=== PATIENT | male | born 1975 | race African-American/Black ===

== ENCOUNTER → 2018-02-03 | Outpatient (CLI) | payer OTHER ==
[2018-02-03 17:07] LABS: Anisocytosis Slight; Basophils % (A) 1 %; Eosinophils # (A) 0.2 k/uL (0-0.7); Eosinophils % (A) 2 %; HCT 41.5 % (39.0-53.0); HGB 12.7 gm/dL (13.0-17.5); Hypochromasia Moderate; Lymphocytes # (A) 1.8 k/uL (1.0-4.8); Lymphocytes % (A) 23 %; MCH 27.9 pg (25.0-35.0); MCHC 30.6 g/dL (31.0-37.0); MCV 90.9 fL (80.0-100.0); Mean Platelet Volume 7.3; Monocytes # (A) 0.8 k/uL (0-1.0); Monocytes % (A) 10 %; Neutrophils # (A) 4.7 k/uL (1.3-7.7); Neutrophils % (A) 62 %; Platelet Count 303 k/uL (150-450); RBC 4.56 m/uL (4.30-5.90); RDW 16.6 % (11.5-15.5); WBC 7.7 k/uL (3.8-10.6)
[2018-02-04 05:08] LABS: Hepatitis B Surface AB- Quant 3.5 mIU/mL; Hepatitis C IgG Antibody Non-Reactive (Non-Reactive)
[2018-02-04 08:26] LABS: Albumin 3.6 g/dL (3.80-4.90); Albumin/Globulin Ratio 1.64 (1.20-2.10); Anion Gap 5.4 mmol/L (4.00-12.00); Calcium 8.6 mg/dL (8.7-10.3); Carbon Dioxide 27.6 mmol/L (21.6-31.8); Globulin 2.2 g/dL (2.1-3.7); Potassium 4.9 mmol/L (3.5-5.5); Total Bilirubin 0.5 mg/dL (0.2-1.2); Total Protein 5.8 g/dL (6.2-8.2)
== END | disposition home or self-care (01) ==
LOC: LABWHC1 16:05
PROVIDERS: ATTEND Internal Medicine Gastroenterology
DX: K50.80 Crohn's disease of both small and large intestine without complications (principal)
CPT/HCPCS: 36415; 80053; 85025; 86480; 86706; 86803; 87340

== ENCOUNTER 2018-02-10 04:35 | Inpatient (IN) | payer OTHER ==
[~2018-02-10 04:35] MED LIST: GLYCOPYRROLATE 0.2 MG/ML 2 ML VIAL ONE; HYDROmorphone (PF) 1 MG/ML ONE; LIDOCAINE 1% INJ 10MG/ML (20 ML MDV) ONE; MIDAZOLAM 2 MG/2 ML VIAL ONE; NEOSTIGMINE 1 MG/ML 10 ML VIAL ONE; PROPOFOL 10 MG/ML 20 ML VIAL IV ONE; ROCURONIUM BROMIDE 10 MG/ML 10 ML VIAL IV ONE; SUCCINYLCHOLINE CHLORIDE VIAL 200 MG/10 ML VIAL IV ONE; fentaNYL (PF) 50 MCG/ML 2 ML AMP ONE
--- NOTE | 2018-02-10 05:38 | XR ---
EXAMINATION TYPE: XR KUB DATE OF EXAM: 02/10/2018 COMPARISON: 01/01/2016 HISTORY: Abdominal pain TECHNIQUE: 2 views upright FINDINGS: There are some dilated air and fluid-filled loops of bowel in the upper abdomen. There are fluid levels. I see no definite pneumoperitoneum. There are no pathologic calcifications over the kid neys. IMPRESSION: Dilated small bowel suggestive of mechanical small bowel obstruction. This appears new co mpared to old exam. No evidence of free air.
--- NOTE | 2018-02-10 06:07 | ED ---
Abdominal Pain HPI - General Chief Complaint: Abdominal Pain Stated Complaint: Abd Pain Hx Bowel Obstruction Time Seen by Provider: 02/10/18 06:06 Source: patient Mode of arrival: ambulatory Limitations: no limitations - History of Present Illness Initial Comments: 42-year-old male history of Crohn's disease recently admitted to outside facility for small bowel obstruction was discharged last week on prednisone for management of his Crohn's. Returns today with persistent abdominal pain, nausea without vomiting decreased appetite. Last bowel movement was earlier in the night. Patient denies any associated complaints including fevers, chills, chest pain or trouble breathing. - Related Data Home Medications Medication Instructions Recorded Confirmed Balsalazide Disodium 750 mg PO DAILY 01/08/17 01/08/17 Dicyclomine [Bentyl] 10 mg PO DAILY 01/08/17 01/08/17 Mesalamine [Delzicol] 800 mg PO TID 01/08/17 01/08/17 amLODIPine [Norvasc] 5 mg PO DAILY 01/08/17 01/08/17 oxyCODONE-APAP 7.5-325MG [Percocet 1 tab PO BID 01/08/17 01/08/17 7.5-325 mg] predniSONE 10 mg PO DAILY 01/08/17 01/08/17 Previous Rx's Medication Instructions Recorded Aspirin 81 mg PO DAILY #30 chew 01/10/17 Atorvastatin [Lipitor] 20 mg PO HS #30 tab 01/10/17 Metoprolol Tartrate [Lopressor] 25 mg PO BID #60 tab 01/10/17 Allergies Allergy/AdvReac Type Severity Reaction Status Date / Time No Known Allergies Allergy Verified 02/10/18 04:44 Review of Systems ROS Statement: Those systems with pertinent positive or pertinent negative responses have been documented in the HPI. ROS Other: All systems not noted in ROS Statement are negative. Past Medical History Past Medical History: Hypertension Additional Past Medical History / Comment(s): Crohn's History of Any Multi-Drug Resistant Organisms: None Reported Past Surgical History: Hernia Repair Additional Past Surgical History / Comment(s): COLONOSCOPY,RT INGUINAL HERNIA REPAIR,"PART OF RT GROIN MUSCLE AND RT TESTICAL REMOVED D/T HERNIA" Past Anesthesia/Blood Transfusion Reactions: No Reported Reaction Additional Past Anesthesia/Blood Transfusion Reaction / Comment(s): never had anesthesia Past Psychological History: No Psychological Hx Reported Smoking Status: Current every day smoker Past Alcohol Use History: None Reported Past Drug Use History: None Reported - Past Family History Father Additional Family Medical History / Comment(s): MURMUR Mother Family Medical History: Hypertension General Exam - General Exam Comments Initial Comments: Physical Exam GENERAL: Patient is well-developed and well-nourished. Patient appears uncomfortable, mildly dehydrated HENT: Normocephalic, Atraumatic. EYES: PERRL, EOMI PULMONARY: Unlabored respirations. No audible rales rhonchi or wheezing was noted. CARDIOVASCULAR: There is a regular rate and rhythm without any murmurs gallops or rubs. ABDOMEN: Obese, mildly distended, tenderness to palpation in all quadrants, there are normal active bowel sounds and all quadrants SKIN: Skin is clear with no lesions or rashes and otherwise unremarkable. : Deferred NEUROLOGIC: Patient is alert and oriented x3. Moving all extremities spontaneously MUSCULOSKELETAL: Normal extremities with adequate strength and full range of motion. No lower extremity swelling or edema. No calf tenderness. PSYCHIATRIC: Normal psychiatric evaluation. Limitations: no limitations Limitations: no limitations Course Vital Signs 02/10/18 04:42 Temperature 98.0 F Pulse Rate 77 Respiratory 18 Rate Blood Pressure 145/96 O2 Sat by Pulse 98 Oximetry Medical Decision Making - Medical Decision Making Patient was seen and evaluated, history is obtained from the patient. Labs and imaging were ordered. Neck sinus and KUB x-ray suggestive of small bowel obstruction Patient declining an NG tube. Patient agreeable to computed tomography scan. Labs reveal leukocytosis neutrophilia this is likely secondary to steroid use Discussed the Dr. Willingham who accepts the admission for small bowel obstruction , plan to treat with supportive care, requests a consult to Dr. Anne surgery. Patient care was discussed with Dr. Anne who will follow-up on computed tomography scan. - Lab Data Result diagrams: 02/10/18 05:17 02/10/18 05:17 Lab Results 02/10/18 02/10/18 Range/Units 05:17 05:17 WBC 11.6 H (3.8-10.6) k/uL RBC 4.91 (4.30-5.90) m/uL Hgb 13.8 (13.0-17.5) gm/dL Hct 43.6 (39.0-53.0) % MCV 88.9 (80.0-100.0) fL MCH 28.2 (25.0-35.0) pg MCHC 31.7 (31.0-37.0) g/dL RDW 16.5 H (11.5-15.5) % Plt Count 313 (150-450) k/uL Neutrophils % 76 % Lymphocytes % 13 % Monocytes % 8 % Eosinophils % 1 % Basophils % 0 % Neutrophils # 8.8 H (1.3-7.7) k/uL Lymphocytes # 1.5 (1.0-4.8) k/uL Monocytes # 0.9 (0-1.0) k/uL Eosinophils # 0.1 (0-0.7) k/uL Basophils # 0.1 (0-0.2) k/uL Anisocytosis Slight Sodium 140 (137-145) mmol/L Potassium 4.6 (3.5-5.1) mmol/L Chloride 107 (98-107) mmol/L Carbon Dioxide 23 (22-30) mmol/L Anion Gap 10 mmol/L BUN 17 (9-20) mg/dL Creatinine 0.94 (0.66-1.25) mg/dL Est GFR (CKD-EPI)AfAm >90 (>60 ml/min/1.73 sqM) Est GFR (CKD-EPI)NonAf >90 (>60 ml/min/1.73 sqM) Glucose 88 (74-99) mg/dL Calcium 9.7 (8.4-10.2) mg/dL Total Bilirubin 0.7 (0.2-1.3) mg/dL AST 16 L (17-59) U/L ALT 21 (21-72) U/L Alkaline Phosphatase 36 L (38-126) U/L Total Protein 6.9 (6.3-8.2) g/dL Albumin 3.5 (3.5-5.0) g/dL Amylase 40 (30-110) U/L Lipase 33 (23-300) U/L Disposition Clinical Impression: Small bowel obstruction Disposition: ADMITTED IP TO THIS [facility] Referrals: None,Stated [Primary Care Provider] - 1-2 days
[2018-02-10 06:32] LABS: Anisocytosis Slight; Basophils # (A) 0.1 k/uL (0-0.2); Basophils % (A) 0 %; Eosinophils # (A) 0.1 k/uL (0-0.7); Eosinophils % (A) 1 %; HCT 43.6 % (39.0-53.0); HGB 13.8 gm/dL (13.0-17.5); Lymphocytes # (A) 1.5 k/uL (1.0-4.8); Lymphocytes % (A) 13 %; MCH 28.2 pg (25.0-35.0); MCHC 31.7 g/dL (31.0-37.0); MCV 88.9 fL (80.0-100.0); Mean Platelet Volume 7.7; Monocytes # (A) 0.9 k/uL (0-1.0); Monocytes % (A) 8 %; Neutrophils # (A) 8.8 k/uL (1.3-7.7); Neutrophils % (A) 76 %; Platelet Count 313 k/uL (150-450); RBC 4.91 m/uL (4.30-5.90); RDW 16.5 % (11.5-15.5); WBC 11.6 k/uL (3.8-10.6)
[2018-02-10 06:51] LABS: ALT 21 U/L (21-72); AST 16 U/L (17-59); Albumin 3.5 g/dL (3.5-5.0); Alkaline Phosphatase 36 U/L (38-126); Amylase 40 U/L (30-110); Anion Gap 10 mmol/L; Blood Urea Nitrogen 17 mg/dL (9-20); Calcium 9.7 mg/dL (8.4-10.2); Carbon Dioxide 23 mmol/L (22-30); Chloride 107 mmol/L (98-107); Glucose 88 mg/dL (74-99); Lipase 33 U/L (23-300); Potassium 4.6 mmol/L (3.5-5.1); Sodium 140 mmol/L (137-145); Total Bilirubin 0.7 mg/dL (0.2-1.3); Total Protein 6.9 g/dL (6.3-8.2)
[2018-02-10] MEDS ORDERED: SODIUM CHLORIDE 0.9% 1,000 ML IV ONE (06:58)
[2018-02-10] MEDS ORDERED: MORPHINE SULFATE 4 MG/ML SYRINGE IV PRN (07:28)
[2018-02-10] MEDS ORDERED: NALOXONE 0.4 MG/ML 1 ML VIAL IV PRN (07:28)
[2018-02-10] MEDS: SODIUM CHLORIDE 0.9% 1,000 ML IV SCH ×2 (07:31→16:32)
--- NOTE | 2018-02-10 07:57 | CT ---
EXAMINATION TYPE: CT abdomen pelvis w con DATE OF EXAM: 02/10/2018 COMPARISON: 12/06/2010 HISTORY: 42-year-old male small bowel obstruction on x-ray, pain, further evaluation History of Crohn 's disease TECHNIQUE: Contiguous axial scanning of the abdomen and pelvis following administration of 100 ml Iso yevgeniy 300 IV contrast. Delayed images through the kidneys and coronal/sagittal reconstructions perform ed. CT DLP: 2469.40 mGycm Automated exposure control for dose reduction was used. FINDINGS: Heart normal size without pericardial effusion. Lung bases clear without oral effusion. No focal liver lesion or biliary ductal dilatation. Portal venous system is patent. Gallbladder appears collapsed. Suspected tiny calcified lymph node in the oh hepatis or vascular c alcification. Adrenal glands, spleen, and pancreas appear within normal limits. Cortical cysts in the right kidney measuring up to 2.3 cm, new or larger from 12/06/2010. An intermedi ate density 9 mm cortical lesion anterior left kidney at the mid to lower pole also appears new. A co mplicated cyst is possible. Six-month follow-up ultrasound recommended to exclude any enlarging renal lesion. No free air or free fluid. However, there is diffuse small bowel dilatation with small bowel loops in the left side of the abdomen measuring up to 4.5 cm and in the right side of the abdomen measuring u p to 7.8 cm prior to the transition point noted at the terminal ileum, axial image 65. Air-fluid leve ls are present. 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 Right mid and lower quadrant mesenteric lymphadenopathy measuring up to 1.9 cm and 2.0 cm. Tiny fatty umbilical hernia. Bladder not distended. No abnormal fluid collection in the pelvis or pelvic lymphadenopathy. Bones: There is mild degenerative spurring at the hips and additional mild degenerative spurring at t he SI joints. No osseous destructive process. IMPRESSION: 1. HIGH-GRADE SMALL BOWEL OBSTRUCTION POSSIBLY SECONDARY TO A INFLAMMATORY DISTAL ILEAL STRICTURE. SM ALL BOWEL LOOPS ARE DILATED UP TO 7.8 CM. 2. [id number] ACTIVE DISTAL CROHN'S ILEITIS. THERE ARE WHAT APPEAR TO BE 3 ENTEROENTERIC FISTUL AT THE DISTAL ILEAL TRANSITION POINT COMPATIBLE WITH CHRONIC COMPLICATIONS OF CROHN'S DISEASE. 3. SOME REACTIVE RIGHT-SIDED LYMPHADENOPATHY MEASURING UP TO 2.0 CM. 4. SIX-MONTH FOLLOW-UP RENAL ULTRASOUND RECOMMENDED TO REASSESS AN INTERMEDIATE DENSITY 9 MM LEFT KID PAPA LESION, POSSIBLE COMPLICATED CYST.
[2018-02-10 08:51] LABS: Appearance,Urine Clear (Clear); Bilirubin,Urine Negative (Negative); Blood,Urine Negative (Negative); Color,Urine Yellow; Glucose,Urine (UA) Negative (Negative); Ketones,Urine Negative (Negative); Leukocyte Esterase,Urine Negative (Negative); Mucus,Urine Occasional /hpf; Nitrite,Urine Negative (Negative); Protein,Urine 1+ (Negative); RBC,Urine 3 /hpf (0-5); Squamous Epithelial Cell,Urine 1 /hpf (0-4)
[2018-02-10 09:03] LABS: Specific Gravity,Urine >1.050 (1.001-1.035)
[2018-02-10] MEDS: HYDROmorphone 1 MG/ML 1 ML SYRINGE IVP PRN ×3 (12:32→21:08)
--- NOTE | 2018-02-10 13:34 | P.GSCN ---
History of Present Illness Consult date: 02/10/18 Reason for Consult: Abdominal pain History of present illness: 42-year-old who presented to the emergency room to be evaluated for abdominal pain similar to his prior episodes of small bowel obstruction. Patient has a history of having 5 bowel obstructions since the age of 15. Stated that he was just at [facility] last week treated for a small bowel obstruction with steroids and bowel rest then discharged. Patient stated he returned continues to have persistent abdominal pain nauseated without vomiting decrease appetite. Patient stated that he has a history of Crohn's disease and has frequent loose stools and follows with Dr. Douglas GI service patient denied any fever chills denied any blood in stool. Patient states he did see Dr. [facility] service last week and is scheduled next week to have an MRI done of the abdomen and pelvis Patient states since the age of 15 and he was told he had Crohn's disease with diverticulitis Reviewing computerized record indicating 01/23/2016 patient had a colonoscopy done showed no obvious pathology showed stenosis at the IC valve area scope could not be advanced into the terminal ileum Review of Systems Essentially unremarkable except as mentioned in the present Past Medical History Past Medical History: GI Bleed, Hypertension, Myocardial Infarction ([place]) Additional Past Medical History / Comment(s): Crohn's/chronic diarrhea, lower GI bleed, pt states he had a [place] 12/2016, past finger fractures. Last Myocardial Infarction Date:: 01/08/17 per pt History of Any Multi-Drug Resistant Organisms: None Reported Past Surgical History: Hernia Repair Additional Past Surgical History / Comment(s): COLONOSCOPIES, LAPAROSCOPIC RT INGUINAL HERNIA REPAIR WITH MESH AND LYSIS OF ADHESIONS, 2016 CARDIAC CATH- NORMAL. Past Anesthesia/Blood Transfusion Reactions: No Reported Reaction Additional Past Anesthesia/Blood Transfusion Reaction / Comm: never had anesthesia Smoking Status: Current every day smoker - Past Family History Father Additional Family Medical History / Comment(s): MURMUR Mother Family Medical History: Hypertension Additional Family Medical History / Comment(s): MATERNAL GRANDFATHER AT THE AGE OF 45 YRS FROM [place] AND WAS DIABETIC. Medications and Allergies Home Medications Medication Instructions Recorded Confirmed Type predniSONE 10 mg PO QID 01/08/17 02/10/18 History Allergies Allergy/AdvReac Type Severity Reaction Status Date / Time No Known Allergies Allergy Verified 02/10/18 07:47 Surgical - Exam Vital Signs Temp Pulse Resp BP Pulse Ox 98.0 F 77 18 145/96 98 02/10/18 04:42 02/10/18 04:42 02/10/18 04:42 02/10/18 04:42 02/10/18 04:42 GENERAL APPEARANCE: 42-year-old male patient is alert, oriented, in no acute distress. Just received pain medication reports a nausea sensation diffuse abdominal pain VITAL SIGNS: Reviewed HEENT: Head is normocephalic and atraumatic. Pupils are equal and reactive. The nares are patent. Oropharynx is clear without lesions. NECK: Supple without lymphadenopathy. Traches midline. HEART: S1, S2. Regular rate and rhythm. Denying chest pain LUNGS: on room air no shortness of breath adequate air movement ABDOMEN: Soft, obese diffuse tenderness, nondistended with good bowel sounds. No peritoneal signs. No palpable organomegaly or masses. States had a bowel movement this morning no blood noted EXTREMITIES: Normal skin color and turgor. No cyanosis, rash, ulceration, clubbing or edema. Radial pedal pulses are 2/4 bilaterally. NEUROLOGICAL: No focal deficits. Strength and sensation are grossly intact. Results - Labs 02/10/18 05:17 02/10/18 05:17 Abnormal Lab Results - Last 24 Hours (Table) 02/10/18 02/10/18 02/10/18 Range/Units 05:17 05:17 08:30 WBC 11.6 H (3.8-10.6) k/uL RDW 16.5 H (11.5-15.5) % Neutrophils # 8.8 H (1.3-7.7) k/uL AST 16 L (17-59) U/L Alkaline Phosphatase 36 L (38-126) U/L Ur Specific [place] >1.050 H (1.001-1.035) Urine Protein 1+ H (Negative) Urine Mucus Occasional H (None) /hpf Diabetes panel 02/10/18 Range/Units 05:17 Sodium 140 (137-145) mmol/L Potassium 4.6 (3.5-5.1) mmol/L Chloride 107 (98-107) mmol/L Carbon Dioxide 23 (22-30) mmol/L BUN 17 (9-20) mg/dL Creatinine 0.94 (0.66-1.25) mg/dL Glucose 88 (74-99) mg/dL Calcium 9.7 (8.4-10.2) mg/dL AST 16 L (17-59) U/L ALT 21 (21-72) U/L Alkaline Phosphatase 36 L (38-126) U/L Total Protein 6.9 (6.3-8.2) g/dL Albumin 3.5 (3.5-5.0) g/dL Calcium panel 02/10/18 Range/Units 05:17 Calcium 9.7 (8.4-10.2) mg/dL Albumin 3.5 (3.5-5.0) g/dL Pituitary panel 02/10/18 Range/Units 05:17 Sodium 140 (137-145) mmol/L Potassium 4.6 (3.5-5.1) mmol/L Chloride 107 (98-107) mmol/L Carbon Dioxide 23 (22-30) mmol/L BUN 17 (9-20) mg/dL Creatinine 0.94 (0.66-1.25) mg/dL Glucose 88 (74-99) mg/dL Calcium 9.7 (8.4-10.2) mg/dL Adrenal panel 02/10/18 Range/Units 05:17 Sodium 140 (137-145) mmol/L Potassium 4.6 (3.5-5.1) mmol/L Chloride 107 (98-107) mmol/L Carbon Dioxide 23 (22-30) mmol/L BUN 17 (9-20) mg/dL Creatinine 0.94 (0.66-1.25) mg/dL Glucose 88 (74-99) mg/dL Calcium 9.7 (8.4-10.2) mg/dL Total Bilirubin 0.7 (0.2-1.3) mg/dL AST 16 L (17-59) U/L ALT 21 (21-72) U/L Alkaline Phosphatase 36 L (38-126) U/L Total Protein 6.9 (6.3-8.2) g/dL Albumin 3.5 (3.5-5.0) g/dL Assessment and Plan Assessment: Impression Present on admission diffuse abdominal pain suspect due to high-grade small bowel obstruction secondary to inflammatory distal ileal stricture CAT scan abdomen and pelvis show evidence of a high-grade small bowel obstruction History of Crohn's disease Prior history of a bowel obstruction recurrent Morbid obesity BMI 40 CAT scan abdomen pelvis report reviewed mild to moderate active distal Crohn's ileitis. Appeared to be fistulas at the distal ileum transition point compatible with chronic complications of according Crohn's disease Plan Insert nasogastric tube connected to suction Bowel rest IV fluid for hydration Consult GI service DVT and GI prophylaxis Pain control Surgical consultation dictated for dr rivas The above impression and plan of care have been discussed and directed by signing physician. Deepika Beltran nurse practitioner acting as scribe for signing physician.
--- NOTE | 2018-02-10 17:03 | HP ---
HISTORY AND PHYSICAL CHIEF COMPLAINT: A 42-year-old male with abdominal pain. HISTORY OF PRESENT ILLNESS: 42-year-old presents to the emergency room with abdominal pain, possible small-bowel obstruction, has had 5 bowel obstructions before. He has history of Crohn's disease. Denies any fever, chills, blood in the stools, refused an NG tube in the office. REVIEW OF SYSTEMS: Fourteen point review of systems negative except for mentioned in HPI. MEDICAL HISTORY: History of GI bleed, hypertension, Crohn's disease, possible myocardial infarction, hernia repairs, colonoscopies, laparoscopic hernia, inguinal hernia repair with mesh, lysis of adhesions in 2017, cardiac cath normal. FAMILY HISTORY: Father murmur. Mother hypertension. MEDICATIONS: Home medicines prednisone. ALLERGIES: Negative. HISTORY OF PRESENT ILLNESS: This is a 42-year-old male, obese. Vital signs reviewed. Cardiovascular S1, S2. Heart S1, S2. Lungs are clear. Abdomen is soft. Hematology negative Homans. Psych fair mood and affect. LABS: Reviewed. Creatinine 0.94, BUN is 17. ASSESSMENT: 1. High-grade small-bowel obstruction secondary to inflammatory distal ileal stricture. 2. Crohn's disease. 3. Morbid obesity. 4. Possible fistulas at distal ileum, possible surgery will be needed. Awaiting for surgical recommendations at this point. Continue home medications. IV hydration. NG tube. Please see further orders. MMODL / IJN: [id number] /
[2018-02-11] MEDS: HYDROmorphone 1 MG/ML 1 ML SYRINGE IVP PRN ×6 (01:19→22:03)
[2018-02-11] MEDS: SODIUM CHLORIDE 0.9% 1,000 ML IV SCH ×3 (01:20→22:07)
[2018-02-11 07:40] LABS: Anisocytosis Slight; Basophils % (A) 0 %; Eosinophils # (A) 0.2 k/uL (0-0.7); Eosinophils % (A) 3 %; HCT 40.4 % (39.0-53.0); HGB 12.3 gm/dL (13.0-17.5); Hypochromasia Slight; Lymphocytes # (A) 2.2 k/uL (1.0-4.8); Lymphocytes % (A) 27 %; MCH 27.6 pg (25.0-35.0); MCHC 30.5 g/dL (31.0-37.0); MCV 90.5 fL (80.0-100.0); Mean Platelet Volume 7.2; Monocytes # (A) 0.7 k/uL (0-1.0); Monocytes % (A) 8 %; Neutrophils # (A) 4.9 k/uL (1.3-7.7); Neutrophils % (A) 59 %; Platelet Count 303 k/uL (150-450); RBC 4.46 m/uL (4.30-5.90); RDW 16.3 % (11.5-15.5); WBC 8.2 k/uL (3.8-10.6)
[2018-02-11 07:49] LABS: ALT 22 U/L (21-72); AST 12 U/L (17-59); Albumin 2.7 g/dL (3.5-5.0); Alkaline Phosphatase 27 U/L (38-126); Anion Gap 6 mmol/L; Blood Urea Nitrogen 15 mg/dL (9-20); Calcium 8.8 mg/dL (8.4-10.2); Carbon Dioxide 24 mmol/L (22-30); Chloride 107 mmol/L (98-107); Glucose 65 mg/dL (74-99); Sodium 137 mmol/L (137-145); Total Bilirubin 1.2 mg/dL (0.2-1.3); Total Protein 5.7 g/dL (6.3-8.2)
[2018-02-11] MEDS: PANTOPRAZOLE 40 MG/10 ML VIAL IVP SCH (07:59)
--- NOTE | 2018-02-11 08:32 | P.PN ---
Progress Note - Text Progress Note Date: 02/11/18 Patient's CAT scan is reviewed. He has a high-grade obstruction of the ileum. The patient's had approximately 6 possible missions for bowel obstruction over the last few months. I discussed with the patient that he needs to undergo exploratory laparotomy and small bowel resection due to his chronic obstruction. The patient will be scheduled for surgery in the a.m.
[2018-02-11 09:42] VITALS: BMI 39.8
[2018-02-11] MEDS: NICOTINE 21MG/24HR PATCH TRANSDERM SCH (10:30)
--- NOTE | 2018-02-11 11:21 | P.CONS ---
History of Present Illness - Reason for Consult Consult date: 02/11/18 history of Crohn's Requesting physician: Raphael Urbina - Chief Complaint abdominal pain - History of Present Illness 42-year-old male with a history of stricturing Crohn's disease admitted with acute abdominal pain. Recently seen in the GI office regarding these symptoms as well as recent hospitalization at [facility] within the past month for partial small bowel obstruction with plans for MRI enterography this weekand discussion of biologic therapy. CT abdomen reported high-grade small bowel obstruction secondary to inflammatory distal ileal stricture small bowel loops dilated up to 7.8 cm. Mild to moderate active distal Crohn's ileitis. Appears to be 3 enteroenteric fistulas at the distal ileal transition point compatible with chronic applications of Crohn's disease. He is passing flatus small amount of liquid nonbloody stool. Abdominal pain centered mostly to the right lower quadrant.afebrile. White count 8.2. hemoglobin 12.3. Review of Systems Constitutional: Denies fever, chills, sweats, weight gain, or loss. HEENT: Negative for migraines, blurred vision or loss, earaches, drainage, tinnitus, oral mucosal lesions, dysphagia, or odynophagia. Cardiac: Negative for chest pain, arrhythmias, or palpitation. Respiratory: Negative for shortness of breath, hemoptysis, cough, or sputum production. Gastrointestinal: See HPI for pertinent findings. Genitourinary: Negative for hematuria, urgency, frequency, polyuria, dysuria, or penile discharge. Musculoskeletal: Negative for muscle aches, swelling, arthritis, and arthralgias. Neurologic: Negative for stroke or TIA. Endocrine: Negative for thyroid problems. Skin: Negative for rash or itching. Psychiatric: Negative history for depression and anxiety Past Medical History Past Medical History: GI Bleed, Hypertension, Myocardial Infarction ([place]) Additional Past Medical History / Comment(s): Crohn's/chronic diarrhea, lower GI bleed, pt states he had a [place] 12/2016, past finger fractures. Last Myocardial Infarction Date:: 01/08/17 per pt History of Any Multi-Drug Resistant Organisms: None Reported Past Surgical History: Hernia Repair Additional Past Surgical History / Comment(s): COLONOSCOPIES, LAPAROSCOPIC RT INGUINAL HERNIA REPAIR WITH MESH AND LYSIS OF ADHESIONS, 2016 CARDIAC CATH- NORMAL. Past Anesthesia/Blood Transfusion Reactions: No Reported Reaction Additional Past Anesthesia/Blood Transfusion Reaction / Comm: never had anesthesia Smoking Status: Current every day smoker - Past Family History Father Additional Family Medical History / Comment(s): MURMUR Mother Family Medical History: Hypertension Additional Family Medical History / Comment(s): MATERNAL GRANDFATHER AT THE AGE OF 45 YRS FROM [place] AND WAS DIABETIC. Medications and Allergies Home Medications Medication Instructions Recorded Confirmed Type predniSONE 10 mg PO QID 01/08/17 02/10/18 History Allergies Allergy/AdvReac Type Severity Reaction Status Date / Time No Known Allergies Allergy Verified 02/10/18 07:47 Physical Exam Vitals: Vital Signs Temp Pulse Resp BP Pulse Ox 02/11/18 07:10 98.6 F 72 16 143/63 99 02/11/18 00:00 16 02/10/18 23:00 98.6 F 64 16 143/81 97 02/10/18 20:00 98.7 F 78 18 121/64 96 02/10/18 14:40 98.4 F 63 17 135/82 97 Intake and Output 02/10/18 02/11/18 02/11/18 22:59 06:59 14:59 Intake Total 1000 Balance 1000 Intake: Intake, IV Titration 1000 Amount Sodium Chloride 0.9% 1, 1000 000 ml @ 100 mls/hr IV . Q10H [facility] Rx#:[id number] Other: Voiding Method Toilet # Voids 2 Weight 140.614 kg 140.614 kg General appearance: The patient is alert, oriented, in no acute distress. HET: Head is normocephalic and atraumatic. Pupils are equal and reactive. Oropharynx is clear without lesions. Neck: Supple without lymphadenopathy. Trachea midline. Heart: S1 S2. Regular rate and rhythm. Lungs: No crackles or wheezes are heard. Abdomen: Soft, tenderness right lower quadrant hypoactive bowel sounds mildly bloated. No peritoneal signs. No palpable organomegaly or masses. Extremities: Normal skin color and turgor. No cyanosis, rash, ulceration, clubbing, or edema. Radial and pedal pulses are 2/4 bilaterally. Neurological: No focal deficits. Strength and sensation are grossly intact. Results CBC & Chem 7: 02/11/18 06:44 02/11/18 06:44 Labs: Abnormal Lab Results - Last 24 Hours (Table) 02/11/18 02/11/18 Range/Units 06:44 06:44 Hgb 12.3 L (13.0-17.5) gm/dL MCHC 30.5 L (31.0-37.0) g/dL RDW 16.3 H (11.5-15.5) % Glucose 65 L (74-99) mg/dL AST 12 L (17-59) U/L Alkaline Phosphatase 27 L (38-126) U/L Total Protein 5.7 L (6.3-8.2) g/dL Albumin 2.7 L (3.5-5.0) g/dL CT scan - abdomen: report reviewed (Dr. Sutton) Assessment and Plan (1) Small bowel obstruction Narrative/Plan: 42-year-old male limited with acute abdominal pain secondary to severe stricturing Crohn's disease small bowel obstruction with radiographic imaging suggestive of enteroenteric fistulas at the distal ileal transition point. Current Visit: Yes Status: Acute Code(s): K56.609 - UNSP INTESTNL OBST, UNSP TO PARTIAL VERSUS COMPLETE OBST SNOMED Code(s): 747762577 (2) Crohns disease Current Visit: Yes Status: Acute Code(s): K50.90 - CROHN'S DISEASE, UNSPECIFIED, WITHOUT COMPLICATIONS SNOMED Code(s): 96380324 Plan: 1. Agree with scheduled surgery tomorrow. We'll follow up in the office after surgery discussion of outpatient Biologics therapy. MRI/enterography on hold for now. We'll follow with you. Thank you for this kind referral and the opportunity to participate in the care of your patient. This consultation was discussed with Dr. Sutton. The impression and plan of care have been directed as dictated.
--- NOTE | 2018-02-11 13:47 | P.PN ---
Subjective Progress Note Date: 02/11/18 -42year-old male seen in follow-up visit at bedside questions answered about the surgery planned tomorrow undergo exploratory laparotomy and small bowel resection due to patient's chronic bowel obstruction. Patient has a high- grade obstruction of the ileum. Patient has had at least 5 admissions for bowel obstruction the most recent one was a week ago patient continues to have abdominal discomfort in the right lower quadrant remains afebrile white count 8. Patient also has a history of mild to moderate active distal Crohn's ileitis Objective - Vital Signs Vital signs: Vital Signs Temp 98.6 F 02/11/18 07:10 Pulse 72 02/11/18 07:10 Resp 16 02/11/18 07:10 BP 143/63 02/11/18 07:10 Pulse Ox 99 02/11/18 07:10 Intake & Output 02/10/18 02/11/18 02/11/18 18:59 06:59 18:59 Intake Total 500 1000 Balance 500 1000 Weight 140.614 kg 140.614 kg Intake: Intake, IV Titration 500 1000 Amount Sodium Chloride 0.9% 1, 500 1000 000 ml @ 100 mls/hr IV . Q10H [facility] Rx#:[id number] Other: Voiding Method Toilet # Voids 2 - Exam Physical exam Resting in bed continues to report right lower quadrant abdominal pain Lungs adequate air movement on room air Heart S1-S2 audible regular Abdomen obese soft mild tenderness right lower quadrant not distended bowel tones present stated had brown watery stool this morning currently nothing by mouth except for ice chips no nausea no vomiting Extremities no edema - Labs CBC & Chem 7: 02/11/18 06:44 02/11/18 06:44 Labs: Abnormal Lab Results - Last 24 Hours (Table) 02/11/18 02/11/18 Range/Units 06:44 06:44 Hgb 12.3 L (13.0-17.5) gm/dL MCHC 30.5 L (31.0-37.0) g/dL RDW 16.3 H (11.5-15.5) % Glucose 65 L (74-99) mg/dL AST 12 L (17-59) U/L Alkaline Phosphatase 27 L (38-126) U/L Total Protein 5.7 L (6.3-8.2) g/dL Albumin 2.7 L (3.5-5.0) g/dL Assessment and Plan Assessment: Impression Present on admission diffuse abdominal pain suspect due to high-grade small bowel obstruction secondary to inflammatory distal ileal stricture CAT scan abdomen and pelvis show evidence of a high-grade small bowel obstruction History of Crohn's disease Prior history of a bowel obstruction recurrent Morbid obesity BMI 40 CAT scan abdomen pelvis report reviewed mild to moderate active distal Crohn's ileitis. Appeared to be fistulas at the distal ileum transition point compatible with chronic application of Crohn's disease Plan Insert nasogastric tube connected to suction patient refused Bowel rest IV fluid for hydration Consult GI service noted and appreciated DVT and GI prophylaxis Pain control Nothing by mouth except ice chips for planned surgical procedure exploratory laparotomy small bowel resection tomorrow The above impression and plan of care have been discussed and directed by signing physician. Deepika Beltran nurse practitioner acting as scribe for signing physician.
--- NOTE | 2018-02-11 23:43 | PN ---
PROGRESS NOTE SUBJECTIVE: 42-year-old male, small bowel obstruction. Discussed case with Dr. Urbina who is going to take the patient to surgery tomorrow. He has had 6 bowel obstructions in the last few months. Six hospitalizations. Cardiovascular S1-S2. Lungs clear. GI soft, increased bowel sounds. Diffuse tenderness. Hematology negative Homans. ASSESSMENT: Small-bowel obstruction, recurrent in nature with chronic abdominal pain, nausea, vomiting, dehydration, electrolyte abnormalities. Patient will be set up for surgery for tomorrow morning for exploratory laparotomy with adhesion repair. MMODL / IJN: [id number] /
[2018-02-12] MEDS ORDERED: HYDROmorphone 1 MG/ML 1 ML SYRINGE IVP STA ×2 (01:14→22:17)
[2018-02-12] MEDS: HYDROmorphone 1 MG/ML 1 ML SYRINGE IVP PRN ×4 (05:54→20:15)
[2018-02-12] MEDS: PANTOPRAZOLE 40 MG/10 ML VIAL IVP SCH (07:17)
[2018-02-12] MEDS: NICOTINE 21MG/24HR PATCH TRANSDERM SCH (07:17)
[2018-02-12] MEDS: SODIUM CHLORIDE 0.9% 1,000 ML IV SCH ×2 (07:18→20:11)
[2018-02-12 08:44] LABS: Anisocytosis Slight; Basophils % (A) 0 %; Eosinophils # (A) 0.1 k/uL (0-0.7); Eosinophils % (A) 2 %; HCT 39.2 % (39.0-53.0); HGB 12.5 gm/dL (13.0-17.5); Lymphocytes # (A) 1.6 k/uL (1.0-4.8); Lymphocytes % (A) 18 %; MCH 28.4 pg (25.0-35.0); MCHC 31.9 g/dL (31.0-37.0); Mean Platelet Volume 7.3; Monocytes # (A) 0.7 k/uL (0-1.0); Monocytes % (A) 8 %; Neutrophils # (A) 6.3 k/uL (1.3-7.7); Neutrophils % (A) 70 %; Platelet Count 315 k/uL (150-450)
[2018-02-12 08:52] LABS: ALT 20 U/L (21-72); AST 15 U/L (17-59); Albumin 2.7 g/dL (3.5-5.0); Alkaline Phosphatase 28 U/L (38-126); Anion Gap 5 mmol/L; Blood Urea Nitrogen 10 mg/dL (9-20); Calcium 8.6 mg/dL (8.4-10.2); Carbon Dioxide 24 mmol/L (22-30); Chloride 108 mmol/L (98-107); Glucose 73 mg/dL (74-99); Potassium 4.4 mmol/L (3.5-5.1); Sodium 137 mmol/L (137-145); Total Bilirubin 0.8 mg/dL (0.2-1.3); Total Protein 5.7 g/dL (6.3-8.2)
[2018-02-12] MEDS ORDERED: LIDOCAINE 1% 20 ML VIAL (10MG/ML) FOR IV START INTRADERMA PRN (13:28)
[2018-02-12] MEDS ORDERED: fentaNYL (PF) 50 MCG/ML 20 ML VIAL IVP PRN (13:28)
[2018-02-12] MEDS ORDERED: MIDAZOLAM 2 MG/2 ML VIAL IV PRN ×2 (13:28→19:25)
[2018-02-12] MEDS ORDERED: IV FLUID CONTINUATION 1,000 ML IV ONE (13:42)
[2018-02-12] MEDS ORDERED: LACTATED RINGERS 1,000 ML IV ONE (14:29)
[2018-02-12] MEDS ORDERED: ceFAZolin 1,000 MG VIAL IVPB ONE (14:31)
[2018-02-12] MEDS ORDERED: ONDANSETRON 4 MG/2 ML VIAL IVP PRN (16:00)
[2018-02-12] MEDS ORDERED: METOCLOPRAMIDE 5 MG/ML 2 ML VIAL IVP PRN (16:00)
[2018-02-12] MEDS ORDERED: HYDROmorphone 1 MG/ML 1 ML SYRINGE IVP ONE (16:17)
[2018-02-12] MEDS: fentaNYL (PF) 50 MCG/ML 2 ML AMP IV PRN ×2 (16:23→16:45)
[2018-02-12] MEDS ORDERED: NALOXONE 0.4 MG/ML 1 ML VIAL IV PRN (17:19)
[2018-02-12] MEDS: ROPIVACAINE 250 MG, HYDROMORPHONE (PF) 5 MG in SODIUM CHLORIDE 0.9% 200 ML EPIDURAL PRN (18:05)
--- NOTE | 2018-02-12 18:30 | P.OP ---
Date of Procedure: 02/12/18 Preoperative Diagnosis: Small bowel obstruction secondary to Crohn's disease Postoperative Diagnosis: Small bowel obstruction secondary to Crohn's disease Procedure(s) Performed: Exploratory laparotomy Small bowel resection Ileocolectomy Partial omentectomy Anesthesia: SINA Surgeon: Raphael Urbina Estimated Blood Loss (ml): 100 Pathology: other (Small bowel, right colon, omentum) Condition: stable Disposition: PACU Description of Procedure: The patient's placed in the operative table in the supine position. He received general anesthesia. His abdomen was prepped and draped usual fashion. The abdomen was entered through a midline incision. The Bookwalter retractors placed a wound. There was grossly dilated small bowel. The small bowel measured approximately 10 cm in diameter. The small bowel was run to the level of the terminal ileum and just proximal to the cecum there was a matted area of small bowel consistent with Crohn's disease. There were several other small loops of small bowel attached to the inflammatory mass. There appeared to be a fistula between the small bowel loops. The small bowel was transected just proximal to the mass. Using the ROXY stapler. And then a loop of small bowel which was densely adhesed to the mass was dissected. There appeared to be evidence of fistula. This area was transected approximately distally with the ROXY stapler and then reanastomosed using the ROXY and TA stapler in a side-to -side functional end-to-end staple anastomosis. A 3-0 GI silk sutures uses crotch stitch. The right colon was mobilized. The right colon was mobilized level hepatic flexure this brought the wound. Next using the LigaSure device the mesentery the bowel was divided. And then the right colon was transected with a GI stapler. The specimen sent to pathology. Next using the ROXY and TA staplers a [id number] functional end-to-end staple anastomosis created. A 3- 0 GI silk sutures uses crotch stitch. The anastomosis was visualized. There appeared to be some potential ischemia of the anastomosis. At this point the anastomosis was taken down. The bowel was transected proximally distally to the anastomosis. Using the LigaSure device the mesentery the bowel was resected. A new [id number] functional end- to-end staple anastomosis created using ROXY and TA stapler. A 3-0 GI silk sutures uses crotch stitch. The anastomosis appeared viable. A small portion of omentum was then transected using the Enseal device. This was sent to pathology. The abdomen was irrigated there is no bleeding seen. The fascia was closed with looped PDS suture. A SHIRLEY drains placed in the subcutaneous area and brought through separate stab incision. The skin was closed bipin. Silverlon dressing was applied. Patient top she will was sent to recovery and solution.
[2018-02-12] MEDS ORDERED: ONDANSETRON 4 MG/2 ML VIAL IVP ONE (19:25)
[2018-02-12] MEDS ORDERED: DEXAMETHASONE SOD PHOSPHATE 10 MG/ML 1 ML VIAL IV ONE (19:25)
[2018-02-12] MEDS ORDERED: LACTATED RINGERS 1,000 ML IV SCH (19:25)
[2018-02-12] MEDS ORDERED: HYDROmorphone 1 MG/ML 1 ML SYRINGE IVP PRN (19:25)
[2018-02-12] MEDS: HEPARIN SODIUM,PORCINE 5,000 UNIT/ML 1 ML VIAL SQ SCH (19:31)
[2018-02-12] MEDS: LACTATED RINGERS 1,000 ML IV SCH (19:31)
[2018-02-12] MEDS: D5-0.45% NACL WITH KCL 20MEQ/L 1,000 ML IV SCH (20:09)
[2018-02-12] MEDS: KETOROLAC 30 MG/ML 1 ML VIAL IVP PRN (20:15)
[2018-02-12] MEDS: ALVIMOPAN 12 MG CAPSULE PO SCH (21:59)
[2018-02-12] MEDS: FAMOTIDINE 20 MG/2 ML VIAL IV SCH (21:59)
[2018-02-12] MEDS ORDERED: ACETAMINOPHEN IV (For NPO) 1,000 MG in EMPTY BAG 1 BAG IVPB STA (22:18)
[2018-02-12] MEDS ORDERED: SODIUM CHLORIDE 0.9% 1,000 ML IV ONE (22:18)
--- NOTE | 2018-02-12 23:53 | PN ---
PROGRESS NOTE SUBJECTIVE: A 42-year-old white male, with small bowel obstruction, male. He is having surgery today. He is complaining of increasing abdominal pain. Cardiovascular, S1, S2. GI, increased bowel sounds x4. Hematology negative Homans. ASSESSMENT: 1. Small-bowel obstruction. 2. Acute abdominal pain. PLAN: Pain control. Surgery today per Dr. Urbina. MMODL / IJN: [id number] /
[2018-02-13] MEDS: HEPARIN SODIUM,PORCINE 5,000 UNIT/ML 1 ML VIAL SQ SCH ×4 (01:18→23:39)
[2018-02-13] MEDS: D5-0.45% NACL WITH KCL 20MEQ/L 1,000 ML IV SCH ×3 (01:19→18:40)
[2018-02-13] MEDS: KETOROLAC 30 MG/ML 1 ML VIAL IVP PRN ×2 (03:04→21:13)
--- NOTE | 2018-02-13 06:54 | P.PN ---
Progress Note - Text Progress Note Date: 02/13/18 Mr. Umaña is postop day one catheter day #2. He reports doing well overnight but still having some discomfort in his abdomen. His epidural catheter zoning at 80 ML's per hour. I increase his epidural catheter rate to 12 miles per hour and given 8 mL boluses morning. He is used 2 doses of when necessary pain medications since his operation. He denies any lower extremity weakness or numbness. Epidural site is clean and dry. We'll continue to follow the patient. Do not discuss continued epidural catheter patient is on anticoagulation and must be held the appropriate time. If unsure please contact anesthesia department
[2018-02-13] MEDS: HYDROmorphone 1 MG/ML 1 ML SYRINGE IVP PRN ×5 (08:59→21:13)
[2018-02-13 09:00] LABS: Anisocytosis Slight; Basophils % (A) 0 %; Eosinophils % (A) 0 %; HCT 40.3 % (39.0-53.0); Hypochromasia Moderate; Lymphocytes # (A) 1.5 k/uL (1.0-4.8); Lymphocytes % (A) 15 %; MCH 27.4 pg (25.0-35.0); MCHC 29.8 g/dL (31.0-37.0); MCV 91.9 fL (80.0-100.0); Mean Platelet Volume 7.4; Monocytes # (A) 0.8 k/uL (0-1.0); Monocytes % (A) 8 %; Neutrophils # (A) 7.9 k/uL (1.3-7.7); Neutrophils % (A) 75 %; Platelet Count 302 k/uL (150-450); RBC 4.38 m/uL (4.30-5.90); WBC 10.5 k/uL (3.8-10.6)
[2018-02-13] MEDS: PANTOPRAZOLE 40 MG/10 ML VIAL IVP SCH (09:04)
[2018-02-13] MEDS: NICOTINE 21MG/24HR PATCH TRANSDERM SCH (09:04)
[2018-02-13] MEDS: ALVIMOPAN 12 MG CAPSULE PO SCH ×2 (09:04→21:14)
[2018-02-13] MEDS: FAMOTIDINE 20 MG/2 ML VIAL IV SCH ×2 (09:04→21:14)
[2018-02-13 09:24] LABS: Calcium 8.1 mg/dL (8.4-10.2); Potassium 4.6 mmol/L (3.5-5.1)
--- NOTE | 2018-02-13 10:32 | P.PN ---
Progress Note - Text Progress Note Date: 02/13/18 The patient's postoperative day 1 from small bowel resection and ileocolectomy for Crohn's disease. The patient states his pain is improved from last night. On exam his vital signs are stable. His abdomen is soft. There is some incisional pain. Status post small bowel resection and ileocolectomy. Patient remained nothing by mouth with NG tube. We will await bowel function prior to feeding him.
[2018-02-13] MEDS: ROPIVACAINE 250 MG, HYDROMORPHONE (PF) 5 MG in SODIUM CHLORIDE 0.9% 200 ML EPIDURAL PRN (15:11)
[2018-02-13] MEDS ORDERED: ACETAMINOPHEN IV (For NPO) 1,000 MG in EMPTY BAG 1 BAG IVPB STA (15:24)
[2018-02-13] MEDS: BENZOCAINE/MENTHOL LOZENG 1 EACH LOZENGE MUCOUS MEM PRN ×3 (16:26→21:24)
[2018-02-13] MEDS: LACTATED RINGERS 1,000 ML IV SCH (20:37)
[2018-02-14] MEDS: HYDROmorphone 1 MG/ML 1 ML SYRINGE IVP PRN ×6 (00:46→20:05)
[2018-02-14] MEDS: ACETAMINOPHEN TAB 325 MG TAB PO PRN ×2 (00:46→20:06)
[2018-02-14] MEDS: D5-0.45% NACL WITH KCL 20MEQ/L 1,000 ML IV SCH ×3 (01:32→19:48)
[2018-02-14] MEDS: KETOROLAC 30 MG/ML 1 ML VIAL IVP PRN ×2 (03:43→12:22)
[2018-02-14] MEDS: PANTOPRAZOLE 40 MG/10 ML VIAL IVP SCH (08:01)
[2018-02-14] MEDS: NICOTINE 21MG/24HR PATCH TRANSDERM SCH (08:01)
[2018-02-14] MEDS: FAMOTIDINE 20 MG/2 ML VIAL IV SCH ×2 (08:01→20:05)
[2018-02-14] MEDS: HEPARIN SODIUM,PORCINE 5,000 UNIT/ML 1 ML VIAL SQ SCH ×2 (08:01→16:29)
[2018-02-14] MEDS: ALVIMOPAN 12 MG CAPSULE PO SCH ×2 (08:01→20:05)
[2018-02-14 08:16] LABS: Anisocytosis Slight; Basophils % (A) 0 %; Eosinophils # (A) 0.2 k/uL (0-0.7); Eosinophils % (A) 1 %; HCT 35.5 % (39.0-53.0); HGB 10.8 gm/dL (13.0-17.5); Hypochromasia Slight; Lymphocytes # (A) 1.6 k/uL (1.0-4.8); Lymphocytes % (A) 13 %; MCH 27.6 pg (25.0-35.0); MCHC 30.4 g/dL (31.0-37.0); MCV 90.8 fL (80.0-100.0); Mean Platelet Volume 7.5; Monocytes # (A) 0.9 k/uL (0-1.0); Monocytes % (A) 7 %; Neutrophils # (A) 9.8 k/uL (1.3-7.7); Neutrophils % (A) 77 %; Platelet Count 267 k/uL (150-450); RBC 3.91 m/uL (4.30-5.90); RDW 16.2 % (11.5-15.5); WBC 12.7 k/uL (3.8-10.6)
[2018-02-14 08:26] LABS: Albumin 2.2 g/dL (3.5-5.0); Calcium 8.1 mg/dL (8.4-10.2); Potassium 4.8 mmol/L (3.5-5.1); Total Bilirubin 0.8 mg/dL (0.2-1.3)
--- NOTE | 2018-02-14 08:36 | PN ---
PROGRESS NOTE SUBJECTIVE: This is an male, status post surgery for bowel obstruction. The patient is doing better. He had a small bowel resection and ileocolectomy for Crohn disease. His pain is improved. His vital signs stable. He has some incisional pain. Cardiovascular: S1, S2. Lungs are clear. GI: Soft, increased bowel sounds. Awaiting for bowel function prior to feeding him. ASSESSMENT: Status post bowel obstruction with colectomy. Please see further orders. Check electrolytes in the morning. MMODL / IJN: [id number] /
--- NOTE | 2018-02-14 09:17 | P.PN ---
Progress Note - Text Progress Note Date: 02/14/18 The patient's postoperative day 2 from exploratory laparotomy with ileocolectomy and small bowel resection for Crohn's obstruction. Patient has had some issues with intermittent fevers. He states he has had flatus. He states his pain is a 6 out of 10. On exam his vital signs are stable. His abdomen soft. Incision sites clean dry and intact. The Patient will have his nasogastric tube removed today. He' ll start on some clear liquid diet.
[2018-02-14] MEDS: BENZOCAINE/MENTHOL LOZENG 1 EACH LOZENGE MUCOUS MEM PRN (12:21)
[2018-02-14] MEDS: PIPERACILLIN-TAZOBACTAM 3.375 GM in SODIUM CHLORIDE 0.9% 100 ML IVPB SCH (18:40)
[2018-02-14] MEDS: ROPIVACAINE 250 MG, HYDROMORPHONE (PF) 5 MG in SODIUM CHLORIDE 0.9% 200 ML EPIDURAL PRN (18:43)
[2018-02-14] MEDS ORDERED: IBUPROFEN 800 MG TAB PO STA (22:02)
--- NOTE | 2018-02-14 22:25 | PN ---
PROGRESS NOTE SUBJECTIVE: This is a 42-year-old -[place] male, status post small-bowel obstruction, nothing from below. CARDIOVASCULAR: S1, S2. LUNGS: Clear. GI: Soft. HEMATOLOGY: Negative Homans. ASSESSMENT: Small-bowel obstruction. Continue NG tube until rectal stool was produced. MMODL / IJN: [id number] /
[2018-02-15] MEDS ORDERED: SODIUM CHLORIDE 0.9% 1,000 ML IV ONE (00:19)
[2018-02-15] MEDS ORDERED: ACETAMINOPHEN IV (For NPO) 1,000 MG in EMPTY BAG 1 BAG IVPB STA (00:19)
[2018-02-15] MEDS: HYDROmorphone 1 MG/ML 1 ML SYRINGE IVP PRN ×7 (00:56→22:21)
[2018-02-15] MEDS: HEPARIN SODIUM,PORCINE 5,000 UNIT/ML 1 ML VIAL SQ SCH ×4 (01:30→23:13)
[2018-02-15] MEDS: PIPERACILLIN-TAZOBACTAM 3.375 GM in SODIUM CHLORIDE 0.9% 100 ML IVPB SCH ×4 (01:38→23:14)
[2018-02-15] MEDS: D5-0.45% NACL WITH KCL 20MEQ/L 1,000 ML IV SCH ×3 (03:07→22:02)
[2018-02-15] MEDS: NICOTINE 21MG/24HR PATCH TRANSDERM SCH (07:41)
[2018-02-15] MEDS: PANTOPRAZOLE 40 MG/10 ML VIAL IVP SCH (07:42)
[2018-02-15] MEDS: FAMOTIDINE 20 MG/2 ML VIAL IV SCH ×2 (07:42→20:28)
[2018-02-15] MEDS: ALVIMOPAN 12 MG CAPSULE PO SCH ×2 (07:42→20:28)
[2018-02-15 09:02] LABS: Anisocytosis Slight; Basophils % (A) 0 %; Eosinophils # (A) 0.2 k/uL (0-0.7); Eosinophils % (A) 2 %; HCT 35.9 % (39.0-53.0); Hypochromasia Moderate; Lymphocytes # (A) 1.3 k/uL (1.0-4.8); Lymphocytes % (A) 11 %; MCH 27.9 pg (25.0-35.0); MCHC 30.7 g/dL (31.0-37.0); MCV 90.9 fL (80.0-100.0); Monocytes # (A) 0.7 k/uL (0-1.0); Monocytes % (A) 6 %; Neutrophils % (A) 80 %; Platelet Count 278 k/uL (150-450); RBC 3.96 m/uL (4.30-5.90); RDW 16.2 % (11.5-15.5); WBC 12.5 k/uL (3.8-10.6)
[2018-02-15] MEDS: ACETAMINOPHEN TAB 325 MG TAB PO PRN (09:52)
--- NOTE | 2018-02-15 11:15 | P.PN ---
Progress Note - Text Progress Note Date: 02/15/18 The patient feels better. He had a fever last night. He's had multiple bowel movements. He states his pain has much improved. On exam is lesser stable. His evidence soft. Patient will have his epidural and Villasenor cath removed today. We will place him on full liquid diet.
--- NOTE | 2018-02-15 15:35 | P.PN ---
Subjective Progress Note Date: 02/15/18 (Covering Dr. Daryl Willingham) Principal diagnosis: Small bowel obstruction postop day #3 status post exploratory laparotomy and iliac colectomy and a small wall resection for Crohn's disease 02/15/2018, patient seen eval examined during the rounds he is sitting upright on the bed breathing comfortably does have issues associated with pain, Toradol is not helping will consider using [place] 7.5 3 times a day him a general surgery is following patient is on clear liquid diet Objective - Vital Signs Vital signs: Vital Signs Temp 98 F 02/15/18 07:26 Pulse 95 02/15/18 08:00 Resp 16 02/15/18 08:00 BP 115/72 02/15/18 07:26 Pulse Ox 96 02/15/18 07:26 Intake & Output 02/14/18 02/15/18 02/15/18 18:59 06:59 18:59 Intake Total 650 2050 Output Total 815 1500 Balance -165 550 Weight 140.614 kg Intake: Intake, IV Titration 650 2050 Amount D5-0.45% NaCl with KCl 300 1000 20Meq/l 1,000 ml @ 125 mls/hr IV .Q8H [facility] Rx#: [id number] Piperacillin-Tazobactam 3 100 100 .375 gm In Sodium Chloride 0.9% 100 ml @ 25 mls/hr IVPB Q8HR [facility] Rx# :[id number] Ropivacaine 250 mg 250 Hydromorphone (Pf) 5 mg In Sodium Chloride 0.9% 200 ml @ Per Protocol EPIDURAL .Q0M PRN Rx#: [id number] Sodium Chloride 0.9% 1, 950 000 ml @ 999 mls/hr IV . Q1H1M [facility] Rx#:[id number] Output: Gastric Drainage 300 Drainage 15 50 Abdomen 15 50 Urine 500 1450 Other: Voiding Method Indwelling Catheter Indwelling Catheter # Bowel Movements 3 - Constitutional General appearance: Present: mild distress, morbidly obese - EENT Eyes: Present: EOMI, PERRLA ENT: Present: normal oropharynx Ears: bilateral: normal - Neck Neck: Present: normal ROM Carotids: bilateral: upstroke normal, bruit absent Thyroid: bilateral: normal size - Respiratory Respiratory: bilateral: CTA - Cardiovascular Heart sounds: normal: S1, S2 - Gastrointestinal General gastrointestinal: Present: decreased bowel sounds, distended - Neurologic Neurologic: Present: CNII-XII intact - Musculoskeletal Musculoskeletal: Present: gait normal, generalized weakness, strength equal bilaterally - Psychiatric Psychiatric: Present: A&O x's 3, appropriate affect, intact judgment & insight - Labs CBC & Chem 7: 02/15/18 08:00 02/14/18 07:28 Labs: Abnormal Lab Results - Last 24 Hours (Table) 02/15/18 Range/Units 08:00 WBC 12.5 H (3.8-10.6) k/uL RBC 3.96 L (4.30-5.90) m/uL Hgb 11.0 L (13.0-17.5) gm/dL Hct 35.9 L (39.0-53.0) % MCHC 30.7 L (31.0-37.0) g/dL RDW 16.2 H (11.5-15.5) % Neutrophils # 10.0 H (1.3-7.7) k/uL Assessment and Plan Assessment: Flareup/exacerbation of Crohn's disease Postop day #3 of exploratory laparotomy and small bowel resection ileocolectomy and partial omentectomy Plan: Gentle rehydration Spectrum antibiotic broad-spectrum antibiotics Increase activity as tolerated Continue full liquid diet Pain management The recommendations pending plan of care as per clinical response of the patient
[2018-02-15] MEDS: HYDROcodone/APAP 7.5-325MG 1 EACH TAB PO PRN ×2 (16:21→23:15)
[2018-02-16] MEDS: HYDROmorphone 1 MG/ML 1 ML SYRINGE IVP PRN ×7 (01:20→23:47)
[2018-02-16] MEDS: D5-0.45% NACL WITH KCL 20MEQ/L 1,000 ML IV SCH ×3 (01:21→23:47)
[2018-02-16] MEDS: PIPERACILLIN-TAZOBACTAM 3.375 GM in SODIUM CHLORIDE 0.9% 100 ML IVPB SCH ×2 (08:29→15:53)
[2018-02-16] MEDS: NICOTINE 21MG/24HR PATCH TRANSDERM SCH (08:29)
[2018-02-16] MEDS: FAMOTIDINE 20 MG/2 ML VIAL IV SCH (08:32)
[2018-02-16] MEDS: ALVIMOPAN 12 MG CAPSULE PO SCH ×2 (08:32→20:29)
[2018-02-16] MEDS: PANTOPRAZOLE 40 MG/10 ML VIAL IVP SCH (08:32)
[2018-02-16] MEDS: HEPARIN SODIUM,PORCINE 5,000 UNIT/ML 1 ML VIAL SQ SCH ×3 (08:32→23:47)
--- NOTE | 2018-02-16 10:31 | P.PN ---
Progress Note - Text Progress Note Date: 02/16/18 Postoperative day 4 Patient has complaints of some incisional pain. He had his epidural catheter removed yesterday. He is continued have bowel movements. He's had some issues with intermittent fevers. On exam his vital signs are stable. Abdomen is soft. There is some incisional tenderness. There is no rebound or guarding. There is no peritoneal signs. Status post small bowel resection and ileocolectomy for Crohn's disease causing small bowel obstruction. The patient will continue receive IV antibiotic and IV fluids. He is currently on a clear liquid diet. We will advance his diet slowly.
[2018-02-16] MEDS: HYDROcodone/APAP 7.5-325MG 1 EACH TAB PO PRN (17:49)
--- NOTE | 2018-02-16 20:39 | PN ---
PROGRESS NOTE SUBJECTIVE: White male with small bowel obstruction, status post NG tube, status post open laparotomy. The patient is improving from medical standpoint. Cardiovascular S1, S2. Lungs clear. GI is distended, tender. On a clear liquid. ASSESSMENT: Small bowel obstruction, abdominal pain. Please see further orders. Advance diet slowly. Pain control. MMODL / IJN: [id number] /
[2018-02-17] MEDS: PIPERACILLIN-TAZOBACTAM 3.375 GM in SODIUM CHLORIDE 0.9% 100 ML IVPB SCH ×4 (01:42→23:20)
[2018-02-17] MEDS: HYDROmorphone 1 MG/ML 1 ML SYRINGE IVP PRN ×7 (03:12→23:19)
[2018-02-17] MEDS: PANTOPRAZOLE 40 MG/10 ML VIAL IVP SCH (08:11)
[2018-02-17] MEDS: HEPARIN SODIUM,PORCINE 5,000 UNIT/ML 1 ML VIAL SQ SCH ×3 (08:11→23:20)
[2018-02-17] MEDS: ALVIMOPAN 12 MG CAPSULE PO SCH ×2 (08:11→20:09)
[2018-02-17] MEDS: D5-0.45% NACL WITH KCL 20MEQ/L 1,000 ML IV SCH ×3 (08:12→18:15)
[2018-02-17] MEDS: NICOTINE 21MG/24HR PATCH TRANSDERM SCH (08:12)
[2018-02-17] MEDS: HYDROcodone/APAP 7.5-325MG 1 EACH TAB PO PRN ×3 (08:20→22:07)
--- NOTE | 2018-02-17 10:22 | P.CNPUL ---
History of Present Illness Consult date: 02/17/18 Requesting physician: Daryl Willingham Reason for consult: dyspnea, hypoxemia Chief complaint: shortness of breath History of present illness: This is a 42-year-old male patient being seen examined and evaluated today for consultation. This patient originally came into the hospital with a small bowel obstruction and he is currently status postop day 5 after an exploratory laparotomy and ileocolectomy with a small bowel resection for for Crohn's disease obstruction. The patient has experienced some postop intermittent fevers that come and go. His shortness of breath is with exertion and activity. He is currently on room air. Apparently postop he did require some supplemental oxygen and that has been weaned off. He denies ever having a history of COPD or asthma in the past. He does state that he is a smoker and at his most he smoked one and half packs per day for approximately 25 years. He has cut back to approximately half a pack per day. Patient denies any use of home oxygen, CPAP use, nebulizer use for any inhalers. He has never been worked up in pulmonary office or underwent a PFT in the past. Upon examination the patient is resting up in bed on room air. He does have a cough states his sputum production has been clear to yellow. He has been using his incentive spirometer and when asked to do so the patient was utilizing the incentive spirometer incorrectly. Once she is explained use of the correct way he is able to pull volumes of approximately 1500 ML. Patient does have some postoperative pain that is expected, and he does have pain medication on board that he is using that has been helpful. All labs and reports have been reviewed. Patient did undergo a chest x-ray this morning and those results are currently pending. Review of Systems 14 point review of systems was completed and is negative unless noted above in HPI Past Medical History Past Medical History: GI Bleed, Hypertension, Myocardial Infarction (DC) Additional Past Medical History / Comment(s): Crohn's/chronic diarrhea, lower GI bleed, pt states he had a DC 12/2016, past finger fractures. Last Myocardial Infarction Date:: 01/08/17 per pt History of Any Multi-Drug Resistant Organisms: None Reported Past Surgical History: Hernia Repair Additional Past Surgical History / Comment(s): COLONOSCOPIES, LAPAROSCOPIC RT INGUINAL HERNIA REPAIR WITH MESH AND LYSIS OF ADHESIONS, 2017 CARDIAC CATH- NORMAL. Past Anesthesia/Blood Transfusion Reactions: No Reported Reaction Additional Past Anesthesia/Blood Transfusion Reaction / Comment(s): never had anesthesia Smoking Status: Current every day smoker - Past Family History Father Additional Family Medical History / Comment(s): MURMUR Mother Family Medical History: Hypertension Additional Family Medical History / Comment(s): MATERNAL GRANDFATHER AT THE AGE OF 45 YRS FROM [place] AND WAS DIABETIC. Medications and Allergies Home Medications Medication Instructions Recorded Confirmed Type predniSONE 10 mg PO QID 01/08/17 02/12/18 History Allergies Allergy/AdvReac Type Severity Reaction Status Date / Time No Known Allergies Allergy Verified 02/12/18 13:44 Physical Exam Vitals: Vital Signs Temp Pulse Pulse Resp BP Pulse Ox 02/17/18 07:09 98.6 F 95 16 128/75 94 L 02/17/18 03:18 18 02/16/18 23:44 99.9 F H 93 18 121/79 97 02/16/18 19:50 99.6 F 96 18 104/66 96 02/16/18 16:21 101.1 F H 95 16 125/76 96 02/16/18 16:00 18 Intake and Output 02/16/18 02/17/18 02/17/18 22:59 06:59 14:59 Output Total 25 Balance -25 Output: Drainage 25 Abdomen 25 Other: Voiding Method Toilet GENERAL EXAM: Alert, active, comfortable in no apparent distress. HEAD: Normocephalic. EYES: Normal reaction of pupils, equal size. NOSE: Clear with pink turbinates. THROAT: No erythema or exudates. NECK: No masses, no JVD. CHEST: No chest wall deformity. LUNGS: Lungs noted to be diminished throughout with some faint expiratory wheezing with forced expiration. CVS: S1 and S2 normal with no audible mumurs, regular rhythm. ABDOMEN: No hepatosplenomegaly, normal bowel sounds, no guarding or rigidity. Surgical incision clean dry and intact, SHIRLEY drain in place. EXTREMITIES: No edema noted, pedal pulses palpable. CENTRAL NERVOUS SYSTEM: No focal deficits, tone is normal in all 4 extremities. Results - Laboratory Findings CBC and BMP: 02/15/18 08:00 02/14/18 07:28 Abnormal lab findings: Abnormal Labs 02/10/18 02/10/18 02/10/18 05:17 05:17 08:30 WBC 11.6 H RBC Hgb Hct MCHC RDW 16.5 H Neutrophils # 8.8 H Sodium Chloride Creatinine Glucose Calcium AST 16 L ALT Alkaline Phosphatase 36 L Total Protein Albumin Ur Specific [place] >1.050 H Urine Protein 1+ H Urine Mucus Occasional H 02/11/18 02/11/18 02/12/18 06:44 06:44 07:48 WBC RBC Hgb 12.3 L Hct MCHC 30.5 L RDW 16.3 H Neutrophils # Sodium Chloride 108 H Creatinine Glucose 65 L 73 L Calcium AST 12 L 15 L ALT 20 L Alkaline Phosphatase 27 L 28 L Total Protein 5.7 L 5.7 L Albumin 2.7 L 2.7 L Ur Specific [place] Urine Protein Urine Mucus 02/12/18 02/13/18 02/13/18 07:48 07:11 07:11 WBC RBC Hgb 12.5 L 12.0 L Hct MCHC 29.8 L RDW 16.0 H 16.0 H Neutrophils # 7.9 H Sodium Chloride Creatinine 1.53 H Glucose Calcium 8.1 L AST ALT Alkaline Phosphatase Total Protein Albumin Ur Specific [place] Urine Protein Urine Mucus 02/14/18 02/14/18 02/15/18 07:28 07:28 08:00 WBC 12.7 H 12.5 H RBC 3.91 L 3.96 L Hgb 10.8 L 11.0 L Hct 35.5 L 35.9 L MCHC 30.4 L 30.7 L RDW 16.2 H 16.2 H Neutrophils # 9.8 H 10.0 H Sodium 134 L Chloride Creatinine 1.30 H Glucose Calcium 8.1 L AST ALT Alkaline Phosphatase 21 L Total Protein 5.0 L Albumin 2.2 L Ur Specific [place] Urine Protein Urine Mucus Assessment and Plan Assessment: Assessment Flareup/exacerbation of Crohn's disease Status post update 5 an exploratory laparotomy with small bowel resection ileocolectomy History of prior bowel obstruction Acute hypoxic respiratory failure requiring supplemental oxygen which is now improved patient is on room air Nicotine dependence Suspect COPD Baseline unknown Morbid obesity Plan Chest x-ray pending Medications have been reviewed and will be continued as ordered. Continue with antibiotics Obtain sputum culture Pain control Diet per surgical services Continue with pulmonary hygiene, coughing and deep breathing exercises, and supportive care. Supplemental oxygen to maintain oxygen saturations of 92% or better. Initiate nebulizer treatments. Continue with incentive spirometer GI and DVT prophylaxis. Smoking cessation discussed at length Increase activity as tolerated Patient would benefit from a full pulmonary workup in the outpatient setting including a PFT We will continue to monitor labs/results and adjust treatment as necessary. Thank you for this consultation we will continue to follow this patient with you Further recommendations pending. I, the signing physician performed an examination of the patient, discussed and directed their management with the nurse practitioner. I have reviewed the nurse practitioner's note and agree with the documented findings, orders and plan of care.
[2018-02-17] MEDS: IPRATROPIUM-ALBUTEROL 3 ML NEB INHALATION SCH ×3 (12:07→19:45)
--- NOTE | 2018-02-17 13:12 | XR ---
EXAMINATION TYPE: XR chest 2V DATE OF EXAM: 02/17/2018 COMPARISON: 04/02/2012 TECHNIQUE: PA and lateral views submitted. HISTORY: Difficulty in breathing FINDINGS: There is limited inspiration with right basilar subsegmental consolidation. No pneumothorax or overt failure. Heart size stable. IMPRESSION: 1. Elevated right hemidiaphragm with right basilar atelectasis or early infiltrate.
--- NOTE | 2018-02-17 16:41 | P.PN ---
Progress Note - Text Progress Note Date: 02/17/18 The patient resting comfortably in his bed. He is pain is under better control today. On exam his vital signs are stable. His abdomen soft. Incision site is clean dry intact. Status post right colectomy and small bowel resection for small bowel structure related to Crohn's disease. Patient is doing well. He will have his diet advanced slowly.
[2018-02-17] MEDS: BUDESONIDE 0.5 MG/2 ML NEBU INHALATION SCH (19:45)
--- NOTE | 2018-02-17 22:34 | P.PN ---
Subjective Progress Note Date: 02/17/18 Principal diagnosis: Bowel obstruction, fistulizing Crohn's disease Patient reports feeling better, decreased pain. Tolerating diet. No nausea or vomiting. Objective - Vital Signs Vital signs: Vital Signs Temp 98.3 F 02/17/18 20:06 Pulse 95 02/17/18 20:06 Resp 18 02/17/18 20:06 BP 149/76 02/17/18 20:06 Pulse Ox 95 02/17/18 20:06 Intake & Output 02/17/18 02/17/18 02/18/18 06:59 18:59 06:59 Output Total 25 10 Balance -25 -10 Weight 140.614 kg Output: Drainage 25 10 Abdomen 25 10 Other: Voiding Method Toilet Toilet # Voids 1 - Exam On physical examination, patient appears comfortable in no apparent distress. HEAD: Normocephalic, atraumatic. EYES: No scleral icterus. No conjunctival injection. MOUTH: No lesions, tongue midline. NECK: Trachea midline, no gross abnormalities. CHEST: Clear to auscultation with no wheezing or rhonchi appreciated. HEART: Regular rate and rhythm. ABDOMEN: Soft, status post surgery the patient is appropriately tender. Bowel sounds are positive. No organomegaly. No guarding or rigidity. EXTREMITIES: No pedal edema. SKIN: No rashes, no jaundice. NEUROLOGIC: Alert and oriented x3. No focal deficits. - Labs CBC & Chem 7: 02/15/18 08:00 02/14/18 07:28 Labs: Microbiology - Last 24 Hours (Table) 02/14/18 22:25 Blood Culture - Preliminary Blood No Growth after 48 hours Assessment and Plan (1) Crohns disease Narrative/Plan: Complicated fistulizing Crohn's disease status post ilealcolectomy, patient is feeling better and tolerating diet. Current Visit: Yes Status: Acute Code(s): K50.90 - CROHN'S DISEASE, UNSPECIFIED, WITHOUT COMPLICATIONS SNOMED Code(s): 59495056 (2) Small bowel obstruction Current Visit: Yes Status: Acute Code(s): K56.609 - UNSP INTESTNL OBST, UNSP TO PARTIAL VERSUS COMPLETE OBST SNOMED Code(s): 414849229 Plan: Supportive care Diet per surgery Extensive discussion with the patient on need for aggressive treatment of Crohn' s disease in future given complicated course, he will need outpatient follow-up for discussion of biologic therapy Thank you for allowing us to discontinue in the care of this patient, we will continue to follow
--- NOTE | 2018-02-18 01:43 | PN ---
PROGRESS NOTE SUBJECTIVE: This patient is a 42-year-old white male with small-bowel obstruction, status post surgery, and Crohn disease. GI and surgery consults are intact. He is status post surgery. Clear liquid diet. Still having chronic abdominal pain. CARDIOVASCULAR: S1, S2. LUNGS: Clear. GI: Soft. HEMATOLOGY: Negative Homans. ASSESSMENT: 1. Small bowel obstruction. 2. Chronic abdominal pain. 3. Status post laparoscopy, possible bowel resection. Please see further orders. Await surgical and GI recommendations. MMODL / IJN: [id number] /
[2018-02-18] MEDS: D5-0.45% NACL WITH KCL 20MEQ/L 1,000 ML IV SCH ×3 (03:08→22:50)
[2018-02-18] MEDS: HYDROmorphone 1 MG/ML 1 ML SYRINGE IVP PRN ×3 (03:08→10:28)
[2018-02-18] MEDS: HYDROcodone/APAP 7.5-325MG 1 EACH TAB PO PRN ×4 (05:34→21:36)
[2018-02-18] MEDS: IPRATROPIUM-ALBUTEROL 3 ML NEB INHALATION SCH ×4 (09:18→21:20)
[2018-02-18] MEDS: BUDESONIDE 0.5 MG/2 ML NEBU INHALATION SCH ×2 (09:18→21:23)
[2018-02-18 09:44] LABS: Albumin 2.7 g/dL (3.5-5.0); Calcium 8.8 mg/dL (8.4-10.2); Potassium 4.7 mmol/L (3.5-5.1); Total Bilirubin 0.9 mg/dL (0.2-1.3); Total Protein 6.1 g/dL (6.3-8.2)
--- NOTE | 2018-02-18 09:50 | PN ---
PROGRESS NOTE DATE OF SERVICE: 02/18/2018. He has been hemodynamically stable. He is standing up and walking around. He denies any shortness of breath. PHYSICAL EXAMINATION: His respiratory rate is 16, pulse rate of 92, temperature 101.1 degrees Fahrenheit, blood pressure 115/74, O2 SAT on room air is 94%. HEENT reveals pupils are equal. Chest is clear. Cardiovascular system with an S1, S2. Abdomen is soft. There is no edema. He has no labs today. IMPRESSION: 1. Hypoxia secondary to atelectasis. 2. Obstructive sleep apnea is likely. 3. Small-bowel obstruction status post laparoscopic surgery with bowel resection. At this point in time, continue antibiotics, continue incentive spirometry, increase his activity level. Would check labs on him including blood cultures today. Depending on how he does, we should make further changes to his care. ISABELLE / GAUDENCIO: [id number] /
[2018-02-18 09:54] LABS: Anisocytosis Slight; HCT 35.8 % (39.0-53.0); HGB 10.7 gm/dL (13.0-17.5); Hypochromasia Marked; MCH 27.7 pg (25.0-35.0); MCHC 29.9 g/dL (31.0-37.0); MCV 92.4 fL (80.0-100.0); Mean Platelet Volume 10.2; Platelet Count 304 k/uL (150-450); RBC 3.88 m/uL (4.30-5.90); RDW 16.2 % (11.5-15.5); WBC 16.7 k/uL (3.8-10.6)
--- NOTE | 2018-02-18 10:07 | XR ---
EXAMINATION TYPE: XR chest 2V DATE OF EXAM: 02/18/2018 COMPARISON: 02/17/2018 TECHNIQUE: PA and lateral views submitted. HISTORY: Fever FINDINGS: There is subsegmental consolidation the right lung base. Left lung clear. No pneumothorax or overt fa ilure. Heart size stable. Catheter overlying the right upper quadrant. IMPRESSION: 1. Right basilar atelectasis or infiltrate stable..
[2018-02-18] MEDS: PANTOPRAZOLE 40 MG TABLET PO SCH (10:16)
[2018-02-18] MEDS: HEPARIN SODIUM,PORCINE 5,000 UNIT/ML 1 ML VIAL SQ SCH ×3 (10:16→23:46)
[2018-02-18] MEDS: ALVIMOPAN 12 MG CAPSULE PO SCH ×2 (10:16→21:36)
[2018-02-18] MEDS: PIPERACILLIN-TAZOBACTAM 3.375 GM in SODIUM CHLORIDE 0.9% 100 ML IVPB SCH ×3 (10:16→23:47)
[2018-02-18 10:46] LABS: Eosinophils # (M) 0.67 k/uL (0-0.7); Lymphocytes # (M) 4.01 k/uL (1.0-4.8); Monocytes # (M) 1.34 k/uL (0-1.0); Neutrophils # (M) 10.69 k/uL (1.3-7.7); Neutrophils % (M) 64 %; Nucleated Red Blood Cells 0 /100 WBC (0-0); Total Cells Counted 100
[2018-02-18] MEDS: NICOTINE 21MG/24HR PATCH TRANSDERM SCH (10:58)
--- NOTE | 2018-02-18 13:07 | P.PN ---
Subjective Progress Note Date: 02/18/18 42-year-old seen at the bedside states has been up ambulating in the room. Passing gas. Tolerating diet. Pain medication effective for pain control Postop 12 of February exploratory laparotomy, small bowel resection, Ileocolectomy Partial omentectomy for small bowel obstruction secondary to Crohn 's disease Objective - Vital Signs Vital signs: Vital Signs Temp 101.1 F H 02/18/18 08:10 Pulse 92 02/18/18 08:10 Resp 16 02/18/18 08:10 BP 115/74 02/18/18 08:10 Pulse Ox 94 L 02/18/18 08:10 Intake & Output 02/17/18 02/18/18 02/18/18 18:59 06:59 18:59 Output Total 50 Balance -50 Weight 140.614 kg Output: Drainage 50 Abdomen 50 Other: Voiding Method Toilet # Voids 1 - Exam Physical exam Resting in bed 8 has been up ambulating in the chen Lungs adequate air movement on room air Heart S1-S2 audible regular Abdomen obese soft surgical tenderness appropriate surgical dressing dry not distended active bowel tones tolerating diet states had a bowel movement Extremities no edema - Labs CBC & Chem 7: 02/18/18 09:03 02/18/18 09:03 Labs: Abnormal Lab Results - Last 24 Hours (Table) 02/18/18 02/18/18 Range/Units 09:03 09:03 WBC 16.7 H (3.8-10.6) k/uL RBC 3.88 L (4.30-5.90) m/uL Hgb 10.7 L (13.0-17.5) gm/dL Hct 35.8 L (39.0-53.0) % MCHC 29.9 L (31.0-37.0) g/dL RDW 16.2 H (11.5-15.5) % Neutrophils # (Manual) 10.69 H (1.3-7.7) k/uL Monocytes # (Manual) 1.34 H (0-1.0) k/uL BUN 4 L (9-20) mg/dL Alkaline Phosphatase 22 L (38-126) U/L Total Protein 6.1 L (6.3-8.2) g/dL Albumin 2.7 L (3.5-5.0) g/dL Microbiology - Last 24 Hours (Table) 02/17/18 16:44 Gram Stain - Preliminary Sputum 02/14/18 22:25 Blood Culture - Preliminary Blood No Growth after 72 hours Assessment and Plan Assessment: Impression Present on admission diffuse abdominal pain suspect due to high-grade small bowel obstruction secondary to inflammatory distal ileal stricture CAT scan abdomen and pelvis show evidence of a high-grade small bowel obstruction History of Crohn's disease Prior history of a bowel obstruction recurrent Morbid obesity BMI 40 CAT scan abdomen pelvis report reviewed mild to moderate active distal Crohn's ileitis. Appeared to be fistulas at the distal ileum transition point compatible with chronic application of Crohn's disease Postop February 12 exploratory laparotomy, small bowel resection, ileocolectomy , partial omentectomy for small bowel obstruction secondary to Crohn's disease Plan Continue postop surgical care Anticipate discharge in 24 hours DVT and GI prophylaxis Pain control The above impression and plan of care have been discussed and directed by signing physician. Deepika Beltran nurse practitioner acting as scribe for signing physician.
[2018-02-18] MEDS: IOPAMIDOL-300 CONTRAST 30 ML VIAL (ORAL USE) PO PRN ×3 (17:17→18:14)
[2018-02-18 17:21] LABS: Appearance,Urine Clear (Clear); Bilirubin,Urine Negative (Negative); Blood,Urine Negative (Negative); Color,Urine Light Yellow; Glucose,Urine (UA) Negative (Negative); Ketones,Urine Negative (Negative); Leukocyte Esterase,Urine Negative (Negative); Nitrite,Urine Negative (Negative); Protein,Urine Negative (Negative); Specific Gravity,Urine 1.006 (1.001-1.035); Urobilinogen,Urine <2.0 mg/dL (<2.0)
--- NOTE | 2018-02-18 21:20 | CT ---
EXAMINATION TYPE: CT abdomen pelvis w con DATE OF EXAM: 02/18/2018 COMPARISON: 02/10/2018 HISTORY: Abdominal pain, fever, recent bowel surgery CT DLP: 2319.9 mGycm. Automated exposure control for dose reduction was used. TECHNIQUE: Helical acquisition of images was performed from the lung bases through the pelvis. CONTRAST: Performed with Oral Contrast and with IV Contrast, patient injected with 100 mL of Isovue 3 00. FINDINGS: Interval anterior abdominal wall midline surgical changes are evident. Within the subcutane ous soft tissues of the anterior abdominal wall there is a drain in place with scattered somewhat-pro minent edematous change and a few gas bubbles - but without drainable fluid collection. Intra-abdominal review shows a few right-sided scattered small fluid pockets within the right paracol ic gutter, right anterior pararenal space, and within the right small bowel mesentery. However, no fr ank drainable fluid collections - and no elizabeth pneumoperitoneum. There is interval improvement in the bowel gas pattern compared to the presurgical CT. Presently, mil dly dilated right upper quadrant loops of bowel are noted, relatively mild in degree. There is no pne umatosis or bowel wall thickening. No obstructive uropathy. There is seen on dependently within the urinary bladder, likely secondary to recent instrumentation. No biliary or pancreatic ductal dilation. Vasculature is negative for acute findings. IMPRESSION: 1) INTERVAL IMPROVEMENT. 2) NO DRAINABLE FLUID COLLECTION AT THIS TIME.
[2018-02-18] MEDS ORDERED: VANCOMYCIN IV PER PHARMACY 1 EACH MISC MISCELLANE PRN (23:24)
[2018-02-18] MEDS: ACETAMINOPHEN TAB 325 MG TAB PO PRN (23:46)
[2018-02-18] MEDS: VANCOMYCIN 2,000 MG in SODIUM CHLORIDE 0.9% 500 ML 500 ML IVPB SCH (23:47)
[2018-02-19] MEDS: HYDROcodone/APAP 7.5-325MG 1 EACH TAB PO PRN ×3 (03:35→15:30)
[2018-02-19] MEDS: D5-0.45% NACL WITH KCL 20MEQ/L 1,000 ML IV SCH ×2 (04:57→17:39)
--- NOTE | 2018-02-19 07:24 | CONS ---
CONSULTATION DATE OF SERVICE: 02/18/2018. REASON FOR CONSULTATION: Fever. HISTORY OF PRESENT ILLNESS: The patient is a 42-year-old male with a past medical history significant for Crohn's colitis in a patient who does have a history of recurrent small- bowel obstruction. He was recently admitted to [facility] with small- bowel obstruction and was treated with steroids and subsequently discharged. However, the patient said his abdominal pain continued to get worse. The patient's pain has been mostly in the lower abdominal area, dull aching at times sharp almost 7 to 8 out of 10, no radiation. Some nausea, but no vomiting. With these symptoms, the patient was evaluated by the ER physician. On arrival to the ER, the patient did have a CT abdomen and pelvis completed which did show high-grade small bowel obstruction, possibly secondary to inflammatory distal ileal stricture; mild to moderate active distal Crohn's ileitis. The patient was evaluated by General Surgery, subsequently he was taken to the OR on 02/12/2018, did have an exploration laparotomy, small-bowel resection, ileocolectomy and partial omentectomy. The patient who was afebrile however subsequently spiked a fever to 103 degrees Fahrenheit in the evening the day of his surgery and has been spiking a fever on a daily basis with 101.8 on 02/13; 102.5 on 02/14; 100.8 on 02/15; highest temperature has been at on 02/16. No ever on the , however, has spiked another fever of 101.1 that prompted this infectious disease consultation. The patient has been complaining of pain in the lower abdominal area. Pain has been mostly dull aching pain 5 to 6 out of 10, and no radiation. He has been currently on a soft diet. Has been tolerating. He also have a SHIRLEY drain and the RN mentioned that the drainage is getting mostly purulent. The last time she changed it the patient denies having any chest pain or short of breath. He did have some cough which is mostly dry in nature and denies having any diarrhea. The patient has been on Zosyn since January. REVIEW OF SYSTEMS: CONSTITUTIONAL: Positive for weakness along with fever. EYES: No complaint. ENT: No complaint. RESPIRATORY: As per HPI. CARDIOVASCULAR: No complaint. GENITOURINARY: No complaint. GASTROINTESTINAL: As per HPI. MUSCULOSKELETAL: No complaint. INTEGUMENTARY: No complaint. PSYCHOLOGIC: No complaint: ENDOCRINE: No complaint. NEUROLOGIC: No complaint. PAST MEDICAL HISTORY: Crohn's colitis, [place], hypertension, finger fracture. PAST SURGICAL HISTORY: Hernia repair, colonoscopy, laparoscopic right inguinal hernia repair with mesh, cardiac cath. SOCIAL HISTORY: Current everyday smoker. No drinking or drug use. FAMILY HISTORY: Mother with history of hypertension. ALLERGIES: No known drug allergies. MEDICATIONS: Medications currently include the patient is on Tylenol, Beaumont, DuoNeb, Entereg, Cepacol lozenges, Pulmicort, heparin, Reglan, Narcan, nicotine patch, Zofran, Protonix, Zosyn. PHYSICAL EXAMINATION: On examination, his blood pressure 133/64 with pulse of 95, temperature 101.2. He is 96% on room air. General description is a middle-aged male lying in bed in no distress. No tachypnea or accessory muscle of respiration use. HEENT examination shows pallor, no scleral icterus. Oral mucous membrane is dry. No pharyngeal erythema or thrush. NECK: Trachea is central. No thyromegaly. LUNGS: Unlabored breathing with decreased breath sounds in the bases. No wheeze. HEART: S1, S2. Regular rate and rhythm. ABDOMEN: Soft, mildly distended in the lower quadrant area. No guarding or rigidity. EXTREMITIES: No edema of feet. SKIN EXAMINATION: No rash or mass palpable. NEUROLOGICAL: Patient is awake, alert, oriented x3. Mood and affect normal. LABS: Hemoglobin is 10.7, white count 16.7 with a BUN of 4 creatinine is 1.19. Electrolytes have been normal. Urine has been negative. Chest x-ray elevated right hemidiaphragm and right basilar atelectasis or early infiltrate. DIAGNOSTIC IMPRESSION AND PLAN: Patient with sepsis in this patient who did have a fever of 101 degrees Fahrenheit. The patient had tachycardic and did have elevated white count 16.7. This is a patient who did have a laparotomy for Crohn's colitis with small bowel obstruction with ileocolectomy with lower abdominal pain in a patient on admission appeared . SHIRLEY drain is purulent. Concern for possible abdominal abscess to be the likely source of this fever as the patient currently with no other clinical focus of infection. He did have some cough with some atelectasis noticed at the right lung base though he is not bringing up any purulent sputum. His UA has been negative and no evidence of any cellulitis with fever despite being on adequate good gram-negative coverage concern possible for gram-positive to be the source of this infection and fever. PLAN: 1. We will obtain a CT of abdomen and pelvis with cultures to make sure no evidence of any abdominal collection that may need to be drained. 2. Blood culture has been thus far, those will be followed. 3. We will keep the patient on Zosyn 3.375 grams q.8. 4. Add vancomycin pharmacy to dose target of 15 while watching his kidney function closely. 5. We will follow up on clinical condition and culture to further adjust medication if needed. Thank you for this consultation. Will follow this patient along with you. MMODL / IJN: [id number] /
[2018-02-19] MEDS: IPRATROPIUM-ALBUTEROL 3 ML NEB INHALATION SCH ×4 (07:25→21:07)
[2018-02-19] MEDS: BUDESONIDE 0.5 MG/2 ML NEBU INHALATION SCH ×2 (07:25→21:07)
[2018-02-19] MEDS: NICOTINE 21MG/24HR PATCH TRANSDERM SCH (08:56)
[2018-02-19] MEDS: HEPARIN SODIUM,PORCINE 5,000 UNIT/ML 1 ML VIAL SQ SCH ×2 (08:57→16:56)
[2018-02-19] MEDS: ALVIMOPAN 12 MG CAPSULE PO SCH (08:57)
[2018-02-19] MEDS: PIPERACILLIN-TAZOBACTAM 3.375 GM in SODIUM CHLORIDE 0.9% 100 ML IVPB SCH ×2 (08:58→16:55)
[2018-02-19] MEDS: PANTOPRAZOLE 40 MG TABLET PO SCH (08:58)
--- NOTE | 2018-02-19 09:50 | P.PN ---
Subjective Progress Note Date: 02/19/18 History of present illness: This is a 42-year-old male patient being seen examined and evaluated today for consultation. This patient originally came into the hospital with a small bowel obstruction and he is currently status postop day 5 after an exploratory laparotomy and ileocolectomy with a small bowel resection for for Crohn's disease obstruction. The patient has experienced some postop intermittent fevers that come and go. His shortness of breath is with exertion and activity. He is currently on room air. Apparently postop he did require some supplemental oxygen and that has been weaned off. He denies ever having a history of COPD or asthma in the past. He does state that he is a smoker and at his most he smoked one and half packs per day for approximately 25 years. He has cut back to approximately half a pack per day. Patient denies any use of home oxygen, CPAP use, nebulizer use for any inhalers. He has never been worked up in pulmonary office or underwent a PFT in the past. Upon examination the patient is resting up in bed on room air. He does have a cough states his sputum production has been clear to yellow. He has been using his incentive spirometer and when asked to do so the patient was utilizing the incentive spirometer incorrectly. Once she is explained use of the correct way he is able to pull volumes of approximately 1500 ML. Patient does have some postoperative pain that is expected, and he does have pain medication on board that he is using that has been helpful. All labs and reports have been reviewed. Patient did undergo a chest x-ray this morning and those results are currently pending. Interval History: 02/18/18- See Dr ANGELIA Small note 02/19/18-patient is being seen examined and evaluated today on rounds. He is resting up in bed on room air. The patient did have fevers overnight of 101.2. Infectious disease is on consult and adjusting antibiotics. Patient did have a CT of the abdomen which was reviewed and is negative. SHIRLEY drain in place draining scant serosanguineous drainage. Midline incision dressing clean dry and intact. Patient has been using his incentive spirometer and states the breathing treatments have helped him significantly. Patient does not have a nebulizer at home. A written prescription was put on the chart for the nebulizer Objective - Vital Signs Vital signs: Vital Signs Temp 98.7 F 02/19/18 03:35 Pulse 86 02/19/18 07:40 Resp 16 02/19/18 01:30 BP 120/72 02/19/18 01:30 Pulse Ox 96 02/19/18 01:30 Intake & Output 02/18/18 02/19/18 02/19/18 18:59 06:59 18:59 Output Total 20 315 Balance -20 -315 Output: Drainage 20 40 Abdomen 20 40 Urine 275 - Exam GENERAL EXAM: Alert, active, comfortable in no apparent distress. HEAD: Normocephalic. EYES: Normal reaction of pupils, equal size. NOSE: Clear with pink turbinates. THROAT: No erythema or exudates. NECK: No masses, no JVD. CHEST: No chest wall deformity. LUNGS: Lungs noted to be diminished throughout with some faint expiratory wheezing with forced expiration. CVS: S1 and S2 normal with no audible mumurs, regular rhythm. ABDOMEN: No hepatosplenomegaly, normal bowel sounds, no guarding or rigidity. Surgical incision clean dry and intact, SHIRLEY drain in place. EXTREMITIES: No edema noted, pedal pulses palpable. CENTRAL NERVOUS SYSTEM: No focal deficits, tone is normal in all 4 extremities. - Labs CBC & Chem 7: 02/18/18 09:03 02/18/18 09:03 Labs: Abnormal Lab Results - Last 24 Hours (Table) 02/18/18 Range/Units 09:03 WBC 16.7 H (3.8-10.6) k/uL RBC 3.88 L (4.30-5.90) m/uL Hgb 10.7 L (13.0-17.5) gm/dL Hct 35.8 L (39.0-53.0) % MCHC 29.9 L (31.0-37.0) g/dL RDW 16.2 H (11.5-15.5) % Neutrophils # (Manual) 10.69 H (1.3-7.7) k/uL Monocytes # (Manual) 1.34 H (0-1.0) k/uL Microbiology - Last 24 Hours (Table) 02/18/18 08:52 Urine Culture - Preliminary Urine,Voided 02/14/18 22:25 Blood Culture - Preliminary Blood No Growth after 96 hours Assessment and Plan Assessment: Assessment Flareup/exacerbation of Crohn's disease Status post update 5 an exploratory laparotomy with small bowel resection ileocolectomy History of prior bowel obstruction Acute hypoxic respiratory failure requiring supplemental oxygen which is now improved patient is on room air Nicotine dependence Suspect COPD Baseline unknown Morbid obesity Plan Medications have been reviewed and will be continued as ordered. Continue with antibiotics Obtain sputum culture Pain control Diet per surgical services Continue with pulmonary hygiene, coughing and deep breathing exercises, and supportive care. Supplemental oxygen to maintain oxygen saturations of 92% or better. Initiate nebulizer treatments. Prescription has been provided on the chart for a nebulizer machine and supplies Continue with incentive spirometer GI and DVT prophylaxis. Smoking cessation discussed at length Increase activity as tolerated Patient would benefit from a full pulmonary workup in the outpatient setting including a PFT Patient should also have a possible sleep study in the outpatient setting suspect possible MARCIAL We will continue to monitor labs/results and adjust treatment as necessary. Thank you for this consultation we will continue to follow this patient with you Further recommendations pending. I, the signing physician performed an examination of the patient, discussed and directed their management with the nurse practitioner. I have reviewed the nurse practitioner's note and agree with the documented findings, orders and plan of care.
[2018-02-19 10:34] LABS: ALT 33 U/L (21-72); AST 25 U/L (17-59); Albumin 2.3 g/dL (3.5-5.0); Alkaline Phosphatase <20 U/L (38-126); Anion Gap 7 mmol/L; Blood Urea Nitrogen 5 mg/dL (9-20); Calcium 8.4 mg/dL (8.4-10.2); Carbon Dioxide 24 mmol/L (22-30); Chloride 105 mmol/L (98-107); Glucose 102 mg/dL (74-99); Potassium 4.4 mmol/L (3.5-5.1); Sodium 136 mmol/L (137-145); Total Bilirubin 0.7 mg/dL (0.2-1.3); Total Protein 5.4 g/dL (6.3-8.2)
[2018-02-19 10:57] LABS: Basophils % (A) 0 %; Eosinophils # (A) 0.3 k/uL (0-0.7); Eosinophils % (A) 2 %; HGB 9.3 gm/dL (13.0-17.5); Hypochromasia Slight; Lymphocytes # (A) 0.8 k/uL (1.0-4.8); Lymphocytes % (A) 6 %; MCH 27.9 pg (25.0-35.0); MCV 89.8 fL (80.0-100.0); Mean Platelet Volume 7.8; Monocytes # (A) 0.8 k/uL (0-1.0); Monocytes % (A) 6 %; Neutrophils # (A) 11.4 k/uL (1.3-7.7); Neutrophils % (A) 84 %; Platelet Count 382 k/uL (150-450); RBC 3.34 m/uL (4.30-5.90); RDW 15.9 % (11.5-15.5); WBC 13.6 k/uL (3.8-10.6)
[2018-02-19] MEDS: VANCOMYCIN 2,000 MG in SODIUM CHLORIDE 0.9% 500 ML 500 ML IVPB SCH (13:11)
--- NOTE | 2018-02-19 13:31 | P.PN ---
Subjective Progress Note Date: 02/19/18 42-year-old seen postop visit sitting up in bed taking a diet reports tolerating no nausea no vomiting. Having stools. Surgical dressing dry. SHIRLEY drain creamy yellowish secretions noted in the bulb. Did note the patient did have fever last night of 101.2. Infectious disease consult obtained anabiotic being adjusted. A computed tomography scan of the abdomen was negative. States has been up ambulating in the room and in the hallway Postop 12 of February exploratory laparotomy, small bowel resection, Ileocolectomy Partial omentectomy for small bowel obstruction secondary to Crohn 's disease Objective - Vital Signs Vital signs: Vital Signs Temp 98.7 F 02/19/18 03:35 Pulse 88 02/19/18 11:45 Resp 16 02/19/18 08:57 BP 120/72 02/19/18 01:30 Pulse Ox 96 02/19/18 01:30 Intake & Output 02/18/18 02/19/18 02/19/18 18:59 06:59 18:59 Output Total 20 315 20 Balance -20 -315 -20 Output: Drainage 20 40 20 Abdomen 20 40 20 Urine 275 Other: Voiding Method Toilet - Exam Physical exam 42-year-old male sitting up taking a diet denying nausea no vomiting Lungs adequate air movement bilaterally on room air using incentive spirometer achieving 1000 Heart S1-S2 audible regular Abdomen obese soft surgical tenderness appropriate surgical dressing dry SHIRLEY drain in place no nausea no vomiting bowel sounds present states had 2 stools this morning Extremities no edema - Labs CBC & Chem 7: 02/19/18 09:46 02/19/18 09:46 Labs: Abnormal Lab Results - Last 24 Hours (Table) 02/19/18 02/19/18 Range/Units 09:46 09:46 WBC 13.6 H (3.8-10.6) k/uL RBC 3.34 L (4.30-5.90) m/uL Hgb 9.3 L (13.0-17.5) gm/dL Hct 30.0 L (39.0-53.0) % RDW 15.9 H (11.5-15.5) % Neutrophils # 11.4 H (1.3-7.7) k/uL Lymphocytes # 0.8 L (1.0-4.8) k/uL Sodium 136 L (137-145) mmol/L BUN 5 L (9-20) mg/dL Glucose 102 H (74-99) mg/dL Alkaline Phosphatase <20 L (38-126) U/L Total Protein 5.4 L (6.3-8.2) g/dL Albumin 2.3 L (3.5-5.0) g/dL Microbiology - Last 24 Hours (Table) 02/18/18 09:03 Blood Culture - Preliminary Blood No Growth after 24 hours 02/18/18 08:52 Urine Culture - Preliminary Urine,Voided 02/14/18 22:25 Blood Culture - Preliminary Blood No Growth after 96 hours Assessment and Plan Assessment: Impression Present on admission diffuse abdominal pain suspect due to high-grade small bowel obstruction secondary to inflammatory distal ileal stricture CAT scan abdomen and pelvis show evidence of a high-grade small bowel obstruction History of Crohn's disease Prior history of a bowel obstruction recurrent Morbid obesity BMI 40 CAT scan abdomen pelvis report reviewed mild to moderate active distal Crohn's ileitis. Appeared to be fistulas at the distal ileum transition point compatible with chronic application of Crohn's disease Postop February 12 exploratory laparotomy, small bowel resection, ileocolectomy , partial omentectomy for small bowel obstruction secondary to Crohn's disease Postop febrile with mild leukocytosis Plan Continue postop surgical care Increase activity Increase use of IFC DVT and GI prophylaxis Pain control The above impression and plan of care have been discussed and directed by signing physician. Deepika Beltran nurse practitioner acting as scribe for signing physician.
[2018-02-19] MEDS: ACETAMINOPHEN TAB 325 MG TAB PO PRN (20:23)
--- NOTE | 2018-02-19 22:15 | PN ---
PROGRESS NOTE DATE OF SERVICE: 02/19/2018 REASON FOR FOLLOWUP: Fever, possible abdominal source; question of pneumonia. INTERVAL HISTORY: The patient's overall fever pattern has improved. The highest temperature last night was 101.2. The patient does tell me he is feeling slightly better. He is breathing comfortably. He continues to have some cough, bringing up some white sputum. Abdominal pain has slightly improved. No nausea. No vomiting. PHYSICAL EXAMINATION: Blood pressure 127/75 with a pulse of 90, temperature 99.7, T-max 101.2. He is 97% on room air. General description is a middle-aged male lying in bed in no distress. RESPIRATORY SYSTEM: Unlabored breathing with decreased breath sounds at the base. No wheeze. HEART: S1, S2. Regular rate and rhythm. ABDOMEN: Soft. No tenderness. LABS: Hemoglobin 9.3, white count of 13.6 with a BUN of 5, creatinine 1.11. UA has been negative. Blood culture has been negative so far. DIAGNOSTIC IMPRESSION AND PLAN: Patient with postoperative fever in this patient who did have extensive abdominal surgery for a small bowel obstruction related to the Crohn's colitis with ileocolectomy and anastomosis along with adhesiolysis. The patient's fever pattern as well as white count has slightly improved with addition of the vancomycin yesterday. CT of abdomen and pelvis did not show any evidence of drainable abscess. Will keep the patient on vancomycin and Zosyn at this point while waiting for the repeat cultures to finalize. Continue with supportive care. MMODL / IJN: [id number] /
[2018-02-20] MEDS: HYDROcodone/APAP 7.5-325MG 1 EACH TAB PO PRN ×5 (00:09→21:26)
[2018-02-20] MEDS: PIPERACILLIN-TAZOBACTAM 3.375 GM in SODIUM CHLORIDE 0.9% 100 ML IVPB SCH ×4 (00:10→23:24)
[2018-02-20] MEDS: VANCOMYCIN 2,000 MG in SODIUM CHLORIDE 0.9% 500 ML 500 ML IVPB SCH ×3 (00:10→23:24)
[2018-02-20] MEDS: HEPARIN SODIUM,PORCINE 5,000 UNIT/ML 1 ML VIAL SQ SCH ×4 (00:11→23:25)
[2018-02-20] MEDS: SODIUM CHLORIDE 0.9% 1,000 ML IV SCH ×3 (00:11→23:25)
--- NOTE | 2018-02-20 01:12 | PN ---
PROGRESS NOTE SUBJECTIVE: 42-year-old white male, status post surgery with open bowel obstruction repair. He has been spiking fevers for days, which he just broke his fever after vancomycin was added to Zosyn. Still coughing up some white phlegm. Abdomen still some mild tenderness over the wound. Lungs are wheezes at the base. Heart regular rate and rhythm. He has negative nuchal rigidity. His labs are reviewed. Blood cultures are negative. ASSESSMENT: 1. Postoperative fever with abdominal surgery for small bowel obstruction related to Crohn's colitis and ileocolectomy and anastomosis with adhesional . 2. Fever, slightly improved with vancomycin. CT scan did not show any abscess. 3. Keep the patient on vanc and Zosyn. Await for repeat cultures. MMODL / IJN: [id number] /
[2018-02-20] MEDS: IPRATROPIUM-ALBUTEROL 3 ML NEB INHALATION SCH ×4 (07:43→21:07)
[2018-02-20] MEDS: BUDESONIDE 0.5 MG/2 ML NEBU INHALATION SCH ×2 (07:43→21:08)
[2018-02-20] MEDS: NICOTINE 21MG/24HR PATCH TRANSDERM SCH (08:46)
[2018-02-20 08:47] LABS: Basophils % (A) 0 %; Eosinophils # (A) 0.4 k/uL (0-0.7); Eosinophils % (A) 4 %; HCT 30.9 % (39.0-53.0); HGB 9.7 gm/dL (13.0-17.5); Hypochromasia Slight; Lymphocytes # (A) 1.4 k/uL (1.0-4.8); Lymphocytes % (A) 13 %; MCHC 31.2 g/dL (31.0-37.0); MCV 89.7 fL (80.0-100.0); Mean Platelet Volume 7.8; Monocytes # (A) 0.7 k/uL (0-1.0); Monocytes % (A) 6 %; Neutrophils # (A) 8.2 k/uL (1.3-7.7); Neutrophils % (A) 75 %; Platelet Count 456 k/uL (150-450); RBC 3.45 m/uL (4.30-5.90)
[2018-02-20] MEDS: PANTOPRAZOLE 40 MG TABLET PO SCH (08:49)
[2018-02-20 09:11] LABS: Anion Gap 8 mmol/L; Blood Urea Nitrogen 6 mg/dL (9-20); Calcium 8.4 mg/dL (8.4-10.2); Carbon Dioxide 23 mmol/L (22-30); Chloride 107 mmol/L (98-107); Glucose 85 mg/dL (74-99); Potassium 4.6 mmol/L (3.5-5.1); Sodium 138 mmol/L (137-145)
--- NOTE | 2018-02-20 12:59 | P.PN ---
Subjective Progress Note Date: 02/20/18 History of present illness: This is a 42-year-old male patient being seen examined and evaluated today for consultation. This patient originally came into the hospital with a small bowel obstruction and he is currently status postop day 5 after an exploratory laparotomy and ileocolectomy with a small bowel resection for for Crohn's disease obstruction. The patient has experienced some postop intermittent fevers that come and go. His shortness of breath is with exertion and activity. He is currently on room air. Apparently postop he did require some supplemental oxygen and that has been weaned off. He denies ever having a history of COPD or asthma in the past. He does state that he is a smoker and at his most he smoked one and half packs per day for approximately 25 years. He has cut back to approximately half a pack per day. Patient denies any use of home oxygen, CPAP use, nebulizer use for any inhalers. He has never been worked up in pulmonary office or underwent a PFT in the past. Upon examination the patient is resting up in bed on room air. He does have a cough states his sputum production has been clear to yellow. He has been using his incentive spirometer and when asked to do so the patient was utilizing the incentive spirometer incorrectly. Once she is explained use of the correct way he is able to pull volumes of approximately 1500 ML. Patient does have some postoperative pain that is expected, and he does have pain medication on board that he is using that has been helpful. All labs and reports have been reviewed. Patient did undergo a chest x-ray this morning and those results are currently pending. Interval History: 02/18/18- See Dr ANGELIA Small note 02/19/18-patient is being seen examined and evaluated today on rounds. He is resting up in bed on room air. The patient did have fevers overnight of 101.2. Infectious disease is on consult and adjusting antibiotics. Patient did have a CT of the abdomen which was reviewed and is negative. SHIRLEY drain in place draining scant serosanguineous drainage. Midline incision dressing clean dry and intact. Patient has been using his incentive spirometer and states the breathing treatments have helped him significantly. Patient does not have a nebulizer at home. A written prescription was put on the chart for the nebulizer 02/20/18- patient is being seen examined and evaluated today on rounds. He is resting up in bedside chair on room air. States breathing is stable and at baseline. His SHIRLEY drain is still in contact approximately 40 mL of fluid removed this morning. Midline incision clean dry and intact. Continues to use incentive spirometer. Afebrile no further complaints. Objective - Vital Signs Vital signs: Vital Signs Temp 98.4 F 02/20/18 08:02 Pulse 98 02/20/18 11:32 Resp 16 02/20/18 07:32 BP 111/66 02/20/18 07:32 Pulse Ox 96 02/20/18 07:32 Intake & Output 02/19/18 02/20/18 02/20/18 18:59 06:59 18:59 Intake Total 500 Output Total 45 40 Balance -45 500 -40 Weight 140.614 kg Intake: Intake, IV Titration 500 Amount Sodium Chloride 0.9% 1, 500 000 ml @ 50 mls/hr IV . Q20H [facility] Rx#:[id number] Output: Drainage 45 40 Abdomen 45 40 Other: Voiding Method Toilet Toilet - Exam GENERAL EXAM: Alert, active, comfortable in no apparent distress. HEAD: Normocephalic. EYES: Normal reaction of pupils, equal size. NOSE: Clear with pink turbinates. THROAT: No erythema or exudates. NECK: No masses, no JVD. CHEST: No chest wall deformity. LUNGS: Lungs noted to be diminished throughout with some faint expiratory wheezing with forced expiration. CVS: S1 and S2 normal with no audible mumurs, regular rhythm. ABDOMEN: No hepatosplenomegaly, normal bowel sounds, no guarding or rigidity. Surgical incision clean dry and intact, SHIRLEY drain in place. EXTREMITIES: No edema noted, pedal pulses palpable. CENTRAL NERVOUS SYSTEM: No focal deficits, tone is normal in all 4 extremities. - Labs CBC & Chem 7: 02/20/18 08:00 02/20/18 08:00 Labs: Abnormal Lab Results - Last 24 Hours (Table) 02/20/18 02/20/18 Range/Units 08:00 08:00 WBC 11.0 H (3.8-10.6) k/uL RBC 3.45 L (4.30-5.90) m/uL Hgb 9.7 L (13.0-17.5) gm/dL Hct 30.9 L (39.0-53.0) % RDW 16.0 H (11.5-15.5) % Plt Count 456 H (150-450) k/uL Neutrophils # 8.2 H (1.3-7.7) k/uL BUN 6 L (9-20) mg/dL Microbiology - Last 24 Hours (Table) 02/18/18 09:03 Blood Culture - Preliminary Blood No Growth after 48 hours 02/17/18 16:44 Gram Stain - Final Sputum Sputum Culture - Final 02/18/18 08:52 Urine Culture - Final Urine,Voided 02/14/18 22:25 Blood Culture - Preliminary Blood No Growth after 120 hours Assessment and Plan Assessment: Assessment Flareup/exacerbation of Crohn's disease Status post update 5 an exploratory laparotomy with small bowel resection ileocolectomy History of prior bowel obstruction Acute hypoxic respiratory failure requiring supplemental oxygen which is now improved patient is on room air Nicotine dependence Suspect COPD Baseline unknown Morbid obesity Plan Medications have been reviewed and will be continued as ordered. Continue with antibiotics per ID Obtain sputum culture Pain control Diet per surgical services Continue with pulmonary hygiene, coughing and deep breathing exercises, and supportive care. Supplemental oxygen to maintain oxygen saturations of 92% or better. Initiate nebulizer treatments. Prescription has been provided on the chart for a nebulizer machine and supplies Continue with incentive spirometer GI and DVT prophylaxis. Smoking cessation discussed at length Increase activity as tolerated Patient would benefit from a full pulmonary workup in the outpatient setting including a PFT Patient should also have a possible sleep study in the outpatient setting suspect possible MARCIAL We will continue to monitor labs/results and adjust treatment as necessary. Further recommendations pending. I, the signing physician performed an examination of the patient, discussed and directed their management with the nurse practitioner. I have reviewed the nurse practitioner's note and agree with the documented findings, orders and plan of care.
--- NOTE | 2018-02-20 13:32 | CDI ---
Last Revision, February 2017 Documentation Clarification Form Date: 02/20/2018 12:59:23 PM From: Eufemia Steele RN, CCDS Admit Date: 02/10/2018 7:28:00 AM Patient Name: Bro Umaña Visit Number: [id number] ATTENTION: The Clinical Documentation Specialists (CDI) and [facility] Coding Staff appreciate your assistance in clarifying documentation. Please respond to the clarification below the line at the bottom and electronically sign. The CDI & [facility] Coding staff will review the response and follow-up if needed. Please note: Queries are made part of the Legal Health Record. If you have any questions, please contact the author of this message via ITS. Daryl Najera MD Documentation and location in medical record included "Sepsis" in the ID consult , and requires clarification. 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 Fever, slightly improved with vancomycin. CT scan did not show any abscess. Keep the patient on vanc and Zosyn. Await for repeat cultures. " WBC: 11.6/8.2/9/10.5 Left Shift: 8.8/4.9/6.3/7.9 Lactic acid: not done Blood cultures: 02/14 & 02/18 negative Urine and Sputum cultures negative Vitals signs on admission: Temp 98, HR 77, RR 18, B/P 145/96, spo2 98% ra 02/12 8239 V/S: temp 103, HR 101-119, B/P 106/65, spo2 94% RA 02/19 V/S: temp 102.1, Hr 1055, RR 16, B/P 120/72, spo2 96% ra Treatment: ID Consult: completed 02/18 Antibiotics: PTD IVPB Vanco, Zosyn 3.375gm IVPB Q 8 hrs IV Bolus: 3L 0.9% NS IVF Bolus followed by 50 cc/hr SIRS Criteria...2 or more of the following may indicate SIRS: Temperature < 96.8F (36C) or > 101.0F (38.3C) Heart Rate > 90 bpm Respiratory Rate > 20 breaths/min or PaCO2 < 32 mmHg White Blood Cell Count > 12,000 or < 4,000 cells/mm3 or > 10% bands Lactate >2.0 mmol/L (>4.0 is equivalent to septic shock) In your professional opinion, please clarify if the aforementioned Sepsis is ruled in or out and whether the condition is POA, and cause, if known: Sepsis ruled in Sepsis ruled out Severe Sepsis Septic Shock Other, please specify Unable to determine Present on Admission: Yes No Identify the (suspected) organism Link or clarify if there is associated (due to/with): Organ failure Shock Please continue to document in your progress notes and discharge summary in order to capture severity of illness and risk of mortality. Include clinical findings that support your diagnosis. MTDD
--- NOTE | 2018-02-20 16:49 | P.PN ---
Progress Note - Text Progress Note Date: 02/20/18 postoperative day 7. The patient's postoperative day 7 from ileocolectomy and small bowel resection for Crohn's disease causing small bowel obstruction. Patient is tolerating his diet. He has had some purulent drainage from his SHIRLEY drain. On exam his vital signs are still. Abdomen is soft. Hithe incision site is clean dry and intact. Silver dressing is applied. The SHIRLEY drain which is in the subcutaneous incision has some purulent fluid. This is improved since yesterday. The patient has improving. He will have his diet increased. If he continues to have purulent drainage from his SHIRLEY drain he will need his bipin removed and the incision opened. We will watch him clinically.
[2018-02-20] MEDS: ACETAMINOPHEN TAB 325 MG TAB PO PRN (23:23)
--- NOTE | 2018-02-20 23:25 | PN ---
PROGRESS NOTE DATE OF SERVICE: 02/20/2018. REASON FOR FOLLOWUP: Fever, possible abdominal source. INTERVAL HISTORY: The patient overall fever pattern has improved. The patient has been breathing comfortably. Denies any chest pain or shortness of breath. Occasional cough. Abdominal pain has improved. No diarrhea. EXAMINATION: Blood pressure 113/68 with a pulse of 83, temperature of 99.5. He is 98% on room air. General description is a middle-aged male lying in bed in no distress. Respiratory system unlabored breathing with decreased breath sounds in the bases. No wheeze. Heart S1, S2. Regular rate and rhythm. Abdomen soft, slightly distended. No guarding or rigidity. LABS: Hemoglobin is 9.7, white count 11.0, BUN of 6, creatinine 1.12. DIAGNOSTIC IMPRESSION AND PLAN: Patient with fever and leukocytosis. Patient did have extensive surgery for small bowel obstruction status post ileocolectomy. The patient did have a CT abdomen and pelvis did not show any drainable abscess. White count improved after addition of the vancomycin. Continue addition to Zosyn while waiting for his culture to finalize. Family present at bedside. Questions were answered. MMODL / IJN: [id number] /
[2018-02-21] MEDS: HYDROcodone/APAP 7.5-325MG 1 EACH TAB PO PRN ×4 (02:08→17:13)
[2018-02-21] MEDS: BUDESONIDE 0.5 MG/2 ML NEBU INHALATION SCH ×2 (07:34→21:00)
[2018-02-21] MEDS: IPRATROPIUM-ALBUTEROL 3 ML NEB INHALATION SCH ×4 (07:34→21:00)
[2018-02-21] MEDS: PIPERACILLIN-TAZOBACTAM 3.375 GM in SODIUM CHLORIDE 0.9% 100 ML IVPB SCH ×2 (07:41→16:53)
[2018-02-21] MEDS: NICOTINE 21MG/24HR PATCH TRANSDERM SCH (08:19)
[2018-02-21] MEDS: HEPARIN SODIUM,PORCINE 5,000 UNIT/ML 1 ML VIAL SQ SCH ×2 (08:19→16:53)
[2018-02-21] MEDS: PANTOPRAZOLE 40 MG TABLET PO SCH (08:19)
[2018-02-21] MEDS ORDERED: VANCOMYCIN TROUGH DUE 1 EACH MISC MISCELLANE ONE (11:00)
[2018-02-21 12:41] LABS: Basophils % (A) 0 %; Eosinophils # (A) 0.4 k/uL (0-0.7); Eosinophils % (A) 4 %; HCT 32.4 % (39.0-53.0); HGB 9.9 gm/dL (13.0-17.5); Hypochromasia Moderate; Lymphocytes # (A) 1.4 k/uL (1.0-4.8); Lymphocytes % (A) 14 %; MCH 27.7 pg (25.0-35.0); MCHC 30.7 g/dL (31.0-37.0); MCV 90.3 fL (80.0-100.0); Mean Platelet Volume 7.3; Monocytes # (A) 0.6 k/uL (0-1.0); Monocytes % (A) 6 %; Neutrophils # (A) 7.2 k/uL (1.3-7.7); Neutrophils % (A) 73 %; Platelet Count 580 k/uL (150-450); RBC 3.59 m/uL (4.30-5.90); RDW 15.8 % (11.5-15.5); WBC 9.8 k/uL (3.8-10.6)
--- NOTE | 2018-02-21 12:44 | P.PN ---
Subjective Progress Note Date: 02/21/18 42-year-old male postop surgical visit sitting in a chair white count 11 on feb 20 temperature at midnight 100. Current temp 98.8. SHIRLEY drain continues to put out purulent creamy drainage surgical dressing sites dry abdomen soft nondistended Patients being followed by Dr. Castillo infectious disease Postop 12 of February exploratory laparotomy, small bowel resection, Ileocolectomy Partial omentectomy for small bowel obstruction secondary to Crohn 's disease Objective - Vital Signs Vital signs: Vital Signs Temp 98.8 F 02/21/18 07:03 Pulse 72 02/21/18 11:32 Resp 15 02/21/18 07:03 BP 122/77 02/21/18 07:03 Pulse Ox 94 L 02/21/18 07:03 Intake & Output 02/20/18 02/21/18 02/21/18 18:59 06:59 18:59 Intake Total 502 1100 Output Total 70 830 Balance 432 270 Weight 140.614 kg Intake: Intake, IV Titration 1100 Amount Piperacillin-Tazobactam 3 100 .375 gm In Sodium Chloride 0.9% 100 ml @ 25 mls/hr IVPB Q8HR [facility] Rx# :[id number] Sodium Chloride 0.9% 1, 500 000 ml @ 50 mls/hr IV . Q20H [facility] Rx#:[id number] Vancomycin 2,000 mg In 500 Sodium Chloride 0.9% 500 ml 500 ml @ 167 mls/hr IVPB Q12H [facility] Rx#: [id number] Oral 502 Output: Drainage 70 30 Abdomen 70 30 Urine 800 Other: Voiding Method Toilet Toilet - Exam Physical exam Abdomen silver dressing dry SHIRLEY drain in place continues to put out purulent drainage. Temp at midnight 100 patient's attending up in the room states she's been up ambulating no difficulty reports no nausea vomiting bowel tones present states stooling - Labs CBC & Chem 7: 02/20/18 08:00 02/20/18 08:00 Labs: Microbiology - Last 24 Hours (Table) 02/18/18 09:03 Blood Culture - Preliminary Blood No Growth after 72 hours 02/14/18 22:25 Blood Culture - Final Blood No Growth after 144 hours 02/17/18 16:44 Gram Stain - Final Sputum Sputum Culture - Final Assessment and Plan Assessment: Impression Present on admission diffuse abdominal pain suspect due to high-grade small bowel obstruction secondary to inflammatory distal ileal stricture CAT scan abdomen and pelvis show evidence of a high-grade small bowel obstruction History of Crohn's disease Prior history of a bowel obstruction recurrent Morbid obesity BMI 40 CAT scan abdomen pelvis report reviewed mild to moderate active distal Crohn's ileitis. 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 Deepika Beltran nurse practitioner acting as scribe for signing physician.
[2018-02-21 12:47] LABS: Anion Gap 7 mmol/L; Blood Urea Nitrogen 5 mg/dL (9-20); Calcium 8.3 mg/dL (8.4-10.2); Carbon Dioxide 24 mmol/L (22-30); Chloride 107 mmol/L (98-107); Glucose 84 mg/dL (74-99); Sodium 138 mmol/L (137-145)
[2018-02-21] MEDS: VANCOMYCIN 2,000 MG in SODIUM CHLORIDE 0.9% 500 ML 500 ML IVPB SCH (13:01)
--- NOTE | 2018-02-21 14:57 | P.PN ---
Subjective Progress Note Date: 02/21/18 History of present illness: This is a 42-year-old male patient being seen examined and evaluated today for consultation. This patient originally came into the hospital with a small bowel obstruction and he is currently status postop day 5 after an exploratory laparotomy and ileocolectomy with a small bowel resection for for Crohn's disease obstruction. The patient has experienced some postop intermittent fevers that come and go. His shortness of breath is with exertion and activity. He is currently on room air. Apparently postop he did require some supplemental oxygen and that has been weaned off. He denies ever having a history of COPD or asthma in the past. He does state that he is a smoker and at his most he smoked one and half packs per day for approximately 25 years. He has cut back to approximately half a pack per day. Patient denies any use of home oxygen, CPAP use, nebulizer use for any inhalers. He has never been worked up in pulmonary office or underwent a PFT in the past. Upon examination the patient is resting up in bed on room air. He does have a cough states his sputum production has been clear to yellow. He has been using his incentive spirometer and when asked to do so the patient was utilizing the incentive spirometer incorrectly. Once she is explained use of the correct way he is able to pull volumes of approximately 1500 ML. Patient does have some postoperative pain that is expected, and he does have pain medication on board that he is using that has been helpful. All labs and reports have been reviewed. Patient did undergo a chest x-ray this morning and those results are currently pending. Interval History: 02/18/18- See Dr ANGELIA Small note 02/19/18-patient is being seen examined and evaluated today on rounds. He is resting up in bed on room air. The patient did have fevers overnight of 101.2. Infectious disease is on consult and adjusting antibiotics. Patient did have a CT of the abdomen which was reviewed and is negative. SHIRLEY drain in place draining scant serosanguineous drainage. Midline incision dressing clean dry and intact. Patient has been using his incentive spirometer and states the breathing treatments have helped him significantly. Patient does not have a nebulizer at home. A written prescription was put on the chart for the nebulizer 02/20/18- patient is being seen examined and evaluated today on rounds. He is resting up in bedside chair on room air. States breathing is stable and at baseline. His SHIRLEY drain is still in contact approximately 40 mL of fluid removed this morning. Midline incision clean dry and intact. Continues to use incentive spirometer. Afebrile no further complaints. 02/21/18- patient is being seen examined and evaluated today on rounds. He did have some overnight fevers again. Highly doubtful of a pulmonary origin at this point. Breathing has been stable and improved. Continues to do his incentive spirometer and breathing treatments denies any cough or congestion. All labs and reports have been reviewed. Objective - Vital Signs Vital signs: Vital Signs Temp 98.3 F 02/21/18 14:52 Pulse 86 02/21/18 14:52 Resp 18 02/21/18 14:52 BP 136/80 02/21/18 14:52 Pulse Ox 94 L 02/21/18 14:52 Intake & Output 02/20/18 02/21/18 02/21/18 18:59 06:59 18:59 Intake Total 502 1100 Output Total 70 830 Balance 432 270 Weight 140.614 kg Intake: Intake, IV Titration 1100 Amount Piperacillin-Tazobactam 3 100 .375 gm In Sodium Chloride 0.9% 100 ml @ 25 mls/hr IVPB Q8HR [facility] Rx# :[id number] Sodium Chloride 0.9% 1, 500 000 ml @ 50 mls/hr IV . Q20H [facility] Rx#:[id number] Vancomycin 2,000 mg In 500 Sodium Chloride 0.9% 500 ml 500 ml @ 167 mls/hr IVPB Q12H [facility] Rx#: [id number] Oral 502 Output: Drainage 70 30 Abdomen 70 30 Urine 800 Other: Voiding Method Toilet Toilet - Exam GENERAL EXAM: Alert, active, comfortable in no apparent distress. HEAD: Normocephalic. EYES: Normal reaction of pupils, equal size. NOSE: Clear with pink turbinates. THROAT: No erythema or exudates. NECK: No masses, no JVD. CHEST: No chest wall deformity. LUNGS: Lungs noted to be diminished throughout with some faint expiratory wheezing with forced expiration. CVS: S1 and S2 normal with no audible mumurs, regular rhythm. ABDOMEN: No hepatosplenomegaly, normal bowel sounds, no guarding or rigidity. Surgical incision clean dry and intact, SHIRLEY drain in place. EXTREMITIES: No edema noted, pedal pulses palpable. CENTRAL NERVOUS SYSTEM: No focal deficits, tone is normal in all 4 extremities. - Labs CBC & Chem 7: 02/21/18 11:50 02/21/18 11:50 Labs: Abnormal Lab Results - Last 24 Hours (Table) 02/21/18 02/21/18 Range/Units 11:50 11:50 RBC 3.59 L (4.30-5.90) m/uL Hgb 9.9 L (13.0-17.5) gm/dL Hct 32.4 L (39.0-53.0) % MCHC 30.7 L (31.0-37.0) g/dL RDW 15.8 H (11.5-15.5) % Plt Count 580 H (150-450) k/uL BUN 5 L (9-20) mg/dL Calcium 8.3 L (8.4-10.2) mg/dL Microbiology - Last 24 Hours (Table) 02/18/18 09:03 Blood Culture - Preliminary Blood No Growth after 72 hours 02/14/18 22:25 Blood Culture - Final Blood No Growth after 144 hours 02/17/18 16:44 Gram Stain - Final Sputum Sputum Culture - Final Assessment and Plan Assessment: Assessment Flareup/exacerbation of Crohn's disease Status post op of an exploratory laparotomy with small bowel resection ileocolectomy History of prior bowel obstruction Acute hypoxic respiratory failure requiring supplemental oxygen which is now improved patient is on room air Nicotine dependence Suspect COPD Baseline unknown Morbid obesity Plan Medications have been reviewed and will be continued as ordered. Continue with antibiotics per ID Obtain sputum culture Pain control Diet per surgical services Continue with pulmonary hygiene, coughing and deep breathing exercises, and supportive care. Supplemental oxygen to maintain oxygen saturations of 92% or better. Initiate nebulizer treatments. Prescription has been provided on the chart for a nebulizer machine and supplies Continue with incentive spirometer GI and DVT prophylaxis. Smoking cessation discussed at length Increase activity as tolerated Patient would benefit from a full pulmonary workup in the outpatient setting including a PFT Patient should also have a possible sleep study in the outpatient setting suspect possible MARCIAL We will continue to monitor labs/results and adjust treatment as necessary. Further recommendations pending. I, the signing physician performed an examination of the patient, discussed and directed their management with the nurse practitioner. I have reviewed the nurse practitioner's note and agree with the documented findings, orders and plan of care.
--- NOTE | 2018-02-21 23:02 | PN ---
PROGRESS NOTE DATE OF SERVICE: 02/21/2018 REASON FOR FOLLOWUP: Fever, possible abdominal source. INTERVAL HISTORY: The patient did have a low-grade fever of 100. The patient has been made n.p.o., as he did have some purulent drainage through his SHIRLEY. Denies having any chest pain or shortness of breath or cough. Abdominal pain has decreased in intensity. No nausea or vomiting. PHYSICAL EXAMINATION: Blood pressure 145/87, pulse of 79, temperature 99.3. He is 94% on room air. General description is a middle-aged male lying in bed in no distress. RESPIRATORY SYSTEM: Unlabored breathing. Clear to auscultation anteriorly. HEART: S1, S2. Regular rate and rhythm. ABDOMEN: Soft. Mildly distended. No guarding or rigidity. LABS: Hemoglobin 9.9, white count 9.8. BUN of 5, creatinine 1.11. DIAGNOSTIC IMPRESSION AND PLAN: Patient with postoperative fever in this patient who did have extensive abdominal surgery. The patient did have some improvement in the fever pattern. His white count has normalized. His blood culture has been negative so far. Plan to continue with the Zosyn and vancomycin at this point, to which his fever responded. Continue with supportive care. MMODL / IJN: [id number] /
[2018-02-22] MEDS: VANCOMYCIN 2,000 MG in SODIUM CHLORIDE 0.9% 500 ML 500 ML IVPB SCH ×2 (00:08→12:15)
[2018-02-22] MEDS: PIPERACILLIN-TAZOBACTAM 3.375 GM in SODIUM CHLORIDE 0.9% 100 ML IVPB SCH ×3 (00:08→16:45)
[2018-02-22] MEDS: HEPARIN SODIUM,PORCINE 5,000 UNIT/ML 1 ML VIAL SQ SCH ×3 (00:09→16:45)
[2018-02-22] MEDS: HYDROcodone/APAP 7.5-325MG 1 EACH TAB PO PRN ×3 (00:09→16:42)
[2018-02-22] MEDS: SODIUM CHLORIDE 0.9% 1,000 ML IV SCH (05:22)
[2018-02-22] MEDS: PANTOPRAZOLE 40 MG TABLET PO SCH (08:18)
[2018-02-22] MEDS: IPRATROPIUM-ALBUTEROL 3 ML NEB INHALATION SCH ×4 (09:21→20:12)
[2018-02-22] MEDS: BUDESONIDE 0.5 MG/2 ML NEBU INHALATION SCH ×2 (09:22→20:12)
--- NOTE | 2018-02-22 10:27 | PN ---
PROGRESS NOTE SUBJECTIVE: This is a 42-year-old white male who has had , on Vanco and Zosyn. He has had dark drainage out of his intraabdominal tube. Awaiting Dr. Urbina's recommendation on this and Infectious Disease. Breathing appears to be better. Blood cultures are negative. Continue his Zofran and Vanco. CARDIOVASCULAR: S1-S2. LUNGS: Clear. GI: Soft. He is up ambulating around the room. Continue to take antibiotics, await for Surgical and Infectious Disease recommendations. Otherwise, he is not spiking fevers like he used to. Continue on current treatments at this time. MMODL / IJN: [id number] /
[2018-02-22] MEDS: NICOTINE 21MG/24HR PATCH TRANSDERM SCH (10:36)
--- NOTE | 2018-02-22 10:55 | P.PN ---
Subjective Progress Note Date: 02/22/18 Principal diagnosis: Right colectomy Patient says his pain is improved. Low-grade fever 99.6. Drain output remains malodorous. Objective - Vital Signs Vital signs: Vital Signs Temp 99.6 F 02/22/18 07:00 Pulse 72 02/22/18 09:33 Resp 18 02/22/18 07:00 BP 146/84 02/22/18 07:00 Pulse Ox 97 02/22/18 07:00 Intake & Output 02/21/18 02/22/18 02/22/18 18:59 06:59 18:59 Output Total 30 30 Balance -30 -30 Output: Drainage 30 30 Abdomen 30 30 Other: Voiding Method Toilet Toilet - Exam Abdomen: Soft, nondistended, mild tenderness, dressing clean and dry, drain seropurulent - Labs CBC & Chem 7: 02/21/18 11:50 02/21/18 11:50 Labs: Abnormal Lab Results - Last 24 Hours (Table) 02/21/18 02/21/18 Range/Units 11:50 11:50 RBC 3.59 L (4.30-5.90) m/uL Hgb 9.9 L (13.0-17.5) gm/dL Hct 32.4 L (39.0-53.0) % MCHC 30.7 L (31.0-37.0) g/dL RDW 15.8 H (11.5-15.5) % Plt Count 580 H (150-450) k/uL BUN 5 L (9-20) mg/dL Calcium 8.3 L (8.4-10.2) mg/dL Microbiology - Last 24 Hours (Table) 02/18/18 09:03 Blood Culture - Preliminary Blood No Growth after 72 hours Assessment and Plan Plan: Continue diet as ordered. Check labs. Increase activity. Monitor drain output.
[2018-02-22 11:21] LABS: Basophils % (A) 0 %; Eosinophils % (A) 3 %; HCT 34.8 % (39.0-53.0); HGB 10.4 gm/dL (13.0-17.5); Hypochromasia Moderate; Lymphocytes # (A) 1.8 k/uL (1.0-4.8); Lymphocytes % (A) 16 %; MCH 26.9 pg (25.0-35.0); MCHC 29.8 g/dL (31.0-37.0); MCV 90.1 fL (80.0-100.0); Mean Platelet Volume 7.5; Monocytes % (A) 7 %; Neutrophils % (A) 71 %; Platelet Count 716 k/uL (150-450); RBC 3.86 m/uL (4.30-5.90); RDW 15.9 % (11.5-15.5); WBC 11.2 k/uL (3.8-10.6)
[2018-02-22 11:22] LABS: Basophils # (A) 0.1 k/uL (0-0.2); Eosinophils # (A) 0.4 k/uL (0-0.7); Monocytes # (A) 0.8 k/uL (0-1.0)
[2018-02-22 11:30] LABS: Albumin 2.7 g/dL (3.5-5.0); Calcium 8.8 mg/dL (8.4-10.2); Potassium 4.7 mmol/L (3.5-5.1); Total Bilirubin 0.4 mg/dL (0.2-1.3); Total Protein 6.2 g/dL (6.3-8.2)
--- NOTE | 2018-02-22 13:18 | PN ---
PROGRESS NOTE DATE OF SERVICE: 02/22/2018 He has been using his incentive spirometer. He has been walking in the hallways. He is feeling better overall. He did have a low-grade fever and continues to have drainage from his SHIRLEY drain. On physical examination, vitals are stable. He is afebrile. His chest is relatively clear. Cardiovascular system reveals S1, S2. Abdomen is soft. There is no pedal edema. IMPRESSION: 1. Small bowel obstruction, status post abdominal surgery. 2. Fever, which may in part be due to his surgical procedure and abdomen. 3. Doubt pneumonia. 4. Obstructive sleep apnea and hypoxemia in part due to atelectasis. Continue incentive spirometry, increase his activity level. Depending on how he does, we shall make further changes to his care. MMODL / IJN: [id number] /
[2018-02-23] MEDS: PIPERACILLIN-TAZOBACTAM 3.375 GM in SODIUM CHLORIDE 0.9% 100 ML IVPB SCH ×3 (00:03→15:51)
[2018-02-23] MEDS: SODIUM CHLORIDE 0.9% 1,000 ML IV SCH ×2 (00:06→15:51)
[2018-02-23] MEDS: VANCOMYCIN 2,000 MG in SODIUM CHLORIDE 0.9% 500 ML 500 ML IVPB SCH ×2 (01:26→12:25)
[2018-02-23] MEDS: HEPARIN SODIUM,PORCINE 5,000 UNIT/ML 1 ML VIAL SQ SCH ×3 (01:26→17:25)
[2018-02-23] MEDS: ACETAMINOPHEN TAB 325 MG TAB PO PRN (01:34)
[2018-02-23 07:55] LABS: Calcium 8.3 mg/dL (8.4-10.2); Potassium 4.5 mmol/L (3.5-5.1)
[2018-02-23 08:29] LABS: Basophils % (A) 0 %; Eosinophils # (A) 0.3 k/uL (0-0.7); Eosinophils % (A) 3 %; Hypochromasia Moderate; Lymphocytes # (A) 1.4 k/uL (1.0-4.8); Lymphocytes % (A) 15 %; MCHC 31.1 g/dL (31.0-37.0); MCV 89.8 fL (80.0-100.0); Mean Platelet Volume 7.3; Monocytes # (A) 0.9 k/uL (0-1.0); Monocytes % (A) 9 %; Neutrophils # (A) 6.7 k/uL (1.3-7.7); Neutrophils % (A) 71 %; Platelet Count 619 k/uL (150-450); RBC 3.23 m/uL (4.30-5.90); RDW 15.8 % (11.5-15.5); WBC 9.5 k/uL (3.8-10.6)
[2018-02-23] MEDS: IPRATROPIUM-ALBUTEROL 3 ML NEB INHALATION SCH ×4 (08:43→20:50)
[2018-02-23] MEDS: BUDESONIDE 0.5 MG/2 ML NEBU INHALATION SCH ×2 (08:44→20:50)
[2018-02-23] MEDS: PANTOPRAZOLE 40 MG TABLET PO SCH (10:22)
[2018-02-23] MEDS ORDERED: VANCOMYCIN TROUGH DUE 1 EACH MISC MISCELLANE ONE (11:00)
--- NOTE | 2018-02-23 11:46 | P.PN ---
Subjective Progress Note Date: 02/23/18 Principal diagnosis: Right colectomy Patient had a fever last night of 100.9. White blood cell count normal. Mild abdominal discomfort. Having solid stools. Tolerating all of his food. Objective - Vital Signs Vital signs: Vital Signs Temp 98.6 F 02/23/18 08:00 Pulse 70 02/23/18 08:57 Resp 16 02/23/18 08:43 BP 144/87 02/23/18 08:00 Pulse Ox 95 02/23/18 08:00 Intake & Output 02/22/18 02/23/18 02/23/18 18:59 06:59 18:59 Output Total 50 80 Balance -50 -80 Output: Drainage 50 80 Abdomen 50 80 Other: Voiding Method Toilet - Exam Abdomen: Soft, nondistended, dressings clean and dry, mild tenderness along the incision - Labs CBC & Chem 7: 02/23/18 06:48 02/23/18 06:48 Labs: Abnormal Lab Results - Last 24 Hours (Table) 02/23/18 02/23/18 Range/Units 06:48 06:48 RBC 3.23 L (4.30-5.90) m/uL Hgb 9.0 L (13.0-17.5) gm/dL Hct 29.0 L (39.0-53.0) % RDW 15.8 H (11.5-15.5) % Plt Count 619 H (150-450) k/uL Chloride 114 H (98-107) mmol/L BUN 6 L (9-20) mg/dL Creatinine 1.81 H (0.66-1.25) mg/dL Calcium 8.3 L (8.4-10.2) mg/dL Microbiology - Last 24 Hours (Table) 02/18/18 09:03 Blood Culture - Preliminary Blood No Growth after 120 hours Assessment and Plan Plan: Continue regular diet. Ambulate. Monitor fevers. Monitor drain output.
[2018-02-23] MEDS: NICOTINE 21MG/24HR PATCH TRANSDERM SCH (17:24)
[2018-02-23] MEDS: HYDROcodone/APAP 7.5-325MG 1 EACH TAB PO PRN (18:16)
--- NOTE | 2018-02-23 19:07 | PN ---
PROGRESS NOTE He was seen on 02/23/2018. He has been walking in the hallways. He continues to have a low-grade fever. He does not complain of any shortness of breath and is using his incentive spirometer. On physical examination, blood pressure is 148/79, respiratory rate 16, pulse rate 69, temperature 98.9, O2 saturation on room air is 98%. HEENT is unremarkable. Chest reveals decreased breath sounds in the bases. Cardiovascular system is S1, S2. Abdomen is soft. There is in no edema. Labs and x-rays are reviewed. IMPRESSION: 1. Status post surgery for small bowel obstruction. 2. Fever, unlikely to be a pulmonary source. 3. Atelectasis with hypoxemia in part due to untreated obstructive sleep apnea is likely an asthma. Would continue incentive spirometry, increase his activity level, continue antibiotics per surgery, advance his diet. His prognosis is fair. He was counseled regarding his condition. MMODL / IJN: [id number] /
--- NOTE | 2018-02-23 21:04 | PN ---
PROGRESS NOTE SUBJECTIVE: This is an male, still has cloudy tube output of his gastrostomy tube. He still has fever of 100.9 max white counts normal. Status post right colectomy, solid stools, tolerating all his food. OBJECTIVE: Blood pressure 144/87, pulse 70, respiratory 16 to 18, O2 of 95. Hemoglobin 9. Culture no growth. Platelet count 619,000. PLAN: Monitor gastrostomy tube. Regular diet. Ambulate. Monitor drain output per Surgery. Please see further orders. MMODL / IJN: [id number] /
--- NOTE | 2018-02-23 22:22 | PN ---
PROGRESS NOTE DATE OF SERVICE: 02/23/2018. REASON FOR FOLLOWUP: Possible abdominal abscess. INTERVAL HISTORY: The patient did have a low-grade fever of 100.9 this morning. He was afebrile afterward. The patient denies having any chest pain. No shortness of breath or cough. Abdominal pain is currently controlled. No nausea, no vomiting, or any diarrhea. EXAMINATION: Blood pressure 122/83 with a pulse of 70, temperature 99.7. He is 98% on room air. GENERAL DESCRIPTION: A middle age male, lying in bed, in no distress. RESPIRATORY SYSTEM: Unlabored breathing. Clear to auscultation anteriorly. HEART: S1 and S2. Regular rate and rhythm. ABDOMEN: SHIRLEY drain still has purulent drainage. LABS: Hemoglobin is 9 with white count 9.5, BUN of 6, creatinine 1.1, white count slightly on the high side. DIAGNOSTIC IMPRESSION AND PLAN: Patient with a fever, possible abdominal source as the patient did have recent extensive surgery for small bowel obstruction and possible fistula formation with mostly purulent drainage through the SHIRLEY. Discussed further with surgery for possible reimaging. We will need to monitor his vanco trough very closely to prevent worsening of his kidney function. Keep the patient on vanco and Zosyn at this point. Continue supportive care. MMODL / IJN: [id number] /
[2018-02-24] MEDS ORDERED: VANCOMYCIN 2,000 MG in SODIUM CHLORIDE 0.9% 500 ML 500 ML IVPB SCH ×2
[2018-02-24] MEDS: HEPARIN SODIUM,PORCINE 5,000 UNIT/ML 1 ML VIAL SQ SCH ×3 (00:19→16:12)
[2018-02-24] MEDS: PIPERACILLIN-TAZOBACTAM 3.375 GM in SODIUM CHLORIDE 0.9% 100 ML IVPB SCH ×3 (00:19→16:12)
[2018-02-24] MEDS: PANTOPRAZOLE 40 MG TABLET PO SCH (08:38)
[2018-02-24] MEDS: BUDESONIDE 0.5 MG/2 ML NEBU INHALATION SCH ×2 (08:38→18:52)
[2018-02-24] MEDS: NICOTINE 21MG/24HR PATCH TRANSDERM SCH (08:38)
[2018-02-24] MEDS: IPRATROPIUM-ALBUTEROL 3 ML NEB INHALATION SCH ×4 (08:38→18:53)
[2018-02-24 09:13] LABS: Basophils # (A) 0.1 k/uL (0-0.2); Basophils % (A) 1 %; Eosinophils # (A) 0.2 k/uL (0-0.7); Eosinophils % (A) 2 %; HCT 29.1 % (39.0-53.0); Hypochromasia Moderate; Lymphocytes # (A) 1.5 k/uL (1.0-4.8); Lymphocytes % (A) 13 %; MCH 27.5 pg (25.0-35.0); MCHC 30.9 g/dL (31.0-37.0); Mean Platelet Volume 7.2; Monocytes # (A) 0.9 k/uL (0-1.0); Monocytes % (A) 8 %; Neutrophils # (A) 8.1 k/uL (1.3-7.7); Neutrophils % (A) 75 %; Platelet Count 693 k/uL (150-450); RBC 3.26 m/uL (4.30-5.90); RDW 15.9 % (11.5-15.5); WBC 10.8 k/uL (3.8-10.6)
[2018-02-24 09:23] LABS: Albumin 2.3 g/dL (3.5-5.0); Calcium 8.4 mg/dL (8.4-10.2); Potassium 4.5 mmol/L (3.5-5.1); Total Bilirubin 0.4 mg/dL (0.2-1.3); Total Protein 5.3 g/dL (6.3-8.2)
--- NOTE | 2018-02-24 13:08 | P.PN ---
Subjective Progress Note Date: 02/24/18 42-year-old male seen resting in bed. Patient states he has been up ambulating in the hallway. States is tolerating a diet and had a bowel movement this morning states has mild abdominal pain. SHIRLEY drain in place. Purulent drainage noted in the bulb. The temp at 7 AM 100.2. White count 10.8 this morning The creatinine 2.1 Postop 12 of February exploratory laparotomy, small bowel resection, Ileocolectomy Partial omentectomy for small bowel obstruction secondary to Crohn 's disease Objective - Vital Signs Vital signs: Vital Signs Temp 100.2 F H 02/24/18 07:00 Pulse 76 02/24/18 12:10 Resp 16 02/24/18 08:39 BP 146/87 02/24/18 07:00 Pulse Ox 95 02/24/18 07:00 Intake & Output 02/23/18 02/24/18 02/24/18 18:59 06:59 18:59 Output Total 20 Balance -20 Output: Drainage 20 Abdomen 20 Other: Voiding Method Toilet Toilet # Voids 2 - Exam Physical exam Abdomen silver dressing dry SHIRLEY drain in place continues to put out purulent drainage. Temp 100.2 this morning states tolerating a diet abdomen is soft nondistended surgical tenderness appropriate bowel tones present states urinating with no difficulty reports no nausea no vomiting - Labs CBC & Chem 7: 02/24/18 08:03 02/24/18 08:03 Labs: Abnormal Lab Results - Last 24 Hours (Table) 02/24/18 02/24/18 Range/Units 08:03 08:03 WBC 10.8 H (3.8-10.6) k/uL RBC 3.26 L (4.30-5.90) m/uL Hgb 9.0 L (13.0-17.5) gm/dL Hct 29.1 L (39.0-53.0) % MCHC 30.9 L (31.0-37.0) g/dL RDW 15.9 H (11.5-15.5) % Plt Count 693 H (150-450) k/uL Neutrophils # 8.1 H (1.3-7.7) k/uL Chloride 114 H (98-107) mmol/L BUN 7 L (9-20) mg/dL Creatinine 2.18 H (0.66-1.25) mg/dL Alkaline Phosphatase 21 L (38-126) U/L Total Protein 5.3 L (6.3-8.2) g/dL Albumin 2.3 L (3.5-5.0) g/dL Microbiology - Last 24 Hours (Table) 02/18/18 09:03 Blood Culture - Final Blood No Growth after 144 hours Assessment and Plan Assessment: Impression Present on admission diffuse abdominal pain suspect due to high-grade small bowel obstruction secondary to inflammatory distal ileal stricture CAT scan abdomen and pelvis show evidence of a high-grade small bowel obstruction History of Crohn's disease Prior history of a bowel obstruction recurrent Morbid obesity BMI 40 CAT scan abdomen pelvis report reviewed mild to moderate active distal Crohn's ileitis. 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 Deepika Beltran nurse practitioner acting as scribe for signing physician.
--- NOTE | 2018-02-24 14:59 | P.PN ---
Subjective Progress Note Date: 02/24/18 History of present illness: This is a 42-year-old male patient being seen examined and evaluated today for consultation. This patient originally came into the hospital with a small bowel obstruction and he is currently status postop day 5 after an exploratory laparotomy and ileocolectomy with a small bowel resection for for Crohn's disease obstruction. The patient has experienced some postop intermittent fevers that come and go. His shortness of breath is with exertion and activity. He is currently on room air. Apparently postop he did require some supplemental oxygen and that has been weaned off. He denies ever having a history of COPD or asthma in the past. He does state that he is a smoker and at his most he smoked one and half packs per day for approximately 25 years. He has cut back to approximately half a pack per day. Patient denies any use of home oxygen, CPAP use, nebulizer use for any inhalers. He has never been worked up in pulmonary office or underwent a PFT in the past. Upon examination the patient is resting up in bed on room air. He does have a cough states his sputum production has been clear to yellow. He has been using his incentive spirometer and when asked to do so the patient was utilizing the incentive spirometer incorrectly. Once she is explained use of the correct way he is able to pull volumes of approximately 1500 ML. Patient does have some postoperative pain that is expected, and he does have pain medication on board that he is using that has been helpful. All labs and reports have been reviewed. Patient did undergo a chest x-ray this morning and those results are currently pending. Interval History: 02/18/18- See Dr ANGELIA Small note 02/19/18-patient is being seen examined and evaluated today on rounds. He is resting up in bed on room air. The patient did have fevers overnight of 101.2. Infectious disease is on consult and adjusting antibiotics. Patient did have a CT of the abdomen which was reviewed and is negative. SHIRLEY drain in place draining scant serosanguineous drainage. Midline incision dressing clean dry and intact. Patient has been using his incentive spirometer and states the breathing treatments have helped him significantly. Patient does not have a nebulizer at home. A written prescription was put on the chart for the nebulizer 02/20/18- patient is being seen examined and evaluated today on rounds. He is resting up in bedside chair on room air. States breathing is stable and at baseline. His SHIRLEY drain is still in contact approximately 40 mL of fluid removed this morning. Midline incision clean dry and intact. Continues to use incentive spirometer. Afebrile no further complaints. 02/21/18- patient is being seen examined and evaluated today on rounds. He did have some overnight fevers again. Highly doubtful of a pulmonary origin at this point. Breathing has been stable and improved. Continues to do his incentive spirometer and breathing treatments denies any cough or congestion. All labs and reports have been reviewed. 02/22/18-02/23/18- Please see Dr ANGELIA Small note 02/24/18- patient is being seen examined and evaluated today on rounds. He continues to have some intermittent low-grade fevers. Overnight he was 100.2. Infectious disease is following the patient closely and has suggested reimaging the patient's abdomen. Awaiting surgical recommendations as well. His breathing has been relatively stable. Using his incentive spirometer as ordered. All labs and reports reviewed Objective - Vital Signs Vital signs: Vital Signs Temp 100.2 F H 02/24/18 07:00 Pulse 76 02/24/18 12:10 Resp 16 02/24/18 08:39 BP 146/87 02/24/18 07:00 Pulse Ox 95 02/24/18 07:00 Intake & Output 02/23/18 02/24/18 02/24/18 18:59 06:59 18:59 Output Total 20 Balance -20 Output: Drainage 20 Abdomen 20 Other: Voiding Method Toilet Toilet # Voids 2 - Exam GENERAL EXAM: Alert, active, comfortable in no apparent distress. HEAD: Normocephalic. EYES: Normal reaction of pupils, equal size. NOSE: Clear with pink turbinates. THROAT: No erythema or exudates. NECK: No masses, no JVD. CHEST: No chest wall deformity. LUNGS: Lungs noted to be diminished throughout with some faint expiratory wheezing with forced expiration. CVS: S1 and S2 normal with no audible mumurs, regular rhythm. ABDOMEN: No hepatosplenomegaly, normal bowel sounds, no guarding or rigidity. Surgical incision clean dry and intact, SHIRLEY drain in place. EXTREMITIES: No edema noted, pedal pulses palpable. CENTRAL NERVOUS SYSTEM: No focal deficits, tone is normal in all 4 extremities. - Labs CBC & Chem 7: 12/03/18 08:03 12 08:03 Labs: Abnormal Lab Results - Last 24 Hours (Table) 02/24/18 02/24/18 Range/Units 08:03 08:03 WBC 10.8 H (3.8-10.6) k/uL RBC 3.26 L (4.30-5.90) m/uL Hgb 9.0 L (13.0-17.5) gm/dL Hct 29.1 L (39.0-53.0) % MCHC 30.9 L (31.0-37.0) g/dL RDW 15.9 H (11.5-15.5) % Plt Count 693 H (150-450) k/uL Neutrophils # 8.1 H (1.3-7.7) k/uL Chloride 114 H (98-107) mmol/L BUN 7 L (9-20) mg/dL Creatinine 2.18 H (0.66-1.25) mg/dL Alkaline Phosphatase 21 L (38-126) U/L Total Protein 5.3 L (6.3-8.2) g/dL Albumin 2.3 L (3.5-5.0) g/dL Microbiology - Last 24 Hours (Table) 02/18/18 09:03 Blood Culture - Final Blood No Growth after 144 hours Assessment and Plan Assessment: Assessment Flareup/exacerbation of Crohn's disease Status post op of an exploratory laparotomy with small bowel resection ileocolectomy History of prior bowel obstruction Acute hypoxic respiratory failure requiring supplemental oxygen which is now improved patient is on room air Nicotine dependence Suspect COPD Baseline unknown Morbid obesity Plan Medications have been reviewed and will be continued as ordered. Continue with antibiotics per ID Agree with infectious disease recommendation on reimaging the patient's abdomen Pain control Diet per surgical services Continue with pulmonary hygiene, coughing and deep breathing exercises, and supportive care. Supplemental oxygen to maintain oxygen saturations of 92% or better. Initiate nebulizer treatments. Prescription has been provided on the chart for a nebulizer machine and supplies Continue with incentive spirometer GI and DVT prophylaxis. Smoking cessation discussed at length Increase activity as tolerated Patient would benefit from a full pulmonary workup in the outpatient setting including a PFT Patient should also have a possible sleep study in the outpatient setting suspect possible MARCIAL We will continue to monitor labs/results and adjust treatment as necessary. Further recommendations pending. I, the signing physician performed an examination of the patient, discussed and directed their management with the nurse practitioner. I have reviewed the nurse practitioner's note and agree with the documented findings, orders and plan of care.
[2018-02-24] MEDS: SODIUM CHLORIDE 0.9% 1,000 ML IV SCH (16:12)
[2018-02-24] MEDS: ACETAMINOPHEN TAB 325 MG TAB PO PRN (19:06)
--- NOTE | 2018-02-24 23:41 | PN ---
PROGRESS NOTE DATE OF SERVICE: 02/24/2018. REASON FOR FOLLOWUP: Abdominal fever, possible abdominal infection. INTERVAL HISTORY: The patient continues to be presenting with fever, with another fever of 101.8 degrees Fahrenheit this evening. The patient denies having any chest pain. No shortness of breath. Very minimal cough, minimal abdominal pain. He still has drainage from his SHIRLEY, which is mostly purulent and no diarrhea. EXAMINATION: Blood pressure 147/76, pulse of 69, temperature 101.8. He is 97% on room air. General description is a middle-aged male lying in bed in no distress. Respiratory system: Unlabored breathing. Clear to auscultation anteriorly. Heart S1, S2. Regular rate and rhythm. ABDOMEN: Soft. Mildly distended. Incision is intact. Did have a drainage of the SHIRLEY. EXTREMITIES: No edema of the feet. LABS: Hemoglobin 9.1, white count 10.8, BUN of 7, creatinine is 2.18. DIAGNOSTIC IMPRESSION AND PLAN: Patient with fever and initial leukocytosis with concern for abdominal source in this patient who did have extensive abdominal source with some purulent drainage through the SHIRLEY. The patient was seen with surgeon this morning and was recommended to be switched over to oral antibiotics. However in view of the new fever, we will repeat his blood cultures and discuss with surgery for possible repeating CT tomorrow with oral contrast, cannot use the IV contrast because of the jump in his creatinine. Vancomycin has been discontinued. IV fluids and daptomycin will be headed and we will monitor his clinical course closely. Overall prognosis remains to be guarded. Also discussed with the admitting services. MMODL / IJN: [id number] /
[2018-02-25] MEDS: PIPERACILLIN-TAZOBACTAM 3.375 GM in SODIUM CHLORIDE 0.9% 100 ML IVPB SCH ×3 (00:20→16:48)
[2018-02-25] MEDS: HEPARIN SODIUM,PORCINE 5,000 UNIT/ML 1 ML VIAL SQ SCH ×3 (00:21→16:48)
[2018-02-25] MEDS: IOPAMIDOL-300 CONTRAST 30 ML VIAL (ORAL USE) PO PRN ×2 (02:08→04:14)
[2018-02-25] MEDS: SODIUM CHLORIDE 0.9% 1,000 ML IV SCH ×2 (05:23→22:25)
[2018-02-25 08:06] LABS: ALT 38 U/L (21-72); AST 34 U/L (17-59); Albumin 2.3 g/dL (3.5-5.0); Alkaline Phosphatase <20 U/L (38-126); Anion Gap 5 mmol/L; Blood Urea Nitrogen 7 mg/dL (9-20); Calcium 8.6 mg/dL (8.4-10.2); Carbon Dioxide 22 mmol/L (22-30); Chloride 116 mmol/L (98-107); Glucose 92 mg/dL (74-99); Sodium 143 mmol/L (137-145); Total Bilirubin 0.4 mg/dL (0.2-1.3); Total Protein 5.3 g/dL (6.3-8.2)
[2018-02-25 08:10] LABS: Basophils # (A) 0.1 k/uL (0-0.2); Basophils % (A) 1 %; Eosinophils # (A) 0.3 k/uL (0-0.7); Eosinophils % (A) 3 %; HCT 29.8 % (39.0-53.0); HGB 9.1 gm/dL (13.0-17.5); Hypochromasia Moderate; Lymphocytes # (A) 1.4 k/uL (1.0-4.8); Lymphocytes % (A) 13 %; MCH 27.4 pg (25.0-35.0); MCHC 30.5 g/dL (31.0-37.0); MCV 89.9 fL (80.0-100.0); Mean Platelet Volume 7.2; Monocytes # (A) 0.7 k/uL (0-1.0); Monocytes % (A) 7 %; Neutrophils # (A) 8.1 k/uL (1.3-7.7); Neutrophils % (A) 75 %; Platelet Count 679 k/uL (150-450); RBC 3.31 m/uL (4.30-5.90); RDW 15.9 % (11.5-15.5); WBC 10.8 k/uL (3.8-10.6)
[2018-02-25] MEDS: IPRATROPIUM-ALBUTEROL 3 ML NEB INHALATION SCH ×5 (08:21→20:10)
[2018-02-25] MEDS: BUDESONIDE 0.5 MG/2 ML NEBU INHALATION SCH ×2 (08:21→20:10)
[2018-02-25 08:28] LABS: Potassium 4.4 mmol/L (3.5-5.1)
--- NOTE | 2018-02-25 09:39 | CT ---
EXAMINATION TYPE: CT abdomen pelvis wo con DATE OF EXAM: 02/25/2018 COMPARISON: 02/18/2018 HISTORY: Abdominal surgery 23 days ago, abdominal drain, Crohns disease CT DLP: 1504 mGycm Examination of the solid and hollow viscera is limited given the lack of contrast. FINDINGS: LUNG BASES: No evidence for nodule. Right basilar atelectasis with small pleural effusion noted. LIVER/GB: There is evidence of cholelithiasis. No space-occupying hepatic lesion. PANCREAS: No pancreatic mass identified. No inflammatory process seen. SPLEEN: No evidence for splenomegaly. No intrasplenic lesions seen. ADRENALS: No adrenal nodules identified. No evidence for thickening. KIDNEYS: No evidence for renal mass. No nephrolithiasis. No hydronephrosis. BOWEL: Postoperative changes are noted with the surgical anastomosis of the small bowel. Additional a n anastomosis noted of the small and large bowel at the level of the hepatic flexure. No evidence for pneumoperitoneum. Distended right hemicolon. Small amount of free fluid within the right paracolic g utter. No distinct abscess collection appreciated at this time. Lymph nodes: Prominent lymph nodes within the small bowel mesentery again noted measuring up to 1.8 c m. Prominent inguinal lymph nodes are also identified bilaterally. Abdominal aorta: Atheromatous moore ges seen. No evidence for aneurysm. Genital organs: No significant abnormality. Other: Midline skin bipin again noted with subcutaneous surgical drain in place. Subcutaneous edema tous changes persist. There is a small fluid collection noted along the midline and inferior portion of the staple line measuring 2.5 cm with internal foci of air. Reflect a small seroma however infecte d collection is not excluded. IMPRESSION: 1. Small subcutaneous collection at the caudal portion of the surgical drain measuring 2.5 cm. May re flect seroma or infected seroma. 2. Postoperative changes within the abdomen as discussed without evidence for leak or abscess this ti me. Mild distended right hemicolon. Small amount of free fluid noted. 3. Right basilar atelectasis.
[2018-02-25] MEDS: NICOTINE 21MG/24HR PATCH TRANSDERM SCH (09:56)
[2018-02-25] MEDS: PANTOPRAZOLE 40 MG TABLET PO SCH (09:56)
--- NOTE | 2018-02-25 11:07 | P.PN ---
Progress Note - Text Progress Note Date: 02/25/18 The patient spiked another fever last night. He continues to have purulent drainage from his SHIRLEY drain. Computed tomography scan the abdomen was performed. There is no evidence of any extravasation. There is known to any bowel perforation or abscess. The patient most likely has a wound infection causing his intermittent fevers and purulent drainage. His SHIRLEY drain is in the subcu space on top of the fascia. The patient will undergo incision and drainage of abdominal wall abscess today.
[2018-02-25] MEDS ORDERED: IV FLUID CONTINUATION 1,000 ML IV ONE (11:48)
[2018-02-25] MEDS ORDERED: MIDAZOLAM 2 MG/2 ML VIAL IV ONE (11:58)
[2018-02-25] MEDS ORDERED: HYDROCORTISONE SUCCINATE 100 MG/2 ML VIAL IVP ONE (11:58)
[2018-02-25] MEDS ORDERED: BUPIVACAIN-EPI 0.25%-1:200,000 30 ML VIAL SQ ONE (12:46)
[2018-02-25] MEDS ORDERED: KETAMINE 10 MG/ML 20 ML VIAL ONE (12:49)
[2018-02-25] MEDS ORDERED: fentaNYL (PF) 50 MCG/ML 2 ML AMP ONE (12:49)
[2018-02-25] MEDS ORDERED: PROPOFOL 10 MG/ML 20 ML VIAL IV ONE (12:49)
[2018-02-25] MEDS ORDERED: GLYCOPYRROLATE 0.2 MG/ML 2 ML VIAL ONE (12:49)
[2018-02-25] MEDS ORDERED: LIDOCAINE 1% INJ 10MG/ML (20 ML MDV) ONE (12:49)
[2018-02-25] MEDS ORDERED: MIDAZOLAM 2 MG/2 ML VIAL ONE (12:49)
[2018-02-25] MEDS ORDERED: HYDROmorphone (PF) 1 MG/ML ONE (12:49)
--- NOTE | 2018-02-25 13:30 | P.OP ---
Date of Procedure: 02/25/18 Preoperative Diagnosis: Subcutaneous abscess of abdominal wall Postoperative Diagnosis: Subcutaneous abscess abdominal wall Procedure(s) Performed: Incision and drainage of subcutaneous abscess Anesthesia: MAC Surgeon: Raphael Urbina Estimated Blood Loss (ml): 10 Pathology: other (Wound culture) Condition: stable Disposition: PACU Description of Procedure: The patient's placed on the operative table in supine position. He received IV sedation. His abdomen was prepped and draped in sterile fashion. The bipin were removed. The SHIRLEY was removed. The skin was opened with blunt finger dissection. A subcutaneous wound infection was found along the length of the SHIRLEY drain. A small pocket of pus was entered in the lower portion of the incision. The wound was debrided no other pockets of pus were found. The wound was irrigated. There is no obvious fascial dehiscence. The wound was then packed with wet-to-dry Kerlix with Betadine dressing. Abdominal pad was applied. Abdominal binder was applied. Patient top she will was sent to recovery in stable condition.
[2018-02-25] MEDS: HYDROmorphone 1 MG/ML 1 ML SYRINGE IVP ONE ×2 (13:54→14:03)
--- NOTE | 2018-02-25 14:52 | P.PN ---
Subjective Progress Note Date: 02/25/18 History of present illness: This is a 42-year-old male patient being seen examined and evaluated today for consultation. This patient originally came into the hospital with a small bowel obstruction and he is currently status postop day 5 after an exploratory laparotomy and ileocolectomy with a small bowel resection for for Crohn's disease obstruction. The patient has experienced some postop intermittent fevers that come and go. His shortness of breath is with exertion and activity. He is currently on room air. Apparently postop he did require some supplemental oxygen and that has been weaned off. He denies ever having a history of COPD or asthma in the past. He does state that he is a smoker and at his most he smoked one and half packs per day for approximately 25 years. He has cut back to approximately half a pack per day. Patient denies any use of home oxygen, CPAP use, nebulizer use for any inhalers. He has never been worked up in pulmonary office or underwent a PFT in the past. Upon examination the patient is resting up in bed on room air. He does have a cough states his sputum production has been clear to yellow. He has been using his incentive spirometer and when asked to do so the patient was utilizing the incentive spirometer incorrectly. Once she is explained use of the correct way he is able to pull volumes of approximately 1500 ML. Patient does have some postoperative pain that is expected, and he does have pain medication on board that he is using that has been helpful. All labs and reports have been reviewed. Patient did undergo a chest x-ray this morning and those results are currently pending. Interval History: 02/18/18- See Dr ANGELIA Small note 02/19/18-patient is being seen examined and evaluated today on rounds. He is resting up in bed on room air. The patient did have fevers overnight of 101.2. Infectious disease is on consult and adjusting antibiotics. Patient did have a CT of the abdomen which was reviewed and is negative. SHIRLEY drain in place draining scant serosanguineous drainage. Midline incision dressing clean dry and intact. Patient has been using his incentive spirometer and states the breathing treatments have helped him significantly. Patient does not have a nebulizer at home. A written prescription was put on the chart for the nebulizer 02/20/18- patient is being seen examined and evaluated today on rounds. He is resting up in bedside chair on room air. States breathing is stable and at baseline. His SHIRLEY drain is still in contact approximately 40 mL of fluid removed this morning. Midline incision clean dry and intact. Continues to use incentive spirometer. Afebrile no further complaints. 02/21/18- patient is being seen examined and evaluated today on rounds. He did have some overnight fevers again. Highly doubtful of a pulmonary origin at this point. Breathing has been stable and improved. Continues to do his incentive spirometer and breathing treatments denies any cough or congestion. All labs and reports have been reviewed. 02/22/18-02/23/18- Please see Dr ANGELIA Small note 02/24/18- patient is being seen examined and evaluated today on rounds. He continues to have some intermittent low-grade fevers. Overnight he was 100.2. Infectious disease is following the patient closely and has suggested reimaging the patient's abdomen. Awaiting surgical recommendations as well. His breathing has been relatively stable. Using his incentive spirometer as ordered. All labs and reports reviewed 02/25/18- patient is being seen examined and evaluated today on rounds. He continues to be on room air. Shortness of breath some improving. He is breathing has been relatively stable. He did have an overnight low-grade fever again today. Apparently per the nursing staff the surgeon will be taking him back to surgery this afternoon. Current labs are pending. At this time he has no fever. Continues to have his SHIRLEY drain with serosanguineous output. Infectious disease also following the patient as well. Objective - Vital Signs Vital signs: Vital Signs Temp 97.6 F 02/25/18 13:29 Pulse 56 L 02/25/18 14:00 Resp 16 02/25/18 14:00 BP 137/74 02/25/18 14:00 Pulse Ox 94 L 02/25/18 14:00 Intake & Output 02/24/18 02/25/18 02/25/18 18:59 06:59 18:59 Intake Total 300 Output Total 80 850 5 Balance -80 -850 295 Weight 140.614 kg 140.614 kg Intake: IV 300 Output: Drainage 80 50 Abdomen 80 50 Urine 800 Estimated Blood Loss 5 Other: Voiding Method Toilet Toilet Toilet # Voids 2 - Exam GENERAL EXAM: Alert, active, comfortable in no apparent distress. HEAD: Normocephalic. EYES: Normal reaction of pupils, equal size. NOSE: Clear with pink turbinates. THROAT: No erythema or exudates. NECK: No masses, no JVD. CHEST: No chest wall deformity. LUNGS: Lungs noted to be diminished throughout with some faint expiratory wheezing with forced expiration. CVS: S1 and S2 normal with no audible mumurs, regular rhythm. ABDOMEN: No hepatosplenomegaly, normal bowel sounds, no guarding or rigidity. Surgical incision clean dry and intact, SHIRLEY drain in place. EXTREMITIES: No edema noted, pedal pulses palpable. CENTRAL NERVOUS SYSTEM: No focal deficits, tone is normal in all 4 extremities. - Labs CBC & Chem 7: 02/25/18 07:10 02/25/18 07:10 Labs: Abnormal Lab Results - Last 24 Hours (Table) 02/25/18 02/25/18 Range/Units 07:10 07:10 WBC 10.8 H (3.8-10.6) k/uL RBC 3.31 L (4.30-5.90) m/uL Hgb 9.1 L (13.0-17.5) gm/dL Hct 29.8 L (39.0-53.0) % MCHC 30.5 L (31.0-37.0) g/dL RDW 15.9 H (11.5-15.5) % Plt Count 679 H (150-450) k/uL Neutrophils # 8.1 H (1.3-7.7) k/uL Chloride 116 H (98-107) mmol/L BUN 7 L (9-20) mg/dL Creatinine 2.11 H (0.66-1.25) mg/dL Alkaline Phosphatase <20 L (38-126) U/L Total Protein 5.3 L (6.3-8.2) g/dL Albumin 2.3 L (3.5-5.0) g/dL Microbiology - Last 24 Hours (Table) 02/18/18 09:03 Blood Culture - Final Blood No Growth after 144 hours Assessment and Plan Assessment: Assessment Flareup/exacerbation of Crohn's disease Status post op of an exploratory laparotomy with small bowel resection ileocolectomy History of prior bowel obstruction Acute hypoxic respiratory failure requiring supplemental oxygen which is now improved patient is on room air Nicotine dependence Suspect COPD Baseline unknown Morbid obesity Plan Medications have been reviewed and will be continued as ordered. Continue with antibiotics per ID Per the nursing staff the patient will be going back to the OR for drainage of an abscess Agree with infectious disease recommendation on reimaging the patient's abdomen Pain control Diet per surgical services Continue with pulmonary hygiene, coughing and deep breathing exercises, and supportive care. Supplemental oxygen to maintain oxygen saturations of 92% or better. Initiate nebulizer treatments. Prescription has been provided on the chart for a nebulizer machine and supplies Continue with incentive spirometer GI and DVT prophylaxis. Smoking cessation discussed at length Increase activity as tolerated Patient would benefit from a full pulmonary workup in the outpatient setting including a PFT Patient should also have a possible sleep study in the outpatient setting suspect possible MARCIAL We will continue to monitor labs/results and adjust treatment as necessary. Further recommendations pending. I, the signing physician performed an examination of the patient, discussed and directed their management with the nurse practitioner. I have reviewed the nurse practitioner's note and agree with the documented findings, orders and plan of care.
--- NOTE | 2018-02-25 22:30 | PN ---
PROGRESS NOTE DATE OF SERVICE: 02/25/2018 REASON FOR FOLLOWUP: Abdominal wall abscess. INTERVAL HISTORY: The patient was taken to the OR this morning. The patient is status post drainage of an abdominal abscess. The patient did mention that he is feeling better after the surgery. Denies having any chest pain or shortness of breath or cough. No nausea, no vomiting, and no diarrhea. PHYSICAL EXAMINATION: Blood pressure 137/74 with a pulse of 67, temperature 98. He is 94% on room air. General description is a middle-aged male lying in bed in no distress. RESPIRATORY SYSTEM: Unlabored breathing. Clear to auscultation anteriorly. HEART: S1, S2. Regular rate and rhythm. ABDOMEN: Soft. Mildly distended. No guarding or rigidity. LABS: Hemoglobin 9.1, white count 10.8. BUN of 7, creatinine 2.11. Blood culture is now coming back positive with gram-positive cocci. The abdominal abscess culture is currently pending. DIAGNOSTIC IMPRESSION AND PLAN: Patient with abdominal wall abscess, status post drainage, now with evidence of gram- positive bacteremia. Blood culture will be repeated to document clearance of his bacteremia. He is currently on daptomycin because of elevated creatinine from the vancomycin. That has been discontinued. The creatinine level has shown a downward trend. The discharge antibiotic will depend upon the culture report and, in view of the bacteremia, more likely IV. Continue with supportive care. MMODL / IJN: [id number] /
--- NOTE | 2018-02-25 23:02 | CONS ---
CONSULTATION REASON FOR CONSULT: Renal failure. HISTORY OF PRESENT ILLNESS: Patient is a 42-year-old male with history of Crohn's disease and previous history of bowel obstruction who was admitted to the hospital with abdominal pain. Patient was taken to the OR on 02/12/2018 for explorative laparotomy. He had small bowel resection, ileocolectomy and partial omentectomy. Patient developed infection in the abdomen with purulent drainage from the drain. CT scan showed evidence of abscess. Patient was taken to the OR and had I&D of the subcutaneous abscess. This was an abdominal wall abscess. Serum creatinine was 2.1 mg/dL today and yesterday. Previously it had been 1.1 on 02/21/2018. Lowest creatinine was 0.94 on 02/10/2018. Patient had been on vancomycin initially. Vancomycin level was 26.7 on 02/23/2018. Vancomycin has now been discontinued and patient is switched over to daptomycin. Patient is maintained on IV fluids. He states he has had good urine output. I do not see any PARVIN inhibitors or nonsteroidal anti-inflammatory agents on board. Patient also had IV contrast for a CT scan initially on admission on 02/18/2018. PAST MEDICAL HISTORY: 1. History of Crohn's disease. 2. History of GI bleed. 3. Questionable history of [place]. PAST SURGICAL HISTORY: 1. Previous hernia repair. 2. Laparoscopic right inguinal hernia repair. 3. Lysis of adhesions. 4. Cardiac cath, which was normal. SOCIAL HISTORY: Positive for smoking. No history of drug abuse or alcohol abuse. MEDICATIONS: Medications at home prior to admission included prednisone. ALLERGIES: NONE. REVIEW OF SYSTEMS: As per HPI. Other systems negative. PHYSICAL EXAMINATION: Patient is comfortable, awake, alert, oriented x3. He is not in any acute distress. Blood pressure this morning was 143/74, heart rate of 67 per minute. Patient is afebrile. EXAMINATION OF THE HEART: S1, S2. EXAMINATION OF LUNGS: Bilateral breath sounds are heard. ABDOMEN: Soft, tender. Examination of lower extremities showed no significant edema. [employer] exam is grossly intact. Patient moving all 4 extremities. LABS: Sodium 143, potassium 4.4, chloride 116, BUN 7, serum creatinine 2.1, hemoglobin 9.1 g/dL. ASSESSMENT: 1. Acute kidney injury, acute tubular necrosis and secondary to underlying sepsis, vancomycin, nephrotoxicity as well as contrast-induced nephropathy with IV contrast administration on 02/18/2018. Currently patient is not on any nephrotoxic medications. Vancomycin has been discontinued. He is not hypotensive and has good urine output. Patient is maintained on IV fluids, which I will continue for now. 2. Abdominal wall abscess, status post incision and drainage today. 3. Bowel obstruction, status post explorative laparotomy, omentectomy, small bowel resection and ileocolectomy. PLAN: Continue IV fluids. Repeat labs in a.m. Repeat urinalysis. Previous UA was completely benign. Continue to avoid nephrotoxic agents. Thank you for this consultation. Will continue to follow the patient with you during his hospitalization. MMODL / IJN: [id number] /
--- NOTE | 2018-02-25 23:59 | PN ---
PROGRESS NOTE SUBJECTIVE: This is an male, status post incision and drainage of abscess in his abdomen per Dr. Urbina. He feels much better after the abscess was drained today. He has had no fevers, chills this afternoon. Remains on broad-spectrum antibiotics, vancomycin and Zosyn. Cardiovascular S1-S2. Lungs clear. GI soft. Hematology negative Homans. ASSESSMENT: Intraabdominal abscess status post total colectomy. Please see current treatment for Crohn's disease and please see further orders. MMODL / IJN: [id number] /
[2018-02-26] MEDS: HEPARIN SODIUM,PORCINE 5,000 UNIT/ML 1 ML VIAL SQ SCH ×4 (00:51→23:02)
[2018-02-26] MEDS: PIPERACILLIN-TAZOBACTAM 3.375 GM in SODIUM CHLORIDE 0.9% 100 ML IVPB SCH ×4 (00:51→23:02)
[2018-02-26] MEDS: HYDROcodone/APAP 7.5-325MG 1 EACH TAB PO PRN ×4 (01:00→23:08)
[2018-02-26] MEDS: BUDESONIDE 0.5 MG/2 ML NEBU INHALATION SCH ×2 (07:51→20:29)
[2018-02-26] MEDS: IPRATROPIUM-ALBUTEROL 3 ML NEB INHALATION SCH ×4 (07:51→20:29)
[2018-02-26 08:47] LABS: Basophils # (A) 0.1 k/uL (0-0.2); Basophils % (A) 1 %; Eosinophils # (A) 0.1 k/uL (0-0.7); Eosinophils % (A) 1 %; HCT 28.8 % (39.0-53.0); HGB 8.8 gm/dL (13.0-17.5); Hypochromasia Marked; Lymphocytes # (A) 1.8 k/uL (1.0-4.8); Lymphocytes % (A) 17 %; MCH 27.7 pg (25.0-35.0); MCHC 30.5 g/dL (31.0-37.0); MCV 90.7 fL (80.0-100.0); Mean Platelet Volume 7.3; Monocytes # (A) 0.9 k/uL (0-1.0); Monocytes % (A) 8 %; Neutrophils # (A) 7.5 k/uL (1.3-7.7); Neutrophils % (A) 70 %; Platelet Count 716 k/uL (150-450); RBC 3.17 m/uL (4.30-5.90); RDW 15.8 % (11.5-15.5); WBC 10.7 k/uL (3.8-10.6)
[2018-02-26 09:06] LABS: ALT 34 U/L (21-72); AST 21 U/L (17-59); Albumin 2.2 g/dL (3.5-5.0); Alkaline Phosphatase <20 U/L (38-126); Anion Gap 5 mmol/L; Blood Urea Nitrogen 8 mg/dL (9-20); Calcium 8.5 mg/dL (8.4-10.2); Carbon Dioxide 22 mmol/L (22-30); Chloride 114 mmol/L (98-107); Glucose 82 mg/dL (74-99); Potassium 4.5 mmol/L (3.5-5.1); Sodium 141 mmol/L (137-145); Total Bilirubin 0.3 mg/dL (0.2-1.3); Total Protein 5.2 g/dL (6.3-8.2)
[2018-02-26] MEDS: NICOTINE 21MG/24HR PATCH TRANSDERM SCH (10:14)
[2018-02-26] MEDS: SODIUM CHLORIDE 0.9% 1,000 ML IV SCH ×2 (10:17→21:40)
[2018-02-26] MEDS: PANTOPRAZOLE 40 MG TABLET PO SCH (10:17)
--- NOTE | 2018-02-26 13:18 | P.PN ---
Subjective Progress Note Date: 02/26/18 42-year-old seen postop surgical visit. Patient had been up ambulating in the hallway. Surgical dressing to the surgical site distal moderate amount of serous drainage noted. Surgical incision site open. Operative report indicate no obvious fascial dehiscent noted white count 10.7 patient abdomen is soft nondistended SHIRLEY drain and bipin have were removed yesterday in the OR. Abdomen obese soft not distended no nausea no vomiting Postop incision and drainage of subcutaneous abdominal abscess done on February 25 Postop 12 of February exploratory laparotomy, small bowel resection, Ileocolectomy Partial omentectomy for small bowel obstruction secondary to Crohn 's disease Objective - Vital Signs Vital signs: Vital Signs Temp 98.3 F 02/26/18 07:53 Pulse 62 02/26/18 11:54 Resp 16 02/26/18 00:44 BP 153/80 02/26/18 07:53 Pulse Ox 97 02/26/18 07:53 Intake & Output 02/25/18 02/26/18 02/26/18 18:59 06:59 18:59 Intake Total 300 Output Total 5 Balance 295 Intake: IV 300 Output: Estimated Blood Loss 5 Other: Voiding Method Toilet Toilet - Exam Physical exam Abdomen soft not distended surgical tenderness appropriate surgical dressing removed surgical site area open with Kerlix packing removed from surgical site and then reapplied bipin have been removed no SHIRLEY drain tolerating diet with no nausea no vomiting urinating no difficulty no stooling - Labs CBC & Chem 7: 02/26/18 06:58 02/26/18 06:58 Labs: Abnormal Lab Results - Last 24 Hours (Table) 02/26/18 02/26/18 Range/Units 06:58 06:58 WBC 10.7 H (3.8-10.6) k/uL RBC 3.17 L (4.30-5.90) m/uL Hgb 8.8 L (13.0-17.5) gm/dL Hct 28.8 L (39.0-53.0) % MCHC 30.5 L (31.0-37.0) g/dL RDW 15.8 H (11.5-15.5) % Plt Count 716 H (150-450) k/uL Chloride 114 H (98-107) mmol/L BUN 8 L (9-20) mg/dL Creatinine 1.89 H (0.66-1.25) mg/dL Alkaline Phosphatase <20 L (38-126) U/L Total Protein 5.2 L (6.3-8.2) g/dL Albumin 2.2 L (3.5-5.0) g/dL Microbiology - Last 24 Hours (Table) 02/25/18 13:23 Gram Stain - Preliminary Abdomen Wound Culture - Preliminary 02/24/18 20:44 Blood Culture Gram Stain - Preliminary Blood Blood Culture - Preliminary Coagulase Negative Staph 02/24/18 20:21 Blood Culture - Preliminary Blood No Growth after 24 hours 02/25/18 13:23 Anaerobic Culture - Preliminary Abdomen 02/25/18 13:23 Fungal Culture - Preliminary Abdomen 02/24/18 20:44 Blood Culture - Final Blood Assessment and Plan Assessment: Impression Present on admission diffuse abdominal pain suspect due to high-grade small bowel obstruction secondary to inflammatory distal ileal stricture CAT scan abdomen and pelvis show evidence of a high-grade small bowel obstruction History of Crohn's disease Prior history of a bowel obstruction recurrent Morbid obesity BMI 40 CAT scan abdomen pelvis report reviewed mild to moderate active distal Crohn's ileitis. 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 Castillo infectious disease Continue postop surgical care Increase activity DVT and GI prophylaxis Pain control Continue recommendations infectious disease Dietitian for nutritional supplements The above impression and plan of care have been discussed and directed by signing physician. Deepika Beltran nurse practitioner acting as scribe for signing physician.
--- NOTE | 2018-02-26 14:04 | P.PN ---
Subjective Progress Note Date: 02/26/18 History of present illness: This is a 42-year-old male patient being seen examined and evaluated today for consultation. This patient originally came into the hospital with a small bowel obstruction and he is currently status postop day 5 after an exploratory laparotomy and ileocolectomy with a small bowel resection for for Crohn's disease obstruction. The patient has experienced some postop intermittent fevers that come and go. His shortness of breath is with exertion and activity. He is currently on room air. Apparently postop he did require some supplemental oxygen and that has been weaned off. He denies ever having a history of COPD or asthma in the past. He does state that he is a smoker and at his most he smoked one and half packs per day for approximately 25 years. He has cut back to approximately half a pack per day. Patient denies any use of home oxygen, CPAP use, nebulizer use for any inhalers. He has never been worked up in pulmonary office or underwent a PFT in the past. Upon examination the patient is resting up in bed on room air. He does have a cough states his sputum production has been clear to yellow. He has been using his incentive spirometer and when asked to do so the patient was utilizing the incentive spirometer incorrectly. Once she is explained use of the correct way he is able to pull volumes of approximately 1500 ML. Patient does have some postoperative pain that is expected, and he does have pain medication on board that he is using that has been helpful. All labs and reports have been reviewed. Patient did undergo a chest x-ray this morning and those results are currently pending. Interval History: 02/18/18- See Dr ANGELIA Small note 02/19/18-patient is being seen examined and evaluated today on rounds. He is resting up in bed on room air. The patient did have fevers overnight of 101.2. Infectious disease is on consult and adjusting antibiotics. Patient did have a CT of the abdomen which was reviewed and is negative. SHIRLEY drain in place draining scant serosanguineous drainage. Midline incision dressing clean dry and intact. Patient has been using his incentive spirometer and states the breathing treatments have helped him significantly. Patient does not have a nebulizer at home. A written prescription was put on the chart for the nebulizer 02/20/18- patient is being seen examined and evaluated today on rounds. He is resting up in bedside chair on room air. States breathing is stable and at baseline. His SHIRLEY drain is still in contact approximately 40 mL of fluid removed this morning. Midline incision clean dry and intact. Continues to use incentive spirometer. Afebrile no further complaints. 02/21/18- patient is being seen examined and evaluated today on rounds. He did have some overnight fevers again. Highly doubtful of a pulmonary origin at this point. Breathing has been stable and improved. Continues to do his incentive spirometer and breathing treatments denies any cough or congestion. All labs and reports have been reviewed. 02/22/18-02/23/18- Please see Dr ANGELIA Small note 02/24/18- patient is being seen examined and evaluated today on rounds. He continues to have some intermittent low-grade fevers. Overnight he was 100.2. Infectious disease is following the patient closely and has suggested reimaging the patient's abdomen. Awaiting surgical recommendations as well. His breathing has been relatively stable. Using his incentive spirometer as ordered. All labs and reports reviewed 02/25/18- patient is being seen examined and evaluated today on rounds. He continues to be on room air. Shortness of breath some improving. He is breathing has been relatively stable. He did have an overnight low-grade fever again today. Apparently per the nursing staff the surgeon will be taking him back to surgery this afternoon. Current labs are pending. At this time he has no fever. Continues to have his SHIRLEY drain with serosanguineous output. Infectious disease also following the patient as well. 02/26/18- patient is being seen examined and evaluated today on rounds. He did go back for drainage of his abscess yesterday. According to the nurse the patient will potentially be getting a wound VAC to the area. He has been afebrile overnight. No further complaints. Objective - Vital Signs Vital signs: Vital Signs Temp 98.3 F 02/26/18 07:53 Pulse 62 02/26/18 11:54 Resp 16 02/26/18 00:44 BP 153/80 02/26/18 07:53 Pulse Ox 97 02/26/18 07:53 Intake & Output 02/25/18 02/26/18 02/26/18 18:59 06:59 18:59 Intake Total 300 Output Total 5 Balance 295 Intake: IV 300 Output: Estimated Blood Loss 5 Other: Voiding Method Toilet Toilet - Exam GENERAL EXAM: Alert, active, comfortable in no apparent distress. HEAD: Normocephalic. EYES: Normal reaction of pupils, equal size. NOSE: Clear with pink turbinates. THROAT: No erythema or exudates. NECK: No masses, no JVD. CHEST: No chest wall deformity. LUNGS: Lungs noted to be diminished throughout with some faint expiratory wheezing with forced expiration. CVS: S1 and S2 normal with no audible mumurs, regular rhythm. ABDOMEN: No hepatosplenomegaly, normal bowel sounds, no guarding or rigidity. Surgical incision clean dry and intact, SHIRLEY drain in place. EXTREMITIES: No edema noted, pedal pulses palpable. CENTRAL NERVOUS SYSTEM: No focal deficits, tone is normal in all 4 extremities. - Labs CBC & Chem 7: 02/26/18 06:58 02/26/18 06:58 Labs: Abnormal Lab Results - Last 24 Hours (Table) 02/26/18 02/26/18 Range/Units 06:58 06:58 WBC 10.7 H (3.8-10.6) k/uL RBC 3.17 L (4.30-5.90) m/uL Hgb 8.8 L (13.0-17.5) gm/dL Hct 28.8 L (39.0-53.0) % MCHC 30.5 L (31.0-37.0) g/dL RDW 15.8 H (11.5-15.5) % Plt Count 716 H (150-450) k/uL Chloride 114 H (98-107) mmol/L BUN 8 L (9-20) mg/dL Creatinine 1.89 H (0.66-1.25) mg/dL Alkaline Phosphatase <20 L (38-126) U/L Total Protein 5.2 L (6.3-8.2) g/dL Albumin 2.2 L (3.5-5.0) g/dL Microbiology - Last 24 Hours (Table) 02/25/18 13:23 Gram Stain - Preliminary Abdomen Wound Culture - Preliminary 02/24/18 20:44 Blood Culture Gram Stain - Preliminary Blood Blood Culture - Preliminary Coagulase Negative Staph 02/24/18 20:21 Blood Culture - Preliminary Blood No Growth after 24 hours 02/25/18 13:23 Anaerobic Culture - Preliminary Abdomen 02/25/18 13:23 Fungal Culture - Preliminary Abdomen 02/24/18 20:44 Blood Culture - Final Blood Assessment and Plan Assessment: Assessment Flareup/exacerbation of Crohn's disease Status post op of an exploratory laparotomy with small bowel resection ileocolectomy History of prior bowel obstruction Acute hypoxic respiratory failure requiring supplemental oxygen which is now improved patient is on room air Nicotine dependence Suspect COPD Baseline unknown Morbid obesity Plan Medications have been reviewed and will be continued as ordered. Continue with antibiotics per ID S/P drainage of an abscess Possible wound VAC Pain control Diet per surgical services Continue with pulmonary hygiene, coughing and deep breathing exercises, and supportive care. Supplemental oxygen to maintain oxygen saturations of 92% or better. Initiate nebulizer treatments. Prescription has been provided on the chart for a nebulizer machine and supplies Continue with incentive spirometer GI and DVT prophylaxis. Smoking cessation discussed at length Increase activity as tolerated Patient would benefit from a full pulmonary workup in the outpatient setting including a PFT Patient should also have a possible sleep study in the outpatient setting suspect possible MARCIAL We will continue to monitor labs/results and adjust treatment as necessary. Further recommendations pending. I, the signing physician performed an examination of the patient, discussed and directed their management with the nurse practitioner. I have reviewed the nurse practitioner's note and agree with the documented findings, orders and plan of care.
--- NOTE | 2018-02-26 16:33 | PN ---
PROGRESS NOTE DATE OF SERVICE: 02/26/2018 REASON FOR FOLLOWUP: Abdominal abscess, status post drainage. INTERVAL HISTORY: The patient's fever is currently resolved. He has had no fever since the night of 02/24/2018. The patient denies having any chest pain or shortness of breath or cough. His abdominal pain is currently improved. No nausea, vomiting or diarrhea. PHYSICAL EXAMINATION: Blood pressure 153/80 with a pulse of 60, temperature 98.3. He is 97% on room air. General description is a middle-aged male lying in bed in no distress. RESPIRATORY SYSTEM: Unlabored breathing. Clear to auscultation anteriorly. HEART: S1, S2. Regular rate and rhythm. ABDOMEN: Soft. He did have a midline abdominal wound; however, wound base looks clean, with no evidence of any slough tissue or cellulitis. EXTREMITIES: Some trace edema of feet. LABS: Hemoglobin 8.8, white count 10.7, BUN of 8, creatinine 1.89. Blood culture with coagulase-negative staph. The abdominal culture is currently pending. DIAGNOSTIC IMPRESSION AND PLAN: Patient with a fever. Source is abdominal abscess, status post drainage, with no evidence of any leak. Concern is likely for a gram-positive skin erik. Patient is currently covered with Zosyn and daptomycin because of elevated creatinine secondary to vancomycin. His kidney function has shown a downward trend. We are waiting for the culture to finalize to determine his discharge antibiotics. Will recommend applying a wound V.A.C. to his abdominal wound to help in the healing process. The patient did have multiple questions. All of them were answered. MMODL / IJN: [id number] /
--- NOTE | 2018-02-26 21:42 | PN ---
PROGRESS NOTE The patient is seen for followup for acute kidney injury secondary to vancomycin toxicity. Renal function is slightly improved. The patient was taken to OR yesterday and he had I and D of abdominal wall abscess. He states he is feeling better today. EXAMINATION: This morning blood pressure was 153/80, heart rate of 60s. Heart rate of 56 per minute. Patient was afebrile. Examination of the heart S1, S2. Examination of the lungs bilateral breath sounds are heard. Abdomen is soft, nontender. Exam of lower extremities shows no significant edema. [employer] exam is grossly intact. Abdominal wound is dressed. LABS: Show sodium 141, potassium 4.5, BUN 8, serum creatinine 1.89, hemoglobin 8.8 g/dL. ASSESSMENT: 1. Acute kidney injury associated with vancomycin toxicity, currently improving. We can continue with the IV fluids and continue to avoid nephrotoxic agents. The patient is stable for discharge from Nephrology standpoint. He needs to follow up as outpatient. 2. Abdominal wall abscess status post I and D. 3. Bowel obstruction, status post explorative laparotomy, omentectomy, small bowel resection and ileocolectomy. PLAN: Maintain gentle IV hydration. Patient is encouraged to increase oral intake. Repeat labs in a.m. Patient will need followup as outpatient. Etiology of the acute kidney injury is also related to contrast nephropathy from IV contrast administration for CT scan. MMODL / IJN: [id number] /
[2018-02-27] MEDS: HEPARIN SODIUM,PORCINE 5,000 UNIT/ML 1 ML VIAL SQ SCH ×3 (07:44→23:27)
[2018-02-27] MEDS: PANTOPRAZOLE 40 MG TABLET PO SCH (07:44)
[2018-02-27] MEDS: NICOTINE 21MG/24HR PATCH TRANSDERM SCH (07:44)
[2018-02-27 08:24] LABS: ALT 27 U/L (21-72); AST 18 U/L (17-59); Albumin 2.3 g/dL (3.5-5.0); Alkaline Phosphatase <20 U/L (38-126); Anion Gap 4 mmol/L; Blood Urea Nitrogen 8 mg/dL (9-20); Calcium 8.6 mg/dL (8.4-10.2); Carbon Dioxide 24 mmol/L (22-30); Chloride 114 mmol/L (98-107); Glucose 83 mg/dL (74-99); Potassium 4.7 mmol/L (3.5-5.1); Sodium 142 mmol/L (137-145); Total Bilirubin 0.3 mg/dL (0.2-1.3); Total Protein 5.1 g/dL (6.3-8.2)
[2018-02-27] MEDS: IPRATROPIUM-ALBUTEROL 3 ML NEB INHALATION SCH ×4 (08:30→19:21)
[2018-02-27] MEDS: BUDESONIDE 0.5 MG/2 ML NEBU INHALATION SCH ×2 (08:30→19:21)
[2018-02-27] MEDS: PIPERACILLIN-TAZOBACTAM 3.375 GM in SODIUM CHLORIDE 0.9% 100 ML IVPB SCH ×3 (09:16→23:27)
[2018-02-27] MEDS: HYDROcodone/APAP 7.5-325MG 1 EACH TAB PO PRN ×2 (13:05→19:51)
--- NOTE | 2018-02-27 13:48 | P.PN ---
Subjective Patient is seen in follow-up for acute kidney injury. Renal function is a little worse today with creatinine at 2.09. Oral intake is good. No vomiting or diarrhea. Denies chest pain or shortness of breath. Admits to good urine output. No active complaints at this time. Vital signs are stable. General: The patient appeared well nourished and normally developed. HEENT: Head exam is unremarkable. Neck is without jugular venous distension. LUNGS: Lungs are clear to auscultation and percussion. Breath sounds decreased. HEART: Rate and Rhythm are regular. First and second heart sounds normal. No murmurs, rubs or gallops. ABDOMEN: Abdominal exam reveals normal bowel sounds. Non-tender and non- distended. No evidence of peritonitis. EXTREMITITES: No clubbing, cyanosis, or edema. Objective - Vital Signs Vital signs: Vital Signs Temp 98.4 F 02/27/18 07:58 Pulse 52 L 02/27/18 12: Resp 18 02/27/18 08:00 BP 158/93 02/27/18 07:58 Pulse Ox 98 02/27/18 07:58 Intake & Output 02/26/18 02/27/18 02/27/18 18:59 06:59 18:59 Output Total 1150 Balance -1150 Output: Urine 1150 Other: Voiding Method Toilet Toilet # Bowel Movements 1 - Labs CBC & Chem 7: 02/26/18 06:58 02/27/18 07:30 Labs: Abnormal Lab Results - Last 24 Hours (Table) 02/27/18 Range/Units 07:30 Chloride 114 H (98-107) mmol/L BUN 8 L (9-20) mg/dL Creatinine 2.09 H (0.66-1.25) mg/dL Alkaline Phosphatase <20 L (38-126) U/L Total Protein 5.1 L (6.3-8.2) g/dL Albumin 2.3 L (3.5-5.0) g/dL Microbiology - Last 24 Hours (Table) 02/25/18 13:23 Gram Stain - Final Abdomen Wound Culture - Final 02/26/18 06:58 Blood Culture - Preliminary Blood No Growth after 24 hours 02/24/18 20:21 Blood Culture - Preliminary Blood No Growth after 48 hours 02/24/18 20:44 Blood Culture Gram Stain - Final Blood Blood Culture - Final Coagulase Negative Staph Assessment and Plan Plan: Assessment: 1. Nonoliguric acute kidney injury secondary to ATN secondary to vancomycin toxicity and contrast-induced nephropathy . Renal function a little worse with creatinine at 2.09 today. Urinalysis is benign. 2. Abdominal wall abscess status post incision and drainage. 3. Bowel obstruction status post exploratory laparotomy, omentectomy, small bowel resection and ileocolectomy. Plan: Maintain normal saline at 50 mL an hour. Encourage oral intake. Avoid nephrotoxins. Anticipate discharge soon. Follow up outpatient in the next 1-2 weeks.
--- NOTE | 2018-02-27 13:51 | P.PN ---
Subjective Progress Note Date: 02/27/18 History of present illness: This is a 42-year-old male patient being seen examined and evaluated today for consultation. This patient originally came into the hospital with a small bowel obstruction and he is currently status postop day 5 after an exploratory laparotomy and ileocolectomy with a small bowel resection for for Crohn's disease obstruction. The patient has experienced some postop intermittent fevers that come and go. His shortness of breath is with exertion and activity. He is currently on room air. Apparently postop he did require some supplemental oxygen and that has been weaned off. He denies ever having a history of COPD or asthma in the past. He does state that he is a smoker and at his most he smoked one and half packs per day for approximately 25 years. He has cut back to approximately half a pack per day. Patient denies any use of home oxygen, CPAP use, nebulizer use for any inhalers. He has never been worked up in pulmonary office or underwent a PFT in the past. Upon examination the patient is resting up in bed on room air. He does have a cough states his sputum production has been clear to yellow. He has been using his incentive spirometer and when asked to do so the patient was utilizing the incentive spirometer incorrectly. Once she is explained use of the correct way he is able to pull volumes of approximately 1500 ML. Patient does have some postoperative pain that is expected, and he does have pain medication on board that he is using that has been helpful. All labs and reports have been reviewed. Patient did undergo a chest x-ray this morning and those results are currently pending. Interval History: 02/18/18- See Dr ANGELIA Small note 02/19/18-patient is being seen examined and evaluated today on rounds. He is resting up in bed on room air. The patient did have fevers overnight of 101.2. Infectious disease is on consult and adjusting antibiotics. Patient did have a CT of the abdomen which was reviewed and is negative. SHIRLEY drain in place draining scant serosanguineous drainage. Midline incision dressing clean dry and intact. Patient has been using his incentive spirometer and states the breathing treatments have helped him significantly. Patient does not have a nebulizer at home. A written prescription was put on the chart for the nebulizer 02/20/18- patient is being seen examined and evaluated today on rounds. He is resting up in bedside chair on room air. States breathing is stable and at baseline. His SHIRLEY drain is still in contact approximately 40 mL of fluid removed this morning. Midline incision clean dry and intact. Continues to use incentive spirometer. Afebrile no further complaints. 02/21/18- patient is being seen examined and evaluated today on rounds. He did have some overnight fevers again. Highly doubtful of a pulmonary origin at this point. Breathing has been stable and improved. Continues to do his incentive spirometer and breathing treatments denies any cough or congestion. All labs and reports have been reviewed. 02/22/18-02/23/18- Please see Dr ANGELIA Small note 02/24/18- patient is being seen examined and evaluated today on rounds. He continues to have some intermittent low-grade fevers. Overnight he was 100.2. Infectious disease is following the patient closely and has suggested reimaging the patient's abdomen. Awaiting surgical recommendations as well. His breathing has been relatively stable. Using his incentive spirometer as ordered. All labs and reports reviewed 02/25/18- patient is being seen examined and evaluated today on rounds. He continues to be on room air. Shortness of breath some improving. He is breathing has been relatively stable. He did have an overnight low-grade fever again today. Apparently per the nursing staff the surgeon will be taking him back to surgery this afternoon. Current labs are pending. At this time he has no fever. Continues to have his SHIRLEY drain with serosanguineous output. Infectious disease also following the patient as well. 02/26/18- patient is being seen examined and evaluated today on rounds. He did go back for drainage of his abscess yesterday. According to the nurse the patient will potentially be getting a wound VAC to the area. He has been afebrile overnight. No further complaints. 02/27/18- patient being seen examined and evaluated on rounds. He did have his wound vac applied. Discharge planning underway. Breathing continues to be stable. Denies any SOB, cough or congestion. We will sign off as the patient is stable from a respiratory stand point and will only see only on as needed basis. Objective - Vital Signs Vital signs: Vital Signs Temp 98.4 F 02/27/18 07:58 Pulse 52 L 02/27/18 12:05 Resp 18 02/27/18 08:00 BP 158/93 02/27/18 07:58 Pulse Ox 98 02/27/18 07:58 Intake & Output 02/26/18 02/27/18 02/27/18 18:59 06:59 18:59 Output Total 1150 Balance -1150 Output: Urine 1150 Other: Voiding Method Toilet Toilet # Bowel Movements 1 - Exam GENERAL EXAM: Alert, active, comfortable in no apparent distress. HEAD: Normocephalic. EYES: Normal reaction of pupils, equal size. NOSE: Clear with pink turbinates. THROAT: No erythema or exudates. NECK: No masses, no JVD. CHEST: No chest wall deformity. LUNGS: Lungs noted to be diminished at the bases. CVS: S1 and S2 normal with no audible mumurs, regular rhythm. ABDOMEN: No hepatosplenomegaly, normal bowel sounds, no guarding or rigidity. Surgical incision clean dry and intact, SHIRLEY drain in place. EXTREMITIES: No edema noted, pedal pulses palpable. CENTRAL NERVOUS SYSTEM: No focal deficits, tone is normal in all 4 extremities. - Labs CBC & Chem 7: 02/26/18 06:58 02/27/18 07:30 Labs: Abnormal Lab Results - Last 24 Hours (Table) 02/27/18 Range/Units 07:30 Chloride 114 H (98-107) mmol/L BUN 8 L (9-20) mg/dL Creatinine 2.09 H (0.66-1.25) mg/dL Alkaline Phosphatase <20 L (38-126) U/L Total Protein 5.1 L (6.3-8.2) g/dL Albumin 2.3 L (3.5-5.0) g/dL Microbiology - Last 24 Hours (Table) 02/25/18 13:23 Gram Stain - Final Abdomen Wound Culture - Final 02/26/18 06:58 Blood Culture - Preliminary Blood No Growth after 24 hours 02/24/18 20:21 Blood Culture - Preliminary Blood No Growth after 48 hours 02/24/18 20:44 Blood Culture Gram Stain - Final Blood Blood Culture - Final Coagulase Negative Staph Assessment and Plan Assessment: Assessment Flareup/exacerbation of Crohn's disease Status post op of an exploratory laparotomy with small bowel resection ileocolectomy History of prior bowel obstruction Acute hypoxic respiratory failure requiring supplemental oxygen which is now improved patient is on room air Nicotine dependence Suspect COPD Baseline unknown Morbid obesity Plan Patient respiratory status stable. Will sign off and see the patient only on an as needed bases. Medications have been reviewed and will be continued as ordered. Continue with antibiotics per ID S/P drainage of an abscess Possible wound VAC Pain control Diet per surgical services Continue with pulmonary hygiene, coughing and deep breathing exercises, and supportive care. Supplemental oxygen to maintain oxygen saturations of 92% or better. Initiate nebulizer treatments. Prescription has been provided on the chart for a nebulizer machine and supplies Continue with incentive spirometer GI and DVT prophylaxis. Smoking cessation discussed at length Increase activity as tolerated Patient would benefit from a full pulmonary workup in the outpatient setting including a PFT Patient should also have a possible sleep study in the outpatient setting suspect possible MARCIAL I, the signing physician performed an examination of the patient, discussed and directed their management with the nurse practitioner. I have reviewed the nurse practitioner's note and agree with the documented findings, orders and plan of care.
--- NOTE | 2018-02-27 15:10 | P.PN ---
Subjective Progress Note Date: 02/27/18 42-year-old male resting in bed wound VAC in place. The discharge plan is in progress. Being followed by infectious disease awaiting cultures which are currently pending from the subcutaneous abdominal abscess that was incised and drained on February 25 patient states no nausea no vomiting having bowel movements urinating no difficulty anxious to be discharged Postop incision and drainage of subcutaneous abdominal abscess done on February 25 Postop 12 of February exploratory laparotomy, small bowel resection, Ileocolectomy Partial omentectomy for small bowel obstruction secondary to Crohn 's disease Objective - Vital Signs Vital signs: Vital Signs Temp 98.4 F 02/27/18 07:58 Pulse 58 L 02/27/18 14:56 Resp 18 02/27/18 14:56 BP 158/93 02/27/18 07:58 Pulse Ox 98 02/27/18 07:58 Intake & Output 02/26/18 02/27/18 02/27/18 18:59 06:59 18:59 Output Total 1150 Balance -1150 Output: Urine 1150 Other: Voiding Method Toilet Toilet # Bowel Movements 1 - Exam Physical exam Abdomen obese soft wound VAC in place bowel tones present no nausea no vomiting urinating no difficulty nondistended nontender - Labs CBC & Chem 7: 02/26/18 06:58 02/27/18 07:30 Labs: Abnormal Lab Results - Last 24 Hours (Table) 02/27/18 Range/Units 07:30 Chloride 114 H (98-107) mmol/L BUN 8 L (9-20) mg/dL Creatinine 2.09 H (0.66-1.25) mg/dL Alkaline Phosphatase <20 L (38-126) U/L Total Protein 5.1 L (6.3-8.2) g/dL Albumin 2.3 L (3.5-5.0) g/dL Microbiology - Last 24 Hours (Table) 02/25/18 13:23 Gram Stain - Final Abdomen Wound Culture - Final 02/26/18 06:58 Blood Culture - Preliminary Blood No Growth after 24 hours 02/24/18 20:21 Blood Culture - Preliminary Blood No Growth after 48 hours 02/24/18 20:44 Blood Culture Gram Stain - Final Blood Blood Culture - Final Coagulase Negative Staph Assessment and Plan Assessment: Impression Present on admission diffuse abdominal pain suspect due to high-grade small bowel obstruction secondary to inflammatory distal ileal stricture CAT scan abdomen and pelvis show evidence of a high-grade small bowel obstruction History of Crohn's disease Prior history of a bowel obstruction recurrent Morbid obesity BMI 40 CAT scan abdomen pelvis report reviewed mild to moderate active distal Crohn's ileitis. 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 Castillo infectious disease Continue postop surgical care Increase activity DVT and GI prophylaxis Pain control Continue recommendations infectious disease Dietitian for nutritional supplements The above impression and plan of care have been discussed and directed by signing physician. Deepika Beltran nurse practitioner acting as scribe for signing physician.
[2018-02-27] MEDS: SODIUM CHLORIDE 0.9% 1,000 ML IV SCH (22:04)
[2018-02-28 08:44] LABS: Basophils # (A) 0.1 k/uL (0-0.2); Basophils % (A) 1 %; Eosinophils # (A) 0.6 k/uL (0-0.7); Eosinophils % (A) 6 %; HCT 33.3 % (39.0-53.0); HGB 9.8 gm/dL (13.0-17.5); Hypochromasia Marked; Lymphocytes # (A) 1.7 k/uL (1.0-4.8); Lymphocytes % (A) 18 %; MCH 26.8 pg (25.0-35.0); MCHC 29.3 g/dL (31.0-37.0); MCV 91.6 fL (80.0-100.0); Monocytes # (A) 0.4 k/uL (0-1.0); Monocytes % (A) 5 %; Neutrophils # (A) 6.3 k/uL (1.3-7.7); Neutrophils % (A) 68 %; Platelet Count 722 k/uL (150-450); RBC 3.64 m/uL (4.30-5.90); WBC 9.4 k/uL (3.8-10.6)
[2018-02-28] MEDS: BUDESONIDE 0.5 MG/2 ML NEBU INHALATION SCH ×2 (08:55→20:55)
[2018-02-28] MEDS: IPRATROPIUM-ALBUTEROL 3 ML NEB INHALATION SCH ×4 (08:55→20:55)
[2018-02-28] MEDS: PIPERACILLIN-TAZOBACTAM 3.375 GM in SODIUM CHLORIDE 0.9% 100 ML IVPB SCH ×3 (08:56→23:15)
[2018-02-28] MEDS: HEPARIN SODIUM,PORCINE 5,000 UNIT/ML 1 ML VIAL SQ SCH ×3 (08:59→23:15)
[2018-02-28] MEDS: NICOTINE 21MG/24HR PATCH TRANSDERM SCH (09:03)
[2018-02-28] MEDS: PANTOPRAZOLE 40 MG TABLET PO SCH (09:03)
[2018-02-28 09:10] LABS: C Reactive Protein 31.1 mg/L (<10.0); Calcium 9.1 mg/dL (8.4-10.2); Potassium 4.6 mmol/L (3.5-5.1)
--- NOTE | 2018-02-28 12:03 | P.PN ---
Subjective Progress Note Date: 02/28/18 42-year-old male seen postop visit sitting up in bed. Wound VAC in place. Discharge plan is in progress. Home care set up. To follow patient in the outpatient setting. Hemoglobin 9.8. White count 9.4 likely within normal limits the temp was 98.6 Dr. Castillo infectious disease to direct antibiotic defer to Postop incision and drainage of subcutaneous abdominal abscess done on February 25 Postop 12 of February exploratory laparotomy, small bowel resection, Ileocolectomy Partial omentectomy for small bowel obstruction secondary to Crohn 's disease Objective - Vital Signs Vital signs: Vital Signs Temp 98.6 F 02/28/18 07:30 Pulse 47 L 02/28/18 07:30 Resp 16 02/28/18 07:30 BP 155/81 02/28/18 07:30 Pulse Ox 99 02/28/18 07:30 Intake & Output 02/27/18 02/28/18 02/28/18 18:59 06:59 18:59 Intake Total 1200 Output Total 225 Balance 1200 -225 Intake: Oral 1200 Output: Urine 225 Other: Voiding Method Toilet Toilet Toilet # Voids 1 # Bowel Movements 1 - Exam Physical exam Abdomen obese soft nontender nondistended wound VAC in place dressings dry bowel tones present states urinating no difficulty no nausea no vomiting tolerating diet and having stools - Labs CBC & Chem 7: 02/28/18 08:14 02/28/18 08:14 Labs: Abnormal Lab Results - Last 24 Hours (Table) 02/28/18 02/28/18 Range/Units 08:14 08:14 RBC 3.64 L (4.30-5.90) m/uL Hgb 9.8 L (13.0-17.5) gm/dL Hct 33.3 L (39.0-53.0) % MCHC 29.3 L (31.0-37.0) g/dL RDW 16.0 H (11.5-15.5) % Plt Count 722 H (150-450) k/uL Chloride 110 H (98-107) mmol/L BUN 8 L (9-20) mg/dL Creatinine 1.95 H (0.66-1.25) mg/dL C-Reactive Protein 31.1 H (<10.0) mg/L Microbiology - Last 24 Hours (Table) 02/25/18 13:23 Anaerobic Culture - Preliminary Abdomen Gram Neg Bacilli Anaerobic Gram Positive Cocci 02/26/18 06:58 Blood Culture - Preliminary Blood No Growth after 48 hours 02/24/18 20:21 Blood Culture - Preliminary Blood No Growth after 72 hours 02/25/18 13:23 Gram Stain - Final Abdomen Wound Culture - Final Assessment and Plan Assessment: Impression Present on admission diffuse abdominal pain suspect due to high-grade small bowel obstruction secondary to inflammatory distal ileal stricture CAT scan abdomen and pelvis show evidence of a high-grade small bowel obstruction History of Crohn's disease Prior history of a bowel obstruction recurrent Morbid obesity BMI 40 CAT scan abdomen pelvis report reviewed mild to moderate active distal Crohn's ileitis. 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 Castillo infectious disease Continue postop surgical care Increase activity DVT and GI prophylaxis Pain control Continue recommendations infectious disease Dietitian for nutritional supplements Patient to follow-up with GI service once discharged The above impression and plan of care have been discussed and directed by signing physician. Deepika Beltran nurse practitioner acting as scribe for signing physician.
[2018-02-28] MEDS: HYDROcodone/APAP 7.5-325MG 1 EACH TAB PO PRN ×2 (15:29→20:16)
--- NOTE | 2018-02-28 16:27 | PN ---
PROGRESS NOTE Patient is seen for followup for acute kidney injury. Patient is doing well. He denies any significant complaints. He has had good urine output. Kidney injury is secondary to vancomycin toxicity as well as ATN from contrast nephropathy. Creatinine has been stable at about 1.8 to 2 mg/dL. This morning it is at 1.95. The patient denies any complaints. On examination this morning, blood pressure was 155/81, heart rate 47 per minute. Patient is afebrile. EXAMINATION OF THE HEART: S1, S2. EXAMINATION OF LUNGS: Bilateral breath sounds are heard. ABDOMEN: Soft, non-tender. The dressing in the abdomen is intact. Examination of lower extremities shows no significant edema. ER RN exam is intact. Labs show sodium 142, potassium 4.6, chloride 110, BUN 8, serum creatinine 1.95, hemoglobin 9.8 g/dL. ASSESSMENT: 1. Acute kidney injury, multifactorial, secondary to contrast nephropathy and vancomycin toxicity, currently stable. Patient was on IV fluids. Currently he is not on any IV fluids. He has been eating well. We can maintain him off of IV fluids for now. Patient will need outpatient followup. 2. Abdominal wall abscess, status post incision and drainage. 3. Bowel obstruction, status post exploratory laparotomy, omentectomy, small bowel resection and ileocolectomy. PLAN: Patient is stable for discharge from nephrology standpoint. He is advised to continue to avoid use of NSAIDs. He will need followup as outpatient in 1 to 2 weeks' time. He is advised to maintain adequate fluid intake. MMODL / IJN: [id number] /
[2018-02-28] MEDS ORDERED: HYDROmorphone 1 MG/ML 1 ML SYRINGE IVP PRN (17:30)
[2018-02-28] MEDS: SODIUM CHLORIDE 0.9% 1,000 ML IV SCH (20:32)
--- NOTE | 2018-02-28 22:30 | PN ---
PROGRESS NOTE DATE OF SERVICE: 02/28/2018 This patient does not complain of any shortness of breath. On physical examination, his blood pressure is 139/81, respiratory rate of 18, pulse rate of 62, temperature 98.2, oxygen saturation on room air 98%. HEENT: Unremarkable. Chest reveals decreased breath sounds at bases. Cardiovascular system is in S1, S2. Abdomen is soft. There is no edema. IMPRESSION AT THIS TIME: 1. Exacerbation of Crohn's disease with small bowel obstruction, status post abdominal surgery. 2. Acute hypoxic respiratory failure, in part due to atelectasis. 3. Abscess of the drain site, status post incision and drainage. 4. Obstructive sleep apnea is likely. Continue incentive spirometry. Increase activity level. Depending on how he does, we shall make further changes. MMODL / IJN: [id number] /
--- NOTE | 2018-02-28 23:21 | PN ---
PROGRESS NOTE DATE OF SERVICE: 02/28/2018. REASON FOR FOLLOWUP: Abdominal abscess. INTERVAL HISTORY: The patient is afebrile. His discharge has been put on hold today as the patient's culture was not finalized. The patient denies having any chest pain, shortness of breath or cough. No abdominal pain. No nausea, vomiting and has been tolerating diet. EXAMINATION: Blood pressure is 139/81 with a pulse of 62, temperature 98.2. He is 99% on room air. General description is a middle-aged male lying in bed in no distress. Respiratory system: Unlabored breathing, clear to auscultation anteriorly. Heart S1, S2. Regular rate and rhythm. ABDOMEN: Soft, mildly distended. No guarding. No rigidity. LABS: Hemoglobin 9.1, white count 9.4, BUN of 8, creatinine 1.95. DIAGNOSTIC IMPRESSION AND PLAN: Patient with abdominal abscess status post drainage. Culture now showing anaerobic gram-positive cocci and gram-negative bacilli. The patient is currently covered with daptomycin and Zosyn that will be continued for now while waiting for the final ID of this pathogen to determine his discharge antibiotics. Local wound care with the wound VAC. Once culture finalized, he should be able to go home from Infectious Disease standpoint. Plan of care discussed with admitting team. MMODL / IJN: [id number] /
[2018-03-01 01:13] VITALS: RESP 16
[2018-03-01] MEDS: HEPARIN SODIUM,PORCINE 5,000 UNIT/ML 1 ML VIAL SQ SCH ×2 (07:35→15:30)
[2018-03-01] MEDS: PIPERACILLIN-TAZOBACTAM 3.375 GM in SODIUM CHLORIDE 0.9% 100 ML IVPB SCH ×2 (07:35→15:26)
[2018-03-01] MEDS: PANTOPRAZOLE 40 MG TABLET PO SCH (07:35)
[2018-03-01] MEDS: NICOTINE 21MG/24HR PATCH TRANSDERM SCH (07:48)
[2018-03-01] MEDS: IPRATROPIUM-ALBUTEROL 3 ML NEB INHALATION SCH ×3 (08:16→15:54)
[2018-03-01] MEDS: BUDESONIDE 0.5 MG/2 ML NEBU INHALATION SCH (08:17)
--- NOTE | 2018-03-01 09:12 | P.PN ---
Subjective Patient is seen in follow-up for acute kidney injury. Renal function a little better with creatinine at 1.95 as of yesterday. Oral intake is good. No vomiting or diarrhea. Denies chest pain or shortness of breath. Admits to good urine output. No active complaints at this time. Vital signs are stable. General: The patient appeared well nourished and normally developed. HEENT: Head exam is unremarkable. Neck is without jugular venous distension. LUNGS: Lungs are clear to auscultation and percussion. Breath sounds decreased. HEART: Rate and Rhythm are regular. First and second heart sounds normal. No murmurs, rubs or gallops. ABDOMEN: Abdominal exam reveals normal bowel sounds. Non-tender and non- distended. No evidence of peritonitis. EXTREMITITES: No clubbing, cyanosis, or edema. Objective - Vital Signs Vital signs: Vital Signs Temp 98.3 F 03/01/18 01:12 Pulse 58 L 03/01/18 08:33 Resp 16 03/01/18 03:10 BP 156/92 03/01/18 01:12 Pulse Ox 97 03/01/18 01:12 Intake & Output 02/28/18 03/01/18 03/01/18 18:59 06:59 18:59 Intake Total 600 Balance 600 Weight 140.614 kg Intake: Oral 600 Other: Voiding Method Toilet Toilet Toilet Urinal # Voids 2 - Labs CBC & Chem 7: 02/28/18 08:14 02/28/18 08:14 Labs: Microbiology - Last 24 Hours (Table) 02/24/18 20:21 Blood Culture - Preliminary Blood No Growth after 96 hours 02/25/18 13:23 Anaerobic Culture - Preliminary Abdomen Gram Neg Bacilli Anaerobic Gram Positive Cocci 02/26/18 06:58 Blood Culture - Preliminary Blood No Growth after 48 hours Assessment and Plan Plan: Assessment: 1. Nonoliguric acute kidney injury secondary to ATN secondary to vancomycin toxicity and contrast-induced nephropathy . Renal function a little better with creatinine is 1.95 as of yesterday. Urinalysis is benign. 2. Abdominal wall abscess status post incision and drainage. 3. Bowel obstruction status post exploratory laparotomy, omentectomy, small bowel resection and ileocolectomy. Plan: Remains off IV fluids. Encourage oral intake. Avoid nephrotoxins. Anticipate discharge soon. Follow up outpatient in the next 1-2 weeks.
[2018-03-01] MEDS: SODIUM CHLORIDE 0.9% 1,000 ML IV SCH (09:24)
[2018-03-01] MEDS: HYDROcodone/APAP 7.5-325MG 1 EACH TAB PO PRN (10:40)
--- NOTE | 2018-03-01 10:41 | P.PN ---
Subjective Progress Note Date: 03/01/18 Principal diagnosis: Small bowel obstruction secondary to Crohn's disease Patient has a wound VAC in place. He had some pain with his dressing change yesterday. This morning he feels well. He wants to go home. Objective - Vital Signs Vital signs: Vital Signs Temp 98.3 F 03/01/18 01:12 Pulse 58 L 03/01/18 08:33 Resp 16 03/01/18 03:10 BP 156/92 03/01/18 01:12 Pulse Ox 97 03/01/18 01:12 Intake & Output 02/28/18 03/01/18 03/01/18 18:59 06:59 18:59 Intake Total 600 Balance 600 Weight 140.614 kg Intake: Oral 600 Other: Voiding Method Toilet Toilet Toilet Urinal # Voids 2 - Constitutional General appearance: Present: cooperative - Gastrointestinal Gastrointestinal Comment(s): Abdomen soft. Wound VAC is in place. There is no significant tenderness. There is no rebound or guarding. - Labs CBC & Chem 7: 02/28/18 08:14 02/28/18 08:14 Labs: Microbiology - Last 24 Hours (Table) 02/26/18 06:58 Blood Culture - Preliminary Blood No Growth after 72 hours 02/24/18 20:21 Blood Culture - Preliminary Blood No Growth after 96 hours 02/25/18 13:23 Anaerobic Culture - Preliminary Abdomen Gram Neg Bacilli Anaerobic Gram Positive Cocci Assessment and Plan Assessment: Status post ileocolectomy for small bowel obstruction secondary to Crohn's disease. Patient may be discharged home once cleared from infectious disease. There was a firmness wound cultures. The patient will continue to have wound VAC treatment for his wound infection.
--- NOTE | 2018-03-01 14:10 | PN ---
PROGRESS NOTE This patient does not complain of any shortness of breath or chest pain. On physical examination, his respiratory rate is 16, pulse rate of 56, temperature 98.3, blood pressure 156/92. HEENT is unremarkable. Chest is clear. Cardiovascular system reveals an S1, S2. Abdomen is soft. There is no edema. Abdominal cultures from 02/25/2018 are showing E coli with anaerobic gram-positive cocci; from 02/24/2018 from the blood are growing coag-negative staph. IMPRESSION AT THIS TIME: 1. Hypoxia, in part due to atelectasis with a history consistent with obstructive sleep apnea. 2. Status post abdominal surgery for Crohn's colitis. 3. Abdominal wound infection, for which the patient is on antibiotics and has local wound care. Increase his activity level. Continue incentive spirometry. His prognosis is fair. MMODL / IJN: [id number] /
[2018-03-01 14:14] VITALS: TEMP 98
--- NOTE | 2018-03-01 17:07 | PN ---
PROGRESS NOTE DATE OF SERVICE: 03/01/2018 REASON FOR FOLLOWUP: Abdominal abscess. INTERVAL HISTORY: The patient is currently afebrile. He is breathing comfortably. Denies having any chest pain, shortness of breath or cough. No abdominal pain. No nausea, vomiting or diarrhea. PHYSICAL EXAMINATION: Blood pressure 155/100, pulse of 73, temperature 98. He is 94% on room air. General description is a middle-aged male up in the chair in no distress. RESPIRATORY SYSTEM: Unlabored breathing. Clear to auscultation anteriorly. HEART: S1, S2. Regular rate and rhythm. ABDOMEN: Soft. No tenderness. Wound is currently covered with wound V.A.C. No leakage around it. LABS: The abdominal cultures have been finalized with an E coli that is a sensitive pathogen and an anaerobic gram-positive. DIAGNOSTIC IMPRESSION AND PLAN: Patient with an abdominal wall abscess after extensive surgery for his complicated Crohn's disease. Cultures now showing a resistant E coli. Antibiotic will be transitioned to Ceftin 500 mg twice a day along with oral Flagyl 500 mg t.i.d. for about 10 days. Local care to continue with the wound V.A.C. and patient has been advised to follow up in the wound care center next week. All his questions and concerns were answered. Prescription was sent to the pharmacy. He is cleared to go home from infectious disease standpoint. MMODL / IJN: [id number] /
[2018-03-01 18:21] VITALS: BP 146/80; PULSE 71
--- NOTE | 2018-03-02 18:56 | DS ---
DISCHARGE SUMMARY ADDENDUM: Please add: DISCHARGE DIAGNOSES: Sepsis ruled in. MMODL / IJN: [id number] /
--- NOTE | 2018-03-05 04:31 | CDI ---
Documentation Clarification Form Date: 03/05/2018 4:16:14 AM From: Krystal Campos Phone: If you have a question about this query, please contact Ashley Holt Director Community Health Nursing at [phone] between 8am and 5pm. Admit Date: 02/10/2018 7:28:00 AM Patient Name: Bro Umaña Visit Number: [id number] Discharge Date: 03/01/2018 7:30:00 PM ATTENTION: The Clinical Documentation Specialists (CDI) and [facility] Coding Staff appreciate your assistance in clarifying documentation. Please respond to the clarification below the line at the bottom and electronically sign. The CDI & [facility] Coding staff will review the response and follow-up if needed. Please note: Queries are made part of the Legal Health Record. If you have any questions, please contact the author of this message via ITS. Dr. Daryl Willingham Sepsis ruled in has been documented in your addendum. Please clarify if sepsis was POA. History/Risk Factors:Patient with crohns with ileocolectomy, post op abscess with I and D Clinical Indicators:WBC's 11.6 on admit 02/18 up to 16.7 Temp 98.0 F on admit 103.1 F on 02/12 Treatment: ileocolectomy, I and D postoperative abscess, antibiotics Definition of Present on Admission (POA): A diagnosis present at the time the order for admission to inpatient status was written. For each diagnosis, documentation must be clear to determine if the condition was present at the time of the patients inpatient admission or developed during the hospital stay. Please clarify if sepsis was Present on admission or developed later in the stay : ? Y = Yes, the condition was present at the time of the order for inpatient admission. ? N = No, the condition was not present at the time of the order for inpatient admission. ? W = Clinically undetermined if the condition was present at the time of the order for inpatient admission. MTDD
== END 2018-03-01 19:30 | disposition home health service (06) | DRG 329 ==
LOC: EC 04:35 → 4SSUR 07:28
PROVIDERS: ADMIT Family Medicine; ATTEND Family Medicine
PROC: 0DBB0ZZ Excision of Ileum, Open Approach (ICD-10-PCS; 2018-02-12)
PROC: 0DBU0ZZ Excision of Omentum, Open Approach (ICD-10-PCS; 2018-02-12)
PROC: 0DBK0ZZ Excision of Ascending Colon, Open Approach (ICD-10-PCS; principal; 2018-02-12 13:25)
PROC: 0J980ZZ Drainage of Abdomen Subcutaneous Tissue and Fascia, Open Approach (ICD-10-PCS; 2018-02-25)
PROC: 05HF33Z Insertion of Infusion Device into Left Cephalic Vein, Percutaneous Approach (ICD-10-PCS; 2018-02-28)
DX: K50.812 Crohn's disease of both small and large intestine with intestinal obstruction (principal); A41.51 Sepsis due to Escherichia coli [E. coli]; J96.01 Acute respiratory failure with hypoxia; K65.1 Peritoneal abscess; N17.0 Acute kidney failure with tubular necrosis; J98.11 Atelectasis; T81.41XA Infection following a procedure, superficial incisional surgical site, initial encounter; Z68.41 Body mass index [BMI] 40.0-44.9, adult; D50.9 Iron deficiency anemia, unspecified; E66.01 Morbid (severe) obesity due to excess calories; E86.0 Dehydration; F17.210 Nicotine dependence, cigarettes, uncomplicated; G47.33 Obstructive sleep apnea (adult) (pediatric); G47.36 Sleep related hypoventilation in conditions classified elsewhere; G89.29 Other chronic pain; I10 Essential (primary) hypertension; I25.2 Old myocardial infarction; J45.909 Unspecified asthma, uncomplicated; N14.1 Nephropathy induced by other drugs, medicaments and biological substances; T36.8X5A Adverse effect of other systemic antibiotics, initial encounter; T38.0X5A Adverse effect of glucocorticoids and synthetic analogues, initial encounter; T50.8X5A Adverse effect of diagnostic agents, initial encounter; Z79.82 Long term (current) use of aspirin; Z82.49 Family history of ischemic heart disease and other diseases of the circulatory system; Z83.3 Family history of diabetes mellitus; Z87.19 Personal history of other diseases of the digestive system; J44.9 Chronic obstructive pulmonary disease, unspecified
CPT/HCPCS: 36415; 36569; 71046; 74018; 74176; 74177; 80048; 80053; 80202; 81001; 81003; 82150; 83690; 85025; 86140; 86850; 86900; 86901; 87040; 87070; 87075; 87077; 87086; 87102; 87186; 87205; 88305; 88307; 94640; 94760; 96361; 96374; 99285

== ENCOUNTER → 2018-07-04 | Outpatient (CLI) | payer OTHER | END | disposition home or self-care (01) | LOC: RADCTMAIN 15:42 | PROVIDERS: ATTEND Surgery | DX: Z53.9 Procedure and treatment not carried out, unspecified reason (principal) ==

== ENCOUNTER 2018-11-19 22:41 | Emergency (ER) | payer OTHER ==
[2018-11-19 23:00] VITALS: RESP 18
[2018-11-20] MEDS ORDERED: MORPHINE SULFATE 4 MG/ML SYRINGE IV STA (00:47)
[2018-11-20] MEDS ORDERED: SODIUM CHLORIDE 0.9% 1,000 ML IV STA ×2 (00:47)
[2018-11-20] MEDS ORDERED: ONDANSETRON 4 MG/2 ML VIAL IVP STA (00:48)
[2018-11-20 01:40] LABS: Anisocytosis Slight; Basophils # (A) 0.1 k/uL (0-0.2); Basophils % (A) 1 %; Eosinophils # (A) 0.6 k/uL (0-0.7); Eosinophils % (A) 6 %; HCT 40.4 % (39.0-53.0); HGB 12.8 gm/dL (13.0-17.5); Lymphocytes # (A) 2.3 k/uL (1.0-4.8); Lymphocytes % (A) 22 %; MCH 29.3 pg (25.0-35.0); MCHC 31.7 g/dL (31.0-37.0); MCV 92.4 fL (80.0-100.0); Mean Platelet Volume 8.9; Monocytes # (A) 0.7 k/uL (0-1.0); Monocytes % (A) 7 %; Neutrophils # (A) 6.4 k/uL (1.3-7.7); Neutrophils % (A) 62 %; Platelet Count 252 k/uL (150-450); RBC 4.37 m/uL (4.30-5.90); RDW 16.4 % (11.5-15.5); WBC 10.3 k/uL (3.8-10.6)
[2018-11-20 01:48] LABS: ALT 17 U/L (21-72); AST 19 U/L (17-59); African American GFR (CKD) 84 (>60 ml/min/1.73 sqM); Albumin 3.5 g/dL (3.5-5.0); Alkaline Phosphatase 30 U/L (38-126); Amylase <30 U/L (30-110); Anion Gap 4 mmol/L; Blood Urea Nitrogen 15 mg/dL (9-20); Calcium 9.1 mg/dL (8.4-10.2); Carbon Dioxide 25 mmol/L (22-30); Chloride 111 mmol/L (98-107); Glucose 92 mg/dL (74-99); Potassium 4.1 mmol/L (3.5-5.1); Sodium 140 mmol/L (137-145); Total Bilirubin 0.4 mg/dL (0.2-1.3); Total Protein 6.4 g/dL (6.3-8.2)
--- NOTE | 2018-11-20 02:16 | CT ---
EXAM: CT Abdomen and Pelvis With Intravenous Contrast CLINICAL HISTORY: abdominal pain TECHNIQUE: Axial computed tomography images of the abdomen and pelvis with intravenous contrast. CTDI is 64.4 mGy and DLP is 3071.9 mGy-cm. This CT exam was performed using one or more of the following dose reduction techniques: automated exposure control, adjustment of the mA and/or kV according to patient size, and/or use of iterative reconstruction technique. COMPARISON: 02/18/2018. FINDINGS: Lung bases: Curvilinear subsegmental changes at the right lung base posteriorly are similar to the previous exam and may represent chronic atelectasis or scarring. ABDOMEN: Liver: Unremarkable. No mass. Gallbladder and bile ducts: Unremarkable. No calcified stones. No ductal dilation. Pancreas: Unremarkable. No mass. No ductal dilation. Spleen: Unremarkable. No splenomegaly. Adrenals: Unremarkable. No mass. Kidneys and ureters: The kidneys demonstrate normal enhancement. No calcifications or hydronephrosis. A cortical cyst involving the mid to superior aspect of the posterior right kidney is similar in size, measuring 2.3 cm in diameter. Delayed phase imaging demonstrates minimal excreted contrast in the bilateral renal calyces. No contrast is identified in the ureters. However, this thought to be due to timing of delayed phase imaging. Stomach and bowel: No high-grade bowel obstruction identified. No significant focal bowel mucosal abnormality. There is scattered mild to moderately fluid-filled loops of small bowel throughout the mid abdomen and there is slightly prominent fluid in the ascending colon. There are postsurgical changes noted involving a loop of small bowel and the ascending colon, similar to the previous exam. PELVIS: Appendix: The appendix is not definitively identified and is presumed surgically absent. Bladder: The bladder is decompressed, limiting evaluation. Reproductive: Unremarkable as visualized. ABDOMEN and PELVIS: Intraperitoneal space: Unremarkable. No free air. No significant fluid collection. Bones/joints: No acute fracture. No dislocation. Soft tissues: There is interval development of prominent laxity and supraumbilical and periumbilical ventral abdominal wall herniation with compared to the previous examination. There are multiple small bowel loops extending into the subcutaneous tissues and are somewhat adherent to the anterior margin of the hernia. Vasculature: Unremarkable. No abdominal aortic aneurysm. Lymph nodes: Calcifications near the oh hepatis are stable and are presumed calcified lymph nodes. Multiple mesenteric lymph nodes are prominent in size, but stable in appearance from the previous exam. IMPRESSION: 1. There is interval development of prominent laxity and supraumbilical and periumbilical ventral abdominal wall herniation with compared to the previous examination. There are multiple small bowel loops extending into the subcutaneous tissues and are somewhat adherent to the anterior margin of the hernia. No evidence for incarceration however. 2. No high-grade bowel obstruction identified. There is scattered mild to moderately fluid-filled loops of small bowel throughout the mid abdomen and there is slightly prominent fluid in the ascending colon. This is a nonspecific finding. However, mild enterocolitis is also a consideration. Please correlate clinically. No significant focal bowel mucosal abnormality. No free intraperitoneal fluid or pneumoperitoneum.
[2018-11-20 02:22] LABS: Appearance,Urine Clear (Clear); Bilirubin,Urine Negative (Negative); Blood,Urine Negative (Negative); Color,Urine Yellow; Glucose,Urine (UA) Negative (Negative); Ketones,Urine Trace (Negative); Leukocyte Esterase,Urine Negative (Negative); Nitrite,Urine Negative (Negative); Protein,Urine Trace (Negative); Specific Gravity,Urine 1.033 (1.001-1.035); Urobilinogen,Urine <2.0 mg/dL (<2.0)
--- NOTE | 2018-11-20 03:07 | ED ---
Abdominal Pain HPI - General Chief Complaint: Abdominal Pain Stated Complaint: Abdominal Pain Time Seen by Provider: 11/20/18 00:46 Source: patient, RN notes reviewed, old records reviewed Mode of arrival: ambulatory Limitations: no limitations - History of Present Illness Initial Comments: 43 year old male presents with abdominal pain, reportedly since May. States that he has Chron's disease, leading to bowel resection. PAtient had that done last year and took a long recovery from poor wound healing afterward. He has a large ventral hernia from this surgery. He states lately has been belching, vomiting, and frequently nauseated. Denies bloody stools or pain of typical chron's flare. - Related Data Home Medications Medication Instructions Recorded Confirmed amLODIPine [Norvasc] 5 mg PO QAM 07/09/18 07/09/18 Allergies Allergy/AdvReac Type Severity Reaction Status Date / Time No Known Allergies Allergy Verified 11/19/18 23:00 Review of Systems ROS Statement: Those systems with pertinent positive or pertinent negative responses have been documented in the HPI. ROS Other: All systems not noted in ROS Statement are negative. Past Medical History Past Medical History: GI Bleed, Hypertension, Myocardial Infarction ([place]) Additional Past Medical History / Comment(s): Crohn's/chronic diarrhea, lower GI bleed, pt states he had a [place] 12/2016, past finger fractures. Last Myocardial Infarction Date:: 01/08/17 per pt History of Any Multi-Drug Resistant Organisms: None Reported Past Surgical History: Hernia Repair Additional Past Surgical History / Comment(s): COLONOSCOPIES, LAPAROSCOPIC RT INGUINAL HERNIA REPAIR WITH MESH AND LYSIS OF ADHESIONS, 2017 CARDIAC CATH- NORMAL. Past Anesthesia/Blood Transfusion Reactions: No Reported Reaction Additional Past Anesthesia/Blood Transfusion Reaction / Comment(s): never had anesthesia Past Psychological History: No Psychological Hx Reported Smoking Status: Current every day smoker Past Alcohol Use History: None Reported Past Drug Use History: None Reported - Past Family History Father Additional Family Medical History / Comment(s): MURMUR Mother Family Medical History: Hypertension Additional Family Medical History / Comment(s): MATERNAL GRANDFATHER AT THE AGE OF 45 YRS FROM [place] AND WAS DIABETIC. General Exam - General Exam Comments Initial Comments: 43 year old male. Limitations: no limitations General appearance: alert, in no apparent distress Head exam: Present: atraumatic, normocephalic, normal inspection Eye exam: Present: normal appearance, PERRL, EOMI. Absent: scleral icterus, conjunctival injection, periorbital swelling ENT exam: Present: normal exam, mucous membranes moist Neck exam: Present: normal inspection. Absent: tenderness, meningismus, lymphadenopathy Respiratory exam: Present: normal lung sounds bilaterally. Absent: respiratory distress, wheezes, rales, rhonchi, stridor Cardiovascular Exam: Present: regular rate, normal rhythm, normal heart sounds. Absent: systolic murmur, diastolic murmur, rubs, gallop, clicks GI/Abdominal exam: Present: soft, normal bowel sounds, hernia (Large ventral hernia, REducvle. midline abdomianl scare. ). Absent: distended, tenderness, guarding, rebound, rigid Extremities exam: Present: normal inspection, full ROM, normal capillary refill. Absent: tenderness, pedal edema, joint swelling, calf tenderness Back exam: Present: normal inspection Neurological exam: Present: alert, oriented X3, CN II-XII intact Psychiatric exam: Present: normal affect, normal mood Course Vital Signs 11/19/18 11/20/18 22:58 04:46 Temperature 98.5 F 98 F Pulse Rate 83 66 Respiratory 18 18 Rate Blood Pressure 134/90 129/87 O2 Sat by Pulse 98 97 Oximetry Medical Decision Making - Medical Decision Making 43 year old male with abodominal hernia pain after bowel resection surgery, hernia is easily reducible. PAtient labs and Vitals are normal. CT shows large hernia, no obstruction. Discussed follow up with surgery. Discussed return parameters. - Lab Data Result diagrams: 11/20/18 01:32 11/20/18 01:32 Lab Results 11/20/18 11/20/18 11/20/18 Range/Units 01:32 01:32 02:18 WBC 10.3 (3.8-10.6) k/uL RBC 4.37 (4.30-5.90) m/uL Hgb 12.8 L (13.0-17.5) gm/dL Hct 40.4 (39.0-53.0) % MCV 92.4 (80.0-100.0) fL MCH 29.3 (25.0-35.0) pg MCHC 31.7 (31.0-37.0) g/dL RDW 16.4 H (11.5-15.5) % Plt Count 252 (150-450) k/uL Neutrophils % 62 % Lymphocytes % 22 % Monocytes % 7 % Eosinophils % 6 % Basophils % 1 % Neutrophils # 6.4 (1.3-7.7) k/uL Lymphocytes # 2.3 (1.0-4.8) k/uL Monocytes # 0.7 (0-1.0) k/uL Eosinophils # 0.6 (0-0.7) k/uL Basophils # 0.1 (0-0.2) k/uL Anisocytosis Slight Sodium 140 (137-145) mmol/L Potassium 4.1 (3.5-5.1) mmol/L Chloride 111 H (98-107) mmol/L Carbon Dioxide 25 (22-30) mmol/L Anion Gap 4 mmol/L BUN 15 (9-20) mg/dL Creatinine 1.23 (0.66-1.25) mg/dL Est GFR (CKD-EPI)AfAm 84 (>60 ml/min/1.73 sqM) Est GFR (CKD-EPI)NonAf 72 (>60 ml/min/1.73 sqM) Glucose 92 (74-99) mg/dL Calcium 9.1 (8.4-10.2) mg/dL Total Bilirubin 0.4 (0.2-1.3) mg/dL AST 19 (17-59) U/L ALT 17 L (21-72) U/L Alkaline Phosphatase 30 L (38-126) U/L Total Protein 6.4 (6.3-8.2) g/dL Albumin 3.5 (3.5-5.0) g/dL Amylase <30 L (30-110) U/L Lipase 138 (23-300) U/L Urine Color Yellow Urine Appearance Clear (Clear) Urine pH 6.0 (5.0-8.0) Ur Specific [place] 1.033 (1.001-1.035) Urine Protein Trace H (Negative) Urine Glucose (UA) Negative (Negative) Urine Ketones Trace H (Negative) Urine Blood Negative (Negative) Urine Nitrite Negative (Negative) Urine Bilirubin Negative (Negative) Urine Urobilinogen <2.0 (<2.0) mg/dL Ur Leukocyte Esterase Negative (Negative) - Radiology Data Radiology results: report reviewed Internval development and prominent laxity and surpaumbilical ventral abdominal wall herniation with compared to previous. Multiple small bowel loops extending into subcutaneous tissues and adherent to anterior margin of hernia. No evidence of incarceration. No bowel obstruction identified. Scattered mild fluid filled loops and prominent fluid in large ascending colon. Nonspecific. Mild enteroloitis is considered. No fluid or pneumoperitoneum. Disposition Clinical Impression: Abdominal hernia, Enterocolitis Disposition: HOME SELF-CARE Condition: Good Instructions (If sedation given, give patient instructions): Ventral Hernia (ED) Additional Instructions: Patient is advised to follow-up with primary care doctor. Return to the emergency department if any alarming signs or symptoms occur. Recommend follow- up with Dr. Urbina. Monitor diet. Is patient prescribed a controlled substance at d/c from ED?: No Referrals: Karthik Sanches DO [Primary Care Provider] - 1-2 days Time of Disposition: 03:58
[2018-11-20 04:46] VITALS: BP 129/87; PULSE 66; TEMP 98
== END 2018-11-20 04:48 | disposition home or self-care (01) ==
LOC: EC 22:41
DX: K52.9 Noninfective gastroenteritis and colitis, unspecified (principal); K43.9 Ventral hernia without obstruction or gangrene; I10 Essential (primary) hypertension; I25.2 Old myocardial infarction; F17.200 Nicotine dependence, unspecified, uncomplicated; Z79.899 Other long term (current) drug therapy
CPT/HCPCS: 36415; 80053; 82150; 83690; 85025; 81003; 74177; 99284; 96374; 96375; 96361 ×2; J2270; J2405; Q9967

== ENCOUNTER → 2018-12-30 | Outpatient (CLI) | payer OTHER ==
[2018-12-30 11:58] LABS: HCT 40.3 % (39.0-53.0); Hypochromasia Slight; MCH 30.1 pg (25.0-35.0); MCHC 32.2 g/dL (31.0-37.0); MCV 93.4 fL (80.0-100.0); Mean Platelet Volume 7.3; Platelet Count 257 k/uL (150-450); RBC 4.32 m/uL (4.30-5.90); RDW 14.6 % (11.5-15.5); WBC 9.7 k/uL (3.8-10.6)
== END | disposition home or self-care (01) ==
LOC: LABPAT 10:26
PROVIDERS: ATTEND Anesthesiology
DX: Z01.812 Encounter for preprocedural laboratory examination (principal); K46.9 Unspecified abdominal hernia without obstruction or gangrene
CPT/HCPCS: 36415; 85027

== ENCOUNTER 2019-01-01 05:56 | Observation (INO) | payer OTHER ==
[2018-12-23 12:57] VITALS: BMI 42.2
[~2019-01-01 05:56] MED LIST changes: +DEXAMETHASONE SOD PHOSPHATE 10 MG/ML 1 ML VIAL IV ONE; -GLYCOPYRROLATE 0.2 MG/ML 2 ML VIAL ONE; +HEPARIN SODIUM,PORCINE 5,000 UNIT/ML 1 ML VIAL SQ ONE; -HYDROmorphone (PF) 1 MG/ML ONE; +HYDROmorphone 0.5 MG/0.5 ML SYRINGE IVP PRN; +LIDOCAINE 1% 20 ML VIAL (10MG/ML) FOR IV START INTRADERMA PRN; -LIDOCAINE 1% INJ 10MG/ML (20 ML MDV) ONE; -MIDAZOLAM 2 MG/2 ML VIAL ONE; -NEOSTIGMINE 1 MG/ML 10 ML VIAL ONE; +ONDANSETRON 4 MG/2 ML VIAL IVP ONE; -PROPOFOL 10 MG/ML 20 ML VIAL IV ONE; -ROCURONIUM BROMIDE 10 MG/ML 10 ML VIAL IV ONE; +SCOPOLAMINE 1.5MG/72HR PATCH TRANSDERM ONE; -SUCCINYLCHOLINE CHLORIDE VIAL 200 MG/10 ML VIAL IV ONE; -fentaNYL (PF) 50 MCG/ML 2 ML AMP ONE
[2019-01-01] MEDS ORDERED: ceFAZolin 3 GM in SODIUM CHLORIDE 0.9% 100 ML IVPB ONE (06:00)
[2019-01-01] MEDS: LACTATED RINGERS 1,000 ML IV SCH ×3 (06:34→23:27)
[2019-01-01] MEDS ORDERED: MIDAZOLAM PF (FBP) 2 MG/2 ML VIAL IVP ONE (07:16)
[2019-01-01] MEDS ORDERED: fentaNYL (PF) 50 MCG/ML 2 ML AMP IVP ONE (07:16)
[2019-01-01] MEDS ORDERED: DEXAMETHASONE SOD PHOSPHATE 4 MG/ML 1 ML VIAL ONE (07:39)
[2019-01-01] MEDS ORDERED: KETOROLAC 30 MG/ML 1 ML VIAL ONE (07:39)
[2019-01-01] MEDS ORDERED: ROPIVACAINE 5 MG/ML 30 ML VIAL ONE (07:39)
[2019-01-01] MEDS ORDERED: PROPOFOL 10 MG/ML 20 ML VIAL IV ONE (07:39)
[2019-01-01] MEDS ORDERED: GLYCOPYRROLATE 0.2 MG/ML 2 ML VIAL ONE (07:39)
[2019-01-01] MEDS ORDERED: ROCURONIUM BROMIDE 10 MG/ML 10 ML VIAL IV ONE (07:39)
[2019-01-01] MEDS ORDERED: MIDAZOLAM 2 MG/2 ML VIAL ONE (07:39)
[2019-01-01] MEDS ORDERED: KETAMINE 10 MG/ML 20 ML VIAL ONE (07:39)
[2019-01-01] MEDS ORDERED: NEOSTIGMINE 1 MG/ML 10 ML VIAL ONE (07:39)
[2019-01-01] MEDS ORDERED: fentaNYL (PF) 50 MCG/ML 2 ML AMP ONE (07:39)
--- NOTE | 2019-01-01 07:50 | P.GSHP ---
History of Present Illness H&P Date: 01/01/19 Chief Complaint: Incisional hernia This is a 43-year-old male who presents today for open repair of a large incisional hernia. Patient's previous history of Crohn's disease. He is developed an incisional hernia after exploratory laparotomy for small bowel obstruction. Patient states he had a wound infection time of his laparotomy. Patient's where risks of surgery including adhesions. Past Medical History Past Medical History: GI Bleed, Hypertension, Myocardial Infarction ([place]) Additional Past Medical History / Comment(s): Crohn's/chronic diarrhea, lower GI bleed, pt states he had a [place] 12/2016, past finger fractures. Last Myocardial Infarction Date:: 01/08/17 per pt History of Any Multi-Drug Resistant Organisms: None Reported Past Surgical History: Heart Catheterization, Hernia Repair Additional Past Surgical History / Comment(s): COLONOSCOPIES, LAPAROSCOPIC RT INGUINAL HERNIA REPAIR WITH MESH AND LYSIS OF ADHESIONS, 2016 CARDIAC CATH- NORMAL. Past Anesthesia/Blood Transfusion Reactions: No Reported Reaction Additional Past Anesthesia/Blood Transfusion Reaction / Comment(s): never had anesthesia Smoking Status: Current some day smoker - Past Family History Father Additional Family Medical History / Comment(s): MURMUR Mother Family Medical History: Hypertension Additional Family Medical History / Comment(s): MATERNAL GRANDFATHER AT THE AGE OF 45 YRS FROM [place] AND WAS DIABETIC. Medications and Allergies Home Medications Medication Instructions Recorded Confirmed Type amLODIPine [Norvasc] 5 mg PO QAM 07/09/18 01/01/19 History oxyCODONE-APAP 7.5-325MG [Percocet 1 tab PO BID 12/23/18 01/01/19 History 7.5-325 mg] Allergies Allergy/AdvReac Type Severity Reaction Status Date / Time No Known Allergies Allergy Verified 01/01/19 06:09 Surgical - Exam Vital Signs Temp Pulse Resp BP Pulse Ox 98.0 F 80 18 134/85 98 01/01/19 06:22 01/01/19 06:22 01/01/19 06:22 01/01/19 06:22 01/01/19 06:22 - General well developed, well nourished, no distress - Eyes PERRL - ENT normal pinna - Neck no masses - Respiratory normal expansion - Cardiovascular Rhythm: regular - Abdomen Abdomen: soft, non tender Hernia: incisional (Large midline incisional hernia) Assessment and Plan Assessment: Incisional hernia. We'll perform open repair
[2019-01-01] MEDS ORDERED: LACTATED RINGERS 1,000 ML IV ONE ×2 (09:47→09:56)
[2019-01-01] MEDS ORDERED: HYDROmorphone 0.5 MG/0.5 ML SYRINGE IVP PRN (09:56)
[2019-01-01] MEDS ORDERED: HYDROcodone/APAP 5-325MG 1 EACH TAB PO PRN (09:56)
[2019-01-01] MEDS ORDERED: ONDANSETRON 4 MG/2 ML VIAL IVP PRN (09:56)
[2019-01-01] MEDS ORDERED: ACETAMINOPHEN TAB 325 MG TAB PO PRN (09:56)
[2019-01-01] MEDS ORDERED: NALOXONE 0.4 MG/ML 1 ML VIAL IV PRN ×2 (09:56→11:17)
[2019-01-01] MEDS ORDERED: traMADol 50 MG TAB PO PRN (09:56)
[2019-01-01] MEDS: HYDROmorphone 0.5 MG/0.5 ML SYRINGE IVP PRN ×3 (10:03→10:28)
--- NOTE | 2019-01-01 10:13 | P.OP ---
Date of Procedure: 01/01/19 Preoperative Diagnosis: Incisional hernia Postoperative Diagnosis: Incarcerated incisional hernia Procedure(s) Performed: Open repair of incarcerated incisional hernia with mesh. Anesthesia: SINA Surgeon: Raphael Urbina Estimated Blood Loss (ml): 50 Pathology: none sent Condition: stable Disposition: PACU Description of Procedure: Patient's placed the operative table in supine position. He received general anesthesia. His abdomen was prepped and draped usual fashion. Patient had a previous midline scar. The scope was excised using sharp dissection the subcutaneous tissue divided. Then the hernia sac was encountered. The hernia sac was dissected free from some taste tissues using electrocautery and sharp dissection. The entire scar was a large incarcerated incisional hernia. The incarcerated bowel and omentum were reduced into the peritoneal cavity. Then the fascia repair was performed using oh the lock suture. Once the fascia was repaired. The Prolene mesh was placed over top the fascia and secured with the secure strap tacker. A SHIRLEY drains placed over top of the mesh and brought through separate stab incision the Sasha's fascia close [place]. Skin was closed bipin. Patient top she will was sent to recovery room in stable condition.
[2019-01-01] MEDS ORDERED: MEPERIDINE 50 MG/ML SYRINGE IVP ONE ×2 (10:16→11:06)
[2019-01-01] MEDS ORDERED: GABAPENTIN 300 MG CAP PO STA (11:16)
[2019-01-01] MEDS ORDERED: HYDROmorphone PCA 10 MG/50 ML BAG IV PRN (11:17)
--- NOTE | 2019-01-01 12:40 | P.ANPRN ---
Procedure Note - Anesthesia - Nerve Block Performed Bilateral Transversus Abdominis Single Time Out Performed: Yes Date of Procedure: 01/01/19 Procedure Start Time: 07:15 Procedure Stop Time: :25 Location of Patient Procedure: PreOp Indication: Acute Post-Operative Pain, Requested by Surgeon Sedation Type: Sedate with meaningful contact maintained Preparation: Sterile Prep Position: Supine Catheter: None Needle Types: Pajunk Needle Gauge: 21 Ultrasound used to visualize needle placement: Yes Ultrasound used to observe medication spread: Yes Injectate: 0.5% Ropivacaine (see comment for volume) (20ml + decadron 4mg-- per side) Blood Aspirated: No Pain Paresthesia on Injection Noted: No Resistance on Injection: Normal Image Stored and Saved: Yes Events: Uneventful and Well Tolerated
[2019-01-01] MEDS: ACETAMINOPHEN TAB 500 MG TAB PO STA ×2 (13:09→13:10)
[2019-01-01] MEDS: KETOROLAC 30 MG/ML 1 ML VIAL IVP SCH ×2 (13:11→17:55)
[2019-01-01] MEDS ORDERED: amLODIPine 5 MG TAB PO ONE (18:30)
[2019-01-02] MEDS: KETOROLAC 30 MG/ML 1 ML VIAL IVP SCH ×3 (00:17→12:42)
[2019-01-02] MEDS: LACTATED RINGERS 1,000 ML IV SCH (05:56)
[2019-01-02] MEDS ORDERED: ENOXAPARIN 40 MG/0.4 ML SYRINGE SQ SCH (09:00)
[2019-01-02] MEDS ORDERED: amLODIPine 5 MG TAB PO SCH (09:00)
[2019-01-02 12:25] VITALS: BP 145/85; PULSE 72; RESP 16; TEMP 98.3
--- NOTE | 2019-01-02 12:54 | P.DS ---
Providers Date of admission: 01/02/19 03:42 Expected date of discharge: 01/02/19 Attending physician: Raphael Urbina Consults: 01/01/19 09:56 Consult Physician Routine Consulting Provider: Jayy Pelayo Consult Reason/Comments: Medical management Do you want consulting provider notified?: Yes Primary care physician: Karthik [place] Hospital Course: 43-year-old male who underwent open repair of incarcerated incisional hernia with mesh. Patient is doing well postoperatively without any immediate complications. Pain is well-controlled. Tolerating diet without nausea or vomiting. Vital signs have been stable. He is stable for discharge home today with SHIRLEY drain. Please see EMR for further hospital course details. Discharge diagnosis 1. Incarcerated incisional hernia, status post open repair of hernia with mesh Nurse practitioner note has been reviewed by physician. Signing provider agrees with the documented findings, assessment, and plan of care. Patient Condition at Discharge: Stable Plan - Discharge Summary Discharge Rx Participant: No New Discharge Prescriptions: Continue amLODIPine [Norvasc] 5 mg PO QAM oxyCODONE-APAP 7.5-325MG [Percocet 7.5-325 mg] 1 tab PO BID Discharge Medication List amLODIPine [Norvasc] 5 mg PO QAM 07/09/18 [History] oxyCODONE-APAP 7.5-325MG [Percocet 7.5-325 mg] 1 tab PO BID 12/23/18 [History] Follow up Appointment(s)/Referral(s): Raphael Urbina MD [STAFF PHYSICIAN] - 01/08/19 1:55 pm Activity/Diet/Wound Care/Special Instructions: Record SHIRLEY drain output three times a day No lifting over 10 pounds You may shower. No soaking or tub baths Very light activity until you are reevaluated at your follow up appointment with your surgeon
--- NOTE | 2019-01-02 20:58 | P.CONS ---
History of Present Illness - Reason for Consult Consult date: 01/02/19 Medical management Requesting physician: Raphael Urbina - Chief Complaint Abdominal surgery - History of Present Illness Consultation: This is a pleasant 43-year-old patient, who was at prior abdominal surgery now with incisional hernia. Underwent repair of the same yesterday with open repair of the incarcerated incisional hernia with a mesh placement. Pain much contro lled. This morning had a liquid diet. Had a bowel movement with flatus this morning.. No nausea vomiting. No fever or chills. Laying in bed comfortable. No new issues. Review of systems: GEN.: None EYES: None HEENT: None NECK: None RESPIRATORY: None CARDIOVASCULAR: None GASTROINTESTINAL: As above GENITOURINARY: None MUSCULOSKELETAL: None LYMPHATICS: None HEMATOLOGICAL: None PSYCHIATRY: None NEUROLOGICAL: None Past medical history to include: Hypertension, Crohn's diarrhea, [place] in 2017, Social history: Lives with his grandson 3 children. Works of for [employer]. Patient stopped smoking in October 2018. No alcohol. Physical examination: VITAL SIGNS: 98.1, 58, 18, 134/81, 95% room air GENERAL: BMI 46.6, laying in bed, comfortable. EYES: Pupils equal. Conjunctiva normal. HEENT: External appearance of nose and ears normal, oral cavity grossly normal. NECK: JVD not raised; masses not palpable. HEART: First and second heart sounds are normal; no edema. LUNGS: Respiratory rate normal; clear to auscultation. ABDOMEN: Soft, minimal tenderness, dressing over the incision line, bowel sounds present,, liver spleen not palpable, no masses palpable. PSYCH: Alert and oriented x3; mood and affect normal. NEUROLOGICAL: Cranial nerves grossly intact; no facial asymmetry, power and sensation grossly intact. LYMPHATICS: No lymph nodes palpable in the axilla and neck INVESTIGATIONS, reviewed in the clinical context: No labs Assessment: -Morbid obesity BMI 46.6 -Status post incarcerated hernia repair -Essential hypertension -Crohn's disease Plan: Patient doing well postoperatively. Tolerate a liquid diet. Dietary be advanced if okay with Dr. Urbina. Advised to be more out of bed. Discharged following his family doctor. Thank you Thank you Dr. Urbina Past Medical History Past Medical History: GI Bleed, Hypertension, Myocardial Infarction ([place]) Additional Past Medical History / Comment(s): Crohn's/chronic diarrhea, lower GI bleed, pt states he had a [place] 12/2016, past finger fractures. Last Myocardial Infarction Date:: 01/08/17 per pt History of Any Multi-Drug Resistant Organisms: None Reported Past Surgical History: Heart Catheterization, Hernia Repair Additional Past Surgical History / Comment(s): COLONOSCOPIES, LAPAROSCOPIC RT INGUINAL HERNIA REPAIR WITH MESH AND LYSIS OF ADHESIONS, 2016 CARDIAC CATH- NORMAL. Past Anesthesia/Blood Transfusion Reactions: No Reported Reaction Additional Past Anesthesia/Blood Transfusion Reaction / Comm: never had anesthesia Past Psychological History: No Psychological Hx Reported Additional Psychological History / Comment(s): PT IS INDEPENDENT. LIVES WITH FINOAH AND 3 KIDS. WORKS FOR [employer] IN [place], NO MEDICAL EQUIPMENT, NO OUTSOIDE SERVICES RECIEVED. Smoking Status: Former smoker Past Alcohol Use History: None Reported Additional Past Alcohol Use History / Comment(s): QUIT SMOKING OCT 2018 Past Drug Use History: None Reported - Past Family History Father Additional Family Medical History / Comment(s): MURMUR Mother Family Medical History: Hypertension Additional Family Medical History / Comment(s): MATERNAL GRANDFATHER AT THE AGE OF 45 YRS FROM [place] AND WAS DIABETIC. Medications and Allergies Home Medications Medication Instructions Recorded Confirmed Type amLODIPine [Norvasc] 5 mg PO QAM 07/09/18 01/01/19 History oxyCODONE-APAP 7.5-325MG [Percocet 1 tab PO BID 12/23/18 01/01/19 History 7.5-325 mg] Allergies Allergy/AdvReac Type Severity Reaction Status Date / Time No Known Allergies Allergy Verified 01/01/19 06:09 Physical Exam Vitals: Vital Signs Temp Pulse Pulse Resp BP BP Pulse Ox 01/02/19 05:20 98.1 F 58 L 18 134/81 95 01/01/19 20:50 98.3 F 53 L 20 123/75 97 01/01/19 15:24 55 L 147/103 95 01/01/19 15:09 56 L 153/94 95 01/01/19 14:54 53 L 149/96 97 01/01/19 14:24 67 140/96 94 L 01/01/19 14:10 56 L 136/90 01/01/19 13:54 58 L 150/83 96 01/01/19 13:48 98.5 F 67 16 156/83 97 01/01/19 12:47 96 01/01/19 12:45 63 18 155/98 100 01/01/19 12:15 54 L 17 158/100 100 01/01/19 12:00 55 L 14 159/99 100 01/01/19 11:45 56 L 14 162/98 100 01/01/19 11:30 51 L 14 157/83 100 01/01/19 11:15 53 L 14 161/88 100 01/01/19 11:00 54 L 16 166/80 100 Intake and Output 01/01/19 01/02/19 01/02/19 22:59 06:59 14:59 Intake Total 400 120 Output Total 480 270 Balance -480 130 120 Intake: Oral 400 120 Output: Drainage 80 20 Abdomen 80 20 Urine 400 250
== END 2019-01-02 14:36 | disposition home or self-care (01) ==
LOC: OR 05:56 → 4MS4W 09:49 → OR 01-02 02:52 → 4MS4W 01-02 03:42
PROVIDERS: ADMIT Surgery; ATTEND Surgery
DX: K43.0 Incisional hernia with obstruction, without gangrene (principal); K50.90 Crohn's disease, unspecified, without complications; I10 Essential (primary) hypertension; E66.01 Morbid (severe) obesity due to excess calories; Z68.42 Body mass index [BMI] 45.0-49.9, adult; Z79.891 Long term (current) use of opiate analgesic; Z79.899 Other long term (current) drug therapy; Z86.19 Personal history of other infectious and parasitic diseases; I25.2 Old myocardial infarction; Z87.19 Personal history of other diseases of the digestive system; Z87.891 Personal history of nicotine dependence; Z87.81 Personal history of (healed) traumatic fracture; Z83.3 Family history of diabetes mellitus; Z82.49 Family history of ischemic heart disease and other diseases of the circulatory system
CPT/HCPCS: 49561; 49568; G0378; C1781; J2250 ×2; J1644; J1100 ×2; J2710; J2175; J0690; J2405; J1650; J3010; J1885 ×2; J2795; J2704; J1170

== ENCOUNTER 2019-01-14 18:59 | Inpatient (IN) | payer OTHER ==
[2019-01-14] MEDS ORDERED: ACETAMINOPHEN TAB 325 MG TAB PO STA (19:16)
[2019-01-14] MEDS ORDERED: PIPERACILLIN-TAZOBACTAM 3.375 GM in SODIUM CHLORIDE 0.9% 100 ML IVPB STA (19:17)
[2019-01-14] MEDS ORDERED: MORPHINE SULFATE 4 MG/ML SYRINGE IVP STA (19:22)
[2019-01-14] MEDS ORDERED: ONDANSETRON 4 MG/2 ML VIAL IVP STA (19:23)
--- NOTE | 2019-01-14 19:35 | ED ---
Abdominal Pain HPI - General Chief Complaint: Abdominal Pain Stated Complaint: Fever-Post OP Time Seen by Provider: 01/14/19 19:15 Source: patient Mode of arrival: ambulatory Limitations: no limitations - History of Present Illness Initial Comments: 43-year-old male with history of Crohn's disease diverticulitis who is currently 13 days post op from a incisional hernia repair was obtained and placed presents emergency department for chief complaint of fever or left lower quadrant abdominal pain. Patient states the past day he has had left lower quadrant abdominal pain described as stabbing without radiation. Patient denies any redness or drainage of the incisional sites. Patient denies any purulent or foul-smelling drainage from the tube site in the right upper quadrant of abdomen from recent surgical procedure. Patient denies cough or respiratory symptoms dysuria urgency frequency or back pain. Patient denies any other complaints. Patient states he has chronic diarrhea but denies vomiting. Patient states today he felt like it chills and had a fever. Remaining review of systems negative upon arrival patient appears in no distress however is febrile with elevation of heart rate. - Related Data Home Medications Medication Instructions Recorded Confirmed amLODIPine [Norvasc] 5 mg PO DAILY 07/09/18 01/14/19 oxyCODONE-APAP 7.5-325MG [Percocet 1 tab PO TID 12/23/18 01/14/19 7.5-325 mg] Allergies Allergy/AdvReac Type Severity Reaction Status Date / Time No Known Allergies Allergy Verified 01/14/19 22:09 Review of Systems ROS Statement: Those systems with pertinent positive or pertinent negative responses have been documented in the HPI. ROS Other: All systems not noted in ROS Statement are negative. Past Medical History Past Medical History: GI Bleed, Hypertension, Myocardial Infarction (MD) Additional Past Medical History / Comment(s): Crohn's/chronic diarrhea, lower GI bleed, pt states he had a MD 12/2016, past finger fractures. Last Myocardial Infarction Date:: 01/08/17 per pt History of Any Multi-Drug Resistant Organisms: None Reported Past Surgical History: Heart Catheterization, Hernia Repair Additional Past Surgical History / Comment(s): COLONOSCOPIES, LAPAROSCOPIC RT INGUINAL HERNIA REPAIR WITH MESH AND LYSIS OF ADHESIONS, 2016 CARDIAC CATH- NORMAL. Past Anesthesia/Blood Transfusion Reactions: No Reported Reaction Additional Past Anesthesia/Blood Transfusion Reaction / Comment(s): never had anesthesia Past Psychological History: No Psychological Hx Reported Smoking Status: Former smoker Past Alcohol Use History: None Reported Past Drug Use History: None Reported - Past Family History Father Additional Family Medical History / Comment(s): MURMUR Mother Family Medical History: Hypertension Additional Family Medical History / Comment(s): MATERNAL GRANDFATHER AT THE AGE OF 45 YRS FROM [place] AND WAS DIABETIC. General Exam - General Exam Comments Initial Comments: General: The patient is awake and alert, in no distress but uncomfortable appearing Eye: +3 mm pupils are equal, round and reactive to light, extra-ocular movements are intact. No nystagmus. There is normal conjunctiva bilaterally. No signs of icterus. Ears, nose, mouth and throat: There are moist mucous membranes and no oral lesions. Neck: The neck is supple, there is no tenderness or JVD. Cardiovascular: There is a regular rate and rhythm. No murmur, rub or gallop is appreciated. Respiratory: Lungs are clear to auscultation, respirations are non-labored, breath sounds are equal. No wheezes, stridor, rales, or rhonchi. Gastrointestinal: Soft, non-distended, tender to palpation of the LLQ, incision large midline with bipin, no drainage or erythema. Drain in place with mild amount of serosanguineous fluid. The remaining abdomen without masses or organomegaly noted. There is no rebound or guarding present. No CVA tenderness. Bowel sounds are unremarkable. Musculoskeletal: Normal ROM, no tenderness. Strength 5/5. Sensation intact. Pulses equal bilaterally 2+. Neurological: A&O x 3. CN II-XII intact grossly, There are no obvious motor or sensory deficits. Coordination appears grossly intact. Speech is normal. Skin: Skin is warm and dry and no rashes or lesions are noted. Psychiatric: Cooperative, appropriate mood & affect, normal judgment. Limitations: no limitations Course Vital Signs 01/14/19 01/14/19 01/14/19 19:11 19:53 20:36 Temperature 101.5 F H 100.8 F H Pulse Rate 99 100 89 Respiratory 18 18 18 Rate Blood Pressure 122/75 110/65 108/63 O2 Sat by Pulse 96 97 98 Oximetry 01/14/19 22:12 Temperature 100.8 F H Pulse Rate 89 Respiratory 18 Rate Blood Pressure 108/63 O2 Sat by Pulse 98 Oximetry Medical Decision Making - Medical Decision Making 43-year-old male postop 13 days presenting for fever abdominal pain. CT revealed postsurgical findings possible hematoma near surgical site. Patient has significant leukocytosis. Febrile. Patient started on Zosyn. IV fluid consistent with sepsis protocol. Patient is no distress. Alternative source of infection ruled out chest x-ray negative for pneumonia. Influenza negative. UA Pending. This case discussed with attending provider patient be made to observation unit and evaluated by surgeon in the morning. Dr. Urbina was contacted by attending and agreeable with admission. No further orders. - Lab Data Result diagrams: 01/14/19 19:40 01/14/19 19:40 Lab Results 01/14/19 01/14/19 01/14/19 Range/Units 19:40 19:40 19:40 WBC 18.5 H (3.8-10.6) k/uL RBC 4.28 L (4.30-5.90) m/uL Hgb 11.2 L (13.0-17.5) gm/dL Hct 39.0 (39.0-53.0) % MCV 91.1 (80.0-100.0) fL MCH 26.1 (25.0-35.0) pg MCHC 28.7 L (31.0-37.0) g/dL RDW 14.5 (11.5-15.5) % Plt Count 354 (150-450) k/uL Neutrophils % 81 % Lymphocytes % 9 % Monocytes % 4 % Eosinophils % 4 % Basophils % 1 % Neutrophils # 15.0 H (1.3-7.7) k/uL Lymphocytes # 1.6 (1.0-4.8) k/uL Monocytes # 0.7 (0-1.0) k/uL Eosinophils # 0.7 (0-0.7) k/uL Basophils # 0.2 (0-0.2) k/uL PT (9.0-12.0) sec INR (<1.2) APTT (22.0-30.0) sec Sodium 140 (137-145) mmol/L Potassium 4.3 (3.5-5.1) mmol/L Chloride 109 H (98-107) mmol/L Carbon Dioxide 23 (22-30) mmol/L Anion Gap 8 mmol/L BUN 15 (9-20) mg/dL Creatinine 1.22 (0.66-1.25) mg/dL Est GFR (CKD-EPI)AfAm 84 (>60 ml/min/1.73 sqM) Est GFR (CKD-EPI)NonAf 73 (>60 ml/min/1.73 sqM) Glucose 101 H (74-99) mg/dL Plasma Lactic Acid Silverio 1.1 (0.7-2.0) mmol/L Calcium 9.0 (8.4-10.2) mg/dL Total Bilirubin 0.5 (0.2-1.3) mg/dL AST 54 (17-59) U/L ALT 22 (21-72) U/L Alkaline Phosphatase 34 L (38-126) U/L Total Protein 6.6 (6.3-8.2) g/dL Albumin 3.4 L (3.5-5.0) g/dL 01/14/19 Range/Units 19:40 WBC (3.8-10.6) k/uL RBC (4.30-5.90) m/uL Hgb (13.0-17.5) gm/dL Hct (39.0-53.0) % MCV (80.0-100.0) fL MCH (25.0-35.0) pg MCHC (31.0-37.0) g/dL RDW (11.5-15.5) % Plt Count (150-450) k/uL Neutrophils % % Lymphocytes % % Monocytes % % Eosinophils % % Basophils % % Neutrophils # (1.3-7.7) k/uL Lymphocytes # (1.0-4.8) k/uL Monocytes # (0-1.0) k/uL Eosinophils # (0-0.7) k/uL Basophils # (0-0.2) k/uL PT 9.8 (9.0-12.0) sec INR 0.9 (<1.2) APTT 27.9 (22.0-30.0) sec Sodium (137-145) mmol/L Potassium (3.5-5.1) mmol/L Chloride (98-107) mmol/L Carbon Dioxide (22-30) mmol/L Anion Gap mmol/L BUN (9-20) mg/dL Creatinine (0.66-1.25) mg/dL Est GFR (CKD-EPI)AfAm (>60 ml/min/1.73 sqM) Est GFR (CKD-EPI)NonAf (>60 ml/min/1.73 sqM) Glucose (74-99) mg/dL Plasma Lactic Acid Silverio (0.7-2.0) mmol/L Calcium (8.4-10.2) mg/dL Total Bilirubin (0.2-1.3) mg/dL AST (17-59) U/L ALT (21-72) U/L Alkaline Phosphatase (38-126) U/L Total Protein (6.3-8.2) g/dL Albumin (3.5-5.0) g/dL Disposition Clinical Impression: Postoperative fever, Abdominal pain, Leukocytosis Disposition: ADMITTED IP TO THIS [facility] Condition: Stable Is patient prescribed a controlled substance at d/c from ED?: No Time of Disposition: 21:52 Decision to Admit Reason: Admit from EC Decision Date: 01/14/19 Decision Time: 21:52
[2019-01-14] MEDS: SODIUM CHLORIDE 0.9% 1,000 ML IV SCH (19:39)
[2019-01-14 19:53] LABS: Basophils # (A) 0.2 k/uL (0-0.2); Basophils % (A) 1 %; Eosinophils # (A) 0.7 k/uL (0-0.7); Eosinophils % (A) 4 %; HGB 11.2 gm/dL (13.0-17.5); Lymphocytes # (A) 1.6 k/uL (1.0-4.8); Lymphocytes % (A) 9 %; MCH 26.1 pg (25.0-35.0); MCHC 28.7 g/dL (31.0-37.0); MCV 91.1 fL (80.0-100.0); Mean Platelet Volume 7.9; Monocytes # (A) 0.7 k/uL (0-1.0); Monocytes % (A) 4 %; Neutrophils % (A) 81 %; Platelet Count 354 k/uL (150-450); RBC 4.28 m/uL (4.30-5.90); RDW 14.5 % (11.5-15.5); WBC 18.5 k/uL (3.8-10.6)
[2019-01-14] MEDS: SODIUM CHLORIDE 0.9% 500 ML 500 ML IV SCH ×3 (19:53→23:11)
[2019-01-14 20:03] LABS: INR 0.9 (<1.2); Partial Thromboplastin Time 27.9 sec (22.0-30.0); Prothrombin Time 9.8 sec (9.0-12.0)
[2019-01-14 20:07] LABS: Albumin 3.4 g/dL (3.5-5.0); Potassium 4.3 mmol/L (3.5-5.1); Total Bilirubin 0.5 mg/dL (0.2-1.3); Total Protein 6.6 g/dL (6.3-8.2)
--- NOTE | 2019-01-14 20:40 | CT ---
EXAMINATION TYPE: CT abdomen pelvis w con DATE OF EXAM: 01/14/2019 COMPARISON: 01/14/2019 HISTORY: Fever, LLQ pain after hernia repair 13 days ago. History of Crohn's. CT DLP: 3009 mGycm Automated exposure control for dose reduction was used. TECHNIQUE: Helical acquisition of images was performed from the lung bases through the pelvis. CONTRAST: Performed without Oral Contrast and with IV Contrast, patient injected with 100 mL of Isovue 300. FINDINGS: There is mild atelectasis at the right posterior lung base. There is no pleural effusion. There is no pericardial effusion. Gallbladder is contracted. There is calcification at the oh hepatis of uncertain significance. The bile ducts are not dilated. Spleen appears normal. There is no pancreatic mass. Stomach appears norm al. There are postsurgical changes with graded drain over the anterior abdominal wall. There is fat stran ding and subcutaneous density consistent with subcutaneous hematoma and seroma adjacent to the anteri or abdominal wall. This measures up to 2 cm in thickness. There is inclusion of the herniated fat maryjane t is omental fat and fluid into the peritoneal cavity over the anterior mid abdomen. There is no adrenal mass. There is 2 cm cortical cyst upper pole right kidney. There is no hydronephr osis. There is normal contrast opacification the kidneys. There is no evidence of a solid renal mass. There is no retroperitoneal adenopathy. There is no ascites. Bladder distends smoothly. There is no inguinal hernia. There is no free fluid in the pelvis. There is no sign of a bowel obstruction. Lumbar vertebra have normal spacing and alignment. There is no compression fracture. Bony pelvis is i ntact. I see no pelvic mass. There is no evidence of mesenteric edema. Appendix is not seen. There is no sig n of thickened appendix. IMPRESSION: POSTSURGICAL CHANGES WITH FAT STRANDING AND FLUID ALONG THE ANTERIOR ABDOMINAL WALL RELATED TO HERNIA SURGERY. INTRAPERITONEAL POSTSURGICAL CHANGES. THERE IS 3.5 CM FLUID COLLECTION WITHIN THE INCLUDED OMENTAL FAT IN THE ANTERIOR MID ABDOMEN THAT COULD BE POSTOP HEMATOMA. NO EVIDENCE OF A BOWEL OBSTRUC TION. NO EVIDENCE OF AN ABSCESS WITHIN THE ABDOMEN. THERE IS REDUCTION OF THE LARGE VENTRAL HERNIA CO MPARED TO LAST EXAM.
--- NOTE | 2019-01-14 21:32 | XR ---
EXAMINATION TYPE: XR chest 2V DATE OF EXAM: 01/14/2019 COMPARISON: 02/18/2018 HISTORY: Postop fever TECHNIQUE: Frontal and lateral views of the chest are obtained. FINDINGS: There is mild elevated right diaphragm. There is no heart failure nor confluent pneumonic infiltrate. Costophrenic angles are clear. IMPRESSION: Mild chronic elevated right diaphragm unchanged. No acute lung disease. Normal heart.
[2019-01-14] MEDS ORDERED: NALOXONE 0.4 MG/ML 1 ML VIAL IV PRN (21:52)
[2019-01-14 22:59] VITALS: BMI 40.4
[2019-01-14] MEDS: MORPHINE SULFATE 4 MG/ML SYRINGE IVP PRN (23:07)
[2019-01-14 23:19] LABS: Appearance,Urine Clear (Clear); Bilirubin,Urine Negative (Negative); Blood,Urine Negative (Negative); Color,Urine Yellow; Glucose,Urine (UA) Negative (Negative); Ketones,Urine Negative (Negative); Leukocyte Esterase,Urine Negative (Negative); Nitrite,Urine Negative (Negative); Protein,Urine Trace (Negative); Urobilinogen,Urine <2.0 mg/dL (<2.0)
[2019-01-14 23:30] LABS: Specific Gravity,Urine >1.050 (1.001-1.035)
[2019-01-15] MEDS: ACETAMINOPHEN TAB 325 MG TAB PO PRN ×2 (01:53→16:10)
[2019-01-15] MEDS: MORPHINE SULFATE 4 MG/ML SYRINGE IVP PRN ×2 (03:20→12:25)
[2019-01-15] MEDS: SODIUM CHLORIDE 0.9% 1,000 ML IV SCH ×3 (03:33→16:11)
[2019-01-15] MEDS ORDERED: IBUPROFEN 600 MG TAB PO PRN (03:43)
[2019-01-15 08:32] LABS: Basophils # (A) 0.6 k/uL (0-0.2); Basophils % (A) 2 %; Eosinophils # (A) 0.2 k/uL (0-0.7); Eosinophils % (A) 1 %; HCT 36.3 % (39.0-53.0); Hypochromasia Slight; Lymphocytes # (A) 0.5 k/uL (1.0-4.8); Lymphocytes % (A) 2 %; MCH 28.2 pg (25.0-35.0); MCHC 30.4 g/dL (31.0-37.0); MCV 92.6 fL (80.0-100.0); Mean Platelet Volume 8.5; Monocytes # (A) 1.4 k/uL (0-1.0); Monocytes % (A) 5 %; Neutrophils # (A) 24.1 k/uL (1.3-7.7); Neutrophils % (A) 90 %; Platelet Count 337 k/uL (150-450); RBC 3.92 m/uL (4.30-5.90); RDW 14.5 % (11.5-15.5); WBC 26.9 k/uL (3.8-10.6)
[2019-01-15] MEDS: PIPERACILLIN-TAZOBACTAM 3.375 GM in SODIUM CHLORIDE 0.9% 100 ML IVPB SCH ×3 (08:55→23:18)
[2019-01-15] MEDS: ONDANSETRON 4 MG/2 ML VIAL IVP PRN ×2 (12:35→17:17)
[2019-01-15] MEDS ORDERED: HYDROmorphone 1 MG/ML 1 ML SYRINGE IVP PRN (12:40)
[2019-01-15] MEDS: HYDROmorphone 0.5 MG/0.5 ML SYRINGE IVP PRN (16:04)
[2019-01-15] MEDS: oxyCODONE-APAP 7.5-325MG 1 EACH TAB PO PRN (20:53)
[2019-01-15] MEDS ORDERED: VANCOMYCIN IV PER PHARMACY 1 EACH MISC MISCELLANE PRN (23:36)
[2019-01-15] MEDS ORDERED: VANCOMYCIN 2,000 MG in SODIUM CHLORIDE 0.9% 500 ML 500 ML IVPB STA (23:38)
--- NOTE | 2019-01-15 23:43 | P.CONS ---
History of Present Illness - Reason for Consult Consult date: 01/15/19 fever and abdominal pain 1 day Requesting physician: Raphael Urbina - Chief Complaint Fever and abdominal pain 1 day - History of Present Illness Patient is 43-year-old -[place] male with a past medical history significant for Crohn's colitis patient recently did have abdominal incisional hernia repair about 13 days ago patient still has the stitches intact and the SHIRLEY drain which is nondraining significant amount of secretion patient said he did was doing well until yesterday when started having a fever with chills and not feeling well patient did have very minimal lower abdominal pain more of a dull aching 3-4 of 10 and no radiation the patient midline abdominal incision is currently intact no evidence of any swelling redness or any drainage patient d enies having any headache or URI symptoms no chest pain shortness of breath or cough no nausea vomiting the patient have chronic diarrhea from his colitis in the recent worsening and denies having any burning or frequency of urine with the symptoms the patient was evaluated by the ER physician on after the albuterol and fever to 100 Fahrenheit patient did have elevated white count of 18,000 subsequently age-appropriate 26,000 today patient did have CT of abdominal pelvis with evidence of fluid collection along the abdominal incision and some deep collection with concern for possible hematoma, patient chest x-ray with no consolidation UA has been negative influenza serology was negative ,leida ent has been treated with Zosyn infection disease was consulted for further recommendation regarding antibiotic therapy Review of Systems CONSTITUTIONAL: Positive for weakness. Fever EYES: No complaint. ENT:No complaint. RESPIRATORY: No complaint. CARDIOVASCULAR: No complaint. GENITOURINARY: No complaint. GASTROINTESTINAL: As per history of present illness. MUSCULOSKELETAL: No complaint. INTEGUMENTARY: As per history of present illness PSYCHOLOGICAL: No complaint. ENDOCRINE: No complaint. NEUROLOGIC: No complaint. Past Medical History Past Medical History: GI Bleed, Hypertension, Myocardial Infarction (ID) Additional Past Medical History / Comment(s): Crohn's/chronic diarrhea, lower GI bleed, pt states he had a ID 12/2016, past finger fractures. Last Myocardial Infarction Date:: 01/08/17 per pt History of Any Multi-Drug Resistant Organisms: None Reported Past Surgical History: Heart Catheterization, Hernia Repair Additional Past Surgical History / Comment(s): COLONOSCOPIES, LAPAROSCOPIC RT INGUINAL HERNIA REPAIR WITH MESH AND LYSIS OF ADHESIONS, 2017 CARDIAC CATH- NORMAL. Past Anesthesia/Blood Transfusion Reactions: No Reported Reaction Additional Past Anesthesia/Blood Transfusion Reaction / Comm: never had anesthesia Past Psychological History: No Psychological Hx Reported Smoking Status: Former smoker Past Alcohol Use History: None Reported Past Drug Use History: None Reported - Past Family History Father Additional Family Medical History / Comment(s): MURMUR Mother Family Medical History: Hypertension Additional Family Medical History / Comment(s): MATERNAL GRANDFATHER AT THE AGE OF 45 YRS FROM ID AND WAS DIABETIC. Medications and Allergies Home Medications Medication Instructions Recorded Confirmed Type amLODIPine [Norvasc] 5 mg PO DAILY 07/09/18 01/14/19 History oxyCODONE-APAP 7.5-325MG [Percocet 1 tab PO TID 12/23/18 01/14/19 History 7.5-325 mg] Allergies Allergy/AdvReac Type Severity Reaction Status Date / Time No Known Allergies Allergy Verified 01/14/19 22:09 Physical Exam Vitals: Vital Signs Temp Pulse Pulse Resp BP BP Pulse Ox 01/15/19 08:57 97 97 01/15/19 08:00 99.8 F H 01/15/19 05:00 102.5 F H 117 H 24 125/76 94 L 01/15/19 03:37 103 F H 01/15/19 02:58 102.8 F H 01/15/19 01:30 102.5 F H 01/14/19 22:12 100.8 F H 89 18 108/63 98 01/14/19 21:00 99.4 F 82 18 112/71 98 01/14/19 20:36 100.8 F H 89 18 108/63 98 01/14/19 19:53 100 18 110/65 97 01/14/19 19:11 101.5 F H 99 18 122/75 96 Intake and Output 01/14/19 01/15/19 01/15/19 22:59 06:59 14:59 Intake Total 500 Output Total 25 Balance 475 Intake: Oral 500 Output: Drainage 25 Right Upper Abdomen 25 Other: Voiding Method Toilet Toilet # Voids 2 Weight 136.078 kg GENERAL DESCRIPTION: Middle-aged male lying in bed, no distress. No tachypnea or accessory muscle of respiration use. HEENT: Shows Pallor , no scleral icterus. Oral mucous membrane is dry. No pharyngeal erythema or thrush NECK: Trachea central, no thyromegaly. LUNGS: Unlabored breathing. Clear to auscultation anteriorly. No wheeze or crackle. HEART: S1, S2, regular rate and rhythm. No loud murmur ABDOMEN: Soft, midline incision is currently intact with no drainage ,no tenderness , guarding or rigidity, no organomegaly EXTREMITIES: No edema of feet. SKIN: No rash, no masses palpable. NEUROLOGICAL: The patient is awake, alert, oriented x3, mood and affect normal. Results CBC & Chem 7: 01/15/19 05:32 01/14/19 19:40 Labs: Abnormal Lab Results - Last 24 Hours (Table) 01/14/19 01/14/19 01/14/19 Range/Units 19:40 19:40 21:30 WBC 18.5 H (3.8-10.6) k/uL RBC 4.28 L (4.30-5.90) m/uL Hgb 11.2 L (13.0-17.5) gm/dL Hct (39.0-53.0) % MCHC 28.7 L (31.0-37.0) g/dL Neutrophils # 15.0 H (1.3-7.7) k/uL Lymphocytes # (1.0-4.8) k/uL Monocytes # (0-1.0) k/uL Basophils # (0-0.2) k/uL Chloride 109 H (98-107) mmol/L Glucose 101 H (74-99) mg/dL Plasma Lactic Acid Silverio (0.7-2.0) mmol/L Alkaline Phosphatase 34 L (38-126) U/L Albumin 3.4 L (3.5-5.0) g/dL Ur Specific [place] >1.050 H (1.001-1.035) Urine Protein Trace H (Negative) 01/15/19 01/15/19 Range/Units 05:32 05:32 WBC 26.9 H (3.8-10.6) k/uL RBC 3.92 L (4.30-5.90) m/uL Hgb 11.0 L (13.0-17.5) gm/dL Hct 36.3 L (39.0-53.0) % MCHC 30.4 L (31.0-37.0) g/dL Neutrophils # 24.1 H (1.3-7.7) k/uL Lymphocytes # 0.5 L (1.0-4.8) k/uL Monocytes # 1.4 H (0-1.0) k/uL Basophils # 0.6 H (0-0.2) k/uL Chloride (98-107) mmol/L Glucose (74-99) mg/dL Plasma Lactic Acid Silverio 0.6 L (0.7-2.0) mmol/L Alkaline Phosphatase (38-126) U/L Albumin (3.5-5.0) g/dL Ur Specific [place] (1.001-1.035) Urine Protein (Negative) Assessment and Plan Assessment: 1-patient presented to hospital with fever did have elevated white count this patient recently did have a abdominal incisional hernia repair now with evidence of fluid collection along the abdominal incision is some deep collection with concern for possible postop seroma/hematoma underlying abscess not likely would not entirely excluded will need to cover for both gram-positive skin erik as well as gram-negative pathogen in this patient did have persistent fever despite being on IV Zosyn with a question of possible grams positive infection (1) SIRS (systemic inflammatory response syndrome) Current Visit: Yes Status: Acute Code(s): R65.10 - SIRS OF NON-INFECTIOUS ORIGIN W/O ACUTE ORGAN DYSFUNCTION SNOMED Code(s): 028418341 Plan: 1-discontinue the Zosyn 2-Vancomycin pharmacy to dose target trough of 15 while watching his kidney function and Vanco trough closely 3-cefepime 2 g every 12 hours 4-CT-guided drainage of abdominal fluid with the fluid sent for cultures We will follow on clinical condition and cultures to further adjust medication if needed Thank you for this consultation will follow this patient with you
[2019-01-16] MEDS: CEFEPIME 2 GM in SODIUM CHLORIDE 0.9% 100 ML IVPB SCH ×3 (00:24→23:36)
[2019-01-16] MEDS: SODIUM CHLORIDE 0.9% 1,000 ML IV SCH ×3 (02:05→14:42)
[2019-01-16 07:56] LABS: Basophils # (A) 0.1 k/uL (0-0.2); Basophils % (A) 1 %; Eosinophils # (A) 0.3 k/uL (0-0.7); Eosinophils % (A) 2 %; HCT 34.1 % (39.0-53.0); HGB 10.8 gm/dL (13.0-17.5); Hypochromasia Slight; Lymphocytes # (A) 1.8 k/uL (1.0-4.8); Lymphocytes % (A) 9 %; MCH 29.3 pg (25.0-35.0); MCHC 31.6 g/dL (31.0-37.0); MCV 92.7 fL (80.0-100.0); Mean Platelet Volume 7.4; Monocytes # (A) 1.1 k/uL (0-1.0); Monocytes % (A) 6 %; Neutrophils # (A) 15.7 k/uL (1.3-7.7); Neutrophils % (A) 82 %; Platelet Count 297 k/uL (150-450); RBC 3.68 m/uL (4.30-5.90); RDW 14.2 % (11.5-15.5); WBC 19.2 k/uL (3.8-10.6)
[2019-01-16] MEDS: amLODIPine 5 MG TAB PO SCH (08:04)
[2019-01-16] MEDS: oxyCODONE-APAP 7.5-325MG 1 EACH TAB PO PRN ×2 (08:04→18:19)
[2019-01-16 08:06] LABS: African American GFR (CKD) >90 (>60 ml/min/1.73 sqM); Anion Gap 7 mmol/L; Blood Urea Nitrogen 10 mg/dL (9-20); Calcium 8.3 mg/dL (8.4-10.2); Carbon Dioxide 21 mmol/L (22-30); Chloride 110 mmol/L (98-107); Glucose 73 mg/dL (74-99); Sodium 138 mmol/L (137-145)
--- NOTE | 2019-01-16 08:40 | P.PN ---
Progress Note - Text Progress Note Date: 01/15/19 The patient states he feels better this morning. He had a fever last night. He is currently resting in bed. He has no complaints of pain. He states he feels normal. His white count is elevated at 26. On exam his vital signs appear stable. His abdomen is soft. There is no significant tenderness. He has some bipin remaining on his incision. The incision is clean dry intact. Patient's CAT scan was reviewed Dr. Blanco. There is no evidence of any drainable abscess at this point. There is no significant fluid collection within the abdomen or in the operative site. Patiently received IV antibiotic. He will be observed closely.
[2019-01-16] MEDS: HYDROmorphone 0.5 MG/0.5 ML SYRINGE IVP PRN (10:56)
[2019-01-16] MEDS: VANCOMYCIN 2,000 MG in SODIUM CHLORIDE 0.9% 500 ML 500 ML IVPB SCH (12:36)
[2019-01-16] MEDS: ACETAMINOPHEN TAB 325 MG TAB PO PRN (12:45)
--- NOTE | 2019-01-16 14:30 | P.PN ---
Subjective Progress Note Date: 01/16/19 CHIEF COMPLAINT: Fever HISTORY OF PRESENT ILLNESS: Patient examined this morning at the bedside. He denies abdominal pain. Denies nausea or vomiting. Tolerating diet. SHIRLEY drain with serosanguineous drainage, slightly cloudier than yesterday. WBC 19.2. PHYSICAL EXAM: VITAL SIGNS: Reviewed. GENERAL: Well-developed in no acute distress. HEENT: No sclera icterus. Extraocular movements grossly intact. Moist buccal mucosa. Head is atraumatic, normocephalic. ABDOMEN: Soft. Nondistended. Nontender. Midline incision. SHIRLEY drain with serosanguineous drainage, slightly cloudy compared to yesterday. NEUROLOGIC: Alert and oriented. Cranial nerves II through XII grossly intact. ASSESSMENT: 1. Recent open repair of incarcerated incisional hernia with mesh, 01/01/2019 2. Fever 3. Leukocytosis PLAN: Interventional radiology consulted. No drainable abscess at this time. Continue diet as tolerated Continue antibiotics. Monitor WBC. Infectious disease following. No surgical intervention recommended at this time Nurse practitioner note has been reviewed by physician. Signing provider agrees with the documented findings, assessment, and plan of care. Objective - Vital Signs Vital signs: Vital Signs Temp 99.4 F 01/16/19 04:00 Pulse 72 01/16/19 04:00 Resp 20 01/16/19 04:00 BP 132/79 01/16/19 04:00 Pulse Ox 94 L 01/16/19 04:00 Intake & Output 01/15/19 01/16/19 01/16/19 18:59 06:59 18:59 Intake Total 600 Output Total 400 290 20 Balance -400 310 -20 Intake: Oral 600 Output: Drainage 90 20 Right Upper Abdomen 90 20 Urine 400 200 Other: Voiding Method Toilet Toilet # Voids 1 # Bowel Movements 1 1 - Labs CBC & Chem 7: 01/16/19 07:09 01/16/19 07:09 Labs: Abnormal Lab Results - Last 24 Hours (Table) 01/16/19 01/16/19 Range/Units 07:09 07:09 WBC 19.2 H (3.8-10.6) k/uL RBC 3.68 L (4.30-5.90) m/uL Hgb 10.8 L (13.0-17.5) gm/dL Hct 34.1 L (39.0-53.0) % Neutrophils # 15.7 H (1.3-7.7) k/uL Monocytes # 1.1 H (0-1.0) k/uL Chloride 110 H (98-107) mmol/L Carbon Dioxide 21 L (22-30) mmol/L Glucose 73 L (74-99) mg/dL Calcium 8.3 L (8.4-10.2) mg/dL Microbiology - Last 24 Hours (Table) 01/15/19 05:32 Blood Culture - Preliminary Blood No Growth after 24 hours 01/14/19 19:40 Blood Culture - Preliminary Blood No Growth after 24 hours
--- NOTE | 2019-01-16 16:52 | PN ---
PROGRESS NOTE DATE OF SERVICE: 01/16/2019. REASON FOR FOLLOWUP: Possible abdominal infection. INTERVAL HISTORY: The patient overall feels better and has improved with a T-max of 100.5. The patient is breathing comfortably. Denies having any chest pain, shortness of breath or cough. The patient left lower abdominal pain has slightly decreased in intensity. The patient started having more drainage from the SHIRLEY compared to yesterday and no other symptoms. PHYSICAL EXAMINATION: Blood pressure 127/70 with a pulse of 101. Temperature 100.5. He is 98% on room air. General description is a middle-aged male lying in bed in no distress. Respiratory system: Unlabored breathing, clear to auscultation anteriorly. Heart S1, S2. Regular rate and rhythm. ABDOMEN: Soft. Mildly distended. No guarding or rigidity. SHIRLEY drain with some serous secretions. Extremities are no edema of the feet. LABS: Hemoglobin is 10.2, white of 19.2 with a BUN of 10, creatinine 1.13. Blood culture has been negative so far. CT was reviewed with with the patient did have an abdominal fluid collection. However, the SHIRLEY drain is accessing that area. DIAGNOSTIC IMPRESSION AND PLAN: Patient admitted to the hospital with fever and did have elevated white count. This patient recently did have incisional hernia repair with intraabdominal fluid collection and concern for possible abscess. The patient is currently covered on cefepime, vancomycin, and did have overall response to the current antibiotic therapy. We will continue with vancomycin and cefepime. Monitor his cultures and continue supportive care. MMODL / IJN: [id number] /
[2019-01-16] MEDS: HEPARIN SODIUM,PORCINE 5,000 UNIT/ML 1 ML VIAL SQ SCH (21:18)
[2019-01-17] MEDS: HYDROmorphone 0.5 MG/0.5 ML SYRINGE IVP PRN ×2 (00:19→20:38)
[2019-01-17] MEDS: VANCOMYCIN 2,000 MG in SODIUM CHLORIDE 0.9% 500 ML 500 ML IVPB SCH ×2 (01:01→12:04)
[2019-01-17] MEDS: HEPARIN SODIUM,PORCINE 5,000 UNIT/ML 1 ML VIAL SQ SCH ×2 (08:25→20:21)
[2019-01-17] MEDS: amLODIPine 5 MG TAB PO SCH (08:29)
[2019-01-17] MEDS: ACETAMINOPHEN TAB 325 MG TAB PO PRN (08:29)
[2019-01-17] MEDS: PANTOPRAZOLE 40 MG/10 ML VIAL IVP SCH (08:30)
[2019-01-17 08:33] LABS: Basophils # (A) 0.1 k/uL (0-0.2); Basophils % (A) 0 %; Eosinophils # (A) 0.4 k/uL (0-0.7); Eosinophils % (A) 3 %; HGB 10.5 gm/dL (13.0-17.5); Hypochromasia Slight; Lymphocytes # (A) 1.5 k/uL (1.0-4.8); Lymphocytes % (A) 12 %; MCH 29.3 pg (25.0-35.0); MCHC 31.9 g/dL (31.0-37.0); Mean Platelet Volume 7.5; Monocytes # (A) 0.6 k/uL (0-1.0); Monocytes % (A) 4 %; Neutrophils # (A) 10.2 k/uL (1.3-7.7); Neutrophils % (A) 78 %; Platelet Count 298 k/uL (150-450); RBC 3.58 m/uL (4.30-5.90); RDW 14.2 % (11.5-15.5)
--- NOTE | 2019-01-17 09:45 | P.PN ---
Subjective Progress Note Date: 01/17/19 Principal diagnosis: Incisional hernia Patient doing better at this time. Tolerating diet. SHIRLEY drain still looks cloudy. T-max 100.5. White blood cell count improved to 13. Objective - Vital Signs Vital signs: Vital Signs Temp 99.7 F H 01/17/19 04:05 Pulse 85 01/17/19 04:05 Resp 20 01/17/19 04:05 BP 114/69 01/17/19 04:05 Pulse Ox 97 01/17/19 04:05 Intake & Output 01/16/19 01/17/19 01/17/19 18:59 06:59 18:59 Intake Total 1080 Output Total 65 660 120 Balance 1015 -660 -120 Intake: Oral 1080 Output: Drainage 65 60 120 Right Upper Abdomen 65 60 120 Urine 600 Other: Voiding Method Toilet # Voids 1 - Exam Abdomen: Soft, nondistended, incision clean and dry, minimal tenderness - Labs CBC & Chem 7: 01/17/19 08:12 01/16/19 07:09 Labs: Abnormal Lab Results - Last 24 Hours (Table) 01/17/19 Range/Units 08:12 WBC 13.0 H (3.8-10.6) k/uL RBC 3.58 L (4.30-5.90) m/uL Hgb 10.5 L (13.0-17.5) gm/dL Hct 33.0 L (39.0-53.0) % Neutrophils # 10.2 H (1.3-7.7) k/uL Microbiology - Last 24 Hours (Table) 01/14/19 19:40 Blood Culture - Preliminary Blood No Growth after 48 hours 01/15/19 05:32 Blood Culture - Preliminary Blood No Growth after 24 hours Assessment and Plan (1) Postoperative fever Narrative/Plan: Continue antibiotics for possible surgical site infection. Monitor cultures. Possible home on IV antibiotics. Will discuss further with infectious disease. Current Visit: Yes Status: Acute Code(s): R50.82 - POSTPROCEDURAL FEVER SNOMED Code(s): 944376128
[2019-01-17] MEDS: CEFEPIME 2 GM in SODIUM CHLORIDE 0.9% 100 ML IVPB SCH (10:44)
[2019-01-17] MEDS: oxyCODONE-APAP 7.5-325MG 1 EACH TAB PO PRN ×2 (10:48→16:17)
[2019-01-17] MEDS: SODIUM CHLORIDE 0.9% 1,000 ML IV SCH (12:05)
--- NOTE | 2019-01-17 17:19 | PN ---
PROGRESS NOTE DATE OF SERVICE: 01/17/2019 REASON FOR FOLLOWUP VISIT: Possible abdominal infection. INTERVAL HISTORY: The patient is currently afebrile. The patient has been feeling better. The patient's abdominal pain has improved. Has been tolerating a regular diet. No nausea, no vomiting. No chest pain, shortness or cough and no diarrhea. PHYSICAL EXAMINATION: Blood pressure 149/80 with a pulse of 81, temperature 98.1, he is 98% on room air. General description is a middle-aged male up in the bed in no distress. Respiratory system: Unlabored breathing, clear to auscultation anteriorly. Heart S1, S2. Regular rate and rhythm. Abdomen soft, no tenderness. LABS: Hemoglobin 10.5, white count of 13,000. Creatinine is 1.13. Blood culture so far negative. DIAGNOSTIC IMPRESSION/PLAN: Patient admitted to hospital with sepsis. The patient did have fever, leukocytosis with concern for possible abdominal infection with recent incisional hernia repair. The patient clinically responded to cefepime and vancomycin, to continue. May need a med line for short course of IV antibiotics for this. Will discuss further with the immigration case worker on Saturday. Continue supportive care. MMODL / IJN: [id number] /
[2019-01-18] MEDS: CEFEPIME 2 GM in SODIUM CHLORIDE 0.9% 100 ML IVPB SCH ×2 (00:31→10:56)
[2019-01-18] MEDS: VANCOMYCIN 2,000 MG in SODIUM CHLORIDE 0.9% 500 ML 500 ML IVPB SCH ×2 (00:34→13:10)
[2019-01-18] MEDS: HYDROmorphone 0.5 MG/0.5 ML SYRINGE IVP PRN (00:36)
[2019-01-18] MEDS: HEPARIN SODIUM,PORCINE 5,000 UNIT/ML 1 ML VIAL SQ SCH ×2 (07:09→20:27)
[2019-01-18] MEDS: PANTOPRAZOLE 40 MG/10 ML VIAL IVP SCH (07:20)
[2019-01-18] MEDS: amLODIPine 5 MG TAB PO SCH (07:20)
[2019-01-18] MEDS: SODIUM CHLORIDE 0.9% 1,000 ML IV SCH (07:21)
[2019-01-18 08:02] LABS: Basophils # (A) 0.2 k/uL (0-0.2); Basophils % (A) 1 %; Eosinophils # (A) 0.8 k/uL (0-0.7); Eosinophils % (A) 6 %; HCT 35.2 % (39.0-53.0); HGB 11.2 gm/dL (13.0-17.5); Hypochromasia Slight; Lymphocytes # (A) 1.9 k/uL (1.0-4.8); Lymphocytes % (A) 16 %; MCH 28.9 pg (25.0-35.0); MCHC 31.8 g/dL (31.0-37.0); MCV 91.1 fL (80.0-100.0); Mean Platelet Volume 7.3; Monocytes # (A) 0.7 k/uL (0-1.0); Monocytes % (A) 6 %; Neutrophils % (A) 68 %; Platelet Count 385 k/uL (150-450); RBC 3.86 m/uL (4.30-5.90); RDW 14.3 % (11.5-15.5); WBC 11.7 k/uL (3.8-10.6)
[2019-01-18 08:14] LABS: African American GFR (CKD) >90 (>60 ml/min/1.73 sqM)
[2019-01-18] MEDS: oxyCODONE-APAP 7.5-325MG 1 EACH TAB PO PRN ×2 (09:23→17:30)
--- NOTE | 2019-01-18 11:53 | P.PN ---
Subjective Progress Note Date: 01/18/19 Principal diagnosis: Incisional hernia Patient feels better today. He is emulating. He is now afebrile. White blood cell count improved 11.7. Drain output similar may be slightly more serosanguineous Objective - Vital Signs Vital signs: Vital Signs Temp 98.5 F 01/18/19 04:15 Pulse 68 01/18/19 04:15 Resp 20 01/18/19 04:15 BP 122/75 01/18/19 04:15 Pulse Ox 99 01/18/19 04:15 Intake & Output 01/17/19 01/18/19 01/18/19 18:59 06:59 18:59 Intake Total 540 540 Output Total 360 50 Balance 180 -50 540 Intake: Oral 540 540 Output: Drainage 360 50 Right Upper Abdomen 360 50 Other: Voiding Method Toilet Toilet Toilet # Voids 2 2 - Exam Abdomen: Soft, nondistended, incision with induration, no erythema, minimal tenderness - Labs CBC & Chem 7: 01/18/19 07:04 01/18/19 07:04 Labs: Abnormal Lab Results - Last 24 Hours (Table) 01/18/19 Range/Units 07:04 WBC 11.7 H (3.8-10.6) k/uL RBC 3.86 L (4.30-5.90) m/uL Hgb 11.2 L (13.0-17.5) gm/dL Hct 35.2 L (39.0-53.0) % Neutrophils # 8.0 H (1.3-7.7) k/uL Eosinophils # 0.8 H (0-0.7) k/uL Microbiology - Last 24 Hours (Table) 01/15/19 05:32 Blood Culture - Preliminary Blood No Growth after 72 hours 01/14/19 19:40 Blood Culture - Preliminary Blood No Growth after 72 hours Assessment and Plan (1) Postoperative fever Narrative/Plan: Patient doing better. White blood cell count improved. He is now afebrile. Continue antibiotics. Await decision regarding home IV versus oral antibiotics. Possible discharge tomorrow. Current Visit: Yes Status: Acute Code(s): R50.82 - POSTPROCEDURAL FEVER SNOMED Code(s): 517630251
[2019-01-18] MEDS ORDERED: VANCOMYCIN TROUGH DUE 1 EACH MISC MISCELLANE ONE (12:00)
--- NOTE | 2019-01-18 16:47 | PN ---
PROGRESS NOTE DATE OF SERVICE: 01/18/2019. REASON FOR FOLLOWUP: Possible infected abdominal seroma. INTERVAL HISTORY: The patient is currently afebrile. Patient has been breathing comfortably. Denies having any chest pain. No shortness of breath or cough. No abdominal pain. No nausea, vomiting and no diarrhea. PHYSICAL EXAMINATION: Blood pressure 124/78 with a pulse of 77, temperature 98.4. He is 97% on room air. General description is a middle-aged male lying in bed in no distress. Respiratory system: Unlabored breathing and is clear to auscultation anteriorly. Heart S1, S2. Regular rate and rhythm. Abdomen soft. No tenderness. LABS: White count down to 11.7. Vancomycin trough has been low at 10. Blood culture has been negative. No local cultures could be obtained. DIAGNOSTIC IMPRESSION AND PLAN: Patient admitted to hospital with sepsis. Concern likely for infected abdominal seroma. The patient did have a drain which is currently draining since the CT-guided drainage was not done, possibly secondary to underlying gram-negative as the patient seemed to respond with cefepime with Vanco trough low. Clinical doubt will help the patient. Will go ahead and discontinue the vancomycin as the patient continues to improve with cefepime. Plan to arrange for outpatient IV cefepime for at least 2 weeks with close outpatient followup. has been ordered. MMODL / IJN: [id number] /
[2019-01-19] MEDS: CEFEPIME 2 GM in SODIUM CHLORIDE 0.9% 100 ML IVPB SCH ×3 (00:11→19:26)
[2019-01-19] MEDS: HYDROmorphone 0.5 MG/0.5 ML SYRINGE IVP PRN ×3 (00:15→19:29)
[2019-01-19] MEDS ORDERED: PANTOPRAZOLE 40 MG TABLET PO SCH (07:30)
[2019-01-19 09:11] LABS: African American GFR (CKD) >90 (>60 ml/min/1.73 sqM); Anion Gap 7 mmol/L; Blood Urea Nitrogen 8 mg/dL (9-20); Calcium 8.7 mg/dL (8.4-10.2); Carbon Dioxide 23 mmol/L (22-30); Chloride 109 mmol/L (98-107); Glucose 94 mg/dL (74-99); Potassium 4.1 mmol/L (3.5-5.1); Sodium 139 mmol/L (137-145)
[2019-01-19 09:15] LABS: Basophils # (A) 0.1 k/uL (0-0.2); Basophils % (A) 1 %; Eosinophils # (A) 0.8 k/uL (0-0.7); Eosinophils % (A) 8 %; HCT 33.1 % (39.0-53.0); HGB 10.6 gm/dL (13.0-17.5); Hypochromasia Slight; Lymphocytes # (A) 1.5 k/uL (1.0-4.8); Lymphocytes % (A) 14 %; MCH 29.3 pg (25.0-35.0); MCHC 32.1 g/dL (31.0-37.0); Mean Platelet Volume 7.5; Monocytes # (A) 0.5 k/uL (0-1.0); Monocytes % (A) 5 %; Neutrophils % (A) 69 %; Platelet Count 371 k/uL (150-450); RBC 3.64 m/uL (4.30-5.90); RDW 14.6 % (11.5-15.5); WBC 10.2 k/uL (3.8-10.6)
[2019-01-19] MEDS: SODIUM CHLORIDE 0.9% 1,000 ML IV SCH (10:20)
[2019-01-19] MEDS: HEPARIN SODIUM,PORCINE 5,000 UNIT/ML 1 ML VIAL SQ SCH (10:20)
[2019-01-19] MEDS: amLODIPine 5 MG TAB PO SCH (10:20)
--- NOTE | 2019-01-19 12:16 | P.DS ---
<Camelia Jasso Michael - Last Filed: 01/19/19 12:15> Providers Expected date of discharge: 01/19/19 Hospital Course: 43-year-old male who presented to the emergency room due to fevers. He recently underwent open repair of incarcerated incisional hernia with mesh performed on 01/01/2019. Patient was found to have a white count of 18.5 upon admission. White count peaked at 26.9. Most recent white count is 10.2. He underwent computed tomography scan which showed possible seroma. Interventional radiology was consulted for evaluation to see if drainage was possible. Per interventional radiology, there was not enough fluid to drain. He was evaluated by infectious disease during hospitalization. He was placed on IV antibiotics. Patient has showed clinical improvement since being hospitalized. No further fevers and white count is within normal limits. He is stable for discharge home today on IV antibiotics. He is to follow up outpatient. Please see EMR for further hospital course details. Discharge Diagnosis: 1. Recent open repair of incarcerated incisional hernia with mesh, 01/01/2019 2. Sepsis, patient presented with fever and leukocytosis, suspect secondary to abdominal surgery in etiology Nurse practitioner note has been reviewed by physician. Signing provider agrees with the documented findings, assessment, and plan of care. Patient Condition at Discharge: Stable Plan - Discharge Summary Discharge Rx Participant: Yes New Discharge Prescriptions: New Cefepime HCl [Maxipime] 2 gm IV Q12H #28 vial Continue oxyCODONE-APAP 7.5-325MG [Percocet 7.5-325 mg] 1 tab PO TID No Action amLODIPine [Norvasc] 5 mg PO DAILY Discharge Medication List amLODIPine [Norvasc] 5 mg PO DAILY 07/09/18 [History] oxyCODONE-APAP 7.5-325MG [Percocet 7.5-325 mg] 1 tab PO TID 12/23/18 [History] Cefepime HCl [Maxipime] 2 gm IV Q12H #28 vial 01/19/19 [Rx] Follow up Appointment(s)/Referral(s): Karthik Sanches DO [Primary Care Provider] - 01/22/19 11:00 am David Castillo MD [STAFF PHYSICIAN] - 1 Week Raphael Urbina MD [STAFF PHYSICIAN] - 01/27/19 3:10 pm Ambulatory/Diagnostic Orders: Basic Metabolic Panel [LAB.AMB] Location: None Selected C Reactive Protein [LAB.AMB] Location: None Selected Complete Blood Count w/diff [LAB.AMB] Location: None Selected Patient Instructions/Handouts: Ventral Hernia Repair (DC), Complications of Infection (GEN) Activity/Diet/Wound Care/Special Instructions: wants d/c rx Please come to [facility] 3rd floor infusion center for your IV antibiotic infusions. Starting tomorrow 01/20/18 at 8:45AM and to the pediatric unit (6th floor) at 8:45PM for 2 weeks of IV therapy. <Rafat Bob - Last Filed: 01/19/19 17:36> Providers Date of admission: 01/16/19 14:01 Attending physician: Raphael Urbina Consults: 01/15/19 09:19 Consult Physician Routine Consulting Provider: David Castillo Consult Reason/Comments: fever, leukocytosis Do you want consulting provider notified?: Yes Primary care physician: Karthik Sanches - Discharge Diagnosis(es) (1) Postoperative fever Current Visit: Yes Status: Acute
--- NOTE | 2019-01-19 14:19 | PN ---
PROGRESS NOTE DATE OF SERVICE: 01/19/2019 REASON FOR FOLLOWUP: Infected abdominal seroma. INTERVAL HISTORY: The patient is currently afebrile. Patient is breathing comfortably. Denies having any chest pain. No cough. No nausea, no vomiting. No abdominal pain and no diarrhea. PHYSICAL EXAMINATION: Blood pressure is 126/81 with a pulse of 72, temperature 99. He is 99% on room air. General description is a middle-aged male lying in bed in no distress respiratory system: Unlabored breathing and clear to auscultation anteriorly. HEART: S1, S2. Regular rate and rhythm. ABDOMEN: Soft, no tenderness. EXTREMITIES: No edema of the feet. LABS: White count normal at 10.2. Blood culture has been negative. DIAGNOSTIC IMPRESSION AND PLAN: Patient with in the hospital with sepsis, source likely infected abdominal seroma. The patient clinically responding to cefepime to continue for another 2 weeks and will monitor clinical course closely with weekly monitor of CBC, BMP and sed rate. MMODL / IJN: [id number] /
[2019-01-19 14:48] VITALS: BP 132/88; PULSE 83; RESP 16; TEMP 98.2
== END 2019-01-19 21:09 | disposition home or self-care (01) | DRG 862 ==
LOC: EC 18:59 → 4MS4W 21:46 → OBSVTOIN 01-16 14:01
PROVIDERS: ADMIT Surgery; ATTEND Surgery
DX: T81.44XA Sepsis following a procedure, initial encounter (principal); A41.9 Sepsis, unspecified organism; K91.872 Postprocedural seroma of a digestive system organ or structure following a digestive system procedure; I10 Essential (primary) hypertension; Z79.899 Other long term (current) drug therapy; Z82.49 Family history of ischemic heart disease and other diseases of the circulatory system; Z83.3 Family history of diabetes mellitus; I25.2 Old myocardial infarction; Z87.891 Personal history of nicotine dependence; Z98.890 Other specified postprocedural states
CPT/HCPCS: 36410; 36415; 71046; 74177; 76937; 80048; 80053; 80202; 81003; 82565; 83605; 85025; 85610; 85730; 87040; 87502; 96365; 96366; 96375; 99285

== ENCOUNTER 2019-02-25 09:25 | Day surgery (SDC) | payer OTHER ==
[2019-02-18 15:45] VITALS: BMI 45.1
[~2019-02-25 09:25] MED LIST changes: +LACTATED RINGERS 1,000 ML IV SCH; +MIDAZOLAM 2 MG/2 ML VIAL IV PRN; +ceFAZolin 3 GM in SODIUM CHLORIDE 0.9% 100 ML IVPB ONE
--- NOTE | 2019-02-25 11:52 | P.GSHP ---
History of Present Illness H&P Date: 02/25/19 Chief Complaint: Infected mesh This a 43-year-old male who underwent repair of a large incisional hernia approximately 2 months ago. 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 Patient will stay for removal of mesh. Patient is aware that he will have wound packing postoperatively with subsequent wound VAC therapy. Past Medical History Past Medical History: COPD, GI Bleed, Hypertension Additional Past Medical History / Comment(s): Crohn's/chronic diarrhea, lower GI bleed, pt denies past [place], hx bowel obstrution 02/12/18, infected mesh from previous surgery with drain in place Last Myocardial Infarction Date:: 01/08/17 per pt History of Any Multi-Drug Resistant Organisms: None Reported Past Surgical History: Bowel Resection, Heart Catheterization, Hernia Repair Additional Past Surgical History / Comment(s): COLONOSCOPIES, RT INGUINAL HERNIA REPAIR WITH MESH AND LYSIS OF ADHESIONS, 2016 CARDIAC CATH-NORMAL. bowel resection for obstrucion Past Anesthesia/Blood Transfusion Reactions: No Reported Reaction Additional Past Anesthesia/Blood Transfusion Reaction / Comment(s): . Smoking Status: Current every day smoker - Past Family History Father Additional Family Medical History / Comment(s): MURMUR Mother Family Medical History: No Reported History Additional Family Medical History / Comment(s): MATERNAL GRANDFATHER AT THE AGE OF 45 YRS FROM [place] Medications and Allergies Home Medications Medication Instructions Recorded Confirmed Type amLODIPine [Norvasc] 5 mg PO DAILY 07/09/18 02/25/19 History oxyCODONE-APAP 7.5-325MG [Percocet 1 tab PO TID PRN 12/23/18 02/25/19 History 7.5-325 mg] Nebulizer(Name Unknown) 1 applicate IH BID 02/18/19 02/18/19 History Allergies Allergy/AdvReac Type Severity Reaction Status Date / Time No Known Allergies Allergy Verified 02/25/19 10:37 Surgical - Exam Vital Signs Temp Pulse Resp BP Pulse Ox 98.0 F 72 17 118/80 97 02/25/19 10:49 02/25/19 10:49 02/25/19 10:49 02/25/19 10:49 02/25/19 10:49 - General well developed, well nourished, no distress - Eyes PERRL - ENT normal pinna - Neck no masses - Respiratory normal expansion - Cardiovascular Rhythm: regular - Abdomen Well-healed midline laparotomy scar. SHIRLEY drain in right lower quadrant Abdomen: soft, non tender Assessment and Plan Assessment: Infected abdominal wall mesh. Patient will undergo open excision of mesh.
[2019-02-25] MEDS ORDERED: NEOSTIGMINE 1 MG/ML 10 ML VIAL ONE (12:14)
[2019-02-25] MEDS ORDERED: fentaNYL (PF) 50 MCG/ML 2 ML AMP ONE (12:14)
[2019-02-25] MEDS ORDERED: GLYCOPYRROLATE 0.2 MG/ML 2 ML VIAL ONE (12:14)
[2019-02-25] MEDS ORDERED: PROPOFOL 10 MG/ML 20 ML VIAL IV ONE (12:14)
[2019-02-25] MEDS ORDERED: ROCURONIUM BROMIDE 10 MG/ML 10 ML VIAL IV ONE (12:14)
[2019-02-25] MEDS ORDERED: SUCCINYLCHOLINE CHLORIDE 100 MG/5 ML SYR IV ONE (12:14)
[2019-02-25] MEDS ORDERED: LIDOCAINE 1% INJ 10MG/ML (20 ML MDV) ONE (12:14)
[2019-02-25] MEDS ORDERED: LACTATED RINGERS 1,000 ML IV ONE (13:03)
--- NOTE | 2019-02-25 13:09 | P.OP ---
Date of Procedure: 02/25/19 Preoperative Diagnosis: Infected mesh Postoperative Diagnosis: Infected seroma Fat necrosis Procedure(s) Performed: Debridement of abdominal wall Anesthesia: SINA Surgeon: Raphael Urbina Estimated Blood Loss (ml): 20 Pathology: other (Ischemic fat) Condition: stable Disposition: PACU Description of Procedure: The patient's placed on the operative table in supine position. He received general anesthesia. His abdomen was prepped and draped usual sterile fashion. The SHIRLEY drain was removed. Through a low midline incision the subcutaneous tissues were divided and then the infected seroma cavity was entered. The seroma cavity was irrigated and debrided. There was no exposed mesh the visualized. The mesh appeared to have complete tissue coverage. At this point a portion of the abdominal wall was debrided using sharp dissection a 10 x 5 x 2 cm piece of the skin and fat was debrided free. This was sent to pathology and culture. The wound was irrigated the wound was then packed with wet to dry Kerlix. Patient top she will was sent to recovery in stable condition.
[2019-02-25 13:15] VITALS: TEMP 98.5
[2019-02-25] MEDS ORDERED: KETOROLAC 30 MG/ML 1 ML VIAL IVP ONE (13:19)
[2019-02-25 14:33] VITALS: RESP 17
[2019-02-25 14:47] VITALS: BP 126/70; PULSE 59
--- NOTE | 2019-03-03 13:50 | CDI ---
Date: 03.03.19 CDS/Advertising Supervisor Name: Isabel Grimm Phone: If any questions, call Ashley Holt Cabin Furnishings Installer at [phone] Pt Name: Bro Umaña Adm Date: 02.25.19 Dis Date: 02.25.19 Attention: The [facility] Coding Staff appreciate your assistance in clarifying documentation. Please respond to the clarification below the line at the bottom and electronically sign. The [facility] Coding Staff will review the response and follow up if needed. Please note: Queries are made part of the Legal Health Record. If you have any questions, please contact the Cabin Furnishings Installer. Dear Dr. Urbina On the dissection of 10x5x2 skin piece, what is the would measurement after the debridement? Thanks you for your kind consideration. See addendum to op report. MTDD
== END 2019-02-25 15:45 | disposition home health service (06) ==
LOC: OR 09:25
PROVIDERS: ATTEND Surgery
DX: L76.34 Postprocedural seroma of skin and subcutaneous tissue following other procedure (principal); K65.4 Sclerosing mesenteritis; Z48.03 Encounter for change or removal of drains; J44.9 Chronic obstructive pulmonary disease, unspecified; I10 Essential (primary) hypertension; K50.918 Crohn's disease, unspecified, with other complication; K52.9 Noninfective gastroenteritis and colitis, unspecified; F17.200 Nicotine dependence, unspecified, uncomplicated; Z87.19 Personal history of other diseases of the digestive system; Z98.890 Other specified postprocedural states; Z79.899 Other long term (current) drug therapy; Z82.49 Family history of ischemic heart disease and other diseases of the circulatory system
CPT/HCPCS: 11042; 11045 ×2; 88304; 87070; 87205; 87075; 87077; 87186; J2250; J1644; J1100; J2710; J0690; J2405; J2001; J3010; J1885; J0330; J2704

== ENCOUNTER 2019-03-01 16:50 | Inpatient (IN) | payer OTHER ==
[2019-03-01] MEDS: SODIUM CHLORIDE 0.9% 500 ML 500 ML IV SCH ×3 (17:05→19:26)
[2019-03-01] MEDS ORDERED: ACETAMINOPHEN TAB 500 MG TAB PO STA (17:30)
[2019-03-01] MEDS ORDERED: PIPERACILLIN-TAZOBACTAM 3.375 GM in SODIUM CHLORIDE 0.9% 100 ML IVPB STA (17:30)
[2019-03-01] MEDS ORDERED: IBUPROFEN 600 MG TAB PO STA (17:30)
[2019-03-01] MEDS ORDERED: HYDROmorphone 1 MG/ML 1 ML SYRINGE IVP STA (17:37)
[2019-03-01] MEDS ORDERED: IOPAMIDOL CONTRAST (ORAL USE) VIAL PO PRN (17:40)
--- NOTE | 2019-03-01 17:40 | ED ---
General Adult HPI - General Chief complaint: Abdominal Pain Stated complaint: Post op, fever Time Seen by Provider: 03/01/19 16:50 Source: patient, RN notes reviewed, old records reviewed Mode of arrival: ambulatory Limitations: no limitations - History of Present Illness Initial comments: This is a 43-year-old male who presents emergency department stating that he had a ventral hernia surgery repair any was left with open wound on his abdomen. Patient states this occurred on Saturday. Patient states she was discharged on . Patient states Saturday and Saturday he felt fine this morning he woke up he was having pain around the incision site and had a fever. Patient states he has not been nauseated he has had no vomiting. Patient denies any diarrhea. Patient denies any dysuria hematuria urinary frequency. Patient states prior to today he has had no pain around the incision site. Patient denies any cough or difficulty breathing or chest pain. Patient states his daughter does have a fever as well. Patient denies any headache patient denies any numbness or weakness. Patient denies any back pain. - Related Data Home Medications Medication Instructions Recorded Confirmed amLODIPine [Norvasc] 5 mg PO DAILY 07/09/18 02/25/19 oxyCODONE-APAP 7.5-325MG [Percocet 1 tab PO TID PRN 12/23/18 02/25/19 7.5-325 mg] Nebulizer(Name Unknown) 1 applicate IH BID 02/18/19 02/18/19 Previous Rx's Medication Instructions Recorded Docusate [Colace] 100 mg PO BID #20 capsule 02/25/19 HYDROcodone/APAP 5-325MG [Ermine 1 tab PO Q6HR PRN #10 tab 02/25/19 5-325] Allergies Allergy/AdvReac Type Severity Reaction Status Date / Time No Known Allergies Allergy Verified 03/01/19 16:54 Review of Systems ROS Statement: Those systems with pertinent positive or pertinent negative responses have been documented in the HPI. ROS Other: All systems not noted in ROS Statement are negative. Past Medical History Past Medical History: COPD, GI Bleed, Hypertension Additional Past Medical History / Comment(s): Crohn's/chronic diarrhea, lower GI bleed, pt denies past [place], hx bowel obstrution 02/12/18, infected mesh from previous surgery with drain in place Last Myocardial Infarction Date:: 01/08/17 per pt History of Any Multi-Drug Resistant Organisms: None Reported Past Surgical History: Bowel Resection, Heart Catheterization, Hernia Repair Additional Past Surgical History / Comment(s): COLONOSCOPIES, RT INGUINAL HERNIA REPAIR WITH MESH AND LYSIS OF ADHESIONS, 2017 CARDIAC CATH-NORMAL. bowel re section for obstrucion Past Anesthesia/Blood Transfusion Reactions: No Reported Reaction Additional Past Anesthesia/Blood Transfusion Reaction / Comment(s): . Past Psychological History: No Psychological Hx Reported Smoking Status: Current some day smoker Past Alcohol Use History: None Reported Past Drug Use History: None Reported - Past Family History Father Additional Family Medical History / Comment(s): MURMUR Mother Family Medical History: No Reported History Additional Family Medical History / Comment(s): MATERNAL GRANDFATHER AT THE AGE OF 45 YRS FROM [place] General Exam - General Exam Comments Initial Comments: GENERAL: Patient is well-developed and well-nourished. Patient is nontoxic and well- hydrated and is in mild distress. ENT: Neck is soft and supple. No significant lymphadenopathy is noted. Oropharynx is clear. Moist mucous membranes. Neck has full range of motion without eliciting any pain. EYES: The sclera were anicteric and conjunctiva were pink and moist. Extraocular movements were intact and pupils were equal round and reactive to light. Eyelids were unremarkable. PULMONARY: Unlabored respirations. Good breath sounds bilaterally. No audible rales rhonchi or wheezing was noted. CARDIOVASCULAR: There is a regular rate and rhythm without any murmurs gallops or rubs. ABDOMEN: Abdomen is tender around the incision site which she states is new. SKIN: Skin is clear with no lesions or rashes and otherwise unremarkable. NEUROLOGIC: Patient is alert and oriented x3. Cranial nerves II through XII are grossly intact. Motor and sensory are also intact. Normal speech, volume and content. Symmetrical smile. MUSCULOSKELETAL: Normal extremities with adequate strength and full range of motion. LYMPHATICS: No significant lymphadenopathy is noted PSYCHIATRIC: Normal psychiatric evaluation. Limitations: no limitations Course Vital Signs 03/01/19 03/01/19 03/01/19 16:54 18:40 19:31 Temperature 101.3 F H 101.1 F H Pulse Rate 107 H 99 92 Respiratory 18 18 18 Rate Blood Pressure 127/79 133/77 121/72 O2 Sat by Pulse 96 97 97 Oximetry Medical Decision Making - Medical Decision Making EKG shows sinus tachycardia at 102 bpm MS interval 170 QRS is 80 QT interval 320 QTC is 417. Patient's EKG shows some T-wave inversions in leads V1 and V2 and V3 as well as V4. Patient has no ST segment elevation. Computed tomography scan showed inflammation the subcutaneous tissue. No abscess was noted. Spoke with Dr. Urbina he wanted the patient admitted. I started an appendix emergency department I continue those and buttocks on the floor as well as pain medicine. - Lab Data Result diagrams: 03/01/19 18:15 03/01/19 18:15 Lab Results 03/01/19 03/01/19 03/01/19 Range/Units 18:15 18:15 18:15 WBC 15.7 H (3.8-10.6) k/uL RBC 4.43 (4.30-5.90) m/uL Hgb 12.5 L (13.0-17.5) gm/dL Hct 38.4 L (39.0-53.0) % MCV 86.6 (80.0-100.0) fL MCH 28.3 (25.0-35.0) pg MCHC 32.7 (31.0-37.0) g/dL RDW 15.4 (11.5-15.5) % Plt Count 341 (150-450) k/uL Neutrophils % 74 % Lymphocytes % 15 % Monocytes % 8 % Eosinophils % 1 % Basophils % 0 % Neutrophils # 11.6 H (1.3-7.7) k/uL Lymphocytes # 2.3 (1.0-4.8) k/uL Monocytes # 1.2 H (0-1.0) k/uL Eosinophils # 0.2 (0-0.7) k/uL Basophils # 0.1 (0-0.2) k/uL PT (9.0-12.0) sec INR (<1.2) APTT (22.0-30.0) sec Sodium 137 (137-145) mmol/L Potassium 3.9 (3.5-5.1) mmol/L Chloride 104 (98-107) mmol/L Carbon Dioxide 25 (22-30) mmol/L Anion Gap 8 mmol/L BUN 11 (9-20) mg/dL Creatinine 1.14 (0.66-1.25) mg/dL Est GFR (CKD-EPI)AfAm >90 (>60 ml/min/1.73 sqM) Est GFR (CKD-EPI)NonAf 79 (>60 ml/min/1.73 sqM) Glucose 93 (74-99) mg/dL Plasma Lactic Acid Silverio 1.1 (0.7-2.0) mmol/L Calcium 9.2 (8.4-10.2) mg/dL Total Bilirubin 1.3 (0.2-1.3) mg/dL AST 20 (17-59) U/L ALT 20 L (21-72) U/L Alkaline Phosphatase 35 L (38-126) U/L Troponin I (0.000-0.034) ng/mL Total Protein 7.1 (6.3-8.2) g/dL Albumin 3.6 (3.5-5.0) g/dL Influenza Type A RNA (Not Detectd) Influenza Type B (PCR) (Not Detectd) 03/01/19 03/01/19 03/01/19 Range/Units 18:15 18:15 18:15 WBC (3.8-10.6) k/uL RBC (4.30-5.90) m/uL Hgb (13.0-17.5) gm/dL Hct (39.0-53.0) % MCV (80.0-100.0) fL MCH (25.0-35.0) pg MCHC (31.0-37.0) g/dL RDW (11.5-15.5) % Plt Count (150-450) k/uL Neutrophils % % Lymphocytes % % Monocytes % % Eosinophils % % Basophils % % Neutrophils # (1.3-7.7) k/uL Lymphocytes # (1.0-4.8) k/uL Monocytes # (0-1.0) k/uL Eosinophils # (0-0.7) k/uL Basophils # (0-0.2) k/uL PT 10.4 (9.0-12.0) sec INR 1.0 (<1.2) APTT 28.8 (22.0-30.0) sec Sodium (137-145) mmol/L Potassium (3.5-5.1) mmol/L Chloride (98-107) mmol/L Carbon Dioxide (22-30) mmol/L Anion Gap mmol/L BUN (9-20) mg/dL Creatinine (0.66-1.25) mg/dL Est GFR (CKD-EPI)AfAm (>60 ml/min/1.73 sqM) Est GFR (CKD-EPI)NonAf (>60 ml/min/1.73 sqM) Glucose (74-99) mg/dL Plasma Lactic Acid Silverio (0.7-2.0) mmol/L Calcium (8.4-10.2) mg/dL Total Bilirubin (0.2-1.3) mg/dL AST (17-59) U/L ALT (21-72) U/L Alkaline Phosphatase (38-126) U/L Troponin I <0.012 (0.000-0.034) ng/mL Total Protein (6.3-8.2) g/dL Albumin (3.5-5.0) g/dL Influenza Type A RNA Not Detected (Not Detectd) Influenza Type B (PCR) Not Detected (Not Detectd) Disposition Clinical Impression: Postoperative fever Disposition: ADMITTED IP TO THIS HOSP Referrals: Karthik Sanches DO [Primary Care Provider] - 1-2 days Time of Disposition: 19:59
[2019-03-01 18:24] LABS: Basophils # (A) 0.1 k/uL (0-0.2); Basophils % (A) 0 %; Eosinophils # (A) 0.2 k/uL (0-0.7); Eosinophils % (A) 1 %; HCT 38.4 % (39.0-53.0); HGB 12.5 gm/dL (13.0-17.5); Lymphocytes # (A) 2.3 k/uL (1.0-4.8); Lymphocytes % (A) 15 %; MCH 28.3 pg (25.0-35.0); MCHC 32.7 g/dL (31.0-37.0); MCV 86.6 fL (80.0-100.0); Monocytes # (A) 1.2 k/uL (0-1.0); Monocytes % (A) 8 %; Neutrophils # (A) 11.6 k/uL (1.3-7.7); Neutrophils % (A) 74 %; Platelet Count 341 k/uL (150-450); RBC 4.43 m/uL (4.30-5.90); RDW 15.4 % (11.5-15.5); WBC 15.7 k/uL (3.8-10.6)
[2019-03-01 18:38] LABS: Partial Thromboplastin Time 28.8 sec (22.0-30.0); Prothrombin Time 10.4 sec (9.0-12.0)
[2019-03-01 18:40] LABS: ALT 20 U/L (21-72); AST 20 U/L (17-59); African American GFR (CKD) >90 (>60 ml/min/1.73 sqM); Albumin 3.6 g/dL (3.5-5.0); Alkaline Phosphatase 35 U/L (38-126); Anion Gap 8 mmol/L; Blood Urea Nitrogen 11 mg/dL (9-20); Calcium 9.2 mg/dL (8.4-10.2); Carbon Dioxide 25 mmol/L (22-30); Chloride 104 mmol/L (98-107); Glucose 93 mg/dL (74-99); Non-African American GFR(CKD) 79 (>60 ml/min/1.73 sqM); Potassium 3.9 mmol/L (3.5-5.1); Sodium 137 mmol/L (137-145); Total Bilirubin 1.3 mg/dL (0.2-1.3); Total Protein 7.1 g/dL (6.3-8.2)
--- NOTE | 2019-03-01 19:40 | CT ---
EXAMINATION TYPE: CT abdomen pelvis w con DATE OF EXAM: 03/01/2019 COMPARISON: CT abdomen/pelvis 01/14/2019 HISTORY: fever post op abdominal procedure CT DLP: 3870.9 mGycm Automated exposure control for dose reduction was used. TECHNIQUE: Helical acquisition of images was performed from the lung bases through the pelvis. CONTRAST: Performed with Oral Contrast and with IV Contrast, patient injected with 100 mL of Isovue 300. FINDINGS: Subsegmental atelectasis at the right lung base. The liver, spleen, pancreas, and adrenal glands are within normal limits. The gallbladder is not well seen and may be surgically absent. Dystrophic calcification within the gallbladder fossa. No intra o r extrahepatic biliary ductal dilatation. Symmetric renal enhancement without hydronephrosis. Low-density renal lesions statistically represent cysts. Urinary bladder is within normal limits. No dilated bowel, free air, or free fluid. Redemonstration of subcutaneous fat protruding through the anterior abdominal wall into the rectus sh eath or extraperitoneal abdomen. Large anterior abdominal wall defect confined to the pannus marginat ed by reticulated subcutaneous fat. Surgical packing present. There are no air foci removed from the defect. No focal fluid collection. No aggressive osseous lesion. IMPRESSION: Defect confined to the subcutaneous fat of the abdominal pannus with surgical packing. There are no a ir foci remote from the defect nor focal fluid collection to suggest abscess.
[2019-03-01] MEDS ORDERED: SODIUM CHLORIDE 0.9% 1,000 ML IV ONE (20:00)
[2019-03-01] MEDS ORDERED: ONDANSETRON 4 MG/2 ML VIAL IVP PRN (20:01)
[2019-03-01] MEDS ORDERED: ONDANSETRON 4 MG/2 ML VIAL IVP STA (20:01)
[2019-03-01 20:09] LABS: Appearance,Urine Clear (Clear); Bilirubin,Urine Negative (Negative); Blood,Urine Negative (Negative); Color,Urine Yellow; Glucose,Urine (UA) Negative (Negative); Ketones,Urine Negative (Negative); Leukocyte Esterase,Urine Negative (Negative); Mucus,Urine Rare /hpf; Nitrite,Urine Negative (Negative); Protein,Urine 1+ (Negative); RBC,Urine 1 /hpf (0-5); Urobilinogen,Urine <2.0 mg/dL (<2.0); WBC,Urine 1 /hpf (0-5)
[2019-03-01 20:11] LABS: Specific Gravity,Urine >1.050 (1.001-1.035)
--- NOTE | 2019-03-01 20:17 | XR ---
EXAMINATION TYPE: XR chest 2V DATE OF EXAM: 03/01/2019 COMPARISON: NONE HISTORY: Fever TECHNIQUE: Frontal and lateral views of the chest are obtained. FINDINGS: Decreased respiratory effort with right basilar subsegmental atelectasis. No focal airspac e consolidation. No pleural effusion or pneumothorax. Cardiac silhouette is not enlarged. No pulmonar y vascular congestion. IMPRESSION: No acute cardiopulmonary process.
[2019-03-01] MEDS: HYDROmorphone 1 MG/ML 1 ML SYRINGE IVP PRN (21:58)
[2019-03-02] MEDS: PIPERACILLIN-TAZOBACTAM 3.375 GM in SODIUM CHLORIDE 0.9% 100 ML IVPB SCH ×2 (00:17→07:41)
[2019-03-02] MEDS: HYDROmorphone 1 MG/ML 1 ML SYRINGE IVP PRN ×5 (04:09→22:45)
[2019-03-02 09:51] LABS: Basophils # (A) 0.1 k/uL (0-0.2); Basophils % (A) 1 %; Eosinophils # (A) 0.6 k/uL (0-0.7); Eosinophils % (A) 4 %; HCT 35.3 % (39.0-53.0); HGB 11.2 gm/dL (13.0-17.5); Hypochromasia Moderate; Lymphocytes # (A) 1.4 k/uL (1.0-4.8); Lymphocytes % (A) 10 %; MCH 28.5 pg (25.0-35.0); MCHC 31.7 g/dL (31.0-37.0); MCV 89.9 fL (80.0-100.0); Mean Platelet Volume 8.5; Monocytes # (A) 0.7 k/uL (0-1.0); Monocytes % (A) 6 %; Neutrophils # (A) 10.4 k/uL (1.3-7.7); Neutrophils % (A) 78 %; Platelet Count 301 k/uL (150-450); RBC 3.92 m/uL (4.30-5.90); RDW 15.1 % (11.5-15.5); WBC 13.4 k/uL (3.8-10.6)
--- NOTE | 2019-03-02 12:29 | P.HPIM ---
History of Present Illness H&P Date: 03/02/19 CHIEF COMPLAINT: Fever HISTORY OF PRESENT ILLNESS: 43-year-old male who recently underwent debridement of abdominal wall secondary to fat necrosis an infected seroma with Dr. Urbina on 02/25/2019. Patient reports he was doing well at home until yesterday when his home care nurse was at his house. He was noted to have a fever of 102F. He reports his children are currently sick with a cold and thought it was due to that up with a home care nurse recommended he come to the hospital for further evaluation. Patient was found to have a white count of 15 on admission. He is currently afebrile. PAST MEDICAL HISTORY: See list. PAST SURGICAL HISTORY: See list. SOCIAL HISTORY: No illicit drug use. REVIEW OF SYSTEMS: CONSTITUTIONAL: Reports fevers. HEENT: Denies blurred vision, vision changes, or eye pain. Denies hemoptysis CARDIOVASCULAR: Denies chest pain or pressure. RESPIRATORY: No shortness of breath. GASTROINTESTINAL: Refer to [facility] for pertinent findings HEMATOLOGIC: Denies bleeding disorders. GENITOURINARY: Denies any blood in urine. SKIN: Denies pruitis. Denies rash. PHYSICAL EXAM: VITAL SIGNS: Reviewed. GENERAL: Well-developed in no acute distress. HEENT: No sclera icterus. Extraocular movements grossly intact. Moist buccal mucosa. Head is atraumatic, normocephalic. ABDOMEN: Soft. Nondistended. Dressing to abdomen clean dry and intact. Wound with Kerlix packing noted and serous drainage. NEUROLOGIC: Alert and oriented. Cranial nerves II through XII grossly intact. ASSESSMENT: 1. Postoperative fever 2. Recent debridement of abdominal wall secondary to fat necrosis an infected seroma PLAN: Consult Dr. Castillo for evaluation. Will defer timing of wound vac to Dr. Castillo Continue IV antibiotics. Repeat CBC in AM Nurse practitioner note has been reviewed by physician. Signing provider agrees with the documented findings, assessment, and plan of care. Past Medical History Past Medical History: COPD, GI Bleed, Hypertension Additional Past Medical History / Comment(s): Crohn's/chronic diarrhea, lower GI bleed, pt denies past [place], hx bowel obstrution 02/12/18, infected mesh from previous surgery with drain in place Last Myocardial Infarction Date:: 01/08/17 per pt History of Any Multi-Drug Resistant Organisms: None Reported Past Surgical History: Bowel Resection, Heart Catheterization, Hernia Repair Additional Past Surgical History / Comment(s): COLONOSCOPIES, RT INGUINAL HERNIA REPAIR WITH MESH AND LYSIS OF ADHESIONS, 2017 CARDIAC CATH-NORMAL. bowel resection for obstrucion Past Anesthesia/Blood Transfusion Reactions: No Reported Reaction Additional Past Anesthesia/Blood Transfusion Reaction / Comment(s): . Past Psychological History: No Psychological Hx Reported Additional Psychological History / Comment(s): . Smoking Status: Current some day smoker Past Alcohol Use History: None Reported Additional Past Alcohol Use History / Comment(s): Smokes only on occasion Past Drug Use History: None Reported - Past Family History Father Additional Family Medical History / Comment(s): MURMUR Mother Family Medical History: No Reported History Additional Family Medical History / Comment(s): MATERNAL GRANDFATHER AT THE AGE OF 45 YRS FROM [place] Medications and Allergies Home Medications Medication Instructions Recorded Confirmed Type amLODIPine [Norvasc] 5 mg PO DAILY 07/09/18 03/02/19 History oxyCODONE-APAP 7.5-325MG [Percocet 1 tab PO TID PRN 12/23/18 03/02/19 History 7.5-325 mg] Allergies Allergy/AdvReac Type Severity Reaction Status Date / Time No Known Allergies Allergy Verified 03/01/19 16:54 Physical Exam Vitals: Vital Signs Temp Pulse Pulse Resp BP BP Pulse Ox 03/02/19 07:00 98.5 F 66 16 124/72 97 03/02/19 01:30 98.3 F 62 16 120/73 97 03/01/19 20:54 98.9 F 77 16 127/72 96 03/01/19 20:40 98.4 F 03/01/19 19:31 101.1 F H 92 18 121/72 97 03/01/19 18:40 99 18 133/77 97 03/01/19 16:54 101.3 F H 107 H 18 127/79 96 Intake and Output 03/01/19 03/02/19 03/02/19 22:59 06:59 14:59 Intake Total 590 900 Balance 590 900 Intake: Intake, IV Titration 900 Amount Piperacillin-Tazobactam 3 100 .375 gm In Sodium Chloride 0.9% 100 ml @ 25 mls/hr IVPB Q8HR [facility] Rx# :[id number] Sodium Chloride 0.9% 1, 800 000 ml @ 100 mls/hr IV . Q10H ONE Rx#:[id number] Oral 590 Other: # Voids 2 1 Weight 151.953 kg Results CBC & Chem 7: 03/02/19 09:38 03/01/19 18:15 Labs: Abnormal Lab Results - Last 24 Hours (Table) 03/01/19 03/01/19 03/01/19 Range/Units 18:15 18:15 19:53 WBC 15.7 H (3.8-10.6) k/uL RBC (4.30-5.90) m/uL Hgb 12.5 L (13.0-17.5) gm/dL Hct 38.4 L (39.0-53.0) % Neutrophils # 11.6 H (1.3-7.7) k/uL Monocytes # 1.2 H (0-1.0) k/uL ALT 20 L (21-72) U/L Alkaline Phosphatase 35 L (38-126) U/L Ur Specific [place] >1.050 H (1.001-1.035) Urine Protein 1+ H (Negative) Urine Mucus Rare H (None) /hpf 03/02/19 Range/Units 09:38 WBC 13.4 H (3.8-10.6) k/uL RBC 3.92 L (4.30-5.90) m/uL Hgb 11.2 L (13.0-17.5) gm/dL Hct 35.3 L (39.0-53.0) % Neutrophils # 10.4 H (1.3-7.7) k/uL Monocytes # (0-1.0) k/uL ALT (21-72) U/L Alkaline Phosphatase (38-126) U/L Ur Specific [place] (1.001-1.035) Urine Protein (Negative) Urine Mucus (None) /hpf Thrombosis Risk Factor Assmnt - Choose All That Apply Each Factor Represents 1 point: Age 41-60 years, Obesity (BMI >25) Thrombosis Risk Factor Assessment Total Risk Factor Score: 2 Thrombosis Risk Factor Assessment Level: Low Risk
[2019-03-02] MEDS: AMPICILLIN-SULBACTAM 3 GM in SODIUM CHLORIDE 0.9% 100 ML IVPB SCH (17:18)
--- NOTE | 2019-03-03 00:37 | CONS ---
CONSULTATION DATE OF SERVICE: 03/02/2019 REASON FOR CONSULTATION: Fever. HISTORY OF PRESENT ILLNESS: The patient is a 43-year-old male and this patient is status post debridement of abdominal wound with initial concern for possible infected mesh. However, at the time of surgery, no infection was noticed of the mesh. The patient did have extensive debridement with resulting wound for which the patient was evaluated in the wound care center. Last a wound VAC was ordered which apparently is scheduled to be delivered today. The patient in the meantime, presenting back to the [facility] ER yesterday with the chief complaints of fever that apparently started yesterday. The patient had been complaining of fever with rigors and chills. The patient denies having any headache or URI symptoms. No chest pain. No shortness of breath. Very minimal cough. Denies any worsening abdominal pain or any purulent drainage. No nausea, vomiting and no diarrhea. With these symptoms, the patient was evaluated by the ER physician. On arrival to the ER, the patient did have a fever of 101.3 degrees Fahrenheit. The patient did not have significant tachycardia. His white count was up to 15.7, creatinine has been normal. UA was negative. Influenza serology was negative. Chest x-ray negative for pneumonia. CT abdominal pelvis did not show any evidence of any abscess. The patient was started on Zosyn and admitted hospital. Infectious Disease was consulted for further recommendations regarding antibiotic therapy. REVIEW OF SYSTEMS: Positive points have been mentioned in HPI. Rest of systems are negative. PAST MEDICAL HISTORY: Significant for COPD. Crohn's disease, history of GI bleed, infected mesh, hypertension. PAST SURGICAL HISTORY: Bowel resection with revision, hernia repair. SOCIAL HISTORY: Current everyday smoker. Denies drinking or drug use. FAMILY HISTORY: Father at age of 45 from an [place]. ALLERGIES: No known drug allergies. MEDICATIONS: The patient is currently on Zosyn 3.375 g q.8 hours. He is on Zofran and Dilaudid. PHYSICAL EXAMINATION: Blood pressure 154/69 with a pulse of 81, temperature 99.1, T-max is 101.3. He is 99% on room air. General description is a middle-aged male lying in bed in no distress. HEENT: Shows slight pallor. No scleral icterus. Oral mucosa membranes moist. No pharyngeal erythema, thrush. Neck: Trachea central. No thyromegaly. Lungs unlabored breathing. Clear to auscultation anteriorly. No wheeze or crackles. Heart S1, S2. Regular rate and rhythm. ABDOMEN: Soft. Wound is currently covered with wet-to-dry packing. There is no significant surrounding swelling, redness or any foul smelling drainage. Extremities: No edema of the feet. Skin examination: No rash or mass palpable. Neurological: Patient is awake, alert, oriented times three. Mood and affect normal. LABS: Hemoglobin 11.9, white count 13.4, BUN of 11, creatinine 4.14. Electrolytes have been normal. UA has been negative. Blood culture so far negative. Review of his culture data from 02/25 did show MSSA. DIAGNOSTIC IMPRESSION AND PLAN: Patient with fever in this patient who did have recent extensive abdominal wound debridement with resultant large wound, culture from those specimens showing Staph aureus in this patient currently with no other clinical focus of infection. UA has been negative. Chest x-ray negative and no evidence of any cellulitis. PLAN: 1. We will switch antibiotic therapy to Unasyn 3 g q.6 hours. Discontinue Zosyn. Local wound care will be switched over to wound VAC, black foam continuous pressure to the wound 25 mmHg when wound VAC is available. 2. We will follow up on his clinical condition and further adjust medication if needed. Thank you for this consultation. We will follow this patient along with you. MMGILDAL / IJN: [id number] /
[2019-03-03] MEDS: AMPICILLIN-SULBACTAM 3 GM in SODIUM CHLORIDE 0.9% 100 ML IVPB SCH ×2 (01:36→05:06)
[2019-03-03] MEDS: HYDROmorphone 1 MG/ML 1 ML SYRINGE IVP PRN ×2 (03:43→10:02)
[2019-03-03 07:56] LABS: Basophils # (A) 0.1 k/uL (0-0.2); Basophils % (A) 1 %; Eosinophils # (A) 0.5 k/uL (0-0.7); Eosinophils % (A) 5 %; HCT 33.2 % (39.0-53.0); HGB 10.5 gm/dL (13.0-17.5); Hypochromasia Slight; Lymphocytes # (A) 2.2 k/uL (1.0-4.8); Lymphocytes % (A) 21 %; MCH 27.9 pg (25.0-35.0); MCHC 31.5 g/dL (31.0-37.0); MCV 88.6 fL (80.0-100.0); Mean Platelet Volume 9.6; Monocytes % (A) 10 %; Neutrophils # (A) 6.3 k/uL (1.3-7.7); Neutrophils % (A) 62 %; Platelet Count 302 k/uL (150-450); RBC 3.75 m/uL (4.30-5.90); WBC 10.2 k/uL (3.8-10.6)
[2019-03-03 10:12] VITALS: BP 134/80; PULSE 80; RESP 17; TEMP 98.2
--- NOTE | 2019-03-03 12:54 | PN ---
PROGRESS NOTE DATE OF SERVICE: 03/03/2019 REASON FOR FOLLOWUP: Abdominal wound infection. INTERVAL HISTORY: The patient is currently afebrile. No fever has been recorded since admission to the hospital. The patient denies having any chest pain. No shortness of breath or cough. No nausea, vomiting. No abdominal pain or diarrhea. PHYSICAL EXAMINATION: Blood pressure is 134/80 with a pulse of 80, temperature 98.2. He is 97% on room air. General description is a middle-aged male lying in bed in no distress. RESPIRATORY SYSTEM: Unlabored breathing, clear to auscultation anteriorly. HEART: S1, S2. Regular rate and rhythm. ABDOMEN: Soft. The wound is currently packed. EXTREMITIES: No edema of the feet. LABS: Hemoglobin 10.5, white count 10.2. Blood cultures have been negative. DIAGNOSTIC IMPRESSION AND PLAN: Patient admitted to the hospital with fever, source is possible infected abdominal wound. Recent culture positive for MSSA. Patient doing well on Unasyn that will be switched to Augmentin 875 b.i.d. for 2 weeks. Local wound care will be switched over to wound VAC. To follow up in the Wound Care Center Saturday for more thorough examination of the wound and continue supportive care. MMODL / IJN: [id number] /
--- NOTE | 2019-03-03 14:30 | P.DS ---
Providers Date of admission: 03/03/19 10:28 Expected date of discharge: 03/03/19 Attending physician: Raphael Urbina Consults: 03/02/19 13:48 Consult Physician Routine Consulting Provider: David Castillo Consult Reason/Comments: abdominal wound. possible wound vac Do you want consulting provider notified?: Yes Primary care physician: Karthik [place] [employer] Course: 43-year-old male who recently underwent debridement of abdominal wall secondary to fat necrosis an infected seroma with Dr. Urbina on 02/25/2019. Patient reports he was doing well at home until yesterday when his home care nurse was at his house. He was noted to have a fever of 102F. He reports his children are currently sick with a cold and thought it was due to that up with a home care nurse recommended he come to the hospital for further evaluation. Patient was found to have a white count of 15 on admission. Patient was started on IV antibiotics. Infectious disease was consulted for further evaluation. Patient's white count has now returned to normal limits at 10.2. He has been afebrile. Denies abdominal pain. He is stable for discharge home today per Dr. Urbina. Patient discharged on oral antibiotic per Dr. Colbert recommendations. Home care is scheduled to home to his house this afternoon to apply wound vac. Patient to follow up outpatient. Please see EMR for further hospital course details. Discharge Diagnosis: 1. Postoperative fever 2. Recent debridement of abdominal wall secondary to fat necrosis an infected seroma Nurse practitioner note has been reviewed by physician. Signing provider agrees with the documented findings, assessment, and plan of care. Plan - Discharge Summary Discharge Rx Participant: No New Discharge Prescriptions: New Amoxicillin/Potassium Clav [Augmentin 875-125 Tablet] 1 tab PO Q12HR #28 tab No Action amLODIPine [Norvasc] 5 mg PO DAILY oxyCODONE-APAP 7.5-325MG [Percocet 7.5-325 mg] 1 tab PO TID PRN PRN Reason: Pain Discharge Medication List amLODIPine [Norvasc] 5 mg PO DAILY 07/09/18 [History] oxyCODONE-APAP 7.5-325MG [Percocet 7.5-325 mg] 1 tab PO TID PRN 12/23/18 [History] Amoxicillin/Potassium Clav [Augmentin 875-125 Tablet] 1 tab PO Q12HR #28 tab 03/03/19 [Rx] Follow up Appointment(s)/Referral(s): Karthik Sanches DO [Primary Care Provider] - 1-2 days (office closed at time of discharge. Please call to make apoointment) David Castillo MD [STAFF PHYSICIAN] - 1 Week (At [facility] [phone] Already has appointment ) A Visiting Nurse, [NON-STAFF] - Raphael Urbina MD [STAFF PHYSICIAN] - 03/10/19 3:20 pm Patient Instructions/Handouts: Wound Infection (DC) Activity/Diet/Wound Care/Special Instructions: CM spoke with RN from [facility]. She will meet patient at home and apply wound vac on 03/04/19 - home care nurse will call patient with time. Wound vac delivered to room from [facility] (set up prior to hospitalization). [facility] #[phone]. Discharge Disposition: HOME WITH HOME HEALTH SERVICES
== END 2019-03-03 13:18 | disposition home health service (06) | DRG 864 ==
LOC: EC 16:50 → 4SSUR 20:00 → OBSVTOIN 03-03 10:28
PROVIDERS: ADMIT Surgery; ATTEND Surgery
DX: R50.82 Postprocedural fever (principal); K50.90 Crohn's disease, unspecified, without complications; F17.200 Nicotine dependence, unspecified, uncomplicated; K52.9 Noninfective gastroenteritis and colitis, unspecified; J44.9 Chronic obstructive pulmonary disease, unspecified; I10 Essential (primary) hypertension; I25.2 Old myocardial infarction; Z79.891 Long term (current) use of opiate analgesic; Z79.899 Other long term (current) drug therapy; Z87.19 Personal history of other diseases of the digestive system; Z90.49 Acquired absence of other specified parts of digestive tract; Z86.19 Personal history of other infectious and parasitic diseases; Z98.890 Other specified postprocedural states; Z82.49 Family history of ischemic heart disease and other diseases of the circulatory system
CPT/HCPCS: 36415; 71046; 74177; 80053; 81001; 83605; 84484; 85025; 85610; 85730; 87040; 87324; 87502; 93005; 96361; 96365; 96375; 99285

== ENCOUNTER → 2019-05-26 | Outpatient (CLI) | payer OTHER ==
--- NOTE | 2019-05-26 15:18 | CT ---
EXAMINATION TYPE: CT abdomen wo con DATE OF EXAM: 05/26/2019 COMPARISON: 03/01/2019 HISTORY: Follow up wound care. CT DLP: 1244.9 mGycm Automated exposure control for dose reduction was used. TECHNIQUE: Helical acquisition of images was performed from the lung bases through the top of iliac crest to include entire abdomen. CONTRAST: Performed with Oral Contrast and without IV contrast. FINDINGS: LUNG BASES: Calcified right infrahilar benign granulomas are seen. Right basilar subsegmental atelect asis is also noted. LIVER/GB: There are multiple calculi seen in the gallbladder neck. There is no fat stranding in the r ight upper quadrant of the gallbladder is not dilated. The unenhanced liver is grossly unremarkable. PANCREAS: No significant abnormality is seen. SPLEEN: No significant abnormality is seen. ADRENALS: No significant abnormality is seen. KIDNEYS: 2.3 cm right renal cyst is seen of the medial mid pole. No hydronephrosis or nephrolithiasis of either kidney. BOWEL: No dilated large or small bowel. LYMPH NODES: No greater than 1 cm short axis lymph node in the abdomen. OSSEOUS STRUCTURES: Minimal multilevel degenerative change of the spine. FREE AIR: No free air is visualized. OTHER: There is interval closure of the previously seen open central abdominal ventral defect with in terval placement of surgical packing. There is surrounding inflammatory fat stranding and development of scar tissue. Between the rectus abdominis there is some fat attenuation is seen on the prior that appears to be postsurgical and may represent involuted fat purposely secondary to surgical procedure or fat necrosis. No pneumoperitoneum or suspicious subcutaneous emphysema. No measurable fluid colle ction. Skin thickening is seen over the ventral abdomen centrally and right paracentrally. IMPRESSION: 1. INTERVAL CLOSURE OF THE PREVIOUSLY SEEN OPEN VENTRAL ABDOMINAL WALL DEFECT. SURGICAL PACKING AND S CAR FORMATION IS SEEN WITH SURROUNDING INFLAMMATORY CHANGE HOWEVER NO FLUID COLLECTION IS SEEN TO SUG GEST ABSCESS NOR SUBCUTANEOUS EMPHYSEMA. 2. MULTIPLE CALCULI ARE SEEN WITHIN THE GALLBLADDER NECK HOWEVER NO CT EVIDENCE OF ACUTE CHOLECYSTITI S IS SEEN.
== END | disposition home or self-care (01) ==
LOC: RADCTMAIN 12:12
PROVIDERS: ATTEND Internal Medicine Infectious Disease
DX: K80.20 Calculus of gallbladder without cholecystitis without obstruction (principal); M79.89 Other specified soft tissue disorders
CPT/HCPCS: 74150

== ENCOUNTER 2019-06-01 12:00 | Observation (INO) | payer OTHER ==
--- NOTE | 2019-06-01 13:32 | ED ---
General Adult HPI - General Chief complaint: Skin/Abscess/Foreign Body Stated complaint: open wound Time Seen by Provider: 06/01/19 12:53 Source: patient, RN notes reviewed Mode of arrival: ambulatory Limitations: no limitations - History of Present Illness Initial comments: This a 43-year-old male presents emergency department for evaluation of his abd ominal wound. Patient states started after chronic resection and repair. Patient states that he's been dealing with infection to this area he states he had a recent CAT scan which did not show anything significant. Patient states that he was evaluated by his home health care nurse and call Dr. Castillo recommended patient come emergency department for evaluation as her large amount of pus. Patient states there is some increasing pain. He denies fevers or chills no change in bowel habits. - Related Data Home Medications Medication Instructions Recorded Confirmed amLODIPine [Norvasc] 5 mg PO DAILY 07/09/18 03/02/19 oxyCODONE-APAP 7.5-325MG [Percocet 1 tab PO TID PRN 12/23/18 03/02/19 7.5-325 mg] Previous Rx's Medication Instructions Recorded Amoxicillin/Potassium Clav 1 tab PO Q12HR #28 tab 03/03/19 [Augmentin 875-125 Tablet] Allergies Allergy/AdvReac Type Severity Reaction Status Date / Time No Known Allergies Allergy Verified 06/01/19 12:23 Review of Systems ROS Statement: Those systems with pertinent positive or pertinent negative responses have been documented in the HPI. ROS Other: All systems not noted in ROS Statement are negative. Past Medical History Past Medical History: COPD, GI Bleed, Hypertension Additional Past Medical History / Comment(s): Crohn's/chronic diarrhea, lower GI bleed, pt denies past [place], hx bowel obstrution 02/12/18, infected mesh from previous surgery with drain in place Last Myocardial Infarction Date:: 01/08/17 per pt History of Any Multi-Drug Resistant Organisms: None Reported Past Surgical History: Bowel Resection, Heart Catheterization, Hernia Repair Additional Past Surgical History / Comment(s): COLONOSCOPIES, RT INGUINAL HERNIA REPAIR WITH MESH AND LYSIS OF ADHESIONS, 2017 CARDIAC CATH-NORMAL. bowel resection for obstrucion Past Anesthesia/Blood Transfusion Reactions: No Reported Reaction Additional Past Anesthesia/Blood Transfusion Reaction / Comment(s): . Past Psychological History: No Psychological Hx Reported Smoking Status: Current some day smoker Past Alcohol Use History: None Reported Past Drug Use History: None Reported - Past Family History Father Additional Family Medical History / Comment(s): MURMUR Mother Family Medical History: No Reported History Additional Family Medical History / Comment(s): MATERNAL GRANDFATHER AT THE AGE OF 45 YRS FROM [place] General Exam Limitations: no limitations General appearance: alert, in no apparent distress Head exam: Present: atraumatic, normocephalic, normal inspection Neck exam: Present: normal inspection. Absent: tenderness, meningismus, lymp hadenopathy Respiratory exam: Present: normal lung sounds bilaterally. Absent: respiratory distress, wheezes, rales, rhonchi, stridor Cardiovascular Exam: Present: regular rate, normal rhythm, normal heart sounds. Absent: systolic murmur, diastolic murmur, rubs, gallop, clicks GI/Abdominal exam: Present: soft, tenderness, normal bowel sounds. Absent: distended, guarding, rebound, rigid Back exam: Absent: CVA tenderness (R), CVA tenderness (L) Course Vital Signs 06/01/19 12:19 Temperature 98.4 F Pulse Rate 82 Respiratory 20 Rate Blood Pressure 142/81 O2 Sat by Pulse 99 Oximetry Medical Decision Making - Medical Decision Making Case discussed with Dr. Rojas who recommends patient to be admitted and placed on antibiotics. Labs and CT were reviewed CT shows evidence of abdominal wall abscess. - Lab Data Result diagrams: 06/01/19 14:07 06/01/19 14:07 Lab Results 06/01/19 06/01/19 06/01/19 Range/Units 14:07 14:07 14:07 WBC 9.3 (3.8-10.6) k/uL RBC 4.47 (4.30-5.90) m/uL Hgb 11.6 L (13.0-17.5) gm/dL Hct 37.5 L (39.0-53.0) % MCV 83.7 (80.0-100.0) fL MCH 25.9 (25.0-35.0) pg MCHC 30.9 L (31.0-37.0) g/dL RDW 18.2 H (11.5-15.5) % Plt Count 378 (150-450) k/uL Neutrophils % 67 % Lymphocytes % 21 % Monocytes % 5 % Eosinophils % 4 % Basophils % 1 % Neutrophils # 6.3 (1.3-7.7) k/uL Lymphocytes # 2.0 (1.0-4.8) k/uL Monocytes # 0.5 (0-1.0) k/uL Eosinophils # 0.3 (0-0.7) k/uL Basophils # 0.1 (0-0.2) k/uL Hypochromasia Slight Anisocytosis Slight Sodium 139 (137-145) mmol/L Potassium 4.5 (3.5-5.1) mmol/L Chloride 108 H (98-107) mmol/L Carbon Dioxide 25 (22-30) mmol/L Anion Gap 6 mmol/L BUN 8 L (9-20) mg/dL Creatinine 1.02 (0.66-1.25) mg/dL Est GFR (CKD-EPI)AfAm >90 (>60 ml/min/1.73 sqM) Est GFR (CKD-EPI)NonAf >90 (>60 ml/min/1.73 sqM) Glucose 86 (74-99) mg/dL Plasma Lactic Acid Silverio 1.0 (0.7-2.0) mmol/L Calcium 9.0 (8.4-10.2) mg/dL Total Bilirubin 0.3 (0.2-1.3) mg/dL AST 23 (17-59) U/L ALT 11 (4-49) U/L Alkaline Phosphatase 35 L (38-126) U/L Total Protein 6.8 (6.3-8.2) g/dL Albumin 3.4 L (3.5-5.0) g/dL Amylase 39 (30-110) U/L Lipase 111 (23-300) U/L Disposition Clinical Impression: Abdominal wall abscess Disposition: ADMITTED IP TO THIS HOSP Condition: Fair Referrals: None,Stated [Primary Care Provider] - 1-2 days
[2019-06-01] MEDS ORDERED: MORPHINE SULFATE 4 MG/ML SYRINGE IVP STA (13:48)
[2019-06-01] MEDS ORDERED: ONDANSETRON 4 MG/2 ML VIAL IVP STA (13:48)
[2019-06-01 14:41] LABS: Anisocytosis Slight; Basophils # (A) 0.1 k/uL (0-0.2); Basophils % (A) 1 %; Eosinophils # (A) 0.3 k/uL (0-0.7); Eosinophils % (A) 4 %; HCT 37.5 % (39.0-53.0); HGB 11.6 gm/dL (13.0-17.5); Hypochromasia Slight; Lymphocytes % (A) 21 %; MCH 25.9 pg (25.0-35.0); MCHC 30.9 g/dL (31.0-37.0); MCV 83.7 fL (80.0-100.0); Mean Platelet Volume 8.2; Monocytes # (A) 0.5 k/uL (0-1.0); Monocytes % (A) 5 %; Neutrophils # (A) 6.3 k/uL (1.3-7.7); Neutrophils % (A) 67 %; Platelet Count 378 k/uL (150-450); RBC 4.47 m/uL (4.30-5.90); RDW 18.2 % (11.5-15.5); WBC 9.3 k/uL (3.8-10.6)
--- NOTE | 2019-06-01 14:42 | CT ---
EXAMINATION TYPE: CT abdomen pelvis w con DATE OF EXAM: 06/01/2019 COMPARISON: Prior CT 05/26/2019 HISTORY: wound dehiscence, infection CT DLP: 3595 mGycm Automated exposure control for dose reduction was used. TECHNIQUE: Helical acquisition of images from the lung bases through the pelvis have been completed. CONTRAST: Performed without Oral Contrast and with IV Contrast, patient injected with 100 mL of Isovue 300. FINDINGS: Along anterior abdominal wall in the umbilical location there is again noted abnormal incre ased attenuation within the subcutaneous fat with some central air density similar to prior exam and extending to the skin surface at the level the umbilicus. The air collection measures approximately 6 .3 x 5.1 cm in size and there is inflammatory change within the subcutaneous fat, abnormal skin thick ening. There is been some incorporation of abdominal wall fat. Just deep to the rectus musculature ne ar this level. LUNG BASES: No significant abnormality is appreciated. AORTA: No significant abnormality is appreciated. LIVER/GB: Gallbladder shows some high attenuation at the level of the cystic duct, dependent portion of the gallbladder neck as on prior exam. Liver shows no interval change, no pericholecystic fluid or abnormal wall thickening PANCREAS: No significant abnormality is seen. SPLEEN: No significant abnormality is seen. ADRENALS: No significant abnormality is seen. KIDNEYS: Some cystic foci are associated with the kidneys REPRODUCTIVE ORGANS: No significant abnormality is seen BOWEL: No significant abnormality is seen. FREE AIR: No Free Air visible. ASCITES: None visible. PELVIC ADENOPATHY: None visualized. RETROPERITONEAL ADENOPATHY: No Retroperitoneal Adenopathy visible. URINARY BLADDER: No significant abnormality is seen. OSSEOUS STRUCTURES: No significant abnormality is seen. IMPRESSION: ANTERIOR ABDOMINAL WALL SHOWS EVIDENCE OF CELLULITIS AND POSSIBLE ABSCESS FORMATION WITHIN THE SUBCUT ANEOUS FAT, EXTENSIVE GRANULATION TISSUE IS SUSPECTED. Findings in the gallbladder is described.
[2019-06-01 14:53] LABS: ALT 11 U/L (4-49); AST 23 U/L (17-59); African American GFR (CKD) >90 (>60 ml/min/1.73 sqM); Albumin 3.4 g/dL (3.5-5.0); Alkaline Phosphatase 35 U/L (38-126); Amylase 39 U/L (30-110); Anion Gap 6 mmol/L; Blood Urea Nitrogen 8 mg/dL (9-20); Carbon Dioxide 25 mmol/L (22-30); Chloride 108 mmol/L (98-107); Glucose 86 mg/dL (74-99); Non-African American GFR(CKD) >90 (>60 ml/min/1.73 sqM); Potassium 4.5 mmol/L (3.5-5.1); Sodium 139 mmol/L (137-145); Total Bilirubin 0.3 mg/dL (0.2-1.3); Total Protein 6.8 g/dL (6.3-8.2)
[2019-06-01] MEDS ORDERED: NALOXONE 0.4 MG/ML 1 ML VIAL IV PRN (16:10)
[2019-06-01] MEDS ORDERED: HYDROcodone/APAP 5-325MG 1 EACH TAB PO PRN (16:10)
[2019-06-01] MEDS ORDERED: ONDANSETRON 4 MG/2 ML VIAL IVP PRN (16:10)
[2019-06-01] MEDS ORDERED: MORPHINE SULFATE 4 MG/ML SYRINGE IV PRN (16:10)
[2019-06-01] MEDS ORDERED: AMPICILLIN-SULBACTAM 3 GM in SODIUM CHLORIDE 0.9% 100 ML IVPB STA (16:12)
[2019-06-01] MEDS ORDERED: VANCOMYCIN IV PER PHARMACY 1 EACH MISC MISCELLANE PRN (16:12)
[2019-06-01] MEDS ORDERED: VANCOMYCIN 2,250 MG in SODIUM CHLORIDE 0.9% 500 ML 500 ML IVPB STA (16:18)
[2019-06-01] MEDS: SODIUM CHLORIDE 0.9% 1,000 ML IV SCH ×2 (17:39→23:23)
[2019-06-01] MEDS: HYDROmorphone 1 MG/ML 1 ML SYRINGE IVP PRN ×2 (19:39→23:38)
[2019-06-01 22:12] LABS: Appearance,Urine Clear (Clear); Bilirubin,Urine Negative (Negative); Blood,Urine Negative (Negative); Color,Urine Yellow; Glucose,Urine (UA) Negative (Negative); Ketones,Urine Negative (Negative); Leukocyte Esterase,Urine Negative (Negative); Nitrite,Urine Negative (Negative); PH, Urine 5.5 (5.0-8.0); Protein,Urine Trace (Negative); Urobilinogen,Urine <2.0 mg/dL (<2.0)
[2019-06-01 22:14] LABS: Specific Gravity,Urine >1.050 (1.001-1.035)
[2019-06-01] MEDS: AMPICILLIN-SULBACTAM 3 GM in SODIUM CHLORIDE 0.9% 100 ML IVPB SCH (23:24)
[2019-06-02] MEDS ORDERED: AMPICILLIN-SULBACTAM 3 GM in SODIUM CHLORIDE 0.9% 100 ML IVPB SCH ×2
[2019-06-02] MEDS: HYDROmorphone 1 MG/ML 1 ML SYRINGE IVP PRN ×3 (03:52→13:35)
[2019-06-02] MEDS: AMPICILLIN-SULBACTAM 3 GM in SODIUM CHLORIDE 0.9% 100 ML IVPB SCH ×2 (05:56→12:00)
[2019-06-02 06:01] LABS: African American GFR (CKD) >90 (>60 ml/min/1.73 sqM); Non-African American GFR(CKD) >90 (>60 ml/min/1.73 sqM)
[2019-06-02] MEDS ORDERED: VANCOMYCIN 2,250 MG in SODIUM CHLORIDE 0.9% 500 ML 500 ML IVPB SCH (07:00)
--- NOTE | 2019-06-02 08:34 | P.GSHP ---
History of Present Illness H&P Date: 06/02/19 CHIEF COMPLAINT: Abdominal abscess HISTORY OF PRESENT ILLNESS: 43-year-old male who presented to the emergency room secondary to possible abdominal abscess. Patient has a history of open repair of incarcerated incisional hernia with mesh in December 2018. Patient underwent debridement of abdominal wall in February [address] Urbina. He has been following with Dr. Castillo in the wound care center. He reports having a wound vac on until about two weeks ago when they discontinued the wound vac therapy because his wound was improving. He states over the past two days his abdominal wound began draining bloody purulent fluid. His called the wound care center who referred him to the ER. PAST MEDICAL HISTORY: See list. PAST SURGICAL HISTORY: See list. SOCIAL HISTORY: No illicit drug use. REVIEW OF SYSTEMS: CONSTITUTIONAL: Denies fever or chills. HEENT: Denies blurred vision, vision changes, or eye pain. Denies hemoptysis CARDIOVASCULAR: Denies chest pain or pressure. RESPIRATORY: No shortness of breath. GASTROINTESTINAL: Denies abdominal pain. Denies nausea and vomiting. HEMATOLOGIC: Denies bleeding disorders. GENITOURINARY: Denies any blood in urine. SKIN: Denies pruitis. Denies rash. Reports wound to abdominal wall with bloody purulent drainage. PHYSICAL EXAM: VITAL SIGNS: Reviewed. GENERAL: Well-developed in no acute distress. HEENT: No sclera icterus. Extraocular movements grossly intact. Moist buccal mucosa. Head is atraumatic, normocephalic. ABDOMEN: Soft. Obese. Abdominal wound with bloody purulent drainage. Foul odor noted. NEUROLOGIC: Alert and oriented. Cranial nerves II through XII grossly intact. LABORATORY DATA: WBC 9.3. Hemoglobin 11.6. Platelet count 378. IMAGING: CT abdomen and pelvis: Anterior abdominal wall with evidence of cellulitis and possible abscess formation within the subcutaneous fat, extensive granulation tissue suspected. ASSESSMENT: 1. Abdominal wall abscess PLAN: NPO Continue antibiotics Patient to undergo I&D today with Dr. Urbina Nurse practitioner note has been reviewed by physician. Signing provider agrees with the documented findings, assessment, and plan of care. Past Medical History Past Medical History: COPD, GI Bleed, Hypertension Additional Past Medical History / Comment(s): Crohn's/chronic diarrhea, lower GI bleed, pt denies past IA, hx bowel obstrution 02/12/18, infected mesh from previous surgery with drain (removed) Last Myocardial Infarction Date:: 01/08/17 per pt History of Any Multi-Drug Resistant Organisms: None Reported Past Surgical History: Bowel Resection, Heart Catheterization, Hernia Repair Additional Past Surgical History / Comment(s): COLONOSCOPIES, RT INGUINAL HERNIA REPAIR WITH MESH AND LYSIS OF ADHESIONS, 2016 CARDIAC CATH-NORMAL. bowel resection for obstrucion Past Anesthesia/Blood Transfusion Reactions: No Reported Reaction Additional Past Anesthesia/Blood Transfusion Reaction / Comment(s): . Past Psychological History: No Psychological Hx Reported Smoking Status: Current some day smoker Past Alcohol Use History: None Reported Additional Past Alcohol Use History / Comment(s): Smokes only on occasion Past Drug Use History: None Reported - Past Family History Father Additional Family Medical History / Comment(s): MURMUR Mother Family Medical History: No Reported History Additional Family Medical History / Comment(s): MATERNAL GRANDFATHER AT THE AGE OF 45 YRS FROM [place] Medications and Allergies Home Medications Medication Instructions Recorded Confirmed Type amLODIPine [Norvasc] 5 mg PO DAILY 07/09/18 06/01/19 History oxyCODONE-APAP 7.5-325MG [Percocet 1 tab PO TID PRN 12/23/18 06/01/19 History 7.5-325 mg] Amoxicillin/Potassium Clav 1 tab PO Q12H 06/01/19 06/01/19 History [Augmentin 875-125 Tablet] Ciprofloxacin HCl [Cipro] 500 mg PO BID 06/01/19 06/01/19 History Allergies Allergy/AdvReac Type Severity Reaction Status Date / Time No Known Allergies Allergy Verified 06/01/19 17:06 Surgical - Exam Vital Signs Temp Pulse Resp BP Pulse Ox 98.4 F 82 20 142/81 99 06/01/19 12:19 06/01/19 12:19 06/01/19 12:19 06/01/19 12:19 06/01/19 12:19 Results - Labs 06/01/19 14:07 06/02/19 05:32 Abnormal Lab Results - Last 24 Hours (Table) 06/01/19 06/01/19 06/01/19 Range/Units 14:07 14:07 21:30 Hgb 11.6 L (13.0-17.5) gm/dL Hct 37.5 L (39.0-53.0) % MCHC 30.9 L (31.0-37.0) g/dL RDW 18.2 H (11.5-15.5) % Chloride 108 H (98-107) mmol/L BUN 8 L (9-20) mg/dL Alkaline Phosphatase 35 L (38-126) U/L Albumin 3.4 L (3.5-5.0) g/dL Ur Specific [place] >1.050 H (1.001-1.035) Urine Protein Trace H (Negative) Microbiology - Last 24 Hours (Table) 06/01/19 14:07 Gram Stain - Preliminary Abdomen Wound Culture - Preliminary Diabetes panel 06/01/19 06/02/19 Range/Units 14:07 05:32 Sodium 139 (137-145) mmol/L Potassium 4.5 (3.5-5.1) mmol/L Chloride 108 H (98-107) mmol/L Carbon Dioxide 25 (22-30) mmol/L BUN 8 L (9-20) mg/dL Creatinine 1.02 0.92 (0.66-1.25) mg/dL Glucose 86 (74-99) mg/dL Calcium 9.0 (8.4-10.2) mg/dL AST 23 (17-59) U/L ALT 11 (4-49) U/L Alkaline Phosphatase 35 L (38-126) U/L Total Protein 6.8 (6.3-8.2) g/dL Albumin 3.4 L (3.5-5.0) g/dL Calcium panel 06/01/19 Range/Units 14:07 Calcium 9.0 (8.4-10.2) mg/dL Albumin 3.4 L (3.5-5.0) g/dL Pituitary panel 06/01/19 06/02/19 Range/Units 14:07 05:32 Sodium 139 (137-145) mmol/L Potassium 4.5 (3.5-5.1) mmol/L Chloride 108 H (98-107) mmol/L Carbon Dioxide 25 (22-30) mmol/L BUN 8 L (9-20) mg/dL Creatinine 1.02 0.92 (0.66-1.25) mg/dL Glucose 86 (74-99) mg/dL Calcium 9.0 (8.4-10.2) mg/dL Adrenal panel 06/01/19 06/02/19 Range/Units 14:07 05:32 Sodium 139 (137-145) mmol/L Potassium 4.5 (3.5-5.1) mmol/L Chloride 108 H (98-107) mmol/L Carbon Dioxide 25 (22-30) mmol/L BUN 8 L (9-20) mg/dL Creatinine 1.02 0.92 (0.66-1.25) mg/dL Glucose 86 (74-99) mg/dL Calcium 9.0 (8.4-10.2) mg/dL Total Bilirubin 0.3 (0.2-1.3) mg/dL AST 23 (17-59) U/L ALT 11 (4-49) U/L Alkaline Phosphatase 35 L (38-126) U/L Total Protein 6.8 (6.3-8.2) g/dL Albumin 3.4 L (3.5-5.0) g/dL
[2019-06-02] MEDS: SODIUM CHLORIDE 0.9% 1,000 ML IV SCH ×2 (08:42→13:35)
[2019-06-02] MEDS ORDERED: SODIUM CHLORIDE 0.9% 1,000 ML IV SCH (08:45)
[2019-06-02] MEDS ORDERED: IV FLUID CONTINUATION 1,000 ML IV ONE (08:59)
[2019-06-02] MEDS ORDERED: HEPARIN SODIUM,PORCINE 5,000 UNIT/ML 1 ML VIAL SQ SCH (09:00)
[2019-06-02] MEDS ORDERED: PANTOPRAZOLE 40 MG/10 ML VIAL IVP SCH (09:00)
[2019-06-02] MEDS ORDERED: GLYCOPYRROLATE 0.2 MG/ML 2 ML VIAL ONE (09:28)
[2019-06-02] MEDS ORDERED: ROCURONIUM BROMIDE 10 MG/ML 5 ML VIAL IV ONE (09:28)
[2019-06-02] MEDS ORDERED: SUCCINYLCHOLINE CHLORIDE 100 MG/5 ML SYR IV ONE (09:28)
[2019-06-02] MEDS ORDERED: PROPOFOL 10 MG/ML 20 ML VIAL IV ONE (09:28)
[2019-06-02] MEDS ORDERED: fentaNYL (PF) 50 MCG/ML 2 ML AMP ONE (09:28)
[2019-06-02] MEDS ORDERED: MIDAZOLAM 2 MG/2 ML VIAL ONE (09:28)
[2019-06-02] MEDS ORDERED: KETAMINE 10 MG/ML 20 ML VIAL ONE (09:28)
[2019-06-02] MEDS ORDERED: LIDOCAINE 1% INJ 10MG/ML (20 ML MDV) ONE (09:28)
[2019-06-02] MEDS ORDERED: NEOSTIGMINE 1 MG/ML 10 ML VIAL ONE (09:28)
[2019-06-02] MEDS ORDERED: IV FLUID CONTINUATION 500 ML IV ONE ×2 (10:26)
--- NOTE | 2019-06-02 10:29 | P.OP ---
Date of Procedure: 06/02/19 Preoperative Diagnosis: Abdominal wound infection Postoperative Diagnosis: Abdominal wound infection related to retained wound VAC foam Implants: Debridement of abdominal wall Removal of foreign body Anesthesia: SINA Surgeon: Raphael Urbina Estimated Blood Loss (ml): 10 Pathology: other (Wound culture, wound VAC foam foreign body, abdominal wall) Condition: stable Disposition: PACU Description of Procedure: Patient's placed on the operating table in the supine position. He received general anesthesia. His abdomen was prepped and draped usual fashion. The patient had a draining sinus near the umbilicus. The fat was quite indurated. Elliptical skin incision was made around the scar. The fat was then cut down using sharp dissection using a 15 scalpel blade the specimen measured approximately 15 x 5 x 10 cm of indurated fat and abscess cavity. This was sent to pathology. Further debridement of the abdominal wall was performed. There was an encapsulated portion of wound VAC mesh. There were 2 rectangular pieces of mesh measuring approximately 15 by 2 x 2 centimeters that was encapsulated with abdominal wall fat. This appeared to be the source of the wound infection. The foam was withdrawn. The wound was clean. At this point a left cautery was used to achieve hemostasis. The wound was then packed with wet-to-dry Kerlix dressing. Patient top she will was sent to recovery room stable condition.
[2019-06-02] MEDS: HYDROmorphone 1 MG/ML 1 ML SYRINGE IVP ONE ×4 (10:47→11:19)
[2019-06-02 12:48] VITALS: PULSE 58; RESP 20; TEMP 97.8
[2019-06-02 12:49] VITALS: BP 116/71
--- NOTE | 2019-06-02 13:08 | P.CONS ---
History of Present Illness - History of Present Illness This is a pleasant 43 years old male with past medical history of COPD, GI bleed and hypertension, Crohn's disease, bowel obstruction, right inguinal hernia repair with mesh and lysis of adhesions. Presents because of abdominal wall redness, swelling and tenderness, patient found to have cellulitis of abdominal wall and the umbilical area and his been already evaluated by surgical and ID team Vitals stable. Labs are unremarkable including CBC, BMP, liver enzymes and uri ne analysis. CT of the abdomen and pelvis with contrast: Umbilical cellulitis with possible abscess formation and the subcutaneous tissue with extensive granulation tissue is suspected patient is status post I and D of the abdominal abscess on 06/01 Patient is currently covered with Unasyn, IV vancomycin per infectious disease recommendation and ibuprofen Motrin 100 mL/h Review of Systems CONSTITUTIONAL: No fever, no malaise, no fatigue. HEENT: No recent visual problems or hearing problems. Denied any sore throat. CARDIOVASCULAR: No orthopnea, PND, no palpitations, no syncope. PULMONARY: No shortness of breath, no cough, no hemoptysis. GASTROINTESTINAL: No diarrhea, no nausea, no vomiting, no abdominal pain. Normoactive bowel sounds. NEUROLOGICAL: No headaches, no weakness, no numbness. HEMATOLOGICAL: Denies any bleeding or petechiae. GENITOURINARY: Denies any burning micturition, frequency, or urgency. MUSCULOSKELETAL/RHEUMATOLOGICAL: Denies any joint pain, swelling, or any muscle pain. ENDOCRINE: Denies any polyuria or polydipsia. Past Medical History Past Medical History: COPD, GI Bleed, Hypertension Additional Past Medical History / Comment(s): Crohn's/chronic diarrhea, lower GI bleed, pt denies past MA, hx bowel obstrution 02/12/18, infected mesh from previous surgery with drain (removed) Last Myocardial Infarction Date:: 01/08/17 per pt History of Any Multi-Drug Resistant Organisms: None Reported Past Surgical History: Bowel Resection, Heart Catheterization, Hernia Repair Additional Past Surgical History / Comment(s): COLONOSCOPIES, RT INGUINAL HERNIA REPAIR WITH MESH AND LYSIS OF ADHESIONS, 2017 CARDIAC CATH-NORMAL. bowel resection for obstrucion Past Anesthesia/Blood Transfusion Reactions: No Reported Reaction Additional Past Anesthesia/Blood Transfusion Reaction / Comm: . Past Psychological History: No Psychological Hx Reported Smoking Status: Current some day smoker Past Alcohol Use History: None Reported Additional Past Alcohol Use History / Comment(s): Smokes only on occasion Past Drug Use History: None Reported - Past Family History Father Additional Family Medical History / Comment(s): MURMUR Mother Family Medical History: No Reported History Additional Family Medical History / Comment(s): MATERNAL GRANDFATHER AT THE AGE OF 45 YRS FROM [place] Medications and Allergies Home Medications Medication Instructions Recorded Confirmed Type amLODIPine [Norvasc] 5 mg PO DAILY 07/09/18 06/01/19 History oxyCODONE-APAP 7.5-325MG [Percocet 1 tab PO TID PRN 12/23/18 06/01/19 History 7.5-325 mg] Amoxicillin/Potassium Clav 1 tab PO Q12H 06/01/19 06/01/19 History [Augmentin 875-125 Tablet] Ciprofloxacin HCl [Cipro] 500 mg PO BID 06/01/19 06/01/19 History Allergies Allergy/AdvReac Type Severity Reaction Status Date / Time No Known Allergies Allergy Verified 06/01/19 17:06 Physical Exam Vitals: Vital Signs Temp Pulse Pulse Pulse Resp BP BP 06/02/19 11:30 55 L 16 06/02/19 11:15 56 L 16 06/02/19 11:00 60 16 06/02/19 10:45 76 18 06/02/19 10:26 98.1 F 74 12 06/02/19 09:01 97.9 F 63 17 138/77 06/02/19 08:37 97.8 F 66 16 115/65 06/02/19 04:35 97.8 F 66 20 115/68 06/01/19 21:15 98.2 F 76 24 128/76 06/01/19 18:40 98.3 F 65 20 133/83 06/01/19 17:00 98.3 F 82 16 136/75 06/01/19 12:19 98.4 F 82 20 142/81 BP Pulse Ox 06/02/19 11:30 128/72 95 06/02/19 11:15 126/64 95 06/02/19 11:00 129/73 95 06/02/19 10:45 127/75 97 06/02/19 10:26 136/76 96 06/02/19 09:01 98 06/02/19 08:37 99 06/02/19 04:35 99 03/09/20 21:15 98 06/01/19 18:40 100 06/01/19 17:00 97 06/01/19 12:19 99 Intake and Output 06/01/19 06/02/19 06/02/19 22:59 06:59 14:59 Intake Total 900 Output Total 10 Balance 890 Intake: IV 900 Output: Estimated Blood Loss 10 Other: Voiding Method Toilet Urinal # Voids 1 1 Weight 153.496 kg 153.496 kg GENERAL: The patient is alert and oriented x3, not in any acute distress. Well developed, well nourished. HEENT: Pupils are round and equally reacting to light. EOMI. No scleral icterus. No conjunctival pallor. Normocephalic, atraumatic. No pharyngeal erythema. No thyromegaly. CARDIOVASCULAR: S1 and S2 present. No murmurs, rubs, or gallops. PULMONARY: Chest is clear to auscultation, no wheezing or crackles. -ABDOMEN: Soft, nontender, nondistended, normoactive bowel sounds. No palpable organomegaly. Umbilical fold with a dressing in place MUSCULOSKELETAL: No joint swelling or deformity. EXTREMITIES: No cyanosis, clubbing, or pedal edema. NEUROLOGICAL: Gross neurological examination did not reveal any focal deficits. SKIN: No rashes. No petechiae Results CBC & Chem 7: 06/01/19 14:07 06/02/19 05:32 Labs: Abnormal Lab Results - Last 24 Hours (Table) 06/01/19 06/01/19 06/01/19 Range/Units 14:07 14:07 21:30 Hgb 11.6 L (13.0-17.5) gm/dL Hct 37.5 L (39.0-53.0) % MCHC 30.9 L (31.0-37.0) g/dL RDW 18.2 H (11.5-15.5) % Chloride 108 H (98-107) mmol/L BUN 8 L (9-20) mg/dL Alkaline Phosphatase 35 L (38-126) U/L Albumin 3.4 L (3.5-5.0) g/dL Ur Specific [place] >1.050 H (1.001-1.035) Urine Protein Trace H (Negative) Microbiology - Last 24 Hours (Table) 06/01/19 14:07 Gram Stain - Preliminary Abdomen Wound Culture - Preliminary Assessment and Plan Assessment: Umbilical cellulitis with possible abscess formation in the subcutaneous tissue Hypertension Crohn's disease History of right inguinal hernia repair with mesh and lysis of adhesions COPD, not in activation History of GI bleed History of bowel obstruction Plan: This is a pleasant 43 years old male who presents with abdominal cellulitis and abscess, his status post I&D, follow-up culture results, continue with antibiotics as per ID team. Labs and medication were reviewed.. Continue same treatment. Continue with symptomatic treatment. Resume home medication. Monitor lytes and vitals. DVT and GI prophylaxis. Further recommendations of the clinical course of the patient DVT prophylaxis: Subcutaneous heparin GI Prophylaxis: Protonix Prognosis is guarded
--- NOTE | 2019-06-02 15:56 | PN ---
PROGRESS NOTE DATE OF SERVICE: 06/02/2019. REASON FOR FOLLOWUP: Abdominal abscess and cellulitis. INTERVAL HISTORY: The patient is seen on rounds this morning. The patient has been afebrile. The patient was taken to the OR and noticed to have two retained pieces of foam from his wound V.A.C. They have been removed. No significant purulence was noticed. Culture has been obtained. The patient tolerated the procedure. Denies having any chest pain, shortness of breath or cough and no diarrhea. PHYSICAL EXAMINATION: Blood pressure 116/71 with a pulse of 58, temperature 97.8. He is 99% on room air. General description is a middle-aged male lying in bed in no distress. RESPIRATORY SYSTEM: Unlabored breathing. Clear to auscultation anteriorly. HEART: S1, S2. Regular rate and rhythm. ABDOMEN: Soft. Wound is currently covered. EXTREMITIES: No edema of the feet. LABS: Creatinine 0.92. Wound culture currently pending. DIAGNOSTIC IMPRESSION AND PLAN: Patient admitted to hospital with abdominal wall pain with concern for abscess with purulent drainage. He was taken to the OR and unfortunately noticed to have retained pieces of foam. The patient will be able to go home on oral Augmentin and Cipro, which he apparently has at home. To follow up in the wound care center this for continued local wound care. Continue with supportive care. MMGILDAL / HANNAHN: [id number] /
[2019-06-03] MEDS ORDERED: PANTOPRAZOLE 40 MG TABLET PO SCH (09:00)
--- NOTE | 2019-06-05 14:26 | CDI ---
Documentation Clarification Form Date: 06/05/19 From: Adela Reynaga Phone: If you have a question about this query, please contact Ashley Holt Mail Processing Clerk at [phone] between 8am and 5pm. Admit Date: 06/01/19 Discharge Date:06/02/19 Patient Name: Bro Umaña Visit Number: [id number] ATTENTION: The Clinical Documentation Specialists (CDI) and [facility] Coding Staff appreciate your assistance in clarifying documentation. Please respond to the clarification below the line at the bottom and electronically sign. The CDI & [facility] Coding staff will review the response and follow-up if needed. Please note: Queries are made part of the Legal Health Record. If you have any questions, please contact the author of this message via ITS. Dear Dr. Urbina Per your operative note, a debridement was performed on the abdominal wound History/Risk Factors: History of open repair of incarcerated incisional hernia with mesh in December of 2018. Retained pieces of foam from wound VAC Clinical Indicators: Abscess of abdominal wall. Treatment: Debridement of the abdominal wall and removal of foreign body In order to capture the severity of condition and code the appropriate procedure; could you please document the following: Excisional debridement (the removal of necrotic, devitalized tissue or slough by means of cutting away of tissue) Non-excisional debridement (the removal of necrotic, devitalized tissue or slough by means of flushing, brushing, or washing. (Irrigation) Other; please specify Unable to determine Excisional debridement of tissue by cutting with a 15 blade MTDD
== END 2019-06-02 15:26 | disposition home health service (06) ==
LOC: EC 12:00 → INTOOBSV 17:04 → 6NMEDSUR 17:04 → UNDODISIN 06-02 15:26
PROVIDERS: ADMIT Surgery; ATTEND Surgery
PROC: 0JB80ZZ Excision of Abdomen Subcutaneous Tissue and Fascia, Open Approach (ICD-10-PCS; principal; 2019-06-02 12:05)
PROC: 0JC80ZZ Extirpation of Matter from Abdomen Subcutaneous Tissue and Fascia, Open Approach (ICD-10-PCS; principal; 2019-06-02 12:05)
DX: T81.597A Other complications of foreign body accidentally left in body following removal of catheter or packing, initial encounter (principal); L02.211 Cutaneous abscess of abdominal wall; K50.90 Crohn's disease, unspecified, without complications; L03.311 Cellulitis of abdominal wall; F17.200 Nicotine dependence, unspecified, uncomplicated; I10 Essential (primary) hypertension; J44.9 Chronic obstructive pulmonary disease, unspecified; Z79.899 Other long term (current) drug therapy; Z90.49 Acquired absence of other specified parts of digestive tract; Z82.49 Family history of ischemic heart disease and other diseases of the circulatory system; G47.33 Obstructive sleep apnea (adult) (pediatric); Z79.891 Long term (current) use of opiate analgesic; Z87.19 Personal history of other diseases of the digestive system; I25.2 Old myocardial infarction
CPT/HCPCS: 11005; 96376 ×2; 96365; 96366 ×2; 96367; 96372; 96375 ×3; 99284; 36415; 88304; 80053; 82150; 82565; 83605; 83690; 85025; 81003; 87040; 88300; 87070 ×2; 87205 ×2; 87075; 87077 ×2; 87186 ×2; 74177; G0378 ×2; J2250; J3370 ×2; J2270; J1644; J2710; J2405; J2001; J3010; J1170 ×2; J0295 ×2; J0330; J2704; C9113; Q9967; 96374

== ENCOUNTER → 2023-08-09 | Outpatient (CLI) | payer MEDICARE, OTHER | LOC: 3 N SLEEP 12:38 | PROVIDERS: ATTEND Internal Medicine Critical Care Medicine | DX: G47.33 Obstructive sleep apnea (adult) (pediatric) (principal); J44.9 Chronic obstructive pulmonary disease, unspecified; E66.01 Morbid (severe) obesity due to excess calories; I10 Essential (primary) hypertension; F17.210 Nicotine dependence, cigarettes, uncomplicated; F42.9 Obsessive-compulsive disorder, unspecified; J98.4 Other disorders of lung; Z86.59 Personal history of other mental and behavioral disorders; Z98.890 Other specified postprocedural states; Z79.899 Other long term (current) drug therapy ==

== ENCOUNTER → 2023-10-04 | Outpatient (CLI) | payer MEDICARE, OTHER ==
--- NOTE | 2023-10-06 21:33 | MR ---
EXAMINATION TYPE: MR cervical spine wo/w con DATE OF EXAM: 10/04/2023 9:16 PM CLINICAL INDICATION:Male, 48 years old with history of R29.2 ABNORMAL REFLEX M54.50 LOW BACK PAIN; PH H, Neck pain, abnormal reflex COMPARISON: None. TECHNIQUE: Multi planar, multi sequence imaging was performed utilizing: T1-weighted, T2-weighted, an d turbo inversion recovery imaging of the cervical spine. IV Contrast: 15 cc Gadavist (none if empty) FINDINGS: Alignment: The cervical vertebral bodies have preserved heights. Alignment is within normal limits gi jeanna patient positioning. Bones: Osteophytes and disc space narrowing most pronounced at the C5-C7 vertebral levels.No abnormal postcontrast enhancement. Cord: The spinal cord is unremarkable with regards to their signal intensity and morphology. Discs: Intervertebral disc signal is maintained. C2-C3: No significant disc pathology. The spinal canal is patent. No neural foraminal stenosis. C3-C4: A disc osteophyte complex is present which minimally narrows the ventral subarachnoid space. The spinal cord is mildly displaced posteriorly due to disc osteophyte complex. No neural foraminal s tenosis. C4-C5: A disc osteophyte complex is present which minimally narrows the ventral subarachnoid space. The spinal cord is mildly displaced posteriorly due to disc osteophyte complex. No neural foraminal stenosis. C5-C6: A disc osteophyte complex is present which minimally narrows the ventral subarachnoid space. The spinal cord is mildly displaced posteriorly due to disc osteophyte complex. Bilateral facet and uncovertebral joint arthropathy are present with mild right neural foraminal stenosis. The left neura l foramen is patent. C6-C7: A disc osteophyte complex is present which minimally narrows the ventral subarachnoid space. No neural foraminal stenosis. C7-T1: No significant disc pathology. The spinal canal is patent. No neural foraminal stenosis. Other: None. IMPRESSION: 1. Disc osteophyte complexes that mildly displaces the spinal cord posteriorly. No evidence for disc herniation or significant spinal canal stenosis. No abnormal postcontrast enhancement. 2. Mild disc degeneration with associated osteoarthritic changes. No evidence for significant neural foraminal stenosis.
== END | disposition home or self-care (01) ==
LOC: RADMRIMAIN 20:45
PROVIDERS: ATTEND Psychiatry & Neurology Neurology
DX: R29.2 Abnormal reflex (principal); M54.50 Low back pain, unspecified; R20.2 Paresthesia of skin; M25.78 Osteophyte, vertebrae; M50.30 Other cervical disc degeneration, unspecified cervical region; M47.812 Spondylosis without myelopathy or radiculopathy, cervical region
CPT/HCPCS: 72156; A9585

== ENCOUNTER → 2024-01-23 | Outpatient (CLI) | payer MEDICARE, OTHER ==
--- NOTE | 2024-01-23 22:02 | MR ---
EXAMINATION TYPE: MR lumbar spine wo con DATE OF EXAM: 01/23/2024 9:34 PM COMPARISON: None. CLINICAL INDICATION: Male, 48 years old with history of M54.16, Low back pain. Patient having back p ain for years, fell off roof when he was younger. TECHNIQUE: Multiplanar, multisequence images of the lumbar spine were acquired. IV Contrast: None FINDINGS: L5-S1: No significant disc bulge or disc herniation. No spinal canal stenosis. No foraminal stenosi s. L4-L5: No significant disc bulge or disc herniation. No spinal canal stenosis. No foraminal stenosi s. L3-L4: No significant disc bulge or disc herniation. No spinal canal stenosis. No foraminal stenosi s. L2-L3: No significant disc bulge or disc herniation. No spinal canal stenosis. No foraminal stenosi s. L1-L2: No significant disc bulge or disc herniation. No spinal canal stenosis. No foraminal stenosi s. T12-L1: No significant disc bulge or disc herniation. No spinal canal stenosis. No foraminal stenos is. Disc heights are preserved. Disc hydration is normal. Vertebral body heights are preserved. No spondy lolisthesis is evident. No significant facet hypertrophy is identified. IMPRESSION: 1. No acute or chronic abnormalities by MRI within the lumbar spine [facility], Workstation: [facility], 01/23/2024 9:59 PM
== END | disposition home or self-care (01) ==
LOC: RADMRIMAIN 20:45
PROVIDERS: ATTEND Psychiatry & Neurology Neurology
DX: M54.50 Low back pain, unspecified (principal); M54.16 Radiculopathy, lumbar region
CPT/HCPCS: 72148

== ENCOUNTER 2024-09-23 10:38 | Emergency (ER) | payer MEDICARE, OTHER ==
[2024-09-23 11:11] LABS: Basophils # (A) 0.11 10*3/uL (0.00-0.10); Basophils % (A) 1.1 %; Eosinophils # (A) 0.29 10*3/uL (0.04-0.35); Eosinophils % (A) 2.9 %; HCT 43.7 % (39.6-50.0); HGB 14.0 g/dL (13.0-17.0); Lymphocytes # (A) 2.64 10*3/uL (0.90-5.00); Lymphocytes % (A) 26.2 %; MCH 28.5 pg (27.0-32.0); MCHC 32.0 g/dL (32.0-37.0); MCV 88.8 fL (80.0-97.0); Monocytes # (A) 0.74 10*3/uL (0.20-1.00); Monocytes % (A) 7.3 %; Neutrophils # (A) 6.24 10*3/uL (1.80-7.70); Neutrophils % (A) 61.9 %; Platelet Count 299 10*3/uL (140-440); RBC 4.92 10*6/uL (4.40-5.60); RDW 16.4 % (11.5-14.5); WBC 10.08 10*3/uL (4.50-10.00)
[2024-09-23 11:20] LABS: INR 0.9 (<1.2); Partial Thromboplastin Time 27.2 sec (22.0-30.0); Prothrombin Time 9.9 sec (10.0-12.5)
[2024-09-23 11:29] LABS: ALT 12 U/L (4-49); AST 25 U/L (17-59); African American GFR (CKD) >90 (>60 ml/min/1.73 sqM); Albumin 3.7 g/dL (3.5-5.0); Alkaline Phosphatase 39 U/L (38-126); Anion Gap 8 mmol/L; Blood Urea Nitrogen 8 mg/dL (9-20); Calcium 9.6 mg/dL (8.4-10.2); Carbon Dioxide 26 mmol/L (22-30); Chloride 105 mmol/L (98-107); Glucose 86 mg/dL (74-99); Magnesium 1.9 mg/dL (1.6-2.3); Non-African American GFR(CKD) 89 (>60 ml/min/1.73 sqM); Potassium 4.6 mmol/L (3.5-5.1); Sodium 139 mmol/L (137-145); Total Protein 6.4 g/dL (6.3-8.2)
[2024-09-23 11:35] LABS: NT-Pro-B-Type Natriuretic Pept 27 pg/mL
--- NOTE | 2024-09-23 11:52 | XR ---
EXAMINATION TYPE: XR chest 2V DATE OF EXAM: 09/23/2024 11:42 AM COMPARISON: Chest radiographs from 07/29/2023 TECHNIQUE: XR chest 2V Frontal and lateral views of the chest. CLINICAL INDICATION:Male, 49 years old with history of chest pain, abnormal EKG; FINDINGS: Lungs/Pleura: There is no evidence of pleural effusion, focal consolidation, or pneumothorax. Pulmonary vascularity: Unremarkable. Heart/mediastinum: Cardiomediastinal silhouette is unremarkable. Musculoskeletal: No acute osseous pathology. IMPRESSION: No acute cardiopulmonary disease/process. [facility], , 09/23/2024 11:50 AM
--- NOTE | 2024-09-23 12:26 | ED ---
General Adult HPI - General Chief complaint: Recheck/Abnormal Lab/Rx Stated complaint: cardiac issue Time Seen by Provider: 09/23/24 10:51 Source: patient, RN notes reviewed Mode of arrival: ambulatory Limitations: no limitations - History of Present Illness Initial comments: 49-year-old male presents emergency department chief complaint of leg swelling. Patient states that he was sent over by his PCP for abnormal the patient states that he went for medication refill because he was out of his diuretics and states he had some mild leg swelling and they performed an EKG and told him that was abnormal and sent to the emergency department. Patient denies chest pain shortness of breath headache dizziness diaphoresis abdominal pain nausea vomiting. He states he has no symptoms he states he was told he had a heart attack years ago but had a heart cath and it was clean. Patient offers no other complaints. - Related Data Home Medications Medication Instructions Recorded Confirmed amLODIPine [Norvasc] 5 mg PO DAILY 07/09/18 06/01/19 oxyCODONE-APAP 7.5-325MG [Percocet 1 tab PO TID PRN 12/23/18 06/01/19 7.5-325 mg] Amoxicillin/Potassium Clav 1 tab PO Q12H 06/01/19 06/01/19 [Augmentin 875-125 Tablet] Ciprofloxacin HCl [Cipro] 500 mg PO BID 06/01/19 06/01/19 Previous Rx's Medication Instructions Recorded Ciprofloxacin HCl [Cipro] 500 mg PO Q12H #28 tab 06/06/19 metroNIDAZOLE [Flagyl] 500 mg PO Q8HR #42 tab 06/06/19 Allergies Allergy/AdvReac Type Severity Reaction Status Date / Time No Known Allergies Allergy Verified 09/23/24 10:44 Review of Systems ROS Statement: Those systems with pertinent positive or pertinent negative responses have been documented in the HPI. ROS Other: All systems not noted in ROS Statement are negative. Past Medical History Past Medical History: COPD, GI Bleed, Hypertension Additional Past Medical History / Comment(s): Crohn's/chronic diarrhea, lower GI bleed, pt denies past [place], hx bowel obstrution 02/12/18, infected mesh from previous surgery with drain (removed) Last Myocardial Infarction Date:: 01/08/17 per pt History of Any Multi-Drug Resistant Organisms: None Reported Past Surgical History: Bowel Resection, Heart Catheterization, Hernia Repair Additional Past Surgical History / Comment(s): COLONOSCOPIES, RT INGUINAL HERNIA REPAIR WITH MESH AND LYSIS OF ADHESIONS, 2017 CARDIAC CATH-NORMAL. bowel resection for obstrucion Past Anesthesia/Blood Transfusion Reactions: No Reported Reaction Additional Past Anesthesia/Blood Transfusion Reaction / Comment(s): . Past Psychological History: No Psychological Hx Reported Smoking Status: Current every day smoker Past Alcohol Use History: None Reported Past Drug Use History: None Reported - Past Family History Father Additional Family Medical History / Comment(s): MURMUR Mother Family Medical History: No Reported History Additional Family Medical History / Comment(s): MATERNAL GRANDFATHER AT THE AGE OF 45 YRS FROM [place] General Exam Limitations: no limitations General appearance: alert, in no apparent distress Head exam: Present: atraumatic, normocephalic, normal inspection Eye exam: Present: normal appearance, PERRL, EOMI. Absent: scleral icterus, conjunctival injection, periorbital swelling ENT exam: Present: normal exam, normal oropharynx, mucous membranes moist Neck exam: Present: normal inspection, full ROM. Absent: tenderness, meningismus, lymphadenopathy Respiratory exam: Present: normal lung sounds bilaterally. Absent: respiratory distress, wheezes, rales, rhonchi, stridor Cardiovascular Exam: Present: regular rate, normal rhythm, normal heart sounds. Absent: systolic murmur, diastolic murmur, rubs, gallop, clicks Neurological exam: Present: alert, oriented X3, CN II-XII intact, reflexes normal. Absent: motor sensory deficit Skin exam: Present: warm, dry, intact, normal color. Absent: rash Course Vital Signs 09/23/24 10:41 Temperature 97.9 F Pulse Rate 74 Respiratory 20 Rate Blood Pressure 170/122 O2 Sat by Pulse 99 Oximetry EKG Findings - EKG Comments: EKG Findings:: EKG performed at 10: 48 sinus rhythm rate of 78 NM 180 QRS 96 QT/QTc 367/400 - EKG Results: EKG: interpreted by DUNIA Medical Decision Making - Medical Decision Making Was pt. sent in by a medical professional or institution (, PA, BACK SHOE WORKER, urgent care, hospital, or skilled nursing...) When possible be specific @ -BP Did you speak to anyone other than the patient for history (EMS, parent, family, police, friend...)? What history was obtained from this source @ -No Did you review nursing and triage notes (agree or disagree)? Why? @ -I reviewed and agree with nursing and triage notes Were old charts reviewed (outside hosp., previous admission, EMS record, old EKG, old radiological studies, urgent care reports/EKG's, skilled nursing records)? Report findings @ -No old charts were reviewed Differential Diagnosis (chest pain, altered mental status, abdominal pain women, abdominal pain men, vaginal bleeding, weakness, fever, dyspnea, syncope, headache, dizziness, GI bleed, back pain, seizure, CVA, palpatations, mental health, musculoskeletal)? @Differential Chest Pain: Stable Angina, Unstable Angina, STEMI, NSTEMI Aortic Dissection, Pneumothorax, Musculoskeletal, Esophageal Spasm GERD, Cholecystitis, Pancreatitis, Zoster, this is not meant to be an all-inclusive list. EKG interpreted by me (3pts min.). @ -As above X-rays interpreted by me (1pt min.). @ -Chest x-ray shows no acute cardiopulmonary process. CT interpreted by me (1pt min.). @ -None done U/S interpreted by me (1pt. min.). @ -None done What testing was considered but not performed or refused? (CT, X-rays, U/S, labs)? Why? @ -None What meds were considered but not given or refused? Why? @ -None Did you discuss the management of the patient with other professionals (professionals i.e. , PA, BACK SHOE WORKER, lab, RT, psych nurse, certified social workers in health care, home paraprofessional, teacher, training and development officer, case technician)? Give summary @ -No Was smoking cessation discussed for >3mins.? @ -No Was critical care preformed (if so, how long)? @ -No Were there social determinants of health that impacted care today? How? (Homelessness, low income, unemployed, alcoholism, drug addiction, transportation, low edu. Level, literacy, decrease access to med. care, [facility], rehab)? @ -No Was there de-escalation of care discussed even if they declined (Discuss DNR or withdrawal of care, Hospice)? DNR status @ -No What co-morbidities impacted this encounter? (DM, HTN, Smoking, COPD, CAD, Cancer, CVA, ARF, Chemo, Hep., AIDS, mental health diagnosis, sleep apnea, morbid obesity)? @ -None Was patient admitted / discharged? Hospital course, mention meds given and route, prescriptions, significant lab abnormalities, going to OR and other pertinent info. @ -Discharge patient had negative workup including labs EKG chest x-ray. Patient has never had any chest pain or shortness of breath. Patient discharged in stable condition. Undiagnosed new problem with uncertain prognosis? @ -No Drug Therapy requiring intensive monitoring for toxicity (Heparin, Nitro, Insulin, Cardizem)? @ -No Were any procedures done? @ -No Diagnosis/symptom? @ -Leg edema Acute, or Chronic, or Acute on Chronic? @ -Acute Uncomplicated (without systemic symptoms) or Complicated (systemic symptoms)? @ -Complicated Side effects of treatment? @ -No Exacerbation, Progression, or Severe Exacerbation? @ -No Poses a threat to life or bodily function? How? (Chest pain, [place], [place], pneumonia, PE, COPD, DKA, ARF, appy, cholecystitis, CVA, Diverticulitis, Homicidal, Suicidal, threat to staff... and all critical care pts) @ -No - Lab Data Result diagrams: 09/23/24 10:56 09/23/24 10:56 Lab Results 09/23/24 09/23/24 09/23/24 Range/Units 10:50 10:56 10:56 WBC 10.08 H (4.50-10.00) 10*3/uL RBC 4.92 (4.40-5.60) 10*6/uL Hgb 14.0 (13.0-17.0) g/dL Hct 43.7 (39.6-50.0) % MCV 88.8 (80.0-97.0) fL MCH 28.5 (27.0-32.0) pg MCHC 32.0 (32.0-37.0) g/dL Plt Count 299 (140-440) 10*3/uL MPV 11.2 (9.5-12.2) fL Immature Gran % (Auto) 0.6 % Neutrophils % 61.9 % Lymphocytes % 26.2 % Monocytes % 7.3 % Eosinophils % 2.9 % Basophils % 1.1 % Immature Gran # 0.06 H (0.00-0.04) 10*3/uL Neutrophils # 6.24 (1.80-7.70) 10*3/uL Lymphocytes # 2.64 (0.90-5.00) 10*3/uL Monocytes # 0.74 (0.20-1.00) 10*3/uL Eosinophils # 0.29 (0.04-0.35) 10*3/uL Basophils # 0.11 H (0.00-0.10) 10*3/uL PT 9.9 L (10.0-12.5) sec INR 0.9 (<1.2) APTT 27.2 (22.0-30.0) sec Sodium (137-145) mmol/L Potassium (3.5-5.1) mmol/L Chloride (98-107) mmol/L Carbon Dioxide (22-30) mmol/L Anion Gap mmol/L BUN (9-20) mg/dL Creatinine (0.66-1.25) mg/dL Est GFR (CKD-EPI)AfAm (>60 ml/min/1.73 sqM) Est GFR (CKD-EPI)NonAf (>60 ml/min/1.73 sqM) Glucose (74-99) mg/dL Calcium (8.4-10.2) mg/dL Magnesium (1.6-2.3) mg/dL Total Bilirubin (0.2-1.3) mg/dL AST (17-59) U/L ALT (4-49) U/L Alkaline Phosphatase (38-126) U/L Troponin I <0.012 (0.000-0.034) ng/mL NT-Pro-B Natriuret Pep pg/mL Total Protein (6.3-8.2) g/dL Albumin (3.5-5.0) g/dL 09/23/24 Range/Units 10:56 WBC (4.50-10.00) 10*3/uL RBC (4.40-5.60) 10*6/uL Hgb (13.0-17.0) g/dL Hct (39.6-50.0) % MCV (80.0-97.0) fL MCH (27.0-32.0) pg MCHC (32.0-37.0) g/dL Plt Count (140-440) 10*3/uL MPV (9.5-12.2) fL Immature Gran % (Auto) % Neutrophils % % Lymphocytes % % Monocytes % % Eosinophils % % Basophils % % Immature Gran # (0.00-0.04) 10*3/uL Neutrophils # (1.80-7.70) 10*3/uL Lymphocytes # (0.90-5.00) 10*3/uL Monocytes # (0.20-1.00) 10*3/uL Eosinophils # (0.04-0.35) 10*3/uL Basophils # (0.00-0.10) 10*3/uL PT (10.0-12.5) sec INR (<1.2) APTT (22.0-30.0) sec Sodium 139 (137-145) mmol/L Potassium 4.6 (3.5-5.1) mmol/L Chloride 105 (98-107) mmol/L Carbon Dioxide 26 (22-30) mmol/L Anion Gap 8 mmol/L BUN 8 L (9-20) mg/dL Creatinine 1.00 (0.66-1.25) mg/dL Est GFR (CKD-EPI)AfAm >90 (>60 ml/min/1.73 sqM) Est GFR (CKD-EPI)NonAf 89 (>60 ml/min/1.73 sqM) Glucose 86 (74-99) mg/dL Calcium 9.6 (8.4-10.2) mg/dL Magnesium 1.9 (1.6-2.3) mg/dL Total Bilirubin 0.6 (0.2-1.3) mg/dL AST 25 (17-59) U/L ALT 12 (4-49) U/L Alkaline Phosphatase 39 (38-126) U/L Troponin I (0.000-0.034) ng/mL NT-Pro-B Natriuret Pep 27 pg/mL Total Protein 6.4 (6.3-8.2) g/dL Albumin 3.7 (3.5-5.0) g/dL Disposition Clinical Impression: Leg edema Disposition: HOME SELF-CARE Condition: Stable Instructions (If sedation given, give patient instructions): Leg Edema (ED) Additional Instructions: Please return to the Emergency Department if symptoms worsen or any other concerns. Is patient prescribed a controlled substance at d/c from ED?: No Referrals: Evelyn Membreno MD [Primary Care Provider] - 1-2 days Time of Disposition: 12:26
[2024-09-23 12:35] VITALS: BP 144/96; PULSE 64; RESP 18; TEMP 97.4
== END 2024-09-23 12:34 | disposition home or self-care (01) ==
LOC: EC 10:38
DX: R60.0 Localized edema (principal); F17.200 Nicotine dependence, unspecified, uncomplicated
CPT/HCPCS: 36415; 71046; 80053; 83735; 83880; 84484; 85025; 85610; 85730; 93005; 99284